=== PATIENT | female | born 1995 | race Two or more races ===

== ENCOUNTER 2023-02-06 19:27 | Outpatient (REF) | payer BC, SELFPAY ==
[2023-02-13 17:10] LABS: Age Gdln ACOG Testing Note (.); IGP, rfx Aptima HPV ASCU Note (.)
== END 2023-02-06 19:28 | disposition home or self-care (01) ==
LOC: LAB 19:27
PROVIDERS: Visit Provider Obstetrics & Gynecology
DX: Z01.419 Encounter for gynecological examination (general) (routine) without abnormal findings (principal)
CPT/HCPCS: G0145

== ENCOUNTER 2024-02-10 18:26 | Outpatient (REF) | payer OTHER, SELFPAY ==
--- OUTSIDE RECORDS SUMMARY | 2024-02-10 18:37 | XMS_ITS | CCD ---
Author Organization [facility] Care Team Providers Care Senior Ux Developer Name Role Phone PHANI ., DR CURRIE Attending Unavailable PHANI ., DR CURRIE Admitting Unavailable PHANI ., DR CURRIE Consulting Unavailable ZIEBER, DR KORIN Heath Consulting Unavailable FIONA ., AMANDA Attending Unavailable FIONA ., AMANDA Admitting Unavailable ZIEBER, DR KORIN Heath Consulting Unavailable PHANI ., DR CURRIE Primary Care Unavailable FIONA ., AMANDA Consulting Unavailable FARHAT WHITING Admitting Unavailable FARHAT WHITING Consulting Unavailable FARHAT WHITING Attending Unavailable PHANI ., DR CURRIE Primary Care Unavailable PHANI ., DR CURRIE Consulting Unavailable PHANI ., DR CURRIE Admitting Unavailable PHANI ., DR CURRIE Primary Care Unavailable PHANI ., DR CURRIE Attending Unavailable ZIEBER, DR KORIN Heath Consulting Unavailable PHANI ., DR CURRIE Consulting Unavailable PHANI ., DR CURRIE Admitting Unavailable PHANI ., DR CURRIE Primary Care Unavailable PHANI ., DR CURRIE Attending Unavailable ZIEBER, DR KORIN Heath Consulting Unavailable KARASIK ., DR NUNN Consulting Unavailabl e PHANI ., DR CURRIE Attending Unavailable PHANI ., DR CURRIE Admitting Unavailable PHANI ., DR CURRIE Primary Care Unavailable PHANI ., DR CURRIE Consulting Unavailable TAMARA, CHINEDU CMonserrat Consulting Unavailable PHANI ., DR CURRIE Procedure Practitioner Unavail able ARNULFO STALEY Consulting Unavailable PHANI ., DR CURRIE Attending Unavailable PHANI ., DR CURRIE Admitting Unavailable PHANI ., DR CURRIE Consulting Unavailable PHANI ., DR CURRIE Consulting Unavailable PHANI ., DR CURRIE Attending Unavailable PHANI ., DR CURRIE Admitting Unavailable PHANI ., DR CURRIE Primary Care Unavailable PHANI ., DR CURRIE Consulting Unavailable PHANI ., DR CURRIE Admitting Unavailable PHANI ., DR CURRIE Attending Unavailable PHANI ., DR CURRIE Attending Unavailable PHANI ., DR CURRIE Admitting Unavailable PHANI ., DR CURRIE Consulting Unavailable PHANI ., DR CURRIE Attending Unavailable PHANI ., DR CURRIE Admitting Unavailable PHANI ., DR CURRIE Consulting Unavailable PHANI ., DR CURRIE Admitting Unavailable PHANI ., DR CURRIE Attending Unavailable [place], DR AMANDA Jones Consulting Unavailable PHANI ., DR CURRIE Consulting Unavailable PHANI ., DR CURRIE Attending Unavailable PHANI ., DR CURRIE Admitting Unavailable PHANI ., DR CURRIE Consulting Unavailable PHANI ., DR CURRIE Primary Care Unavailable ZIEBER, DR KORIN Heath Consulting Unavailable PHANI ., DR CURRIE Consulting Unavailable PHANI ., DR CURRIE Attending Unavailable PHANI ., DR CURRIE Admitting Unavailable PHANI ., DR CURRIE Primary Care Unavailable ZIEBER, DR KORIN Heath Consulting Unavailable KARASIK ., DR NUNN Attending Unavailabl e KARASIK ., DR NUNN Admitting Unavailabl e KARASIK ., DR NUNN Consulting Unavailabl e PHANI ., DR CURRIE Primary Care Unavailable PHANI ., DR CURRIE Admitting Unavailable PHANI ., DR CURRIE Consulting Unavailable PHANI ., DR CURRIE Attending Unavailable PHANI ., DR CURRIE Primary Care Unavailable ZIEBER, DR KORIN Heath Consulting Unavailable PHANI ., DR CURRIE Consulting Unavailable PHANI ., DR CURRIE Admitting Unavailable PHANI ., DR CURRIE Attending Unavailable PHANI ., DR CURRIE Primary Care Unavailable PHANI ., DR CURRIE Consulting Unavailable PHANI ., DR CURRIE Admitting Unavailable PHANI ., DR CURRIE Attending Unavailable PHANI ., DR CURRIE Primary Care Unavailable NONE, XXXX Primary Care Physician Unavailab Emilee White Unavailable Unavailable DoDO Miroslava bardales Attending Unavailable DoDO Miroslava bardales Attending Unavailable Unavailable Primary Care Provider Unavailabl e PROVIDER, UNKNOWN Admitting Unavailable JAS GARCIAS Attending Unavailable JORGE BROWN Primary Care Physician CHADD SCHULTE Attending Unavailable BROWN, JORGE J Attending Unavailable JORGE BROWN Attending Unavailable JORGE BROWN Attending Unavailable Jimmy Morgan Attending Unavailable JORGE BROWN Referring Unavailable JORGE BROWN Attending Unavailable JORGE BROWN Admitting Unavailable Jimmy Morgan Referring Unavailable Jimmy Morgan Attending Unavailable Jimmy Morgan Admitting Unavailable Jorge Brown NP Unavailable Tawny Gu MD Primary Care Provider Medications Current Medications Medication Drug Class(es) Dates Sig (Normalized) Sig (Original) acetaminophen 500 mg oral tablet (3 sources) Start: 03-23-2023 take 2 tablets by mouth every six hours acetaminophen (TYLENOL) 500 MG tablet Take 2 Tablets by mouth every 6 (six) hours. 30 Tablet 03/23/2023 Active Start: 03-23-2023 take 1000 mg by mout h every six hours 1,000 mg, Oral, Every 6 hours, First dose on 03/23/23 at 1400, Until Discontinued, Post-op acetaminophen 325 mg / HYDROcodone bitartrate 5 mg oral tablet (4 sources) Opioid Agonist Start: 06-05-2017 take 1 tablet by mouth every four hours acetaminophen-hydrocodone 325 mg-5 mg oral tablet 1 tab(s), Oral, q4hr, 7 tab(s), Refill(s) 0, PRN moderate pain. May increase falls. Don't drink, drive, work on this med. Don't take with tylenol, benzos, muscle relaxants. ICD-10 R52 Start Date: 06/05/17 Status: Ordered 0.6 ml enoxaparin sodium 100 mg/ml prefilled syringe (2 sources) Low Molecular Weight Heparin Start: 03-21-2023 enoxaparin (LOVENOX) 60 MG/0.6ML injection 60 mg Start: 03-20-2023 End: 03-21-2023 enoxaparin (LOVENOX) 40 MG/0 .4ML injection 40 mg ibuprofen 600 mg oral tablet (3 sources) Nonsteroidal Anti-inflammatory Drug Start: 03-23-2023 take 1 tablet by mouth every six hours ibuprofen (MOTRIN) 600 MG tablet Take 1 Tablet by mouth every 6 (six) hours. 30 Tablet 3 03/23/2023 Active metFORMIN (4 sources) Biguanide Start: 06-05-2017 metformin Oral, Refills(s) 0 Start Date: 06/05/17 Status: Ordered 1 ml naloxone hydrochloride 0.4 mg/ml injection (1 source) Opioid Antagonist Start: 03-22-2023 naloxone (NARCAN) 0.4 MG/ML injection 2 ml ondansetron 2 mg/ml injection (2 sources) Serotonin-3 Receptor Antagonist Start: 03-21-2023 End: 03-22-2023 ondansetron (ZOFRAN) 4 MG/2ML injection oxyCODONE hydrochloride 5 mg oral tablet (2 sources) Opioid Agonist Start: 03-23-2023 End: 03-26-2023 take 1 tablet by mouth every four hours as needed oxyCODONE 5 MG immediate release tablet Indications: Acute post-operative pain Take 1 Tablet by mouth every 4 hours as needed for up to 3 days. 12 Tablet 0 03/23/2023 03/26/2023 Active Start: 03-22-2023 oxyCODONE imme diate release tablet polyethylene glycol 3350 32396 mg powder for oral solution (1 source) Osmotic Laxative Start: 03-22-2023 polyethylene glycol (MIRALAX) 17 g packet sennosides, fdc 8.6 mg oral tablet (4 sources) Start: 03-23-2023 End: 03-29-2023 take 1 tablet by mouth at bedtime senna (SENOKOT) 8.6 MG tablet Take 1 Tablet by mouth at bedtime for 5 days. 5 Tablet 03/23/2023 Active Start: 03-20-2023 End: 03-22-2023 senna (SENOKOT) tablet sertraline 25 mg oral tablet (7 sources) Serotonin Reuptake Inhibitor Start: 08-28-2023 End: 02-24-2024 take 1 tablet by mouth once daily sertraline (Zoloft) 25 MG tablet Indications: Anxiety , Panic attacks (CMS/HCC) , Major depressive disorder in partial remission, unspecified whether recurrent (HCC) (CMS/HCC) Take 1 tablet (25 mg) by mouth Daily 90 tablet 1 08/28/2023 02/24/2024 Active Start: 02-27-2023 End: 07-15-2024 take 1 tablet by mouth once daily sertraline (ZOLOFT) 25 MG tablet Take 25 mg by mouth daily. 02/27/2023 08/26/2023 Active Completed/Discontinued Medications Medication Drug Class(es) Dates Sig (Normalized) Sig (Original) calcium chloride 0.0014 meq/ml / potassium chloride 0.004 meq/ml / sodium chloride 0.103 meq/ml / sodium lactate 0.028 meq/ml injectable solution (2 sources) Start: 03-20-2023 End: 03-23-2023 lactated ringers iv infusion 1 ml HYDROmorphone hydrochloride 1 mg/ml cartridge (2 sources) Opioid Agonist Start: 03-22-2023 End: 03-23-2023 HYDROmorphone (DILAUDID) 1 mg/mL injection Start: 03-20-2023 End: 03-22-2023 HYDROmorphone (DILAUDID) 0.2 MG/ML injection 0.2 mg 1 ml morphine sulfate 4 mg/ml cartridge (1 source) Opioid Agonist Start: 03-20-2023 End: 03-20-2023 morphine sulfate 4 MG/ML injection prochlorperazine 5 mg/ml injectable solution (1 source) Phenothiazine Start: 03-20-2023 End: 03-20-2023 prochlorperazine (COMPAZINE) 10 MG/2ML injection Problems Active Problems Problem Classification Problem Date Documented Date Episodic/Chronic distress and abnormal forces of labor (1 source) Abnormality of forces of labor, unspecified; Translations: [ABNORMALITY FORCES LABOR UNS] Onset: 06-06-2022 Episodic Menstrual disorders (4 sources) Irregular menstruation, unspecified; Translations: [IRREGULAR MENSTRUATION UNSPECIFIED] Onset: 10-25-2021 Chronic Nonspecific chest pain (1 source) Chest pain; Translations: [Chest pain, unspecified] Onset: 09-21-2022 Episodic Other complications of ; puerperium affecting management of mother (1 source) Obesity complicating childbirth; Translations: [OBESITY COMPLICATING CHILDBIRTH] Onset: 06-06-2022 Chronic Other complications of (4 sources) Uterine size-date discrepancy, third trimester; Translations: [UTERINE SZ-DATE DISCREPANCY 3RD TRI] Onset: 04-21-2022 Episodic Other complications of (4 sources) Maternal care for excessive growth, third trimester, not applicable or unspecified; Translations: [MAT CARE EXCSS FTL GRTH 3RD TRI UNS] Onset: 05-11-2022 Episodic Other endocrine disorders (4 sources) Other hypoglycemia; Translations: [OTHER HYPOGLYCEMIA] Onset: 12-01-2021 Chronic Other endocrine disorders (3 sources) Hyperinsulinism; Translations: [Other hypoglycemia] Onset: 10-12-2022 10-12-2022 Chronic Other inflammatory condition of skin (9 sources) Psoriasis; Translations: [Psoriasis, unspecified] Onset: 11-12-2022 04-24-2013 Chronic Other lower respiratory disease (1 source) Dyspnea; Translations: [Shortness of breath] Onset: 09-21-2022 Episodic Other nervous system disorders (1 source) Acute postoperative pain; Translations: [Other acute postprocedural pain] 03-23-2023 Episodic Other and delivery including normal (10 sources) Single live ; Translations: [Encounter for supervision of normal first , first trimester] Onset: 10-11-2021 Episodic Other screening for suspected conditions (not mental disorders or infectious disease) (20 sources) Encounter for screening for Streptococcus B; Translations: [Encounter for other screening follow-up] Onset: 10-29-2021 Episodic Residual codes; unclassified (3 sources) Obstructive sleep apnea syndrome; Translations: [Obstructive sleep apnea (adult) (pediatric)] Onset: 09-30-2023 Chronic Residual codes; unclassified (1 source) 39 weeks gestation of ; Translations: [39 WEEKS GESTATION OF ] Onset: 06-06-2022 Episodic Residual codes; unclassified (1 source) 38 weeks gestation of ; Translations: [38 WEEKS GESTATION OF ] Onset: 05-11-2022 Episodic Residual codes; unclassified (1 source) 37 weeks gestation of ; Translations: [37 WEEKS GESTATION OF ] Onset: 05-05-2022 Episodic Residual codes; unclassified (1 source) 36 weeks gestation of ; Translations: [36 WEEKS GESTATION OF ] Onset: 04-21-2022 Episodic Unclassified (3 sources) Patient on antidepressant monitoring plan Onset: 08-28-2023 08-28-2023 Unclassified (3 sources) Baseline PHQ-9 Onset: 08-28-2023 08-28-2023 Past or Other Problems Problem Classification Problem Date Documented Date Episodic/Chronic Abdominal pain (3 sources) Acute abdominal pain; Translations: [Right upper quadrant pain] Onset: 03-21-2023 03-22-2023 Episodic Biliary tract disease (4 sources) Common bile duct calculus; Translations: [Calculus of bile duct without cholangitis or cholecystitis without obstruction] Onset: 03-21-2023 03-23-2023 Episodic Hemorrhage during ; abruptio placenta; placenta previa (4 sources) Low lying placenta NOS or without hemorrhage, second trimester; Translations: [LOW LYING PL NOS W/O HEMORR 2ND TRI] Onset: 01-24-2022 Episodic Immunizations and screening for infectious disease (2 sources) Encounter for screening for human papillomavirus (HPV); Translations: [Contact with and (suspected) exposure to infections with a predominantly sexual mode of transmission] Onset: 10-29-2021 Episodic Other complications of (3 sources) size does not accord with dates; Translations: [Uterine size-date discrepancy, third trimester] Onset: 10-12-2022 10-12-2022 Episodic Other female genital disorders (1 source) Other specified noninflammatory disorders of vagina; Translations: [OTH SPEC NONINFLAMMATORY D/O VAGINA] Onset: 02-07-2022 Episodic Other female genital disorders (3 sources) Vaginal discharge; Translations: [Other specified noninflammatory disorders of vagina] Onset: 10-12-2022 10-12-2022 Episodic Pancreatic disorders (not diabetes) (4 sources) Gallstone pancreatitis; Translations: [Biliary acute pancreatitis without necrosis or infection] Onset: 03-20-2023 03-23-2023 Episodic Residual codes; unclassified (1 source) 30 weeks gestation of ; Translations: [30 WEEKS GESTATION OF ] Onset: 03-12-2022 Episodic Residual codes; unclassified (1 source) 8 weeks gestation of ; Translations: [8 WEEKS GESTATION OF ] Onset: 10-11-2021 Episodic Results Test Name Value Interpretation Reference Range Facility Pulmonology Office/Clinic Angelika henry 09-30-2023 Pulmonology Office/Clinic Note Pulmonology Office/Clinic Note History of Present Illness Here to establish care for obstructive sleep apnea. The patient reports that she was told by her that she snores at night and occasionally stops breathing. She reports her sleep quality is quite poor as she tosses and turns frequently throughout the night and wakes up in the morning feeling that her sleep is not refreshing. She has significant fatigue throughout the day as well. Her weight has been stable. Review of Systems Constitutional: no fever, no chills, no sweats, no weakness Skin: no Jaundice, no rash, no lesions, no petechiae ENT: no ear pain, no sore throat, no congestion, no hoarseness Respiratory: Denies shortness of breath, cough or wheezing Cardiovascular: no chest pain, no palpitations, no edema Gastrointestinal: no nausea, no vomiting, no diarrhea, no GI bleeding Genitourinary: no dysuria, no hematuria, no discharge, no pain Musculoskeletal: no back pain, no trauma Neurologic: no headache, no dizziness, no numbness, no weakness Psychiatric: no irritability, no mood swings/depression. Heme/Lymph: no bleeding tendency, no bruising tendency, no petechiae, no swollen nodes Allergy/Immunologic: no seasonal allergies, no food allergies, no recurrent infections, no impaired immunity Additional ROS info: Except as noted in the above Review of Systems and in the History of Present Illness all other systems have been reviewed and are negative or noncontributory. Physical Exam General: Awake, alert, in no acute distress Skin: warm, dry Head: no trauma, normocephalic. Prolonged soft palate Neck: Trachea midline, no adenopathy, no tenderness Eye: normal conjunctiva, sclera clear ENMT: TM's clear, oral mucosa moist, no pharyngeal erythema or exudate Cardiovascular: regular rate and rhythm, normal peripheral perfusion Respiratory: Good breath sounds to both lung lenzt without wheezing or crackles. Gastrointestinal: soft, non distended, no tenderness, no guarding. Back: No tenderness, Normal ROM, Normal alignment. Extremities: no deformity, no trauma Neurological: oriented x 4, LOC appropriate for age, CN II-XII intact, motor strength equal & normal bilaterally, sensation equal & normal bilaterally, speech normal Psychiatric: cooperative, affect appropriate for age, normal judgement, normal psychiatric thoughts. Assessment/Plan 1. CHRIS (obstructive sleep apnea) (G47.33: Obstructive sleep apnea (adult) (pediatric)) Highly likely given the patient's symptoms, physical examination and risk factors. The etiology of obstructive sleep apnea and methods of diagnoses and treatment were discussed with the patient in details. The patient is agreeable to testing and treatment if clinically indicated. I will arrange for sleep study and see her back after her testing is completed. She will call me back in the meantime if any issues. Ordered: Sleep Study Baseline Follow-up With When Contact Information Cathy WOODARD, Jimmy Crocker, PUL, DEREJE [address] [facility] [place] [address]- Additional Instructions: after his testing is completed Problem List/Past Medical History Ongoing CHRIS (obstructive sleep apnea) Psoriasis Historical No qualifying data Medications acetaminophen-hydrocod one 325 mg-5 mg oral tablet, 1 tab(s), Oral, q4hr metformin, Oral Allergies No Known Allergies Social History Alcohol - Denies Alcohol Use, 04/11/2015 Substance Abuse - Denies Substance Abuse, 04/11/2015 Tobacco - Denies Tobacco Use, 08/03/2010 Normal [facility] CHEMISTRYOrdered By: SYSTEM SYSTEM on 08-21-2023 Albumin [Mass/Vol] 4.0 g/dL Normal 3.3 - 5.0 gm/dL Remisol Chem Albumin/Globulin [Mass ratio] 1.4 {ratio} Normal 1.1 - 2.2 Remisol Chem ALP [Catalytic activity/Vol] 70 [iU]/d Normal 21 - 98 Int._Unit/L Remisol Chem ALT No additional P-5'-P [Catalytic activity/Vol] 11 [iU]/d Normal 6 - 46 Int._Unit/L Remisol Chem Anion gap [Moles/Vol] 9 mmol/L Normal 6 - 16 mEq/L R emisol Chem AST [Catalytic activity/Vol] 12 [iU]/d Normal 5 - 43 Int._Unit/L Remisol Chem Bilirubin [Mass/Vol] 0.3 mg/dL Normal 0.0 - 1 .1 mg/dL Remisol Chem Calcium [Mass/Vol] 9.3 mg/dL Normal 8.9 - 11. 1 mg/dL Remisol Chem Chloride [Moles/Vol] 108 mmol/L Normal 101 - 1 11 mmol/L Remisol Chem CO2 [Moles/Vol] 26 mmol/L Normal 21 - 31 mmol/L Remisol Chem Creatinine [Mass/Vol] 0.7 mg/dL Normal 0.5 - 1.3 mg/dL Remisol Chem CRP [Mass/Vol] 0.8 mg/dL Normal <=1.9mg/dL Remisol Ch em eGFR 121 mL/min/1.73 m2 Normal >=59mL/mi n/1 .73 m2 Remisol Chem Globulin (S) [Mass/Vol] 2.8 g/dL Normal 1.4 - 4.0 gm/dL Remisol Chem Glucose [Mass/Vol] 82 mg/dL Normal 55 - 199 mg/dL Remisol Chem Potassium [Moles/Vol] 4.1 mmol/L Normal 3.5 - 5.3 mmol/L Remisol Chem Protein [Mass/Vol] 6.8 g/dL Normal 6.0 - 7.8 gm/dL Remisol Chem Sodium [Moles/Vol] 139 mmol/L Normal 135 - 145 mmol/L Remisol Chem Urea nitrogen [Mass/Vol] 8 mg/dL Normal 5 - 21 mg/dL Remisol Chem Urea nitrogen/Creatinine [Mass ratio] 11 mg/mg Normal 10 - 20 Remisol Chem CMPon 08-21-2023 Albumin [Mass/Vol] 4.0 g/dL Normal 3.3-5.0 [facility] Comment on above: Performed By: #### 2 [id number] #### [facility] [address] [place] [address] Albumin/Globulin (S) [Mass conc ratio] 1.4 Normal 1.1-2.2 [facility] Comment on above: Performed By: #### 2 [id number] #### [facility] [address] [place] [address] ALP [Catalytic activity/Vol] 70 Int._Unit/L Normal 21-98 [facility] Comment on above: Performed By: #### 2 [id number] #### [facility] [address] [place] [address] ALT No additional P-5'-P [Catalytic activity/Vol] 11 Int._Unit/L Normal 6-46 [facility] Comment on above: Performed By: #### 2 [id number] #### [facility] [address] [place] [address] Anion gap [Moles/Vol] 9 mmol/L Normal 6-16 [facility] Comment on above: Performed By: #### 2 [id number] #### [facility] [address] [place] [address] AST [Catalytic activity/Vol] 12 Int._Unit/L Normal 5-43 [facility] Comment on above: Performed By: #### 2 [id number] #### [facility] [address] [place] [address] Bilirubin [Mass/Vol] 0.3 mg/dL Normal 0.0-1.1 [facility] Comment on above: Performed By: #### 2 [id number] #### [facility] [address] [place] [address] Calcium [Mass/Vol] 9.3 mg/dL Normal 8.9-11.1 [facility] Comment on above: Performed By: #### 2 [id number] #### [facility] [address] [place] [address] Chloride [Moles/Vol] 108 mmol/L Normal 101-111 [facility] Comment on above: Performed By: #### 2 [id number] #### [facility] [address] [place] [address] CO2 [Moles/Vol] 26 mmol/L Normal 21-31 [facility] Comment on above: Performed By: #### 2 [id number] #### [facility] [address] [place] [address] Creatinine [Mass/Vol] 0.7 mg/dL Normal 0.5-1.3 [facility] Comment on above: Performed By: #### 2 [id number] #### [facility] [address] [place] [address] Globulin (S) [Mass/Vol] 2.8 g/dL Normal 1.4-4.0 [facility] Comment on above: Performed By: #### 2 [id number] #### [facility] [address] [place] [address] Glucose [Mass/Vol] 82 mg/dL Normal 55-199 [facility] Comment on above: Performed By: #### 2 [id number] #### [facility] [address] [place] [address] Potassium [Moles/Vol] 4.1 mmol/L Normal 3.5-5.3 [facility] Comment on above: Performed By: #### 2 [id number] #### [facility] [address] [place] [address] Protein [Mass/Vol] 6.8 g/dL Normal 6.0-7.8 [facility] Comment on above: Performed By: #### 2 [id number] #### [facility] [address] [place] [address] Sodium [Moles/Vol] 139 mmol/L Normal 135-145 [facility] Comment on above: Performed By: #### 2 [id number] #### [facility] [address] [place] [address] Urea nitrogen [Mass/Vol] 8 mg/dL Normal 5-21 [facility] Comment on above: Performed By: #### 2 [id number] #### [facility] [address] [place] [address] Urea nitrogen/Creatinine [Mass ratio] 11 No Units Normal 10-20 [facility] Comment on above: Performed By: #### 2 [id number] #### [facility] [address] [place] [address] CRPon 08-21-2023 CRP [Mass/Vol] 0.8 mg/dL Normal <=1.9 [facility] Comment on above: Performed By: #### 2 [id number] #### [facility] [address] [place] [address] eGFRon 08-21-2023 eGFR 121 mL/min/1.73 m2 Normal >=59 [facility] Comment on above: Order Comment: Order added by Discern Expert. Performed By: #### 1 [id number] #### [facility] [address] [place] [address] Telephone Encounteron 2023 Hydrostatic Tester Authentication Interface Message Text Situation: pt called in Background: pt called in requesting a return to work letter Assessment: Recommendation: please contact pt with any questions at Phone numbers Thank you Normal [facility] BASIC METABOLIC PANELon 03-14 Anion gap [Moles/Vol] 16 mmol/L Normal 10-20 [facility] Comment on above: Performed By: #### C BC #### [facility] [address] [place] [address], Calcium [Mass/Vol] 8.8 mg/dL Normal 8.6-10.3 [facility] Comment on above: Result Comment: Note updated reference ranges. Performed By: #### C BC #### [facility] [address] [place] [address], Chloride [Moles/Vol] 110 mmol/L High 98-107 [facility] Comment on above: Result Comment: Note updated reference ranges. Performed By: #### C BC #### [facility] [address] [place] [address], CO2 [Moles/Vol] 20 mmol/L Low 21-31 [facility] Comment on above: Result Comment: Note updated reference ranges. Performed By: #### C BC #### [facility] [address] [place] [address], Creatinine [Mass/Vol] 0.45 mg/dL Low 0.60-1.20 [facility] Comment on above: Result Comment: Note updated reference ranges. Performed By: #### C BC #### [facility] [address] [place] [address], ESTIMATED GFR (CKD-EPI) 136 mL/min/1.73sqm Normal >=60 [facility] Comment on above: Result Comment: 2020 CKD EPI Equation using Creatinine without Race Comment: Estimated glomerular filtration rate (eGFR) is calculated without a race coefficient. Values should be interpreted in the context of the patient's full clinical presentation. Reference: 1. Blas C, Guille M, Adelaide DC, et al.. A Unifying Approach for GFR Estimation: Recommendations of the NKF-ASN Task Force on Reassessing the Inclusion of Race in Diagnosing Kidney Disease. [place] Journal of Kidney Diseases 2021;79(2):268-88.e1. 2. N Engl J Med 1 Vol. 385 Issue 19 Pages 1523-1596 Performed By: #### C BC #### [facility] [address], [place], Glucose [Mass/Vol] 111 mg/dL High 74-109 [facility] Comment on above: Performed By: #### C BC #### [facility] [address], [place], Potassium [Moles/Vol] 4.2 mmol/L Normal 3.5-5.0 [facility] Comment on above: Result Comment: Note updated reference ranges. Note updated reference ranges. Performed By: #### C BC #### [facility] [address], [place], Sodium [Moles/Vol] 142 mmol/L Normal 136-145 [facility] Comment on above: Result Comment: Note updated reference ranges. Performed By: #### C BC #### [facility] [address], [place], Urea nitrogen [Mass/Vol] 8 mg/dL Normal 7-25 [facility] Comment on above: Result Comment: Note updated reference ranges. Performed By: #### C BC #### [facility] [address], [place], Basic metabolic 2000 panelon 03-24-2023 Anion gap [Moles/Vol] 16 mmol/L 10 - 20 [facility] Calcium [Mass/Vol] 8.8 mg/dL 8.6 - 10. 3 mg/dL [facility] Comment on above: Note updated referen ce ranges. Chloride [Moles/Vol] 110 mmol/L High 98 - 10 7 mmol/L [facility] Comment on above: Note updated referen ce ranges. CO2 [Moles/Vol] 20 mmol/L Low 21 - 31 mmol/L [facility] Comment on above: Note updated referen ce ranges. Creatinine [Mass/Vol] 0.45 mg/dL Low 0.60 - 1.20 mg/dL [facility] Comment on above: Note updated referen ce ranges. GFR/1.73 sq M.predicted CKD-EPI (S/P/Bld) [Vol rate/Area] 136 - PINF [facility] Comment on above: 2020 CKD EPI Equatio n using Creatinine without Race Comment: Estimated glomerular filtration rate (eGFR) is calculated without a race coefficient. Values should be interpreted in the context of the patient's full clinical presentation. Reference: 1. Blas C, Guille M, Adelaide GUZMÁN, et al.. A Unifying Approach for GFR Estimation: Recommendations of the NKF-ASN Task Force on Reassessing the Inclusion of Race in Diagnosing Kidney Disease. [place] Journal of Kidney Diseases 202;79(2):268-88.e1. 2. N Engl J Med 1 Vol. 385 Issue 19 Pages 4105-1169 Glucose [Mass/Vol] 111 mg/dL High 74 - 109 mg/dL [facility] Interpretation and review of laboratory results Abnormal [facility] Potassium [Moles/Vol] 4.2 mmol/L 3.5 - 5.0 mmol/L [facility] Comment on above: Note updated referen ce ranges. Note updated reference ranges. Sodium [Moles/Vol] 142 mmol/L 136 - 145 mmol/L [facility] Comment on above: Note updated referen ce ranges. Urea nitrogen [Mass/Vol] 8 mg/dL 7 - 25 mg/dL [facility] Comment on above: Note updated referen ce ranges. CBC panel Auto (Bld)on 03-24 Erythrocyte distribution width (RBC) [Ratio] 15.3 % High 11.5 - 14.5 % [facility] Hematocrit (Bld) [Volume fraction] 35.1 % Low 36.0 - 46.0 % [facility] Hemoglobin (Bld) [Mass/Vol] 11.3 g/dL Low 12.0 - 15.0 g/dL [facility] Interpretation and review of laboratory results Abnormal [facility] MCH (RBC) [Entitic mass] 27.1 pg 26.0 - 34.0 pg [facility] MCHC (RBC) [Mass/Vol] 32.2 g/dL 32.0 - 35.9 g/dL [facility] MCV (RBC) [Entitic vol] 84 fL 80 - 100 fL [facility] Platelet mean volume (Bld) [Entitic vol] 8.8 fL 7.5 - 11.2 fL [facility] Platelets (Bld) [#/Vol] 280 10*3/uL 150 - 400 K/uL [facility] RBC (Bld) [#/Vol] 4.17 10*6/uL [facility] WBC (Bld) [#/Vol] 13.2 10*3/uL High 4.5 - 11.5 K/uL [facility] COMPLETE BLOOD COUNTon 03-24 Erythrocyte distribution width (RBC) [Ratio] 15.3 % High 11.5-14.5 [facility] Comment on above: Performed By: #### C BC #### [facility] [address] [place] [address], Hematocrit (Bld) [Volume fraction] 35.1 % Low 36.0-46.0 [facility] Comment on above: Performed By: #### C BC #### [facility] [address] [place] [address], Hemoglobin (Bld) [Mass/Vol] 11.3 g/dL Low 12.0-15.0 [facility] Comment on above: Performed By: #### C BC #### [facility] [address] [place] [address], MCH (RBC) [Entitic mass] 27.1 pg Normal 26.0-34.0 [facility] Comment on above: Performed By: #### C BC #### [facility] [address] [place] [address], MCHC (RBC) [Mass/Vol] 32.2 g/dL Normal 32.0-35.9 [facility] Comment on above: Performed By: #### C BC #### [facility] [address] [place] [address], MCV (RBC) [Entitic vol] 84 fL Normal 80-100 [facility] Comment on above: Performed By: #### C BC #### [facility] [address] [place] [address], Platelet mean volume (Bld) [Entitic vol] 8.8 fL Normal 7.5-11.2 [facility] Comment on above: Performed By: #### C BC #### [facility] [address], [place], Platelets (Bld) [#/Vol] 280 10*3/uL Normal 150-400 [facility] Comment on above: Performed By: #### C BC #### [facility] [address], [place], RBC (Bld) [#/Vol] 4.17 10*6/uL Normal 4.00-5.20 [facility] Comment on above: Performed By: #### C BC #### [facility] [address], [place], WBC (Bld) [#/Vol] 13.2 10*3/uL High 4.5-11.5 [facility] Comment on above: Performed By: #### C BC #### [facility] [address], [place], Care Plan Noteon 03-24-2023 Hydrostatic Tester Authentication Interface Message Text Problem: Routine Care: Goal: Patient care will be managed and maintained throughout hospital stay per unit specific routine care procedure Outcome: Progressing Problem: Acute Pain: Goal: Ability to identify pain intensity on a pain scale and rate it consistently will be achieved and maintained Outcome: Progressing Goal: Understanding of proper administration and use of medicines will be achieved Outcome: Progressing Goal: Acceptable level of pain which allows the patient to achieve functional outcome goals Outcome: Progressing PRN pain medication to be administered as needed to maintain/control pain Problem: Altered Elimination: Goal: Establishment of normal urinary function will be acheived and maintained Outcome: Progressing Problem: Altered Nutrition: Goal: Achieve developmentally appropriate nutritional intake as clinically indicated Outcome: Progressing Problem: Risk for Infection: Goal: Risk for infection will be reduced Outcome: Progressing Problem: Impaired Skin Integrity: Goal: Acheive wound healing without signs and symptoms of infection Outcome: Progressing Problem: VTE Prophylaxis: Goal: Will be free of DVT Outcome: Progressing Problem: Safety: Goal: Patient will remain free of falls during hospital stay Outcome: Progressing Goal: Free from injury during hospitalization Outcome: Progressing Patient has call light within reach, educated on use of call light, and has side rails in place Normal [facility] MAGNESIUMon 03-24-2023 Magnesium [Mass/Vol] 2.1 mg/dL Normal 1.9-2.7 [facility] Comment on above: Result Comment: Note updated reference ranges. Performed By: #### C BC #### [facility] [address], [place], Interpretation and review of laboratory results Normal [facility] Magnesium [Mass/Vol] 2.1 mg/dL 1.9 - 2 .7 mg/dL [facility] Comment on above: Note updated referen ce ranges. No Panel Informationon 03-24 [facility] ANTI FXA-LMW HEPARINon 03-23 ANTI FXA-LMW HEPARIN ASSAY 0.37 IU/mL Normal [facility] Comment on above: Order Comment: The r ecommended therapeutic range for treatment of thrombosis with Low Molecular Weight Heparin is 0.5 - 1.0 IU/mLThe recommended range for VTE prophylaxis with Low Molecular Weight Heparin is 0.2 - 0.4 IU/mL. Performed By: #### A XL ####[facility] [id number] [place], [place], LMW Heparin Chromogenic method Qn (PPP) 0.37 IU/mL [facility] The recommended therapeutic range for treatment of thrombosis with Low Molecular Weight Heparin is 0.5 - 1.0 IU/mL The recommended range for VTE prophylaxis with Low Molecular Weight Heparin is 0.2 - 0.4 IU/mL. [facility] Anesthesia Postprocedure Barbra luationon 03-23-2023 Hydrostatic Tester Authentication Interface Message Text Anesthesia Postoperative Assessment: Vital Signs (most recent): BP 135/89 (BP Location: right arm) Pulse 108 Temp 36.8 ???C (98.2 ???F) (Oral) Resp 16 Ht 5' 7 (1.702 m) Wt 270 lb (122.5 kg) LMP 03/06/2023 SpO2 95% BMI 42.29 kg/m??? Anesthesia Post Evaluation Level of consciousness: awake Post-procedure exam normal. Body temperature, hydration status, PONV and pain evaluated and addressed. Pain management: adequate Hydration status: normal PONV:No nausea/vomiting reported Cardiopulmonary status stable Respiratory status: acceptable Cardiovascular status: acceptable ANESTHESIA NOTABLE EVENTS: No notable events documented. Normal [facility] Anesthesia Transfer Of [facility] n 03-23-2023 Hydrostatic Tester Authentication Interface Message Text Patient taken to PACU. Patient was drowsy, comfortable, and stable on arrival. Anesthesia Transfer of Care Note Past Medical History: No past medical history on file. Sleep Apnea/Positive STOP-BANG: No Problem List: Patient Active Problem List: Gallstone pancreatitis [K85.10] Psoriasis [L40.9] Choledocholithiasis [K80.50] Acute bilateral upper abdominal pain [R10.11, R10.12] Past Surgical History: There is no previous surgical history on file. Allergies: Patient has no known allergies. Basic Operating Room Facts: Surgeon(s): Sean Andrews MD Anesthesiologist: Michelle Loaiza MD HOME CARE PHYSICAL THERAPIST: Jennifer Gauthier APRN-KALANI Methodologist: Félix Sahu MD LAPAROSCOPIC CHOLECYSTECTOMY, bilateral TAP block (Abdomen) Intraoperative Events: Hypertension ASA: 3 EBL: 5 mL Urine Not documented Lactated Ringers and NaCl 0.9%: Fluid Totals (Filter: LR and NaCl 0.9% Medications Shown) Medication Calculated Total Lactated Ringers 1,200 mL / 2 bags Cell Saver: Not documented Blood Volume Values: Blood Products None MTP Blood: MTP PRBC: Not documented MTP FFP: Not documented MTP PLT: Not documented MTP Cryo: Not documented MTP Whole Blood: Not documented Current Vasoactive Medications: {Vasoactive Medications: None Lines, Drains, Airways Peripheral IV Access: 03/20/23 1317 20 gauge Left Antecubital (Active) Site Assessment WNL;Dressing intact 03/22/231929 Infusion Status Port #1 Capped;Patent 03/22/231929 Peripheral IV Access: 03/21/23 0700 22 gauge Anterior;Left Hand Present on Transfer to Unit / Floor (Active) Site Assessment WNL;Dressing intact 03/22/231929 Infusion Status Port #1 Infusing;Patent 03/22/231929 Airway Insertion Details [REMOVED] Advanced Airway: ETT, Oral;Cuffed #7 (Removed) 03/23/23 0803 Pre-Oxygenation/ Induction: Mask Rapid Sequence Induction?: Mask Ventilation: Easy Blade Type: Hyperangulated Blade Size: 3 Visualization: Grade 1 Airway Type: ETT, Oral;Cuffed Airway Size: #7 Post Insertion Assessment: Confirmation: Equal bilateral breath sounds, CO2 confirmed # Attempts >1: Special Equipment: Glidescope Present on Admission?: Previously Removed / Not Present: Removal Reason: Not Removed at Discharge: Removed 03/23/2357 Location (cm) 03/23/23802 Measured from: Lips 03/23/23802 Secured via: Taped 03/23/23802 Site Assessment WNL 03/23/23802 All non-working IVs have been removed: N/A Laboratory Data: CBC (last 3 years, up to 5 values) WBC RBC Hgb Hct MCV RDW Plt 03/23/23 0122 12.6 4.37 11.9 36.5 84 14.9 298 03/22/23 0252 12.4 4.30 11.8 36.0 84 15.0 288 03/21/23 0046 9.1 4.84 13.1 40.4 84 15.5 292 03/20/23 1207 8.3 4.78 12.6 40.1 84 15.1 322 Basic Metabolic Panel Na K Cl CO2 Gap Glu BUN Cr Ca 03/23/23 0122 139 Comment: Note updated reference ranges. 3.9 Comment: Note updated reference ranges. Note updated reference ranges. 108 Comment: Note updated reference ranges. 20 Comment: Note updated reference ranges. 15 75 7 Comment: Note updated reference ranges. 0.49 Comment: Note updated reference ranges. 8.5 Comment: Note updated reference ranges. 03/22/23 0252 139 Comment: Note updated reference ranges. 4.2 Comment: Note updated reference ranges. Note updated reference ranges. 109 Comment: Note updated reference ranges. 18 Comment: Note updated reference ranges. 16 105 7 Comment: Note updated reference ranges. 0.52 Comment: Note updated reference ranges. 8.6 Comment: Note updated reference ranges. 03/21/23 0046 139 Comment: Note updated reference ranges. 3.8 Comment: Note updated reference ranges. Note updated reference ranges. 106 Comment: Note updated reference ranges. 22 Comment: Note updated reference ranges. 15 105 7 Comment: Note updated reference ranges. 0.59 Comment: Note updated reference ranges. 8.9 Comment: Note updated reference ranges. 03/20/23 1207 141 Comment: Note updated reference ranges. 3.9 Comment: Note updated reference ranges. Note updated reference ranges. 109 Comment: Note updated reference ranges. 23 Comment: Note updated reference ranges. 13 84 7 Comment: Note updated reference ranges. 0.66 Comment: Note updated reference ranges. 8.7 Comment: Note updated reference ranges. Basic Metabolic Panel Na K Cl CO2 Gap Glu BUN Cr Ca Mg PO4 03/23/23121 139 Comment: Note updated reference ranges. 3.9 Comment: Note updated reference ranges. Note updated reference ranges. 108 Comment: Note updated reference ranges. 20 Comment: Note updated reference ranges. 15 75 7 Comment: Note updated reference ranges. 0.49 Comment: Note updated reference ranges. 8.5 Comment: Note updated reference ranges. 03/23/23 012 1.8 Comment: Note updated reference ranges. 03/22/23 0252 139 Comment: Note update (more content not included)... Normal [facility] BASIC METABOLIC PANELon 03-14 Anion gap [Moles/Vol] 15 mmol/L Normal 10-20 [facility] Comment on above: Performed By: #### H MG LUIGI, CH8 #### [facility] [address] [place] [address], Calcium [Mass/Vol] 8.5 mg/dL Low 8.6-10.3 [facility] Comment on above: Result Comment: Note updated reference ranges. Performed By: #### MG IRON, CH8 #### [facility] [address] [place] [address], Chloride [Moles/Vol] 108 mmol/L High 98-107 [facility] Comment on above: Result Comment: Note updated reference ranges. Performed By: #### Collin MEYERS MG, CH8 #### [facility] [address] [place] [address], CO2 [Moles/Vol] 20 mmol/L Low 21-31 [facility] Comment on above: Result Comment: Note updated reference ranges. Performed By: #### H LUIGI MG, CH8 #### [facility] [address] [place] [address], Creatinine [Mass/Vol] 0.49 mg/dL Low 0.60-1.20 [facility] Comment on above: Result Comment: Note updated reference ranges. Performed By: #### H LUIGI MG, CH8 #### [facility] [address] [place] [address], ESTIMATED GFR (CKD-EPI) 133 mL/min/1.73sqm Normal >=60 [facility] Comment on above: Result Comment: 2020 CKD EPI Equation using Creatinine without Race Comment: Estimated glomerular filtration rate (eGFR) is calculated without a race coefficient. Values should be interpreted in the context of the patient's full clinical presentation. Reference: 1. Blas C, Guille M, Adelaide GUZMÁN, et al.. A Unifying Approach for GFR Estimation: Recommendations of the NKF-ASN Task Force on Reassessing the Inclusion of Race in Diagnosing Kidney Disease. [place] Journal of Kidney Diseases 2021;79(2):268-88.e1. 2. N Engl J Med 2020 Vol. 385 Issue 19 Pages 6491-4548 Performed By: #### MG IRON, CH8 #### [facility] [address] [place] [address], Glucose [Mass/Vol] 75 mg/dL Normal 74-109 [facility] Comment on above: Performed By: #### Collin MEYERS MG, CH8 #### [facility] [address] [place] [address], Potassium [Moles/Vol] 3.9 mmol/L Normal 3.5-5.0 [facility] Comment on above: Result Comment: Note updated reference ranges. Note updated reference ranges. Performed By: #### MG IRON, CH8 #### [facility] [address] [place] [address], Sodium [Moles/Vol] 139 mmol/L Normal 136-145 [facility] Comment on above: Result Comment: Note updated reference ranges. Performed By: #### MG IRON, CH8 #### [facility] [address] [place] [address], Urea nitrogen [Mass/Vol] 7 mg/dL Normal 7-25 [facility] Comment on above: Result Comment: Note updated reference ranges. Performed By: #### Collin MEYERS MG, CH8 #### [facility] [address] [place] [address], [id number] Basic metabolic 2000 panelon 03-23-2023 Anion gap [Moles/Vol] 15 mmol/L 10 - 20 [facility] Calcium [Mass/Vol] 8.5 mg/dL Low 8.6 - 10. 3 mg/dL [facility] Comment on above: Note updated referen ce ranges. Chloride [Moles/Vol] 108 mmol/L High 98 - 10 7 mmol/L [facility] Comment on above: Note updated referen ce ranges. CO2 [Moles/Vol] 20 mmol/L Low 21 - 31 mmol/L [facility] Comment on above: Note updated referen ce ranges. Creatinine [Mass/Vol] 0.49 mg/dL Low 0.60 - 1.20 mg/dL [facility] Comment on above: Note updated referen ce ranges. GFR/1.73 sq M.predicted CKD-EPI (S/P/Bld) [Vol rate/Area] 133 - PINF [facility] Comment on above: 2020 CKD EPI Equatio n using Creatinine without Race Comment: Estimated glomerular filtration rate (eGFR) is calculated without a race coefficient. Values should be interpreted in the context of the patient's full clinical presentation. Reference: 1. Blas C, Basilverja M, Crehilda DC, et al.. A Unifying Approach for GFR Estimation: Recommendations of the NKF-ASN Task Force on Reassessing the Inclusion of Race in Diagnosing Kidney Disease. [place] Journal of Kidney Diseases 202;79(2):268-88.e1. 2. N Engl J Med 1 Vol. 385 Issue 19 Pages 6021-7920 Glucose [Mass/Vol] 75 mg/dL 74 - 109 mg/dL [facility] Potassium [Moles/Vol] 3.9 mmol/L 3.5 - 5.0 mmol/L [facility] Comment on above: Note updated referen ce ranges. Note updated reference ranges. Sodium [Moles/Vol] 139 mmol/L 136 - 145 mmol/L [facility] Comment on above: Note updated referen ce ranges. Urea nitrogen [Mass/Vol] 7 mg/dL 7 - 25 mg/dL [facility] Comment on above: Note updated referen ce ranges. Brief Operative Noteon 03-23 Hydrostatic Tester Authentication Interface Message Text Brief Operative Note MAIN OR [address] 27 year old female Surgical Contact Serial Number: [id number] Preoperative Diagnosis: Pre-op Diagnosis * Gallstone pancreatitis [K85.10] * Choledocholithiasis [K80.50] Postoperative Diagnosis: * Gallstone pancreatitis [K85.10] * Choledocholithiasis [K80.50] Procedures: Surgical CPTs Procedures ERCP REMOVAL OF STONE(S) [44660] SPHINCTEROTOMY [70935] No data filed Laparoscopic cholecystectomy Surgeon(s): Surgeon(s): Sean Andrews MD Staff: Scrub: Maria Victoria Wade Motor Assembler Nurse: Monica Pierre RN Technical Support 1 Software Engineer: Gerson Collazo MD; Kory Hernandez MD Anesthesia: General Anesthesiologist: Michelle Loaiza MD HOME CARE PHYSICAL THERAPIST: Jennifer Gauthier APRN-HOME CARE PHYSICAL THERAPIST Methodologist: Félix Sahu MD Specimen(s): ID Type Source Tests Collected by Time Destination 1 : Gallbladder Tissue Gallbladder SPECIMEN FOR SURGICAL PATH Sean Andrews MD 03/23/2023 0909 Estimated Blood Loss: 10cc Lines/Drains: Peripheral IV Access: 03/20/23 1317 20 gauge Left Antecubital (Active) Site Assessment WNL;Dressing intact 03/22/231929 Infusion Status Port #1 Capped;Patent 03/22/231929 Peripheral IV Access: 03/21/23 0700 22 gauge Anterior;Left Hand Present on Transfer to Unit / Floor (Active) Site Assessment WNL;Dressing intact 03/22/231929 Infusion Status Port #1 Infusing;Patent 03/22/231929 Findings: - intrahepatic gallbladder, numerous gallstones within the gallbladder Complications: None Status at end of surgery: Stable Activity: weight bearing as tolerated and progressive ambulation Surgical wound class: Yes, wound was contaminated. Patient Class: Inpatient. Dr. Andrews was present in the OR for the critical portion of the procedure and procedure sign-out. Signed by Gerson Collazo MD 03/23/2023 10:11 AM Normal [facility] CBC panel Auto (Bld)on 03-23 Erythrocyte distribution width (RBC) [Ratio] 14.9 % High 11.5 - 14.5 % [facility] Hematocrit (Bld) [Volume fraction] 36.5 % 36.0 - 46.0 % [facility] Hemoglobin (Bld) [Mass/Vol] 11.9 g/dL Low 12.0 - 15.0 g/[facility] Interpretation and review of laboratory results Abnormal [facility] MCH (RBC) [Entitic mass] 27.3 pg 26.0 - 34.0 pg [facility] MCHC (RBC) [Mass/Vol] 32.6 g/dL 32.0 - 35.9 g/dL [facility] MCV (RBC) [Entitic vol] 84 fL 80 - 100 fL [facility] Platelet mean volume (Bld) [Entitic vol] 8.6 fL 7.5 - 11.2 fL [facility] Platelets (Bld) [#/Vol] 298 10*3/uL 150 - 400 K/uL [facility] RBC (Bld) [#/Vol] 4.37 10*6/uL [facility] [#/Vol] 12.6 10*3/uL High 4.5 - 11.5 K/uL [facility] COMPLETE BLOOD COUNTon 03-23 Erythrocyte distribution width (RBC) [Ratio] 14.9 % High 11.5-14.5 [facility] Comment on above: Performed By: #### C BC #### [facility] [address] [place] [address], Hematocrit (Bld) [Volume fraction] 36.5 % Normal 36.0-46.0 [facility] Comment on above: Performed By: #### C BC #### [facility] [address] [place] [address], Hemoglobin (Bld) [Mass/Vol] 11.9 g/dL Low 12.0-15.0 [facility] Comment on above: Performed By: #### C BC #### [facility] [address] [place] [address], MCH (RBC) [Entitic mass] 27.3 pg Normal 26.0-34.0 [facility] Comment on above: Performed By: #### C BC #### [facility] [address] [place] [address], MCHC (RBC) [Mass/Vol] 32.6 g/dL Normal 32.0-35.9 [facility] Comment on above: Performed By: #### C BC #### S [facility] [address] [place] [address], MCV (RBC) [Entitic vol] 84 fL Normal 80-100 [facility] Comment on above: Performed By: #### C BC #### [facility] [address] [place] [address], Platelet mean volume (Bld) [Entitic vol] 8.6 fL Normal 7.5-11.2 [facility] Comment on above: Performed By: #### C BC #### [facility] [address] [place] [address], Platelets (Bld) [#/Vol] 298 10*3/uL Normal 150-400 [facility] Comment on above: Performed By: #### C BC #### [facility] [address] [place] [address], RBC (Bld) [#/Vol] 4.37 10*6/uL Normal 4.00-5.20 [facility] Comment on above: Performed By: #### C BC #### [facility] [address] [place] [address], WBC (Bld) [#/Vol] 12.6 10*3/uL High 4.5-11.5 [facility] Comment on above: Performed By: #### C BC #### [facility] [address] [place] [address], Care Plan Noteon 03-23-2023 Hydrostatic Tester Authentication Interface Message Text Problem: Routine Care: Goal: Patient care will be managed and maintained throughout hospital stay per unit specific routine care procedure Outcome: Progressing Note: Purposeful hourly rounding performed. Problem: Acute Pain: Goal: Ability to identify pain intensity on a pain scale and rate it consistently will be achieved and maintained Outcome: Progressing Note: Patient aware of PRN pain medications. Will continue to assess pain throughout shift and medicate as indicated. Goal: Understanding of proper administration and use of medicines will be achieved Outcome: Progressing Goal: Acceptable level of pain which allows the patient to achieve functional outcome goals Outcome: Progressing Problem: Altered Elimination: Goal: Establishment of normal urinary function will be acheived and maintained Outcome: Progressing Problem: Altered Nutrition: Goal: Achieve developmentally appropriate nutritional intake as clinically indicated Outcome: Progressing Note: Tolerating regular diet. No N/V reported. Problem: Risk for Infection: Goal: Risk for infection will be reduced Outcome: Progressing Problem: Impaired Skin Integrity: Goal: Acheive wound healing without signs and symptoms of infection Outcome: Progressing Note: Lap sites closed with topical skin adhesive. Problem: VTE Prophylaxis: Goal: Will be free of DVT Outcome: Progressing Problem: Safety: Goal: Patient will remain free of falls during hospital stay Outcome: Progressing Note: Call light within reach AND bed in low positionCall light within reach AND bed in low position Goal: Free from injury during hospitalization Outcome: Progressing Normal [facility] HEPATIC FUNCTION PANELon Albumin [Mass/Vol] 3.5 g/dL Normal 3.5-5.7 [facility] Comment on above: Order Comment: Note updated reference ranges. Performed By: #### H MG LUIGI CH8 #### [facility] [address] [place] [address], ALK 125 IU/L High 34-104 [facility] Comment on above: Order Comment: Note updated reference ranges. Performed By: #### H MG LUIGI, CH8 #### [facility] [address] [place] [address], ALT [Catalytic activity/Vol] 141 U/L High 7-52 [facility] Comment on above: Order Comment: Note updated reference ranges. Performed By: #### H MG LUIGI, CH8 #### [facility] [address], [place], AST [Catalytic activity/Vol] 17 U/L Normal 13-39 [facility] Comment on above: Order Comment: Note updated reference ranges. Performed By: #### H MG LUIGI, CH8 #### [facility] [address], [place], Bilirubin [Mass/Vol] 0.6 mg/dL Normal 0.3-1.0 [facility] Comment on above: Order Comment: Note updated reference ranges. Performed By: #### H MG LUIGI, CH8 #### [facility] [address], [place], Bilirubin.direct [Mass/Vol] 0.16 mg/dL Normal 0.03-0.18 [facility] Comment on above: Order Comment: Note updated reference ranges. Performed By: #### H MG LUIGI, CH8 #### [facility] [address], [place], Protein [Mass/Vol] 6.0 g/dL Normal 6.0-8.3 [facility] Comment on above: Order Comment: Note updated reference ranges. Performed By: #### H MG MEYERS CH8 #### [facility] [address], [place], Albumin [Mass/Vol] 3.5 g/dL 3.5 - 5.7 g/dL [facility] ALP [Catalytic activity/Vol] 125 U/L High [facility] ALT [Catalytic activity/Vol] 141 U/L High [facility] AST [Catalytic activity/Vol] 17 U/L [facility] Bilirubin [Mass/Vol] 0.6 mg/dL 0.3 - 1 .0 mg/dL [facility] Bilirubin.direct [Mass/Vol] 0.16 mg/dL 0.03 - 0.18 mg/dL [facility] Protein [Mass/Vol] 6.0 g/dL 6.0 - 8.3 g/dL [facility] Note updated referen ce ranges. [facility] MAGNES[facility]UM[facility] 03-23-2023 Magnesium [Mass/Vol] 1.8 mg/dL Low 1.9-2.7 [facility] Comment on above: Result Comment: Note updated reference ranges. Performed By: #### H MG LUIGI, BASSAM8 #### [facility] [address], [place], Magnesium [Mass/Vol] 1.8 mg/dL Low 1.9 - 2 .7 mg/dL [facility] Comment on above: Note updated referen ce ranges. No Panel Informationon 03-23 Interpretation and review of laboratory results [facility] 03-23-2023 Hydrostatic Tester Authentication Interface Message Text Name: Lala Hall MR#: [id number] [facility]#: [id number] Date of Procedure: 03/23/23 ATTENDING SURGEON: Sean Andrews MD FIRST SURGEON: Arturo Hernandez MD and Gerson Collazo MD SERVICE: Acute Care Surgery PREOPERATIVE DIAGNOSIS: gallstone pancreatitis POSTOPERATIVE DIAGNOSIS: gallstone pancreatitis PROCEDURE PERFORMED: 1. Laparoscopic cholecystectomy 2. Bilateral TAP block ANESTHESIA: General endotracheal. ESTIMATED BLOOD LOSS: 10 cc SPECIMENS: gallbladder COMPLICATIONS: None. INDICATIONS: 27F who presented with gallstone pancreatitis. Patient underwent ERCP, stone retrieval, and sphincterotomy. She goes to OR today for cholecystectomy to avoid future episodes. PROCEDURE IN DETAIL: The patient was taken to the operating room after informed consent was obtained. The patient was placed in the supine position, and general endotracheal anesthesia was induced. All necessary support lines were placed. SCDs were on and functional prior to induction. Ancef was given for perioperative antibiotic prophylaxis. A time out was performed verifying the correct patient, procedure, site, positioning, and special equipment needed prior to the beginning of the procedure. The abdomen was prepped and draped in the usual sterile fashion. An infraumbilical incision was made. The fascia was identified, elevated with a Jose Martin clamp and incised. Peritoneum was entered bluntly and confirmed with a finger sweep. A figure of eight 0 vicryl suture was placed in the fascia and used as an anchor stitch. The Bauman cannula inserted under direct vision. The abdomen was insufflated and patient tolerated it well. The abdomen was inspected and no injuries from initial trocar placement were noted. The patient was positioned in reverse Trendelenburg with right side up. Three 5mm ports were placed under direct visualization in the subxiphoid, and right upper quadrant. The gallbladder was retracted over the dome of the liver. The infundibulum was retracted towards the right lower quadrant exposing Calot's triangle. The peritoneum overlying the gallbladder infundibulum was then incised and the cystic duct and cystic artery were identified and circumferentially dissected. The posterior branch of the cystic artery was also identified and dissected. The critical view of safety was obtained. The cystic duct and cystic artery were then doubly clipped and divided close to the gallbladder. The posterior branch of the cystic artery was also clipped at this time and transected. The gallbladder was then dissected from its peritoneal attachments by electrocautery and was found to be intraperitoneal. The gallbladder was entered during this phase and we irrigated, suctioned, and retrieved multiple stones. Hemostasis was verified and the gallbladder was removed using an endoscopic retrieval bag. The gallbladder fossa was irrigated. There was no evidence of bleeding from the gallbladder fossa or cystic artery. Clips were securely in place across the cystic duct. A total of 100 cc of 1% lidocaine, 0.5% marcaine, and normal saline was placed under direct visualization as a bilateral transversus abdominus plane block. The trocars were removed under direct visualization and the umbilical trocar and gallbladder were removed. The abdomen was allowed to collapse. The figure 8 fascial suture was closed. The skin was closed with subcuticular 4-0 Monocryl and dermabond. Sponge, instrument and needle counts were correct at the end of the case. The patient tolerated the procedure well and was transported to the PACU in good condition. I was scrubbed for the critical portion of the procedure and immediately available for the non-critical portions. Sean Andrews MD Trauma/Burn Surgery Surgical Critical Care Pager: [phone] Normal [facility] Progress Noteson 03-23-2023 Hydrostatic Tester Authentication Interface Message Text Emergency General Surgery Post-Operative Check Lala Hall [id number] Procedure: 1. Laparoscopic cholecystectomy 2. Bilateral TAP block Findings: - intrahepatic gallbladder, numerous gallstones within the gallbladder Subjective: Patient endorses feeling well after surgery, denies any n/v, tolerating regular diet. Patient agreeable to staying overnight but would like early discharge tomorrow. Intake/Output Summary (Last 24 hours) at 03/23/2023 1451 Last data filed at 03/23/2023 0947 Gross per 24 hour Intake 2841.67 ml Output 5 ml Net 2836.67 ml PHYSICAL EXAMINATION BP 132/92 (BP Location: right arm) Pulse 115 Temp 98.2 ???F (36.8 ???C) (Oral) Resp 18 Ht 5' 7 (1.702 m) Wt 270 lb (122.5 kg) LMP 03/06/2023 SpO2 95% BMI 42.29 kg/m??? General appearance: healthy, no distress, obese Lungs: Non labored breathing on RA Heart: RRR Abdomen: soft, nontender, nondistended. Lap sites c/d/i with dermabond overlying, no surrounding erythema, no discharge from lap sites Extremities: Sensorimotor intact A/P: 27 yo female s/p laparoscopic cholecystectomy appropriately recovering from surgery. No concern for postoperative complications at this time. Pt to continue regular postoperative care. Plan for patient to stay overnight, tolerating diet. Plan for early dc tomorrow pending no change in clinical course. Ulises Plasencia PA-C Emergency General Surgery Please page: [facility] ED/Consult Pager [phone] for new patients EGS Floor pager [phone] for established patients Normal [facility] Hydrostatic Tester Authentication Interface Message Text Spoke to Dr Sahu for SO. Pt is clear to transfer back to floor. Denies nausea. Pain 04/20 Normal [facility] Anesthesia Postprocedure Barbra luationon 03-22-2023 Hydrostatic Tester Authentication Interface Message Text Anesthesia Postoperative Assessment: Vital Signs (most recent): BP 115/83 (BP Location: right arm) Pulse 88 Temp 36.6 ???C (97.8 ???F) (Oral) Resp 18 Ht 5' 7 (1.702 m) Wt 270 lb (122.5 kg) LMP 03/06/2023 SpO2 98% BMI 42.29 kg/m??? Anesthesia Post Evaluation Level of consciousness: awake Post-procedure exam normal. Body temperature, hydration status, PONV and pain evaluated and addressed. Pain management: adequate Hydration status: normal PONV:No nausea/vomiting reported Cardiopulmonary status stable Respiratory status: acceptable Cardiovascular status: acceptable ANESTHESIA NOTABLE EVENTS: No notable events documented. 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 Neuro/Psych (-) CVA, seizures Cardiovascular - negative ROS (+) Surgical risk: low; Cardiac condition: no apparent GI/Hepatic/Renal (+) liver disease, gallbladder problem Heme/Other (-) anticoagulation therapy Physical Exam Airway Mallampati: I TM distance: Adequate Micrognathia: Not present Jaw opening: Adequate Neck flexion: Adequate Dental PE (+) intact Pulmonary - pulmonary exam normal Comment: Chest clear to auscultation bilaterally Cardiovascular - cardiovascular exam normal Comment: RRR with S1S2; no murmurs, gallops, or rubs Neuro - neurological exam normal Comment: Awake, alert, oriented, No motor deficits and sensation grossly intact Plan Anesthesia plan: general; (ETT) Anesthesia risks / alternatives discussed pre-op Questions answered / anesthesia plan accepted Past medical history, surgical history, allergies, and medications reviewed. Pertinent laboratory tests, EKG, imaging, and consults reviewed and I have personally seen and evaluated the patient, repeating rivera portions of the history and physical examination. Attestation: Anesthesia options were discussed with the patient and/or legal customer solutions representative. The risks, benefits and alternatives were reviewed. Questions regarding anesthesia were answered. Patient and/or legal customer solutions representative knows such anesthetics and procedures may be performed by Resident physicians, Certified Anesthesiologist Assistants, or Certified Nurse Anesthetists under the supervision of a physician. The patient /or the patient's legal customer solutions representative agree with the plan for anesthesia. Normal [facility] BASIC METABOLIC PANELon 02-0 Anion gap [Moles/Vol] 16 mmol/L Normal 10-20 [facility] Comment on above: Performed By: #### M G, HEPATIC, CH8 ####S PATHOLOGY [id number] [place], [place], Calcium [Mass/Vol] 8.6 mg/dL Normal 8.6-10.3 [facility] Comment on above: Result Comment: Note updated reference ranges. Performed By: #### M G, HEPATIC, CH8 ####[facility] [id number] [place], [place], Chloride [Moles/Vol] 109 mmol/L High 98-107 [facility] Comment on above: Result Comment: Note updated reference ranges. Performed By: #### M G, HEPATIC, CH8 ####[facility] [id number] [place], [place], CO2 [Moles/Vol] 18 mmol/L Low 21-31 [facility] Comment on above: Result Comment: Note updated reference ranges. Performed By: #### M G, HEPATIC, CH8 ####S PATH[facility] [id number] [place], [place], Creatinine [Mass/Vol] 0.52 mg/dL Low 0.60-1.20 [facility] Comment on above: Result Comment: Note updated reference ranges. Performed By: #### David Pelaez HEPATIC, CH8 ####[facility] [id number] [place], [place], ESTIMATED GFR (CKD-EPI) 131 mL/min/1.73sqm Normal >=60 [facility] Comment on above: Result Comment: 2020 CKD EPI Equation using Creatinine without Race Comment: Estimated glomerular filtration rate (eGFR) is calculated without a race coefficient. Values should be interpreted in the context of the patient's full clinical presentation. Reference: 1. Blas C, Guille M, Adelaide GUZMÁN, et al.. A Unifying Approach for GFR Estimation: Recommendations of the NKF-ASN Task Force on Reassessing the Inclusion of Race in Diagnosing Kidney Disease. [place] Journal of Kidney Diseases 2021;79(2):268-88.e1. 2. N Engl J Med 1 Vol. 385 Issue 19 Pages 5853-7967 Performed By: #### David Pelaez HEPATIC, CH8 ####[facility] [id number] [place], [place], Glucose [Mass/Vol] 105 mg/dL Normal 74-109 [facility] Comment on above: Performed By: #### David Pelaez HEPATIC, CH8 ####[facility] [id number] [place], [place], Potassium [Moles/Vol] 4.2 mmol/L Normal 3.5-5.0 [facility] Comment on above: Result Comment: Note updated reference ranges. Note updated reference ranges. Performed By: #### M G, HEPATIC, CH8 ####[facility] [id number] [place], [place], Sodium [Moles/Vol] 139 mmol/L Normal 136-145 [facility] Comment on above: Result Comment: Note updated reference ranges. Performed By: #### David G HEPATIC, CH8 ####[facility] [id number] [place], [place], Urea nitrogen [Mass/Vol] 7 mg/dL Normal 7-25 [facility] Comment on above: Result Comment: Note updated reference ranges. Performed By: #### M G, HEPATIC, CH8 ####[facility] [id number] [place], [place], Basic metabolic 2000 panelon 03-22-2023 Anion gap [Moles/Vol] 16 mmol/L 10 - 20 [facility] Calcium [Mass/Vol] 8.6 mg/dL 8.6 - 10. 3 mg/dL [facility] Comment on above: Note updated referen ce ranges. Chloride [Moles/Vol] 109 mmol/L High 98 - 10 7 mmol/L [facility] Comment on above: Note updated referen ce ranges. CO2 [Moles/Vol] 18 mmol/L Low 21 - 31 mmol/L [facility] Comment on above: Note updated referen ce ranges. Creatinine [Mass/Vol] 0.52 mg/dL Low 0.60 - 1.20 mg/dL [facility] Comment on above: Note updated referen ce ranges. GFR/1.73 sq M.predicted CKD-EPI (S/P/Bld) [Vol rate/Area] 131 - PINF [facility] Comment on above: 2020 CKD EPI Equatio n using Creatinine without Race Comment: Estimated glomerular filtration rate (eGFR) is calculated without a race coefficient. Values should be interpreted in the context of the patient's full clinical presentation. Reference: 1. Blas C, Guille M, Adelaide DC, et al.. A Unifying Approach for GFR Estimation: Recommendations of the NKF-ASN Task Force on Reassessing the Inclusion of Race in Diagnosing Kidney Disease. [place] Journal of Kidney Diseases 202;79(2):268-88.e1. 2. N Engl J Med 1 Vol. 385 Issue 19 Pages 9186-8451 Glucose [Mass/Vol] 105 mg/dL 74 - 109 mg/dL [facility] Potassium [Moles/Vol] 4.2 mmol/L 3.5 - 5.0 mmol/L [facility] Comment on above: Note updated referen ce ranges. Note updated reference ranges. Sodium [Moles/Vol] 139 mmol/L 136 - 145 mmol/L [facility] Comment on above: Note updated referen ce ranges. Urea nitrogen [Mass/Vol] 7 mg/dL 7 - 25 mg/dL [facility] Comment on above: Note updated referen ce ranges. Blood Attestationon 03-22-19 Hydrostatic Tester Authentication Interface Message Text Blood Attestation: ATTESTATION OF INFORMED CONSENT FOR BLOOD: The transfusion of blood and/or blood components were discussed with the patient and/or legal customer solutions representative. The risks, benefits and alternatives were reviewed. Questions regarding blood transfusions were answered. The patient /or the patient's legal customer solutions representative agree with the plan for transfusion of blood and/or blood components. Normal [facility] CBC panel Auto (Bld)on 03-22 Erythrocyte distribution width (RBC) [Ratio] 15.0 % High 11.5 - 14.5 % [facility] Hematocrit (Bld) [Volume fraction] 36.0 % 36.0 - 46.0 % [facility] Hemoglobin (Bld) [Mass/Vol] 11.8 g/dL Low 12.0 - 15.0 g/dL [facility] Interpretation and review of laboratory results Abnormal [facility] MCH (RBC) [Entitic mass] 27.5 pg 26.0 - 34.0 pg [facility] MCHC (RBC) [Mass/Vol] 32.8 g/dL 32.0 - 35.9 g/dL [facility] MCV (RBC) [Entitic vol] 84 fL 80 - 100 fL [facility] Platelet mean volume (Bld) [Entitic vol] 8.6 fL 7.5 - 11.2 fL [facility] Platelets (Bld) [#/Vol] 288 10*3/uL 150 - 400 K/uL [facility] RBC (Bld) [#/Vol] 4.30 10*6/uL [facility] WBC (Bld) [#/Vol] 12.4 10*3/uL High 4.5 - 11.5 K/uL [facility] COMPLETE BLOOD COUNTon 03-22 Erythrocyte distribution width (RBC) [Ratio] 15.0 % High 11.5-14.5 [facility] Comment on above: Performed By: #### C BC #### [facility] [address] [place] [address], [id number] Hematocrit (Bld) [Volume fraction] 36.0 % Normal 36.0-46.0 [facility] Comment on above: Performed By: #### C BC #### [facility] [address], [place], Hemoglobin (Bld) [Mass/Vol] 11.8 g/dL Low 12.0-15.0 [facility] Comment on above: Performed By: #### C BC #### [facility] [address], [place], MCH (RBC) [Entitic mass] 27.5 pg Normal 26.0-34.0 [facility] Comment on above: Performed By: #### C BC #### [facility] [address], [place], MCHC (RBC) [Mass/Vol] 32.8 g/dL Normal 32.0-35.9 [facility] Comment on above: Performed By: #### C BC #### [facility] [address], [place], MCV (RBC) [Entitic vol] 84 fL Normal 80-100 [facility] Comment on above: Performed By: #### C BC #### [facility] [address], [place], Platelet mean volume (Bld) [Entitic vol] 8.6 fL Normal 7.5-11.2 [facility] Comment on above: Performed By: #### C BC #### [facility] [address], [place], Platelets (Bld) [#/Vol] 288 10*3/uL Normal 150-400 [facility] Comment on above: Performed By: #### C BC #### [facility] [address], [place], RBC (Bld) [#/Vol] 4.30 10*6/uL Normal 4.00-5.20 [facility] Comment on above: Performed By: #### C BC #### [facility] [address], [place], WBC (Bld) [#/Vol] 12.4 10*3/uL High 4.5-11.5 [facility] Comment on above: Performed By: #### C #### [facility] [address] [place], [id number] Care Plan Noteon 03-22-2023 Hydrostatic Tester Authentication Interface Message Text Problem: Routine Care: Goal: Patient care will be managed and maintained throughout hospital stay per unit specific routine care procedure Outcome: Progressing Note: Patient rounded on per hourly rounding unit protocol, call light within reach, siderails in place, encouraged to call for assistance as needed. Problem: Acute Pain: Goal: Ability to identify pain intensity on a pain scale and rate it consistently will be achieved and maintained Outcome: Progressing Note: Patient consistently rates pain using numeric pain scale. Pain managed at this time through PRN medications. Goal: Understanding of proper administration and use of medicines will be achieved Outcome: Progressing Goal: Acceptable level of pain which allows the patient to achieve functional outcome goals Outcome: Progressing Problem: Altered Elimination: Goal: Establishment of normal urinary function will be acheived and maintained Outcome: Progressing Problem: Altered Nutrition: Goal: Achieve developmentally appropriate nutritional intake as clinically indicated Outcome: Progressing Note: NPO for OR Problem: Risk for Infection: Goal: Risk for infection will be reduced Outcome: Progressing Problem: Impaired Skin Integrity: Goal: Acheive wound healing without signs and symptoms of infection Outcome: Progressing Problem: VTE Prophylaxis: Goal: Will be free of DVT Outcome: Progressing Problem: Safety: Goal: Patient will remain free of falls during hospital stay Outcome: Progressing Goal: Free from injury during hospitalization Outcome: Progressing Problem: Discharge Planning: Goal: Discharge needs of the adult patient will be met Outcome: Progressing Problem: Routine Care: Goal: Patient care will be managed and maintained throughout hospital stay per unit specific routine care procedure Outcome: Progressing Problem: Impaired Skin Integrity: Goal: Acheive wound healing without signs and symptoms of infection Outcome: Progressing Problem: Acute Pain: Goal: Ability to identify pain intensity on a pain scale and rate it consistently will be achieved and maintained Outcome: Progressing Problem: Safety: Goal: Patient will remain free of falls during hospital stay Outcome: Progressing Problem: Discharge Planning: Goal: Discharge needs of the adult patient will be met Outcome: Progressing Normal [facility] HEPATIC FUNCTION PANELon Albumin [Mass/Vol] 3.6 g/dL Normal 3.5-5.7 [facility] Comment on above: Order Comment: Note updated reference ranges. Performed By: #### M G, HEPATIC, CH8 ####S PATHOLOGY [id number] [place], [place], ALK 149 IU/L High 34-104 [facility] Comment on above: Order Comment: Note updated reference ranges. Performed By: #### M G, HEPATIC, CH8 ####S PATHOLOGY [id number] [place], [place], ALT [Catalytic activity/Vol] 221 U/L High 7-52 [facility] Comment on above: Order Comment: Note updated reference ranges. Performed By: #### M G, HEPATIC, CH8 ####S PATHOLOGY [id number] [place], AST [Catalytic activity/Vol] 38 U/L Normal 13-39 [facility] Comment on above: Order Comment: Note updated reference ranges. Performed By: #### M G, HEPATIC, CH8 ####S PATHOLOGY [id number] [place], Bilirubin [Mass/Vol] 0.5 mg/dL Normal 0.3-1.0 [facility] Comment on above: Order Comment: Note updated reference ranges. Performed By: #### M G, HEPATIC, CH8 ####S PATHOLOGY [id number] [place], [place], Bilirubin.direct [Mass/Vol] 0.15 mg/dL Normal 0.03-0.18 [facility] [facility] Comment on above: Order Comment: Note updated reference ranges. Performed By: #### M G, HEPATIC, CH8 ####S PATHOLOGY [id number] [place], [place], Protein [Mass/Vol] 6.0 g/dL Normal 6.0-8.3 [facility] Comment on above: Order Comment: Note updated reference ranges. Performed By: #### M G, HEPATIC, CH8 ####[facility] PATH[facility] [id number] [place], [place], Albumin [Mass/Vol] 3.6 g/dL 3.5 - 5.7 g/dL [facility] ALP [Catalytic activity/Vol] 149 U/L High [facility] ALT [Catalytic activity/Vol] 221 U/L High [facility] AST [Catalytic activity/Vol] 38 U/L [facility] Bilirubin [Mass/Vol] 0.5 mg/dL 0.3 - 1 .0 mg/dL [facility] Bilirubin.direct [Mass/Vol] 0.15 mg/dL 0.03 - 0.18 mg/dL [facility] Protein [Mass/Vol] 6.0 g/dL 6.0 - 8.3 g/dL [facility] Note updated referen ce ranges. [facility] MAGNESIUMon 03-22-2023 Magnesium [Mass/Vol] 2.0 mg/dL Normal 1.9-2.7 [facility] Comment on above: Result Comment: Note updated reference ranges. Performed By: #### M KENNEDY Pelaez CH8 ####[facility] PATHOLOGY [id number] [place] [address], [phone] Interpretation and review of laboratory results [facility] Magnesium [Mass/Vol] 2.0 mg/dL 1.9 - 2 .7 mg/dL [facility] Comment on above: Note updated referen ce ranges. No Panel Informationon 03-22 Interpretation and review of laboratory results Abnormal [facility] Progress Noteson 03-22-2023 Hydrostatic Tester Authentication Interface Message Text Attestation signed by Niall Aleman MD at 03/24/2023 9:04 PM Teaching Physician Note: I reviewed the resident's documentation and discussed the patient with the resident. I agree with the resident's medical decision making as documented in the resident's note Niall Aleman MD Division of Trauma, Critical Care, Lr, and Emergency General Surgery Department of Surgery [facility] DIVISION OF ACUTE CARE SURGERY -------- GENERAL INFORMATION ------- EMERGENCY GENERAL SURGERY NOTE Patient Name: Lala Hall Admission Date: 03/20/2023 Patient seen and examined on 03/22/2023 ------ INTERVAL HISTORY/EVENTS ---- Background Narrative: Lala Hall is a 27 year old female with a h/o depression and low transverse 10 months ago who was transferred from [facility] due to MRCP concerning for gallstone pancreatitis and choledocholithiasis. Transferred to [facility] for endoscopy and surgical evaluation. Hospital Course/Procedures: 03/20: Transferred to [facility] from , admitted to EGS for gallstone pancreatitis, choledocholithiasis, plan for cholecystectomy this admission 03/21: S/p ERCP with stone removal, no stent placement, erosive duodenitis at D2, biliary sphincterotomy Dr Dominique. Events in last 24 hours: No acute events overnight Abdominal pain improved, no longer has pain. No nausea or emesis. NPO this AM for surgery. PHYSICAL EXAM Vitals: Vital sign ranges over the past 24 hours (retrieved 03/22/2023 at 9:37 AM): Tmax (24 hours): 98.8 ???F (37.1 ???C) Pulse Av.7 Min: 88 Max: 124 Systolic (24hrs), Av , Min:115 , Max:137 Diastolic (24hrs), Av, Min:67, Max:94 MAP (mmHg) Av.5 mmHg Min: 85 mmHg Max: 101 mmHg Resp Av.2 Min: 13 Max: 18 SpO2 Av.7 % Min: 92 % Max: 99 % 24 Hour Input/Output In: 490 (4 mL/kg) [P.O.:50; I.V.:440 (0.1 mL/kg/hr)] Out: - (0 mL/kg) Net: 490 Weight: 122.5 kg Physical Exam: -General - Laying in bed, in NAD -Neurologic - A AND O x3, clear speech -Cardiovascular - normal rate, well perfused -Respiratory - Breathing comfortably on room air, symmetric chest rise -Abdomen - Soft, ND, non tender, no rebound or guarding -Skin -warm, dry -Psychiatric - normal affect -Extremities - CAM on command LABORATORY RESULTS (LAST 24 HOURS) CBC/PT/INR WBC RBC Hgb Hct MCV RDW Plt PT aPTT INR 03/22/23251 12.4 4.30 11.8 36.0 84 15.0 288 Basic Metabolic Panel Na K Cl CO2 Gap Glu BUN Cr Ca Mg PO4 03/22/23 025 139 Comment: Note updated reference ranges. 4.2 Comment: Note updated reference ranges. Note updated reference ranges. 109 Comment: Note updated reference ranges. 18 Comment: Note updated reference ranges. 16 105 7 Comment: Note updated reference ranges. 0.52 Comment: Note updated reference ranges. 8.6 Comment: Note updated reference ranges. 03/22/23 025 2.0 Comment: Note updated reference ranges. IMAGING RESULTS - Last 24 hours (PERSONALLY REVIEWED) No new imaging --------- DIAGNOSIS AND PLAN Diagnoses: Gallstone pancreatitis Choledocholithiasis Acute abdominal pain PMHx: 10 months post-, depression, psoriasis Assessment: 27 yo female with pmhx as above admitted to EGS following transfer from for gallstone pancreatitis. MRCP performed at OSH with choledocholithiasis. Worsening hyperbilirubinemia on AM labs s/p ERCP with stone removal and stent placement and duodenitis. Plan for OR 03/22 for lap diaz Plan 1. Neurologic - - Cont oxycodone 2.5 /5 mg q4 hours PRN for moderate/ severe pain - Cont dilaudid 0.2 mg q4 hours PRN for breakthrough pain - Cont home sertraline 2. Respiratory - - Maintain O2 saturation > 92% - Encourage IS while awake 3. Cardiovascular - - meds - no home meds - Monitor VS per floor protocol 4. GI - - diet - NPO, reg diet post op - Cont BR: miralax, senna - Cont Zofran PRN for nausea, emesis - Trend LFTs 5. / FEN - - Daily BMP, Mag, Phos - PRN electrolyte replacement - mIVF with LR at 100 cc/ hr 6. Endo - - No acute or chronic glycemic issues 7. Hematologic - - No indication for transfusion - Daily CBC 8. ID - - No indication for antibiotics, low concern for acute cholecystitis 9. MSK - - Progressive mobility protocol Prophylaxis: VTE - SCDs, hold DVT ppx for possible ERCP later 03/21 Stress ulcer - not indicated Dispo: RNF pending OR this admission, possible OR 03/22. Follow up: - EGS Dr Aleman - GI TBD Plan was dis (more content not included)... Normal [facility] ABO RH TYPEon 03-21-2023 ABO and Rh group Nom (Bld) Blood group AB Rh(D) positive Normal [facility] Comment on above: Performed By: #### A ALAN #### [facility] [address] [place] [address], [phone] [facility] Anesthesia Preprocedure Eval uationon 03-21-2023 Hydrostatic Tester Authentication Interface Message Text ASA: 2 No history of anesthetic complications NPO status: Greater than 8 hours Past Medical History and Review of Systems Pulmonary - negative ROS Dental - negative ROS Endo - negative ROS (+) obesity Neuro/Psych - negative ROS Cardiovascular - negative ROS (+) Surgical risk: intermediate; Cardiac condition: no apparent No previous ECG available GI/Hepatic/Renal - negative ROS Heme/Other - negative ROS Other ROS: Galstone pancreatitis Physical Exam Airway Mallampati: II TM distance: Adequate Micrognathia: Not present Jaw opening: Adequate Neck flexion: Adequate Dental PE (+) intact Pulmonary - pulmonary exam normal Cardiovascular - cardiovascular exam normal Neuro - neurological exam normal Plan Anesthesia plan: general; (ETT) Anesthesia risks / alternatives discussed pre-op Questions answered / anesthesia plan accepted Past medical history, surgical history, allergies, and medications reviewed. Pertinent laboratory tests, EKG, imaging, and consults reviewed and I have personally seen and evaluated the patient, repeating rivera portions of the history and physical examination. Attestation: Anesthesia options were discussed with the patient and/or legal customer solutions representative. The risks, benefits and alternatives were reviewed. Questions regarding anesthesia were answered. Patient and/or legal customer solutions representative knows such anesthetics and procedures may be performed by Resident physicians, Certified Anesthesiologist Assistants, or Certified Nurse Anesthetists under the supervision of a physician. The patient /or the patient's legal customer solutions representative agree with the plan for anesthesia. Normal [facility] Anesthesia Transfer Of Careo n 03-21-2023 Hydrostatic Tester Authentication Interface Message Text Patient taken to PACU. Patient was awake, comfortable, and stable on arrival. Anesthesia Transfer of Care Note Past Medical History: No past medical history on file. Sleep Apnea/Positive STOP-BANG: Yes Problem List: Patient Active Problem List: Gallstone pancreatitis [K85.10] Psoriasis [L40.9] Choledocholithiasis [K80.50] Acute bilateral upper abdominal pain [R10.11, R10.12] Past Surgical History: There is no previous surgical history on file. Allergies: Patient has no known allergies. Basic Operating Room Facts: Surgeon(s): Adolfo Dominique MD Anesthesiologist: Jaquelin Chen MD; Ulises Saha MD CAA: Romy Davalos CAA; Severo Ashton CAA Anesthesia Staff: Kori Jolley APRN-KALANI ERCP, WITH ANESTHESIA SERVICES Intraoperative Events: No acute event ASA: 2 EBL: Not documented Urine Not documented Lactated Ringers and NaCl 0.9%: Fluid Totals (Filter: LR and NaCl 0.9% Medications Shown) Medication Calculated Total NaCl 0.9% 200 mL / 1 bag Cell Saver: Not documented Blood Volume Values: Blood Products None MTP Blood: MTP PRBC: Not documented MTP FFP: Not documented MTP PLT: Not documented MTP Cryo: Not documented MTP Whole Blood: Not documented Current Vasoactive Medications: {Vasoactive Medications: None Lines, Drains, Airways Peripheral IV Access: 03/20/23 1317 20 gauge Left Antecubital (Active) Site Assessment Dressing intact 03/21/23 1453 Infusion Status Port #1 Patent 03/21/23 1453 Peripheral IV Access: 03/21/23 0700 22 gauge Anterior;Left Hand Present on Transfer to Unit / Floor (Active) Site Assessment WNL;Dressing intact 03/21/23 1556 Infusion Status Port #1 Infusing 03/21/23 1556 Airway Insertion Details [REMOVED] Advanced Airway: ETT, Oral #7 (Removed) 03/21/23 1601 Pre-Oxygenation/ Induction: Mask Rapid Sequence Induction?: Mask Ventilation: Easy Blade Type: Mac Blade Size: 3 Visualization: Grade 1 Airway Type: ETT, Oral Airway Size: #7 Post Insertion Assessment: Confirmation: Equal bilateral breath sounds, CO2 confirmed # Attempts >1: Special Equipment: Present on Admission?: Previously Removed / Not Present: Removal Reason: Not Removed at Discharge: Removed 03/21/23 1633 Location (cm) 22 03/21/23 1601 Measured from: Lips 03/21/23 1601 Secured via: Taped 03/21/23 1601 Site Assessment WNL 03/21/23 1601 All non-working IVs have been removed: N/A Laboratory Data: CBC (last 3 years, up to 5 values) WBC RBC Hgb Hct MCV RDW Plt 03/21/23 0046 9.1 4.84 13.1 40.4 84 15.5 292 03/20/23 1207 8.3 4.78 12.6 40.1 84 15.1 322 Basic Metabolic Panel Na K Cl CO2 Gap Glu BUN Cr Ca 03/21/23 0046 139 Comment: Note updated reference ranges. 3.8 Comment: Note updated reference ranges. Note updated reference ranges. 106 Comment: Note updated reference ranges. 22 Comment: Note updated reference ranges. 15 105 7 Comment: Note updated reference ranges. 0.59 Comment: Note updated reference ranges. 8.9 Comment: Note updated reference ranges. 03/20/23 1207 141 Comment: Note updated reference ranges. 3.9 Comment: Note updated reference ranges. Note updated reference ranges. 109 Comment: Note updated reference ranges. 23 Comment: Note updated reference ranges. 13 84 7 Comment: Note updated reference ranges. 0.66 Comment: Note updated reference ranges. 8.7 Comment: Note updated reference ranges. Basic Metabolic Panel Na K Cl CO2 Gap Glu BUN Cr Ca Mg PO4 03/21/23 004 3.0 Comment: Note updated reference ranges. 03/21/23 004 139 Comment: Note updated reference ranges. 3.8 Comment: Note updated reference ranges. Note updated reference ranges. 106 Comment: Note updated reference ranges. 22 Comment: Note updated reference ranges. 15 105 7 Comment: Note updated reference ranges. 0.59 Comment: Note updated reference ranges. 8.9 Comment: Note updated reference ranges. 03/21/2345 1.9 Comment: Note updated reference ranges. 03/20/23 1207 2.0 Comment: Note updated reference ranges. 03/20/23 1207 141 Comment: Note updated reference ranges. 3.9 Comment: Note updated reference ranges. Note updated reference ranges. 109 Comment: Note updated reference ranges. 23 Comment: Note updated reference ranges. 13 84 7 Comment: Note updated reference ranges. 0.66 Comment: Note updated reference ranges. 8.7 Comment: Note updated reference ranges. No results found for: INR No result for BNP LFT's (last 3 years, up to 5 values) T Prot Albumin D Bili T Bili Alk Phos ALT AST 03/21/2345 6.3 3.9 1.52 2.4 174 380 162 03/20/231206 6.1 3.7 0.19 0.7 143 434 214 Arterial Blood Gases None Hand off Completed: Yes 1. The patient was identified. 2. Pertinent medical history was relayed. 3. A brief discussion was had about any pertinent surgical/ procedural issues. 4. (more content not included)... Normal [facility] BASIC METABOLIC PANELon 02- Anion gap [Moles/Vol] 15 mmol/L Normal 10-20 [facility] Comment on above: Performed By: #### C BC #### S PATHOLOGY LABORATORY [address], [place], Calcium [Mass/Vol] 8.9 mg/dL Normal 8.6-10.3 [facility] Comment on above: Result Comment: Note updated reference ranges. Performed By: #### C BC #### [facility] [address], [place], Chloride [Moles/Vol] 106 mmol/L Normal 98-107 [facility] Comment on above: Result Comment: Note updated reference ranges. Performed By: #### C BC #### [facility] [address], [place], CO2 [Moles/Vol] 22 mmol/L Normal 21-31 [facility] Comment on above: Result Comment: Note updated reference ranges. Performed By: #### C BC #### [facility] [address], [place], Creatinine [Mass/Vol] 0.59 mg/dL Low 0.60-1.20 [facility] Comment on above: Result Comment: Note updated reference ranges. Performed By: #### C BC #### [facility] [address], [place], ESTIMATED GFR (CKD-EPI) 127 mL/min/1.73sqm Normal >=60 [facility] Comment on above: Result Comment: 2020 CKD EPI Equation using Creatinine without Race Comment: Estimated glomerular filtration rate (eGFR) is calculated without a race coefficient. Values should be interpreted in the context of the patient's full clinical presentation. Reference: 1. Blas C, Guille M, Adelaide GUZMÁN, et al.. A Unifying Approach for GFR Estimation: Recommendations of the NKF-ASN Task Force on Reassessing the Inclusion of Race in Diagnosing Kidney Disease. [place] Journal of Kidney Diseases 2021;79(2):268-88.e1. 2. N Engl J Med 1 Vol. 385 Issue 19 Pages 5335-5606 Performed By: #### C BC #### S PATHOLOGY LABORATORY [address], [place], Glucose [Mass/Vol] 105 mg/dL Normal 74-109 [facility] Comment on above: Performed By: #### C BC #### [facility] [address], [place], Potassium [Moles/Vol] 3.8 mmol/L Normal 3.5-5.0 [facility] Comment on above: Result Comment: Note updated reference ranges. Note updated reference ranges. Performed By: #### C BC #### [facility] [address], [place], Sodium [Moles/Vol] 139 mmol/L Normal 136-145 [facility] Comment on above: Result Comment: Note updated reference ranges. Performed By: #### C BC #### [facility] [address], [place], Urea nitrogen [Mass/Vol] 7 mg/dL Normal 7-25 [facility] Comment on above: Result Comment: Note updated reference ranges. Performed By: #### C BC #### [facility] [address], [place], Basic metabolic 2000 panelon 03-21-2023 Anion gap [Moles/Vol] 15 mmol/L 10 - 20 Met [facility] Calcium [Mass/Vol] 8.9 mg/dL 8.6 - 10. 3 mg/dL [facility] Comment on above: Note updated referen ce ranges. Chloride [Moles/Vol] 106 mmol/L 98 - 10 7 mmol/L [facility] Comment on above: Note updated referen ce ranges. CO2 [Moles/Vol] 22 mmol/L 21 - 31 mmol/L [facility] Comment on above: Note updated referen ce ranges. Creatinine [Mass/Vol] 0.59 mg/dL Low 0.60 - 1.20 mg/dL [facility] Comment on above: Note updated referen ce ranges. GFR/1.73 sq M.predicted CKD-EPI (S/P/Bld) [Vol rate/Area] 127 - PINF [facility] Comment on above: 2020 CKD EPI Equatio n using Creatinine without Race Comment: Estimated glomerular filtration rate (eGFR) is calculated without a race coefficient. Values should be interpreted in the context of the patient's full clinical presentation. Reference: 1. Blas Reid, Guille M, Adelaide GUZMÁN, et al.. A Unifying Approach for GFR Estimation: Recommendations of the NKF-ASN Task Force on Reassessing the Inclusion of Race in Diagnosing Kidney Disease. [place] Journal of Kidney Diseases 202;79(2):268-88.e1. 2. N Engl J Med 2020 Vol. 385 Issue 19 Pages 6026-4346 Glucose [Mass/Vol] 105 mg/dL 74 - 109 mg/dL [facility] Potassium [Moles/Vol] 3.8 mmol/L 3.5 - 5.0 mmol/L [facility] Comment on above: Note updated referen ce ranges. Note updated reference ranges. Sodium [Moles/Vol] 139 mmol/L 136 - 145 mmol/L [facility] Comment on above: Note updated referen ce ranges. Urea nitrogen [Mass/Vol] 7 mg/dL 7 - 25 mg/dL [facility] Comment on above: Note updated referen ce ranges. CBC panel Auto (Bld)on 03-21 Erythrocyte distribution width (RBC) [Ratio] 15.5 % High 11.5 - 14.5 % [facility] Hematocrit (Bld) [Volume fraction] 40.4 % 36.0 - 46.0 % [facility] Hemoglobin (Bld) [Mass/Vol] 13.1 g/dL 12.0 - 15.0 g/dL [facility] Interpretation and review of laboratory results Abnormal [facility] MCH (RBC) [Entitic mass] 27.1 pg 26.0 - 34.0 pg [facility] MCHC (RBC) [Mass/Vol] 32.5 g/dL 32.0 - 35.9 g/dL [facility] MCV (RBC) [Entitic vol] 84 fL 80 - 100 fL [facility] Platelet mean volume (Bld) [Entitic vol] 8.3 fL 7.5 - 11.2 fL [facility] Platelets (Bld) [#/Vol] 292 10*3/uL 150 - 400 K/uL [facility] RBC (Bld) [#/Vol] 4.84 10*6/uL [facility] WBC (Bld) [#/Vol] 9.1 10*3/uL 4.5 - 11.5 K/uL [facility] COMPLETE BLOOD COUNTon 03-21 Erythrocyte distribution width (RBC) [Ratio] 15.5 % High 11.5-14.5 [facility] Comment on above: Performed By: #### C BC #### [facility] [address] [place] [address], Hematocrit (Bld) [Volume fraction] 40.4 % Normal 36.0-46.0 [facility] Comment on above: Performed By: #### C BC #### [facility] [address] [place] [address], Hemoglobin (Bld) [Mass/Vol] 13.1 g/dL Normal 12.0-15.0 [facility] Comment on above: Performed By: #### C BC #### [facility] [address] [place] [address], MCH (RBC) [Entitic mass] 27.1 pg Normal 26.0-34.0 [facility] Comment on above: Performed By: #### C BC #### [facility] [address] [place] [address], MCHC (RBC) [Mass/Vol] 32.5 g/dL Normal 32.0-35.9 [facility] Comment on above: Performed By: #### C BC #### [facility] [address] [place] [address], MCV (RBC) [Entitic vol] 84 fL Normal 80-100 [facility] Comment on above: Performed By: #### C BC #### [facility] [address] [place] [address], Platelet mean volume (Bld) [Entitic vol] 8.3 fL Normal 7.5-11.2 [facility] Comment on above: Performed By: #### C BC #### [facility] [address] [place] [address], Platelets (Bld) [#/Vol] 292 10*3/uL Normal 150-400 [facility] Comment on above: Performed By: #### C BC #### [facility] [address] [place] [address], RBC (Bld) [#/Vol] 4.84 10*6/uL Normal 4.00-5.20 [facility] Comment on above: Performed By: #### C BC #### [facility] [address], [place], WBC (Bld) [#/Vol] 9.1 10*3/uL Normal 4.5-11.5 [facility] Comment on above: Performed By: #### C BC #### [facility] [address], [place], Care Plan Noteon 03-21-2023 Hydrostatic Tester Authentication Interface Message Text Problem: Routine Care: Goal: Patient care will be managed and maintained throughout hospital stay per unit specific routine care procedure Outcome: Progressing Patient resting in bed during rounding, call light within reach. Problem: Acute Pain: Goal: Ability to identify pain intensity on a pain scale and rate it consistently will be achieved and maintained Outcome: Progressing Goal: Understanding of proper administration and use of medicines will be achieved Outcome: Progressing Goal: Acceptable level of pain which allows the patient to achieve functional outcome goals Outcome: Progressing Continue monitoring pain and medicating as needed Problem: Altered Elimination: Goal: Establishment of normal urinary function will be acheived and maintained Outcome: Progressing Problem: Altered Nutrition: Goal: Achieve developmentally appropriate nutritional intake as clinically indicated Outcome: Progressing NPO Problem: Risk for Infection: Goal: Risk for infection will be reduced Outcome: Progressing Problem: Impaired Skin Integrity: Goal: Acheive wound healing without signs and symptoms of infection Outcome: Progressing Problem: VTE Prophylaxis: Goal: Will be free of DVT Outcome: Progressing Problem: Safety: Goal: Patient will remain free of falls during hospital stay Outcome: Progressing Goal: Free from injury during hospitalization Outcome: Progressing Problem: Discharge Planning: Goal: Discharge needs of the adult patient will be met Outcome: Progressing Normal [facility] Consultson 03-21-2023 Hydrostatic Tester Authentication Interface Message Text Attestation signed by Dayami Pérez MD at 03/21/2023 7:13 PM Attending addendum: I saw and evaluated the patient. I personally obtained the critical portions of the history and physical exam. The case was discussed in detail with the fellow; including, but not limited to the chief complaint, HPI, past history, physical findings, labs and radiological findings. I agree with the fellow's medical decision making as documented in the fellow's note. The patient was counseled on the possible differential diagnoses and testing needed to arrive at a diagnosis or a treatment plan. Dayami Pérez MD Division of Gastroenterology AND Hepatology [facility] Department of Gastroenterology and Hepatology Consult H AND P Note GI Attending Physician: Dr. Dayami Pérez MD Location: [place] [address] Attending/Referring Physician: Niall Aleman MD Reason for Consult and HPI Lala Hall is a 27 year old female with a past medical history significant for obesity, whom gastroenterology is consulted for gallstone pancreatitis and possible choledocholithiasis. Patient presented [facility] with RUQ pain and N/V for 3 days. Denied F/V, melena, BRBPR. MRCP showed pancreatitis and CBD 7mm with abrupt tapering of distal CBD. Labs showed lipase 2832, wbc nl. Tbili 0.7->2.4. ALT 380 AST 163. She was [facility] chole[facility] given gallstone pancreatitis. However given the worsened LFT GI was consulted for possible choledocholithiasis. Review Of Systems Positives as noted in HPI. All other systems were reviewed and negative. Past Medical, Surgical, Family and Social Histories No past medical history on file. No past surgical history on file. No family history on file. Social History Socioeconomic History Marital status: Social Determinants of Health Financial Resource Strain: Low Risk (10/12/2022) Received from [facility] Overall Financial Resource Strain (CARDIA) Difficulty of Paying Living Expenses: Not very hard Food Insecurity: No Food Insecurity (10/12/2022) Received from [facility] Hunger Vital Sign Worried About Running Out of Food in the Last Year: Never true Ran Out of Food in the Last Year: Never true Transportation Needs: No Transportation Needs (10/12/2022) Received from [facility] PRAPARE - Transportation Lack of Transportation (Medical): No Lack of Transportation (Non-Medical): No Physical Activity: Unknown (10/12/2022) Received from [facility] Exercise Vital Sign Days of Exercise per Week: Patient refused Minutes of Exercise per Session: Patient refused Stress: No Stress Concern Present (10/12/2022) Received from [facility] [place] [employer] - Occupational Stress Questionnaire Feeling of Stress : Only a little Social Connections: Moderately Isolated (10/12/2022) Received from [facility] Social Connection and Isolation Panel [NHANES] Frequency of Communication with Friends and Family: Twice a week Frequency of Social Gatherings with Friends and Family: Once a week Attends Scientologist Services: Never Active Member of Clubs or Organizations: No Attends Club or Organization Meetings: Never Marital Status: Intimate Partner Violence: Not At Risk (10/12/2022) Received from [facility] Humiliation, Afraid, Rape, and Kick questionnaire Fear of Current or Ex-Partner: No Emotionally Abused: No Physically Abused: No Sexually Abused: No Housing Stability: Unknown (10/12/2022) Received from [facility] Housing Stability Vital Sign Unable to Pay for Housing in the Last Year: No Unstable Housing in the Last Year: No Allergies AND Current Medications No Known Allergies: Current Facility-Administered Medications Medication Dose Route Frequency Last Rate Last Admin ondansetron (ZOFRAN) 4 MG/2ML injection 4 mg Intravenous Push Q4H PRN 4 mg at 03/21/23 0102 senna (SENOKOT) tablet 8.6 mg Oral At Bedtime polyethylene glycol (MIRALAX) 17 g packet 17 g Oral Daily oxyCODONE immediate release tablet 2.5 mg Oral Q4H PRN Or oxyCODONE immediate release tablet 5 mg Oral Q4H PRN 5 mg at 03/21/23 0914 HYDROmorphone (DILAUDID) 0.2 MG/ML injection 0.2 mg 0.2 mg Intravenous Push Q4H PRN 0.2 mg at 03/20/23 194 sertraline (ZOLOFT) tablet 25 mg Oral Daily 25 mg at 03/21/23 0914 lactated ringers iv infusion Intravenous Continuous 100 mL/hr at 03/21/23 09 Rate Verify at 03/21/23899 Physical Exam BP 124/81 (BP Location: right arm) Pulse 112 Temp 98.8 ???F (37.1 ???C) (Oral) Resp 18 Ht 5' 7 (1.702 m) Wt 270 lb (122.5 kg) SpO2 96% BMI 42.29 kg/m??? Gen: NAD, AOx3 HEENT: MMM Lungs: CTAB, no w/r/r CVS: RRR, no m/r/g Abd: Soft, RUQ tenderness. ND, nl BS Ext: No LE edema, full ROM Skin: Warm and dry Neur (more content not included)... Normal [facility] HEPATIC FUNCTION PANELon Albumin [Mass/Vol] 3.9 g/dL Normal 3.5-5.7 [facility] Comment on above: Order Comment: Note updated reference ranges. Performed By: #### C BC #### [facility] [address] [place] [address], ALK 174 IU/L High 34-104 [facility] Comment on above: Order Comment: Note updated reference ranges. Performed By: #### C BC #### [facility] [address] [place] [address], ALT [Catalytic activity/Vol] 380 U/L High 7-52 [facility] Comment on above: Order Comment: Note updated reference ranges. Performed By: #### C BC #### S [facility]AT[facility] [address] [place] [address], AST [Catalytic activity/Vol] 162 U/L High 13-39 [facility] Comment on above: Order Comment: Note updated reference ranges. Performed By: #### C BC #### S [facility]AT[facility] [address] [place] [address], Bilirubin [Mass/Vol] 2.4 mg/dL High 0.3-1.0 [facility] Comment on above: Order Comment: Note updated reference ranges. Performed By: #### C BC #### S [facility] [address], [place], Bilirubin.direct [Mass/Vol] 1.52 mg/dL High 0.03-0.18 [facility] Comment on above: Order Comment: Note updated reference ranges. Performed By: #### C BC #### [facility] [address], [place], Protein [Mass/Vol] 6.3 g/dL Normal 6.0-8.3 [facility] Comment on above: Order Comment: Note updated reference ranges. Performed By: #### C BC #### [facility] [address], [place], Albumin [Mass/Vol] 3.9 g/dL 3.5 - 5.7 g/dL [facility] ALP [Catalytic activity/Vol] 174 U/L High [facility] ALT [Catalytic activity/Vol] 380 U/L High [facility] AST [Catalytic activity/Vol] 162 U/L High [facility] Bilirubin [Mass/Vol] 2.4 mg/dL High 0.3 - 1 .0 mg/dL [facility] Bilirubin.direct [Mass/Vol] 1.52 mg/dL High 0.03 - 0.18 mg/dL [facility] Protein [Mass/Vol] 6.3 g/dL 6.0 - 8.3 g/dL [facility] Note updated referen ce ranges. [facility] - Blood bankon ABO and Rh group Nom (Bld) Blood group AB Rh(D) positive [facility] MAGNESIUMon 03-21-2023 Magnesium [Mass/Vol] 1.9 mg/dL Normal 1.9-2.7 [facility] Comment on above: Result Comment: Note updated reference ranges. Performed By: #### C BC #### [facility] [address], [place], Interpretation and review of laboratory results Normal [facility] Magnesium [Mass/Vol] 1.9 mg/dL 1.9 - 2 .7 mg/dL [facility] Comment on above: Note updated referen ce ranges. No Panel Informationon 03-21 Interpretation and review of laboratory results Abnormal [facility] OP Noteon 03-21-2023 Hydrostatic Tester Authentication Interface Message Text Patient's Name: Lala Hall Date: 03/21/23 Written informed consent obtained from patient. Endoscopic procedure risks (including but not limited to perforation, infection, bloating and bleeding) benefits and alternatives explained and questions answered. Patient verbalized understanding. Based on history and airway assessment patient is not an appropriate candidate for moderate sedation and will undergo sedation with the assistance of anesthesia physician/HOME CARE PHYSICAL THERAPIST team. Please see corresponding note for full details. Adolfo Dominique MD 03/21/23 3:39 PM Lala Hall 27 year old Surgical Contact Serial Number: [id number] Location: ENDO 05 Date: 03/21/2023 LIFE SKILLS TRAINER: Adolfo Dominique MD ATTENDING:Adolfo Dominique MD Procedure(s): ERCP, WITH ANESTHESIA SERVICES INSTRUMENT: Scope #[id number] SEDATION: Anesthesia Assisted Pre-Op Diagnosis Codes: * Gallstone pancreatitis [K85.10] INDICATIONS: This is a 27 year old female with acute gallstone pancreatitis, elevated LFT's, increasing bilirubin, and abnormal MRCP with possible bile duct stone in CBD. Patient verbalized understanding. While monitoring the patient with continuous use of P, BP, O2 and EKG, therapeutic duodenoscope passed to second portion of duodenum under direct visualization without difficulty. Erosive duodenitis was seen in D2. Ampulla placed en face and appeared mildly erythematous. CBD was selectively cannulated using wire guided technique and injection of dilute contrast revealed a normal caliber CBD with one distal filling defect compatible with a stone. CHD and intra-hepatic ducts were normal. Gallbladder partially filled via cystic duct. A biliary sphincterotomy was performed. The bile duct was swept several times with a 9-12 mm balloon, and a single 6 mm stone was removed from the bile duct. A stent was not placed. Gallstone pancreatitis (Primary Diagnosis) [504123] Choledocholithiasis [351019] [place] PATH SPECIMEN SENT: no SPECIMEN: None PHOTOGRAPH TAKEN:yes COMPLICATIONS DURING PROCEDURE: None EBL (estimated blood loss): minimal IMPRESSION: 1. Choledocholithiasis; s/p biliary sphincterotomy with extraction of a single 6 mm bile duct stone. No stent was placed. 2. Mildly erythematous major papilla. 3. Erosive duodenitis in D2. RECOMMENDATIONS: 1. Watch for signs of bleeding, perforation, cholangitis and pancreatitis. 2. Monitor LFT's. 3. Acid suppression to treat erosive duodenitis. 4. Early laparoscopic cholecystectomy this admission. 5. Follow-up with the inpatient GI Consult Service. 6. Follow-up with the inpatient Medicine team. 7. Follow-up with the inpatient Surgery team. 8. F/U with PCP. CC: Primary Care/Referring Physician(s): No primary care provider on file. PERSON COMPLETING NOTE: Adolfo Dominique MD. 03/21/2023 at 3:39 PM Patient meets criteria for discharge/transfer: Adolfo Dominique MD. Normal [facility] PHOSPHORUSon 03-21-2023 Phosphate [Mass/Vol] 3.0 mg/dL Normal 2.5-5.0 [facility] Comment on above: Result Comment: Note updated reference ranges. Performed By: #### C BC #### [facility] [address] [place] [address], [id number] Interpretation and review of laboratory results Normal [facility] Phosphate [Mass/Vol] 3.0 mg/dL 2.5 - 5 .0 mg/dL [facility] Comment on above: Note updated referen ce ranges. [facility] Noteson 03-21-2023 Hydrostatic Tester Authentication Interface Message Text Attestation signed by Niall Aleman MD at 03/21/2023 3:58 PM Split/Shared Documentation I approve the management plan for this patient and take responsibility for the plan as documented. Independent Interpretation of Tests Performed by Another Physician/VANCE: I personally performed, reviewed, and interpreted lab findings and imaging with findings of stable. Niall Aleman MD [facility] DIVISION OF ACUTE CARE SURGERY -------- GENERAL INFORMATION ------- EMERGENCY GENERAL SURGERY NOTE Patient Name: Lala Hall Admission Date: 03/20/2023 Patient seen and examined on 03/21/2023 ------ INTERVAL HISTORY/EVENTS ---- Background Narrative: Lala Hall is a 27 year old female with a h/o depression and low transverse 10 months ago who was transferred from [facility] due to MRCP concerning for gallstone pancreatitis and choledocholithiasis. Transferred to [facility] for endoscopy and surgical evaluation. Hospital Course/Procedures: 03/20: Transferred to [facility] from , admitted to [facility] for gallstone pancreatitis, choledocholithiasis, plan for cholecystectomy this admission Events in last 24 hours: No acute events overnight Ongoing abdominal pain, doesn't feel like oral oxycodone is sufficient Some intermittent nausea, no recent emesis Tbili to 2.4 (0.7) on morning labs Case discussed with GI fellow, possible ERCP later 03/21 Patient NPO PHYSICAL EXAM Vitals: Vital sign ranges over the past 24 hours (retrieved 03/21/2023 at 10:56 AM): Tmax (24 hours): 98.8 ???F (37.1 ???C) Pulse Av.7 Min: 80 Max: 114 Systolic (24hrs), Av , Min:109 , Max:136 Diastolic (24hrs), Av, Min:63, Max:81 MAP (mmHg) Av.5 mmHg Min: 76 mmHg Max: 95 mmHg Resp Av.7 Min: 16 Max: 18 SpO2 Av.3 % Min: 95 % Max: 97 % 24 Hour Input/Output In: 1260 (10.3 mL/kg) [P.O.:200; I.V.:1060 (0.4 mL/kg/hr)] Out: 700 (5.7 mL/kg) [Urine:700 (0.2 mL/kg/hr)] Net: 560 Weight: 122.5 kg Physical Exam: -General - Laying in bed, in NAD, visitor x2 at bedside -Neurologic - A AND O x3, clear speech -Cardiovascular - Not tachycardic per chart review, well perfused -Respiratory - Breathing comfortably on room air, symmetric chest rise -Abdomen - Soft, ND, RUQ and LUQ tenderness without rebound or guarding -Skin -warm, dry -Psychiatric - normal affect -Extremities - CAM on command LABORATORY RESULTS (LAST 24 HOURS) CBC/PT/INR WBC RBC Hgb Hct MCV RDW Plt PT aPTT INR 03/21/2345 9.1 4.84 13.1 40.4 84 15.5 292 03/20/231206 8.3 4.78 12.6 40.1 84 15.1 322 Basic Metabolic Panel Na K Cl CO2 Gap Glu BUN Cr Ca Mg PO4 03/21/23 004 3.0 Comment: Note updated reference ranges. 03/21/23 004 139 Comment: Note updated reference ranges. 3.8 Comment: Note updated reference ranges. Note updated reference ranges. 106 Comment: Note updated reference ranges. 22 Comment: Note updated reference ranges. 15 105 7 Comment: Note updated reference ranges. 0.59 Comment: Note updated reference ranges. 8.9 Comment: Note updated reference ranges. 03/21/2345 1.9 Comment: Note updated reference ranges. 03/20/231206 2.0 Comment: Note updated reference ranges. 03/20/231206 141 Comment: Note updated reference ranges. 3.9 Comment: Note updated reference ranges. Note updated reference ranges. 109 Comment: Note updated reference ranges. 23 Comment: Note updated reference ranges. 13 84 7 Comment: Note updated reference ranges. 0.66 Comment: Note updated reference ranges. 8.7 Comment: Note updated reference ranges. Arterial Blood Gases None IMAGING RESULTS - Last 24 hours (PERSONALLY REVIEWED) No new imaging --------- DIAGNOSIS AND PLAN Diagnoses: Gallstone pancreatitis Choledocholithiasis Acute abdominal pain PMHx: 10 months post-, depression, psoriasis Assessment: 27 yo female with pmhx as above admitted to [facility] following transfer from for gallstone pancreatitis. MRCP performed at OSH with choledocholithiasis. Worsening hyperbilirubinemia on AM labs. GI engaged. Plan for cholecystectomy this admission. Plan 1. Neurologic - - Cont oxycodone 2.5 /5 mg q4 hours PRN for moderate/ severe pain - Cont dilaudid 0.2 mg q4 hours PRN for breakthrough pain - Cont home sertraline 2. Respiratory - - Maintain O2 saturation > 92% - Encourage IS while awake 3. Cardiovascular - - meds - no home meds - Monitor VS per floor protocol 4. GI - - diet - NPO for possible ER (more content not included)... Normal [facility] TYPE AND SCREENon 03-21-2023 ABO and Rh group Nom (Bld) Blood group AB Rh(D) positive Normal [facility] Comment on above: Performed By: #### T S #### [facility] [address] [place] [address], ABO and Rh group Nom (Bld) No Previous Results Normal [facility] Comment on above: Performed By: #### T S #### [facility] [address], [place], ABSC INT Negative Normal [facility] Comment on above: Performed By: #### T S #### [facility] [address], [place], ABO and Rh group Nom (Bld) Blood group AB Rh(D) positive [facility] ABO and Rh group Nom (Bld) No Previous Results [facility] Blood group antibody screen Ql Negative [facility] URINE HCG-IN OFFICEOrdered B y: Jazz Garcia on 03-21-2023 HCG ( test) Ql (U) Negative Negative [facility] Interpretation and review of laboratory results Normal [facility] Negative Internal Control Negative Negative [facility] Positive Internal Control Positive Positive [facility] AdmissionCareon 03-20-2023 Hydrostatic Tester Authentication Interface Message Text AdmissionCare Guideline: Pancreatitis, with Common Duct Stone, Inpatient Based on the indications selected for the patient, the bed status of Inpatient was determined to be MET The following indications were selected as present at the time of evaluation of the patient: - Acute pancreatitis suspected to be secondary to biliary obstruction (eg, common duct stone, common bile duct dilation or obstruction) AdmissionCare documentation entered by: Mario Mayfield [facility] [employer], 27th edition, Copyright ??? 2022 [employer] [facility] All Rights Reserved. [id number]:02:57-05 :00 Normal [facility] BASIC METABOLIC PANELon Anion gap [Moles/Vol] 13 mmol/L Normal 10-20 [facility] Comment on above: Performed By: #### C BC #### [facility] [address], [place], Calcium [Mass/Vol] 8.7 mg/dL Normal 8.6-10.3 [facility] Comment on above: Result Comment: Note updated reference ranges. Performed By: #### C BC #### [facility] [address], [place], Chloride [Moles/Vol] 109 mmol/L High 98-107 [facility] Comment on above: Result Comment: Note updated reference ranges. Performed By: #### C BC #### [facility] [address], [place], CO2 [Moles/Vol] 23 mmol/L Normal 21-31 [facility] Comment on above: Result Comment: Note updated reference ranges. Performed By: #### C BC #### [facility] [address], [place], Creatinine [Mass/Vol] 0.66 mg/dL Normal 0.60-1.20 [facility] Comment on above: Result Comment: Note updated reference ranges. Performed By: #### C BC #### S [facility] [address], [place], ESTIMATED GFR (CKD-EPI) 124 mL/min/1.73sqm Normal >=60 [facility] Comment on above: Result Comment: 2020 CKD EPI Equation using Creatinine without Race Comment: Estimated glomerular filtration rate (eGFR) is calculated without a race coefficient. Values should be interpreted in the context of the patient's full clinical presentation. Reference: 1. Blas C, Guille M, Adelaide GUZMÁN, et al.. A Unifying Approach for GFR Estimation: Recommendations of the NKF-ASN Task Force on Reassessing the Inclusion of Race in Diagnosing Kidney Disease. [place] Journal of Kidney Diseases 202;79(2):268-88.e1. 2. N Engl J Med 1 Vol. 385 Issue 19 Pages 3868-0503 Performed By: #### C BC #### [facility] [address], [place], Glucose [Mass/Vol] 84 mg/dL Normal 74-109 [facility] Comment on above: Performed By: #### C BC #### S [facility] [address] [place] [address], Potassium [Moles/Vol] 3.9 mmol/L Normal 3.5-5.0 [facility] Comment on above: Result Comment: Note updated reference ranges. Note updated reference ranges. Performed By: #### C BC #### [facility] [address], [place], Sodium [Moles/Vol] 141 mmol/L Normal 136-145 [facility] Comment on above: Result Comment: Note updated reference ranges. Performed By: #### C BC #### [facility] [address], [place], Urea nitrogen [Mass/Vol] 7 mg/dL Normal 7-25 The [facility] Comment on above: Result Comment: Note updated reference ranges. Performed By: #### C #### S [facility] [address], [place], BMPon 03-20-2023 Anion gap [Moles/Vol] 12 mmol/L Normal 6-16 [facility] Comment on above: Performed By: #### 1 [id number], [id number], [id number], 4301106, [id number] ####[facility] [address] [place] [address] BUN/Creat Ratio 14 No Units Normal 10-20 [facility] Comment on above: Performed By: #### 1 [id number], [id number], [id number], 6681202, [id number] ####[facility] [address] [place] [address] Calcium [Mass/Vol] 9.0 mg/dL Normal 8.9-11.1 [facility] Comment on above: Performed By: #### 1 [id number], [id number], 0962930, 3618718, 4278828 ####[facility] [address] [place] [address] Chloride [Moles/Vol] 106 mmol/L Normal 101-111 [facility] Comment on above: Performed By: #### 1 [id number], 2198319, 8992987, 7097812, 4533419 ####[facility] [address] [place] [address] CO2 [Moles/Vol] 24 mmol/L Normal 21-31 [facility] Comment on above: Performed By: #### 1 [id number], 1722678, 9736367, 4477640, 2470588 ####[facility] [address] [place] [address] Creatinine [Mass/Vol] 0.7 mg/dL Normal 0.5-1.3 [facility] Comment on above: Performed By: #### 1 [id number], 2558580, 3710185, 8811261, 8736235 ####[facility] [address] [place] [address] Glucose [Mass/Vol] 111 mg/dL Normal 55-199 [facility] Comment on above: Performed By: #### 1 [id number], 4578342, 3228718, 9104307, 2429772 ####[facility] [address] [place] [address] Potassium [Moles/Vol] 3.8 mmol/L Normal 3.5-5.3 [facility] Comment on above: Performed By: #### 1 [id number], 2880969, 5683635, 4079279, 5586640 ####[facility] [address] [place] [address] Sodium [Moles/Vol] 138 mmol/L Normal 135-145 [facility] Comment on above: Performed By: #### 1 [id number], 4975930, 6602267, 0245831, 6193060 ####[facility] [address] [place] [address] Urea nitrogen [Mass/Vol] 10 mg/dL Normal 5-21 [facility] Comment on above: Performed By: #### 1 [id number], 0671647, 3563837, 1561170, 8913565 ####[facility] [address] [place] [address] Basic metabolic 2000 panelon 03-20-2023 Anion gap [Moles/Vol] 13 mmol/L 10 - 20 [facility] Calcium [Mass/Vol] 8.7 mg/dL 8.6 - 10. 3 mg/dL [facility] Comment on above: Note updated referen ce ranges. Chloride [Moles/Vol] 109 mmol/L High 98 - 10 7 mmol/L [facility] Comment on above: Note updated referen ce ranges. CO2 [Moles/Vol] 23 mmol/L 21 - 31 mmol/L [facility] Comment on above: Note updated referen ce ranges. Creatinine [Mass/Vol] 0.66 mg/dL 0.60 - 1.20 mg/dL [facility] Comment on above: Note updated referen ce ranges. GFR/1.73 sq M.predicted CKD-EPI (S/P/Bld) [Vol rate/Area] 124 - PINF [facility] Comment on above: 2020 CKD EPI Equatio n using Creatinine without Race Comment: Estimated glomerular filtration rate (eGFR) is calculated without a race coefficient. Values should be interpreted in the context of the patient's full clinical presentation. Reference: 1. Blas C, Guille M, Adelaide DC, et al.. A Unifying Approach for GFR Estimation: Recommendations of the NKF-ASN Task Force on Reassessing the Inclusion of Race in Diagnosing Kidney Disease. [place] Journal of Kidney Diseases 2021;79(2):268-88.e1. 2. N Engl J Med 2020 Vol. 385 Issue 19 Pages 4889-1336 Glucose [Mass/Vol] 84 mg/dL 74 - 109 [facility] Interpretation and review of laboratory results Abnormal [facility] Potassium [Moles/Vol] 3.9 mmol/L 3.5 - 5.0 mmol/L [facility] Comment on above: Note updated referen ce ranges. Note updated reference ranges. Sodium [Moles/Vol] 141 mmol/L 136 - 145 mmol/L [facility] Comment on above: Note updated referen ce ranges. Urea nitrogen [Mass/Vol] 7 mg/dL 7 - 25 mg/dL [facility] Comment on above: Note updated referen ce ranges. [facility] CBC WITH DIFFERENTIALon 02-0 Basophils (Bld) [#/Vol] 0.04 10*3/uL Normal 0.00-0.20 [facility] Comment on above: Performed By: #### C BCDSAT ####S PATHOLOGY [id number] [place], [place], Basophils/100 WBC (Bld) 0.5 % Normal <=1.9 [facility] Comment on above: Performed By: #### C BCDSAT ####[facility] [id number] [place], [place], Eosinophils (Bld) [#/Vol] 0.14 10*3/uL Normal 0.00-0.70 [facility] Comment on above: Performed By: #### C BCDSAT ####[facility] [id number] [place], [place], Eosinophils/100 WBC (Bld) 1.7 % Normal 0.1-4.0 [facility] Comment on above: Performed By: #### C BCDSAT ####[facility] [id number] [place], [place], Erythrocyte distribution width (RBC) [Ratio] 15.1 % High 11.5-14.5 [facility] Comment on above: Performed By: #### C BCDSAT ####[facility] [id number] [place], [place], Hematocrit (Bld) [Volume fraction] 40.1 % Normal 36.0-46.0 [facility] Comment on above: Performed By: #### C BCDSAT ####[facility] [id number] [place], [place], Hemoglobin (Bld) [Mass/Vol] 12.6 g/dL Normal 12.0-15.0 [facility] Comment on above: Performed By: #### C BCDSAT ####[facility] [id number] [place], [place], Lymphocytes (Bld) [#/Vol] 1.76 10*3/uL Normal 1.00-4.80 [facility] Comment on above: Performed By: #### C BCDSAT ####[facility] [id number] [place], [place], Lymphocytes/100 WBC (Bld) 21.2 % Low 24.0-44.0 [facility] Comment on above: Performed By: #### C BCDSAT ####[facility] [id number] [place], [place], MCH (RBC) [Entitic mass] 26.4 pg Normal 26.0-34.0 [facility] Comment on above: Performed By: #### C BCDSAT ####[facility] [id number] [place], [place], MCHC (RBC) [Mass/Vol] 31.5 g/dL Low 32.0-35.9 [facility] [facility] Comment on above: Performed By: #### C BCDSAT ####[facility] [id number] [place], [place], MCV (RBC) [Entitic vol] 84 fL Normal 80-100 [facility] Comment on above: Performed By: #### C BCDSAT ####[facility] [id number] [place], [place], MONOCYTE DISTRIBUTION WIDTH 18 Normal <=20 [facility] Comment on above: Performed By: #### C BCDSAT ####[facility] [id number] [place], [place], Monocytes (Bld) [#/Vol] 0.60 10*3/uL Normal 0.20-1.00 [facility] Comment on above: Performed By: #### C BCDSAT ####[facility] [id number] [place], Monocytes/100 WBC (Bld) 7.3 % Normal 2.0-11.0 [facility] Comment on above: Performed By: #### C BCDSAT ####[facility] [id number] [place], Neutrophils (Bld) [#/Vol] 5.74 10*3/uL Normal 1.50-8.00 [facility] Comment on above: Performed By: #### C BCDSAT ####[facility] [id number] [place], Neutrophils/100 WBC (Bld) 69.3 % Normal 31.0-76.0 [facility] Comment on above: Performed By: #### C BCDSAT ####[facility] [id number] [place], Platelet mean volume (Bld) [Entitic vol] 8.2 fL Normal 7.5-11.2 [facility] Comment on above: Performed By: #### C BCDSAT ####[facility] [id number] [place], Platelets (Bld) [#/Vol] 322 10*3/uL Normal 150-400 [facility] Comment on above: Performed By: #### C BCDSAT ####[facility] [id number] [place], RBC (Bld) [#/Vol] 4.78 10*6/uL Normal 4.00-5.20 [facility] Comment on above: Performed By: #### C BCDSAT ####[facility] [id number] [place], WBC (Bld) [#/Vol] 8.3 10*3/uL Normal 4.5-11.5 [facility] Comment on above: Performed By: #### C BCDSAT ####[facility] [id number] [place], Basophils (Bld) [#/Vol] 0.04 10*3/uL 0.00 - 0.20 K/uL [facility] Basophils/100 WBC (Bld) 0.5 % NINF - 1.9 % [facility] Eosinophils (Bld) [#/Vol] 0.14 10*3/uL 0.00 - 0.70 K/uL [facility] Eosinophils/100 WBC (Bld) 1.7 % 0.1 - 4.0 % [facility] Erythrocyte distribution width (RBC) [Ratio] 15.1 % High 11.5 - 14.5 % [facility] Hematocrit (Bld) [Volume fraction] 40.1 % 36.0 - 46.0 % [facility] Hemoglobin (Bld) [Mass/Vol] 12.6 g/dL 12.0 - 15.0 g/dL [facility] and review of laboratory results Abnormal [facility] Lymphocytes (Bld) [#/Vol] 1.76 10*3/uL 1.00 - 4.80 K/uL [facility] Lymphocytes/100 WBC (Bld) 21.2 % Low 24.0 - 44.0 % [facility] MCH (RBC) [Entitic mass] 26.4 pg 26.0 - 34.0 pg [facility] MCHC (RBC) [Mass/Vol] 31.5 g/dL Low 32.0 - 35.9 g/dL [facility] MCV (RBC) [Entitic vol] 84 fL 80 - 100 fL [facility] Monocyte distribution width Auto (Bld) [Entitic vol] 18 NINF - 20 [facility] Monocytes (Bld) [#/Vol] 0.60 10*3/uL 0.20 - 1.00 K/uL [facility] Monocytes/100 WBC (Bld) 7.3 % 2.0 - 11.0 % [facility] Neutrophils (Bld) [#/Vol] 5.74 10*3/uL 1.50 - 8.00 K/uL [facility] Neutrophils/100 WBC (Bld) 69.3 % 31.0 - 76.0 % [facility] Platelet mean volume (Bld) [Entitic vol] 8.2 fL 7.5 - 11.2 fL [facility] Platelets (Bld) [#/Vol] 322 10*3/uL 150 - 400 K/uL [facility] RBC (Bld) [#/Vol] 4.78 10*6/uL [facility] WBC (Bld) [#/Vol] 8.3 10*3/uL 4.5 - 11.5 K/uL [facility] CBC w/ Auto Diffon 4 Basophil Absolute 0.0 E9/L Normal 0.0-0.2 [facility] Comment on above: Performed By: #### 1 [id number], 0570787, 0825571, 9577457, 9665276 ####[facility] [address] [place] [address] Basophils/100 WBC (Bld) 0.3 % Normal 0.0-2.0 [facility] Comment on above: Performed By: #### 1 [id number], 3603268, 9326084, 8456863, 0167317 ####[facility] [address] [place] [address] Eos Absolute 0.1 E9/L Normal 0.0-0.5 [facility] Comment on above: Performed By: #### 1 [id number], 8431531, 7863591, 4522595, 4082443 ####[facility] [address] [place] [address] Eosinophils/100 WBC (Bld) 1.2 % Normal 0.0-8.0 [facility] Comment on above: Performed By: #### 1 [id number], 5396337, 9019732, 6864077, 3700506 ####[address] [place] [address] Erythrocyte distribution width (RBC) [Ratio] 15.1 % High 10.9-14.2 [facility] Comment on above: Performed By: #### 1 [id number], 8165674, 2157405, 8926680, 5551152 ####[address] [address] Hematocrit (Bld) [Volume fraction] 43.0 % Normal 34.0-46.0 [facility] Comment on above: Performed By: #### 1 [id number], 5952421, 3303509, 5960990, 4399468 ####[address] [address] Hemoglobin (Bld) [Mass/Vol] 14.4 g/dL Normal 12.0-16.0 [facility] Comment on above: Performed By: #### 1 3218582, 1187168, 8042925, 0969399, 0647742 ####[address] [address] Lymph Absolute 0.9 E9/L Low 1.0-4.0 [facility] Comment on above: Performed By: #### 1 1798752, 5484386, 6663409, 6963530, 3716795 ####[address] [address] Lymphocytes/100 WBC (Bld) 9.2 % Low 14.0-50.0 [facility] Comment on above: Performed By: #### 1 2557087, 7554407, 4742171, 7568467, 4196311 ####[address] [place] [address] MCH (RBC) [Entitic mass] 27.1 pg Normal 27.0-34.0 [facility] Comment on above: Performed By: #### 1 1581744, 5356312, 4759377, 1627373, 8831607 ####[address] [place] [address] MCHC (RBC) [Mass/Vol] 33.1 g/dL Normal 31.4-36.0 [facility] Comment on above: Performed By: #### 1 3471315, 3610685, 2146879, 4815739, 8459224 ####[address] [place] [address] MCV (RBC) [Entitic vol] 82.0 fL Normal 80.0-100.0 [facility] Comment on above: Performed By: #### 1 6237514, 9095376, 6317791, 5404676, 5648939 ####[address] [address] [place] Absolute 0.7 E9/L Normal 0.2-1.0 [facility] Comment on above: Performed By: #### 1 3708653, 4275438, 3308488, 7925960, 0948848 ####[address] [address] Monocytes/100 WBC (Bld) 6.8 % Normal 4.0-14.0 [facility] Comment on above: Performed By: #### 1 9712853, 8035089, 1475406, 6948563, 9017439 ####[address] [address] Neutro Absolute 8.5 E9/L High 2.0-7.5 [facility] Comment on above: Performed By: #### 1 6092948, 7147098, 3134126, 1101884, 9696137 ####[address] [address] Neutro Auto 82.5 % High 36.0-75.0 [facility] Comment on above: Performed By: #### 1 2461438, 7901093, 3784933, 5040060, 3371369 ####[address] [address] Platelet 373.0 E9/L Normal 150.0-500.0 [facility] Comment on above: Performed By: #### 1 6512122, 8146428, 2243750, 4447036, 7252729 ####[facility] [address] [place] [address] Platelet mean volume (Bld) [Entitic vol] 7.9 fL Normal 6.4-10.8 [facility] Comment on above: Performed By: #### 1 0722111, 6434344, 4164178, 3932937, 1037152 ####[facility] [address] [place] [address] RBC 5.3 E12/L Normal 4.3-5.9 [facility] Comment on above: Performed By: #### 1 4857286, 6364911, 6342698, 2976515, 2606168 ####[facility] [address] [place] [address] WBC 10.3 E9/L Normal 4.0-11.0 [facility] Comment on above: Performed By: #### 1 3847127, 2924131, 2256567, 2741130, 8093705 ####[facility] [address] [place] [address] CT Abdomen/Pelvis w/ Contras ton 03-20-2023 CT Abdomen/Pelvis w/ Contrast Exam Date/Time: 03/20/2023 03:55 EST Reason for Exam: Abdominal pain, acute, nonlocalized;Other (please specify) Report IMPRESSION: ACUTE PANCREATITIS. LEFT ADNEXAL CYST, MOST LIKELY OVARIAN IN ETIOLOGY. SMALL AMOUNT OF FREE FLUID WITHIN DEPENDENT PELVIS, MOST LIKELY PHYSIOLOGIC. CT OF THE ABDOMEN AND PELVIS WITH INTRAVENOUS CONTRAST MEDIUM. History: Abdominal pain, acute, nonlocalized. Sharp left upper quadrant and epigastric pain for last 3 days associated with nausea and vomiting. Technical Factors: CT imaging of the abdomen and pelvis were obtained and formatted as 5 mm contiguous axial images from the domes of the diaphragm to the symphysis pubis. Sagittal and coronal reconstructions were also obtained. Oral contrast medium: None. Intravenous contrast medium: Isovue-300, 100 mm. Comparison: None Findings: Lower chest: Cardiac size normal. No pericardial effusion. No coronary artery calcification. Mild dependent subsegmental atelectatic change. Liver: Normal in size, shape, and attenuation. Bile Ducts: Normal in caliber. Gallbladder: No stones or wall thickening. Pancreas: Normal without masses, cysts, ductal dilatation or calcification. Peripancreatic fat stranding identified along anterior surface of pancreatic head body and tail. Edematous change found just inferior to pancreatic tail. However, no discrete fluid collection is identified. Spleen: Normal in size without masses or calcifications. No splenules. Kidneys: Normal in size and enhancement. No hydronephrosis, masses, or stones. Adrenals: Normal. Stomach. Partially decompressed. Diffuse wall thickening of gastric body. Air and residue identified within dependent stomach. Report Small bowel: Normal in caliber. Appendix: Normal. Colon: Normal in caliber. Peritoneum: No free air, or loculated fluid collections. Small amount of free fluid in dependent pelvis. Vessels: Aorta normal in course and caliber. Portal vein, splenic vein, superior mesenteric vein are patent. Lymph nodes: Retroperitoneal: No enlarged retroperitoneal lymph nodes. Mesenteric: No enlarged mesenteric lymph nodes. Pelvic: No enlarged pelvic lymph nodes. Ureters: Normal in course and caliber. No calcifications. Bladder: Decompressed. Reproductive organs: 2.4 cm left adnexal cyst. Abdominal Wall: No hernia identified. No diastasis of rectus musculature. No edema or masses. Bones: No bone lesions. No degenerative changes. No post operative changes. All CT scans at this facility use dose modulation, iterative reconstruction, and/or weight based dosing when appropriate to reduce radiation dose to as low as reasonably achievable. Ordering Provider: Miroslava Correa FINAL REPORT Dictated: 03/20/2023 9:07 am Attila Boogie MD Signed (Electronic Signature): 03/20/2023 9:07 am Signed by: Attila Boogie MD Transcribed by: MANDIE Technologist: ERICKSON Technical Comments GFR (mL/min/1/73m2) n/a Contrast: Isovue 300 Contrast amount in ml's: 100 Normal [facility] Consent for Treatmenton Consent for Treatment [id number] 0TIFF Normal [facility] Consultson 03-20-2023 Hydrostatic Tester Authentication Interface Message Text Attestation signed by Niall Aleman MD at 03/20/2023 10:41 PM Teaching Physician Note: I saw and evaluated the patient. I personally obtained the rivera and critical portions of the history and physical exam. I reviewed the resident's documentation and discussed the patient with the resident. I agree with the resident's medical decision making as documented in the resident's note Niall Aleman MD Division of Trauma, Critical Care, Lr, and Emergency General Surgery Department of Surgery [facility] DEPARTMENT OF SURGERY CONSULT - ACUTE CARE SURGERY Lala Hall [id number] Chief Complaint/Reason for Consultation Gallstone pancreatitis History (HPI) Lala Hall is a 27 year old female with a h/o depression and low transverse 10 months ago who was transferred from [facility] due to MRCP concerning for gallstone pancreatitis and choledocholithiasis. General Surgery is consult regarding this complaint. Patient has been having sharp epigastric abdominal pain radiating to the back with vomiting 3 days ago. Finally came in to ED due to persistent emesis. Normal BM. No fever or chills. Last BM yesterday. ED workup includes lipase 2832, nl WBC 8.3, t bili 0.7 nl, alk phos 143, ALT 434. AST 214. At [facility], initial T bili of 2.0, CT with IV contrast initially was done with no stones and wall thickening and edematous pancreatic tail. MRCP showed multiple gallstones in dependent portion of gallbladder extending to gallbladder neck, no gall bladder wall thickening. CBD up to 6-7 mm in diameter. Abrupt tapering of distal most CBD at level of choledochal sphincter. Peripancreatic fluid compatible with acute pancreatitis. Medications: Zoloft Allergies: Patient has no known allergies. Family History: family history is not on file. Social History: Review of Systems: negative except per HPI PHYSICAL EXAMINATION BP 117/74 Pulse 80 Temp 97.6 ???F (36.4 ???C) (Oral) Resp 16 Wt 270 lb (122.5 kg) SpO2 97% There is no height or weight on file to calculate BMI. -General - not appearing in distress, laying comfortably in bed -Neurologic - No obvious focal deficit, symmetrical smile, normal speech -Cardiovascular - regular rate and rhythm -Respiratory - no respiratory distress, symmetrical chest expansion, on room air -Abdomen - soft, non distended, tender to palpation to RUQ and epigastric area, no masses, no hernia, no overlying skin changes, no peritoneal signs -Skin/Pressure ulcers - warm and dry -Psychiatric - normal affect -Extremities - moves all extremities, no pitting edema Laboratory Values and Test Results Results for orders placed or performed during the hospital encounter of 03/20/23 CBC WITH DIFFERENTIAL Result Value Ref Range WBC 8.3 4.5 - 11.5 K/uL RBC 4.78 4.00 - 5.20 M/uL Hemoglobin 12.6 12.0 - 15.0 g/dL Hematocrit 40.1 36.0 - 46.0 % MCV 84 80 - 100 fL MCH 26.4 26.0 - 34.0 pg MCHC 31.5 (L) 32.0 - 35.9 g/dL Platelet 322 150 - 400 K/uL RDW-CV 15.1 (H) 11.5 - 14.5 % MPV 8.2 7.5 - 11.2 fL Neutrophils 69.3 31.0 - 76.0 % Neutrophil # 5.74 1.50 - 8.00 K/uL Lymphocytes 21.2 (L) 24.0 - 44.0 % Lymphocytes # 1.76 1.00 - 4.80 K/uL Monocytes 7.3 2.0 - 11.0 % Monocyte # 0.60 0.20 - 1.00 K/uL Eosinophil 1.7 0.1 - 4.0 % Eosinophil # 0.14 0.00 - 0.70 K/uL Basophils 0.5 <=1.9 % Basophil # 0.04 0.00 - 0.20 K/uL MDW 18 <=20 Findings of tests personally reviewed From [facility]: MRCP: cholelithiasis with multiple Recommendations: Impression Lala Hall is a 27 year old female with a history as noted above who presents with gallstone pancreatitis. Admit to EGS. Gallstone has likely passed. Likely lap diaz this admission in the next few days. Monitor abdominal pain. Plan 1. Neurologic - -oxy 2.5/5, tylenol for pain control -continue home zoloft 2. Respiratory - -Supplemental oxygen PRN to maintain SpO2 above 90% 3. Cardiovascular - -no acute issues 4. GI - -diet - Clear Liquid -bowel regimen miralax and senna - Anticipate OR this admission -Daily LFT 5. / FEN - -No avina -PRN electrolyte replacement - Daily BMP, Mg, P 6. Endo - -No acute issues 7. Hematologic - - Daily CBC - Type and screen for OR 8. ID - -No antibiotics indicated 9. MSK - -Progressive mobility -PT/OT consulted Prophylaxis: VTE - SCDs and lovenox Stress ulcer - not indicated Dispo: RNF Follow up: TBD Plan was discussed with attending, Dr. Love Mayfield MD Emergency General Surgery Please page: EGS ED/Consult Pager [phone] for new patients EGS Floor pager [phone] for established patients Normal [facility] Clinical Summaryon 2023 ED Clinical Summary [id number] ED Clinical Summary Person Information Name: LALA HALL Yesi/[facility] Age: 27 Years : 1995 Sex: Female Language: Turkmen PCP: NONE, XXXX Marital Status: Phone: [phone] Visit Id: Visit Reason: Vomiting; Nausea; Abdominal pain; SEVERE ABDOMINAL PAIN - VOMITTING EVERY HR Speciality: Acuity: 3 Enc Type: Emergency Med Service: Emergency Arrival: 03/20/2023 02:48:34 Discharge: 03/20/2023 10:47:36 LOS: 000 07:59 Checkin: 03/20/2023 02:48:34 Checkout: 03/20/2023 10:47:36 Dispo Type: Short-Term Hosp as IP EVENTS: Event Name Event Status Request Date/Time Start Date/Time Complete Date/Time Arrive Complete 03/20/2023 02:48:34 03/20/2023 02:48:34 03/20/2023 02:48:34 Document Home Meds Request 03/20/2023 02:48:34 Triage Complete 03/20/2023 02:48:34 03/20/2023 02:56:05 03/20/2023 02:56:05 Dr Exam Complete 03/20/2023 02:51:33 03/20/2023 02:51:33 03/20/2023 02:51:33 Registration Complete 03/20/2023 02:51:33 03/20/2023 02:57:02 03/20/2023 03:06:38 Bed Assign Complete 03/20/2023 02:57:02 03/20/2023 02:57:02 03/20/2023 02:57:02 RN Exam Complete 03/20/2023 02:57:02 03/20/2023 03:29:32 03/20/2023 03:29:32 Meds Admin Complete 03/20/2023 03:06:06 03/20/2023 03:19:37 Pending Labs Complete 03/20/2023 03:06:06 03/20/2023 04:05:07 Lab Complete 03/20/2023 03:06:06 03/20/2023 04:05:07 Urine Collect Complete 03/20/2023 03:06:06 03/20/2023 03:38:22 CT Complete 03/20/2023 03:06:06 03/20/2023 03:32:09 03/20/2023 03:55:20 Reg Complete Request 03/20/2023 03:06:38 Reg Bed Request Complete 03/20/2023 03:06:38 03/20/2023 03:06:38 03/20/2023 03:06:38 Pending Labs Complete 03/20/2023 03:26:12 03/20/2023 03:26:12 03/20/2023 03:49:02 Lab Complete 03/20/2023 03:26:12 03/20/2023 03:26:12 03/20/2023 03:49:02 Pending Labs Complete 03/20/2023 03:27:25 03/20/2023 03:27:25 03/20/2023 03:27:25 Pending Labs Complete 03/20/2023 03:27:35 03/20/2023 03:27:35 03/20/2023 03:27:35 Meds Admin Request 03/20/2023 04:06:30 Meds Admin Complete 03/20/2023 05:03:55 03/20/2023 05:54:06 MRI Complete 03/20/2023 05:07:03 03/20/2023 06:31:36 03/20/2023 07:13:39 Meds Admin Request 03/20/2023 05:35:14 Dr Exam Complete 03/20/2023 07:07:31 03/20/2023 07:07:31 03/20/2023 07:07:31 Registration Request 03/20/2023 07:07:31 Meds Admin Complete 03/20/2023 10:09:50 03/20/2023 10:35:25 Patient Care Request 03/20/2023 10:23:40 Transfer Complete 03/20/2023 10:23:40 03/20/2023 11:00:06 03/20/2023 11:00:06 Discharge Complete 03/20/2023 11:00:06 03/20/2023 11:00:06 03/20/2023 11:00:06 ADDRESS: [address] [place] [address] [phone] [facility] DOC NOTES: Addendum by Lucho Guzman DO on March 20, 2023 10:19:42 EST MEDICAL INFORMATION: Prescriptions Given: Medications to Continue with No Changes Other Medications acetaminophen-hydrocod one (acetaminophen-hydroco done 325 mg-5 mg oral tablet) 1 Tablets By Mouth every 4 hours. PRN moderate pain. May increase falls. Don't drink, drive, work on this med. Don't take with tylenol, benzos, muscle relaxants. ICD-10 R52. Refills: 0. metformin By Mouth. PATIENT EDUCATION INFORMATION: Instructions: Follow up: DIAGNOSIS: Acute pancreatitis; Transaminitis Normal [facility] ED Note-Physicianon 03-20-19 ED Note-Physician Basic Information Time Seen: Miroslava Correa DO 03/20/2023 02:51 Chief Complaint complains of left upper abd pain for the last three days. nausea and vomtiing. denies diarrhea or fever. History of Present Illness Patient is a 27-year-old female with no past medical history presenting to the ED for evaluation of abdominal pain, nausea and vomiting. Patient states symptoms started 3 days ago progressively worsened, started vomiting every hour for the last 6 hours has been unable to keep anything down. Patient denies any fevers, chills, diarrhea, constipation. Denies any previous history of this, no other sick contacts. Patient describes the pain as sharp, in the epigastrium and left upper quadrant. Review of Systems A 10 point review of systems is negative except as noted above. Medical and Surgical History: Reviewed and noted Social history: Lives at home Tobacco: Denies Physical Exam Vitals & Measurements T: 36.5 ?C(Oral) HR: 98(Peripheral) RR: 16 BP: 140/88 SpO2: 95% HT: 171 cm WT: 121.9 kg BMI: 41.69 General: Well developed, non toxic appearing, no acute distress HEENT: Head atraumatic, Mucosa moist, hearing grossly normal Neck: No JVD, tracheal deviation Cardiac: Regular rate, rhythm, no murmurs, or gallops, 2+ radial pulses Respiratory: Lungs clear to auscultation B/L, normal respiratory effort Abdomen: Soft palpation of the epigastrium, left upper quadrant, no rebound or guarding, no peritoneal signs Extremities: No edema noted in the LE B/L, no tenderness to palpation Neurologic: Alert and oriented, speech clear Skin: No rashes or lesions Psych: Appropriate mood and behavior Medical Decision Making MEDICAL DECISION MAKING Number and Complexity of Problems Differential Diagnosis: [] [facility] Data External documents reviewed: [] My EKG interpretation: [] My CT interpretation: [] My X-ray interpretation: [] My Ultrasound interpretation: [] Decision rules/scores evaluated: [] Discussed with: [] Treatment and Disposition ED Course: Patient is a 27-year-old female presenting to the ED for evaluation of nausea, vomiting, abdominal pain. Patient is nontoxic. Arrival, no acute distress. Laboratory evaluation is obtained, CT ab pelvis is ordered. Patient is given morphine, Zofran, IV fluids in addition to famotidine. Patient's laboratory evaluation shows no leukocytosis however liver enzymes are elevated with an alk phos of 171, ALT 589, AST 415, bilirubin is elevated 2 and lipase is greater than 396. Urinalysis with bilirubin. CT ab pelvis shows findings consistent with acute pancreatitis however the common bile duct is mildly prominent no definitive gallstones noted. Patient's pain has improved after pain medications, IV fluids. I discussed the case with Dr. Najera of surgery who recommends MRCP in the morning for definitive diagnosis of possible gallstone pancreatitis. Patient is covered with a dose of Zosyn. Patient and are comfortable with this plan. Patient signed out to Dr. Guzman pending MRCP. Shared decision making: [] Code status: [] Assessment/Plan Acute pancreatitis (K85.90: Acute pancreatitis without necrosis or infection, unspecified) Transaminitis (R74.01: Elevation of levels of liver transaminase levels) Orders: famotidine, 20 mg = 2 mL, Soln-IV, IV Push, Once, Stop date 03/20/23 3:05:00 EST, STAT, Start date 03/20/23 3:05:00 EST, 03/20/23 3:05:00 EST Lactated Ringers Injection 1,000 mL, 1,000 mL, IV, 1,000 mL/hr, STAT, Start date 03/20/23 4:06:00 EST, 1 hour(s), Total volume (mL): 1,000, 121.9 kg, 2.41, m2 morphine, 4 mg = 1 mL, Injection, IV Push, Once, Stop date 03/20/23 3:05:00 EST, STAT, Start date 03/20/23 3:05:00 EST, 03/20/23 3:05:00 EST ondansetron, 4 mg = 2 mL, Injection, IV Push, Once, Stop date 03/20/23 3:05:00 EST, STAT, Start date 03/20/23 3:05:00 EST, 03/20/23 3:05:00 EST piperacillin-tazobacta m + Sodium Chloride 0.9% intravenous solution 50 mL, 3.375 gm = 1 EA, IV Piggyback, Once, Stop date 03/20/23 5:03:00 EST, STAT, Start date 03/20/23 5:03:00 EST, 100 mL/hr, Infuse over 30 minute(s), 03/20/23 5:03:00 EST Sodium Chloride 0.9% intravenous solution, 1,000 mL, Soln-IV, IV, Once, Stop date 03/20/23 3:05:00 EST, STAT, Start date 03/20/23 3:05:00 EST, Infuse over 61, minute(s) Basic Metabolic Panel CBC w/ Auto Diff CT Abdomen/Pelvis w/ Contrast eGFR Extra Blue Tube Extra SST Tube Hepatic Function Panel Lipase Level MRI Cholangiogram Pancreatography (mrcp) U Beta Hcg Qual UA With Cult Reflex Disposition Plan Discharge Prescription List Prescriptions No active prescription medications Follow-up No qualifying data available Problem List/Past Medical History Ongoing Psoriasis Historical No qualifying data Medications Inpatient famotidine 10 mg/mL IV Adela, 20 mg= 2 mL, IV Push, Once morphine 4 mg/mL Inj, 4 mg= 1 mL, IV Push, Once NS 1000 ml Bolus, 1000 mL, IV, Once ondansetron 4 mg/2 mL Inj, (more content not included)... Normal [facility] Comment on above: Result Comment: Elec tronically Signed By: Lucho Guzman DO\.br\Date and Time Signed: 03/20/23 10:21 EST ED Patient Education Noteon 03-20-2023 ED Patient Education Note Normal [facility] ED Patient Summaryon 024 ED Patient Summary [place] [id number] Patient Discharge Instructions Person Information Name: LALA HALL Age: 27 Years Arrival Date: 03/20/2023 02:48:34 Discharge Diagnosis: Acute pancreatitis; Transaminitis Primary Care Physician: NONE, XXXX Provider Information Primary Provider: Miroslava Correa DO Advanced Jet Operator:None The exam and treatment you received in the Emergency Department were for an urgent problem and are not intended as complete care. It is important that you follow up with a doctor, nurse practitioner, or physician?s mortgage loan assistant for ongoing care. If your symptoms become worse or you do not improve as expected and you are unable to reach your usual health care provider, you should return to the Emergency Department. We are available 24 hours a day. LALA HALL has been given the following list of patient education materials, prescriptions and follow-up instructions: Follow-up Instructions: In the event that this physician does not participate in your insurance network, please consult with your insurance company to find a nearby participating provider. Patient Education Materials: A MESSAGE TO ALL PATIENTS REGARDING OPIOIDS PRESCRIPTION OPIOIDS: WHAT YOU NEED TO KNOW Prescription opioids can be used to help relieve kbourlte-pb-lsevil pain and are often prescribed following a surgery or injury, or for certain health conditions. These medications can be an important part of the treatment but also come with serious risks. It is important to work with your healthcare provider to make sure you are getting the safest, most effective care. WHAT ARE THE RISKS AND SIDE EFFECTS OF OPIOID USE? Prescription opioids carry serious risks of addiction and overdose, especially with prolonged use. An opioid overdose, often marked by slowed breathing, can cause sudden . The use of prescription opioids can have a number of side effects as well, even when taken as directed: ? Tolerance?meaning you might need to take more of the medication for the same pain relief ? Physical dependence?meaning you have symptoms of withdrawal when a medication is stopped ? Increased sensitivity to pain ? Constipation ? Nausea, vomiting, and dry mouth ? Sleepiness and dizziness ? Confusion ? Depression ? Low levels of testosterone that can result in lower sex drive, energy, and strength ? Itching and sweating RISKS ARE GREATER WITH: ? History of drug misuse, substance use disorder, or overdose ? Mental health conditions (such as depression or anxiety) ? Sleep apnea ? Older age (65 years and older) ? Avoid alcohol while taking prescription opioids. Also, unless specifically advised by your health care provider, medications to avoid include: ? Benzodiazepines (such as Xanax or Valium) ? Muscle relaxants (such as Soma or Flexeril) ? Hypnotics (such as Ambien or Lunesta) ? Other prescription opioids KNOW YOUR OPTIONS Talk to your health care provider about ways to manage your pain that don?t involve prescription opioids. Some of these options may actually work better and have fewer risks and side effects. Options may include: ? Pain relievers such as acetaminophen, ibuprofen, and naproxen ? Some medication that are also used for depression or seizures ? Physical therapy and exercise ? Cognitive behavioral therapy, a psychological, goal-directed approach, in which patients learn how to modify physical, behavioral, and emotional triggers of pain and stress. IF YOU ARE PRESCRIBED OPIOIDS FOR PAIN: ? Never take opioids in greater amounts or more often than prescribed. ? Follow up with your primary health care provider. o Work together to create a plan on how to manage your pain. o Talk about ways to help manage your pain that don?t involve prescription opioids. o Talk about any and all concerns and side effects. ? Help prevent misuse and abuse o Never sell or share prescription opioids. o Never use another person?s prescription opioids. ? Store prescription opioids in a secure place and out of reach of others (this may include visitors, children, friends, and family). ? Safely dispose of unused prescription opioids: Find your community drug take-back program or your pharmacy mail-back program, or flush them down the toilet, following guidance from the Food and Drug Administration (www.fda.gov/Drugs/Res ourcesForYou). ? Visit www.cdc.gov/drugoverdo se to learn about the risks of opioids abuse and overdose. ? If you believe you may be struggling with addiction, tell your health laboratory animal care veterinarian and ask for guidance or call [facility] National Helpline at 4-890-627-HELP. v Source: US Department of Health and Human Services/Center for Disease Control & Prevention [facility] Medications Given: Medication Dose Route Sodi (more content not included)... Normal [facility] ED Provider Ruthie 03-20-19 Hydrostatic Tester Authentication Interface Message Text -------- HISTORY OF PRESENT ILLNESS ---- 03/20/2023, 12:01 PM. The history is provided by the Patient. Lala Hall is a 27 year old female presenting to the ED for surgical consult. Patient was transferred from [facility] after found to have gallstone pancreatitis. Patient is endorsing abdominal pain and nausea. Per chart review, patient transferred from [facility] as found to have gallstone pancreatitis. Imaging reviewed showing MRCP with stricture at the choledochal sphincter, was transferred due to facility not having ERCP capabilities. Patient noted to have 3 days of nausea, vomiting, and abdominal pain that has been worsening. Labs reviewed showing no WBC but with left shift, normal renal function, elevated LFTs, mildly elevated bilirubin, and markedly elevated lipase consistent with gallstone pancreatitis. REVIEW OF SYSTEMS Negative except noted in HPI. PAST HISTORY Past Medical History: No pertinent PMHx. Past Surgical History: No pertinent past surgical hx. Social History: Family History: No pertinent family hx. The patient's home medications have been reviewed. Allergies: NKDA PHYSICAL EXAM Vitals Recorded in This Encounter 03/20/2023 1209 BP: 117/74 Pulse: 80 Resp: 16 Temp: 97.6 ???F (36.4 ???C) Temp src: Oral SpO2: 97 % Weight: 270 lb (122.5 kg) Pain Score: 6 Constitutional: Well developed, well nourished. Awake AND alert. No acute distress. Head: Atraumatic. Eyes: Pupils are equal. No injected conjunctivae. No scleral icterus. ENT: Mucous membranes are moist. Neck: Normal movement. Supple. Cardiovascular: Regular rate. Regular rhythm. No murmurs, rubs, or gallops. Distal pulses are equal and 2+. Pulmonary/Chest: No evidence of respiratory distress. Clear to auscultation bilaterally. No wheezing, rales or rhonchi. Abdominal: Soft and non-distended. There is upper abdominal tenderness. No rebound, guarding, or rigidity. Musculoskeletal: Moves all four extremities. No deformities. Skin: Skin is warm and dry. No rashes on exposed skin. Neurological: Alert, awake, and appropriate. Normal speech. No acute focal neurological deficits are appreciated. Psychiatric: Good eye contact. Appropriate in content/context. Normal affect. LABORATORY RESULTS Results for orders placed or performed during the hospital encounter of 03/20/23 LIPASE Result Value Ref Range Lipase 2,832 (H) <128 IU/L MAGNESIUM Result Value Ref Range Magnesium 2.0 1.9 - 2.7 mg/dL HEPATIC FUNCTION PANEL Result Value Ref Range Albumin 3.7 3.5 - 5.7 g/dL Bilirubin, Direct 0.19 (H) 0.03 - 0.18 mg/dL Bilirubin, Total 0.7 0.3 - 1.0 mg/dL Alkaline Phosphatase 143 (H) 34 - 104 IU/L ALT (SGPT) 434 (H) 7 - 52 IU/L AST (SGOT) 214 (H) 13 - 39 IU/L Protein, Total 6.1 6.0 - 8.3 g/dL BASIC METABOLIC PANEL Result Value Ref Range Glucose 84 74 - 109 mg/dL Sodium 141 136 - 145 mmol/L Potassium 3.9 3.5 - 5.0 mmol/L Carbon Dioxide 23 21 - 31 mmol/L Chloride 109 (H) 98 - 107 mmol/L Blood Urea Nitrogen 7 7 - 25 mg/dL Creatinine 0.66 0.60 - 1.20 mg/dL Calcium 8.7 8.6 - 10.3 mg/dL Anion Gap 13 10 - 20 Estimated GFR (CKD-EPI) 124 >=60 mL/min/1.73sqm CBC WITH DIFFERENTIAL Result Value Ref Range WBC 8.3 4.5 - 11.5 K/uL RBC 4.78 4.00 - 5.20 M/uL Hemoglobin 12.6 12.0 - 15.0 g/dL Hematocrit 40.1 36.0 - 46.0 % MCV 84 80 - 100 fL MCH 26.4 26.0 - 34.0 pg MCHC 31.5 (L) 32.0 - 35.9 g/dL Platelet 322 150 - 400 K/uL RDW-CV 15.1 (H) 11.5 - 14.5 % MPV 8.2 7.5 - 11.2 fL Neutrophils 69.3 31.0 - 76.0 % Neutrophil # 5.74 1.50 - 8.00 K/uL Lymphocytes 21.2 (L) 24.0 - 44.0 % Lymphocytes # 1.76 1.00 - 4.80 K/uL Monocytes 7.3 2.0 - 11.0 % Monocyte # 0.60 0.20 - 1.00 K/uL Eosinophil 1.7 0.1 - 4.0 % Eosinophil # 0.14 0.00 - 0.70 K/uL Basophils 0.5 <=1.9 % Basophil # 0.04 0.00 - 0.20 K/uL MDW 18 <=20 URINALYSIS Result Value Ref Range Color Yellow Colorless Appearance Clear Clear pH 6.5 5.0 - 8.0 Spec [place] 1.022 <=1.030 Protein Negative Negative mg/dL Blood Negative Negative Bilirubin Negative Negative Urobilinogen Negative Negative mg/dL Ketones 10 (A) Negative mg/dL Leuk. Esterase Negative Negative Nitrite Negative Negative Glucose Negative Negative mg/dL ED COURSE - ED Medications: Medications morphine sulfate 4 MG/ML injection (4 mg Intravenous Push Given 03/20/23 132) prochlorperazine (COMPAZINE) 10 MG/2ML injection (10 mg Intravenous Push Given 03/20/231326) 12:54 PM: Spoke to [facility] who will come (more content not included)... Normal [facility] ED Triage Noteson 03-20-2023 Hydrostatic Tester Authentication Interface Message Text Pt ALVIN transferred another hospital in [place], [place] for ERCD. Per pt was seen in the other hospital for abdominal pain, N/V and was told she had a gallstone and inflammation but they were not able to see exactly and was instructed to come to this ED. Normal [facility] HCG URINEon 03-20-2023 Beta HCG ( test) Ql (U) Negative Normal Negative [facility] Comment on above: Performed By: #### C BC #### [facility] [address] [place] [address], HCG URINEOrdered By: Matthew Diaz on 03-20-2023 HCG ( test) Ql (U) Negative Negative [facility] Interpretation and review of laboratory results Normal [facility] HEPATIC FUNCTION PANELon Albumin [Mass/Vol] 3.7 g/dL Normal 3.5-5.7 [facility] Comment on above: Order Comment: Note updated reference ranges. Performed By: #### C BC #### [facility] [address] [place] [address], ALK 143 IU/L High 34-104 [facility] Comment on above: Order Comment: Note updated reference ranges. Performed By: #### C BC #### [facility] [address], [place], ALT [Catalytic activity/Vol] 434 U/L High 7-52 [facility] Comment on above: Order Comment: Note updated reference ranges. Performed By: #### C BC #### [facility] [address], [place], AST [Catalytic activity/Vol] 214 U/L High 13-39 [facility] Comment on above: Order Comment: Note updated reference ranges. Performed By: #### C BC #### [facility] [address], [place], Bilirubin [Mass/Vol] 0.7 mg/dL Normal 0.3-1.0 [facility] Comment on above: Order Comment: Note updated reference ranges. Performed By: #### C BC #### [facility] [address], [place], Bilirubin.direct [Mass/Vol] 0.19 mg/dL High 0.03-0.18 [facility] Comment on above: Order Comment: Note updated reference ranges. Performed By: #### C BC #### [facility] [address], [place], Protein [Mass/Vol] 6.1 g/dL Normal 6.0-8.3 [facility] Comment on above: Order Comment: Note updated reference ranges. Performed By: #### C BC #### [facility] [address], [place], Albumin [Mass/Vol] 3.7 g/dL 3.5 - 5.7 g/dL [facility] ALP [Catalytic activity/Vol] 143 U/L High [facility] ALT [Catalytic activity/Vol] 434 U/L High [facility] AST [Catalytic activity/Vol] 214 U/L High [facility] Bilirubin [Mass/Vol] 0.7 mg/dL 0.3 - 1 .0 mg/dL [facility] Bilirubin.direct [Mass/Vol] 0.19 mg/dL High 0.03 - 0.18 mg/dL [facility] Protein [Mass/Vol] 6.1 g/dL 6.0 - 8.3 g/dL [facility] Note updated referen ce ranges. [facility] Hep Func Panel[facility] 03-20-2023 Albumin [Mass/Vol] 4.3 g/dL Normal 3.3-5.0 [facility] Comment on above: Performed By: #### 1 [id number], 0842123, 4805970, 3656054, 8288374 ####[facility] [address] [place] [address] Albumin/Globulin [Mass ratio] 1.7 {ratio} Normal 1.1-2.2 [facility] Comment on above: Performed By: #### 1 7071293, 5677655, 2885447, 3327538, 1442100 ####[facility] [address] [place] [address] Alk Phos 171 Int._Unit/L High 21-98 [facility] Comment on above: Performed By: #### 1 [id number], 2857632, 3801263, 2487321, 6880289 ####[facility] [address] [place] [address] ALT 589 Int._Unit/L High 6-46 [facility] Comment on above: Result Comment: Crit ical Result Verified by Repeat Analysis Performed By: #### 1 [id number], 7280713, 8763701, 0348880, 9874794 ####[facility] [address] [place] [address] AST 415 Int._Unit/L High 5-43 [facility] Comment on above: Performed By: #### 1 9698825, 3138752, 0982956, 1979611, 8047663 ####[facility] [address] [place] [address] Bili Direct 1.2 mg/dL High 0.0-0.4 [facility] Comment on above: Performed By: #### 1 7170781, 9879198, 6861134, 9588174, 4591885 ####[facility] [address] [place] [address] Bili Indirect 0.8 mg/dL Normal 0.1-0.9 [facility] Comment on above: Performed By: #### 1 9237974, 7483627, 6253748, 0480570, 9924641 ####[facility] [address] [place] [address] Bili Total 2.0 mg/dL High 0.0-1.1 [facility] Comment on above: Performed By: #### 1 [id number], 6845787, 0994781, 9658116, 4042364 ####[facility] [address] [place] [address] Globulin (S) [Mass/Vol] 2.6 g/dL Normal 1.4-4.0 [facility] Comment on above: Performed By: #### 1 0312130, 8217310, 9530430, 9072054, 1448103 ####[facility] [address] [place] [address] Protein [Mass/Vol] 6.9 g/dL Normal 6.0-7.8 [facility] Comment on above: Performed By: #### 1 [id number], 5144622, 2440513, 6214199, 8894404 ####[facility] [address] [place] [address] LIPASEon 03-20-2023 LIP 2832 IU/L High <128 [facility] Comment on above: Performed By: #### C BC #### [facility] [address] [place] [address], Lipase [Catalytic activity/Vol] 2832 U/L High NINF [facility] Lipase Levelon 03-20-2023 Lipase Lvl >396 High 13-58 [facility] Comment on above: Result Comment: Crit ical Result Verified by Repeat Analysis Performed By: #### 1 [id number], 4840911, 9339031, 9255934, 4465550 ####[facility] [address] [place] [address] MAGNESIUMon 03-20-2023 Magnesium [Mass/Vol] 2.0 mg/dL Normal 1.9-2.7 [facility] Comment on above: Result Comment: Note updated reference ranges. Performed By: #### C BC #### [facility] [address] [place] [address], Interpretation and review of laboratory results Normal [facility] Magnesium [Mass/Vol] 2.0 mg/dL 1.9 - 2 .7 mg/dL [facility] Comment on above: Note updated referen ce ranges. MRI Cholangiogram Pancreatog sohan (mrcp)on 03-20-2023 MRI Cholangiogram Pancreatography (mrcp) Exam Date/Time: 03/20/2023 07:13 EST Reason for Exam: Pancreatitis, acute, severe Report IMPRESSION: CHOLELITHIASIS, WITH MULTIPLE GALLSTONES COLLECTING IN THE DEPENDENT PORTION OF THE GALLBLADDER. THE EXTRAHEPATIC BILE DUCTS ARE PROMINENT IN DIAMETER FOR THE AGE OF THE PATIENT. ABRUPT TAPERING OF THE DISTAL COMMON BILE DUCT AT THE LEVEL OF THE CHOLEDOCHAL SPHINCTER. A FOCAL CHOLEDOCHAL STONE IS NOT DELINEATED ON THIS STUDY, BUT PLEASE REFER TO THE COMMENT. FINDINGS COMPATIBLE WITH ACUTE PANCREATITIS. CLINICAL HISTORY: Pancreatitis, acute, severe. Abdominal pain with nausea and vomiting. COMPARISON: CT on 03/20/2023. COMMENT: An unenhanced MRCP study was obtained. The gallbladder is within upper limits of normal in size. There is partial folding at the gallbladder fundus. There are multiple small gallstones collecting in the dependent portion of the gallbladder, and extending to the gallbladder neck. Gallstones measure up to approximately 6 mm in diameter. No gallbladder wall thickening is evident. The intrahepatic bile ducts are unremarkable. Extrahepatic bile ducts (including the common bile duct within the pancreatic head) measure 6 to 7 mm in diameter, and are prominent for the age of the patient. There is abrupt tapering of the distal most common bile duct at the level of the choledochal stricture. No focal choledochal calculus is delineated on this study. This abrupt tapering could be due to contraction of the choledochal sphincter or could be due to focal spasm (such as related to recently passed choledochal calculus). Although no focal choledochal calculus is delineated, a small calculus at the level of the choledochal sphincter is not entirely excluded. The pancreatic duct is not dilated. The pancreas is mildly prominent in size and there is some indistinctness of the pancreatic margin. There is fluid in the anterior pararenal retroperitoneal space, surrounding the pancreas from head to tail, and this peripancreatic fluid signal intensity is compatible with acute pancreatitis. On the right, there is some free fluid extending to the michoacano hepatis on the right, and on the left, there is free fluid peripheral to the spleen and peripheral to greater and lesser curvatures of the stomach. The liver and spleen are within normal limits in size and attenuation. No focal liver lesion is noted. Report Ordering Provider: Miroslava Correa FINAL REPORT Dictated: 03/20/2023 9:33 am Leobardo Kaufman M.D. Signed (Electronic Signature): 03/20/2023 9:33 am Signed by: Leobardo Kaufman M.D. Transcribed by: MANDIE Technologist: GINNY Normal [facility] No Panel Informationon 03-20 Interpretation and review of laboratory results Abnormal [facility] Progress Note-Nurseon 2023 Progress Note-Nurse Pt reports pain increase to about an 8. dr guzman informed Normal [facility] Progress Note-Nurse Pt back from MRI Normal [facility] RAD - MRI Screening Formon 0 03-20-2023 RAD - MRI Screening Form [id number]. 00TIFF Normal [facility] RAD - Preliminary Cat Scan R eporton 03-20-2023 RAD - Preliminary Cat Scan Report [id number]#1.0 0TIFF Normal [facility] Transfer Documentson 024 Transfer Documents [id number]#[id number] TIFF Normal [facility] U BetaHcg Qualon 03-20-2023 HCG.beta subunit (U) [Moles/Vol] Negative Normal [facility] Comment on above: Performed By: #### 1 [id number], [id number] ####[facility] [address] [place] [address] UA With Cult Reflexon 2023 Bacteria LM Ql (Urine sed) 1+ /HPF Abnormal Trace [facility] Comment on above: Performed By: #### 1 [id number], [id number] ####[facility] [address] [place] [address] Bilirubin Ql (U) 2+ Abnormal Negative [facility] Comment on above: Performed By: #### 1 1435765, 60281352 ####[facility] [address] [place] [address] Clarity (U) CLEAR Normal Clear [facility] Comment on above: Performed By: #### 1 4567972, 52158133 ####[facility] [address] [place] [address] Color (U) YELLOW Normal Yellow [facility] Comment on above: Performed By: #### 1 4107427, 09545408 ####[facility] [address] [place] [address] Crystals LM Ql (Urine sed) Present Normal [facility] Comment on above: Performed By: #### 1 8725562, 63654168 ####[facility] [address] [place] [address] Epithelial cells.squamous LM.HPF (Urine sed) [#/Area] 5-8 Normal 0-2 [facility] Comment on above: Performed By: #### 1 3002312, 45070152 ####[facility] [address] [place] [address] Glucose Test strip (U) [Mass/Vol] Negative Normal Negative [facility] Comment on above: Performed By: #### 1 4451065, 11934049 ####[facility] [address] [place] [address] Hemoglobin Ql (U) Negative Normal Negative [facility] Comment on above: Performed By: #### 1 8137954, 88207008 ####[facility] [address] [place] [address] Ketones (U) [Mass/Vol] Negative Normal Negative [facility] Comment on above: Performed By: #### 1 2785279, 65908554 ####[facility] [address] [place] [address] [place].plasma/Lithiu m.RBC (Bld) [Mass ratio] 0-3 Normal 0-3 [facility] Comment on above: Performed By: #### 1 6809211, 06551547 ####[facility] [address] [place] [address] Mucus Ql (Urine sed) 1+ Normal [facility] Comment on above: Performed By: #### 1 1125316, 18338180 ####[facility] [address] [place] [address] Nitrite Ql (U) Negative Normal Negative [facility] Comment on above: Performed By: #### 1 2599886, 05764293 ####[address] [address] pH (U) 5.5 [pH] Invalid Interpretation Code 5.0-9.0 [facility] Comment on above: Performed By: #### 1 0287595, [id number] ####[address] [address] Protein (U) [Mass/Vol] 1+ Abnormal Negative [facility] Comment on above: Performed By: #### 1 6755826, [id number] ####[address] [address] Specific gravity (U) [Rel density] >=1.030 Invalid Interpretation Code 1.005-1.030 [facility] Comment on above: Performed By: #### 1 0716452, [id number] ####[address] [address] Type of Urine collection method Clean Catch Normal [facility] Comment on above: Performed By: #### 1 4388226, [id number] ####[address] [address] Urobilinogen Qn (U) 4.0 {Sapphire'U}/dL Abnormal 0.0-1.0 [facility] Comment on above: Performed By: #### 1 4708213, [id number] ####[address] [address] WBC Auto Ql (U) Negative Normal Negative [facility] Comment on above: Performed By: #### 1 2896188, 26468954 ####[address] [address] WBC LM.HPF (Urine sed) [#/Area] 0-5 Normal 0-5 [facility] Comment on above: Performed By: #### 1 8359547, 05215097 ####[facility] [address] [place] [address] URINALYSISon 03-20-2023 Glucose Ql (U) Negative Normal Negative [facility] Comment on above: Order Comment: A neg ative leukocyte esterase AND negative nitrite test or absence of pyuria (urine WBC count <= 5-10) make a UTI (urinary tract infection) very unlikely in a non-neutropenic adult (<=5% likelihood in many studies). A positive leukocyte esterase, nitrite and/or pyuria is a nonspecific result. This can be seen in conditions other than a UTI e.g. asymptomatic bacteriuria, gynecologic infections, sexually transmitted infections, and noninfectious conditions (positive predictive value for UTI around 50%) Performed By: #### C BC #### [facility] [address] [place], [place] [address], U APPEAR Clear Normal Clear [facility] Comment on above: Order Comment: A neg ative leukocyte esterase AND negative nitrite test or absence of pyuria (urine WBC count <= 5-10) make a UTI (urinary tract infection) very unlikely in a non-neutropenic adult (<=5% likelihood in many studies). A positive leukocyte esterase, nitrite and/or pyuria is a nonspecific result. This can be seen in conditions other than a UTI e.g. asymptomatic bacteriuria, gynecologic infections, sexually transmitted infections, and noninfectious conditions (positive predictive value for UTI around 50%) Performed By: #### C BC #### [facility] [address] [place] [address], U BILI Negative Normal Negative [facility] Comment on above: Order Comment: A neg ative leukocyte esterase AND negative nitrite test or absence of pyuria (urine WBC count <= 5-10) make a UTI (urinary tract infection) very unlikely in a non-neutropenic adult (<=5% likelihood in many studies). A positive leukocyte esterase, nitrite and/or pyuria is a nonspecific result. This can be seen in conditions other than a UTI e.g. asymptomatic bacteriuria, gynecologic infections, sexually transmitted infections, and noninfectious conditions (positive predictive value for UTI around 50%) Performed By: #### C BC #### [facility] [address] [place] [address], U BLOOD Negative Normal Negative [facility] Comment on above: Order Comment: A neg ative leukocyte esterase AND negative nitrite test or absence of pyuria (urine WBC count <= 5-10) make a UTI (urinary tract infection) very unlikely in a non-neutropenic adult (<=5% likelihood in many studies). A positive leukocyte esterase, nitrite and/or pyuria is a nonspecific result. This can be seen in conditions other than a UTI e.g. asymptomatic bacteriuria, gynecologic infections, sexually transmitted infections, and noninfectious conditions (positive predictive value for UTI around 50%) Performed By: #### C BC #### [facility] [address] [place] [address], U COLOR Yellow Normal Colorless [facility] Comment on above: Order Comment: A neg ative leukocyte esterase AND negative nitrite test or absence of pyuria (urine WBC count <= 5-10) make a UTI (urinary tract infection) very unlikely in a non-neutropenic adult (<=5% likelihood in many studies). A positive leukocyte esterase, nitrite and/or pyuria is a nonspecific result. This can be seen in conditions other than a UTI e.g. asymptomatic bacteriuria, gynecologic infections, sexually transmitted infections, and noninfectious conditions (positive predictive value for UTI around 50%) Performed By: #### C BC #### [facility] [address] [place] [address], U KETONE 10 mg/dL Abnormal Negative [facility] Comment on above: Order Comment: A neg ative leukocyte esterase AND negative nitrite test or absence of pyuria (urine WBC count <= 5-10) make a UTI (urinary tract infection) very unlikely in a non-neutropenic adult (<=5% likelihood in many studies). A positive leukocyte esterase, nitrite and/or pyuria is a nonspecific result. This can be seen in conditions other than a UTI e.g. asymptomatic bacteriuria, gynecologic infections, sexually transmitted infections, and noninfectious conditions (positive predictive value for UTI around 50%) Performed By: #### C BC #### [facility] [address] [place] [address], U LEUK Negative Normal Negative [facility] Comment on above: Order Comment: A neg ative leukocyte esterase AND negative nitrite test or absence of pyuria (urine WBC count <= 5-10) make a UTI (urinary tract infection) very unlikely in a non-neutropenic adult (<=5% likelihood in many studies). A positive leukocyte esterase, nitrite and/or pyuria is a nonspecific result. This can be seen in conditions other than a UTI e.g. asymptomatic bacteriuria, gynecologic infections, sexually transmitted infections, and noninfectious conditions (positive predictive value for UTI around 50%) Performed By: #### C BC #### [facility] [address], [place], U NITRITE Negative Normal Negative [facility] Comment on above: Order Comment: A neg ative leukocyte esterase AND negative nitrite test or absence of pyuria (urine WBC count <= 5-10) make a UTI (urinary tract infection) very unlikely in a non-neutropenic adult (<=5% likelihood in many studies). A positive leukocyte esterase, nitrite and/or pyuria is a nonspecific result. This can be seen in conditions other than a UTI e.g. asymptomatic bacteriuria, gynecologic infections, sexually transmitted infections, and noninfectious conditions (positive predictive value for UTI around 50%) Performed By: #### C BC #### [facility] [address] [place] [address], U PH 6.5 Normal 5.0-8.0 [facility] Comment on above: Order Comment: A neg ative leukocyte esterase AND negative nitrite test or absence of pyuria (urine WBC count <= 5-10) make a UTI (urinary tract infection) very unlikely in a non-neutropenic adult (<=5% likelihood in many studies). A positive leukocyte esterase, nitrite and/or pyuria is a nonspecific result. This can be seen in conditions other than a UTI e.g. asymptomatic bacteriuria, gynecologic infections, sexually transmitted infections, and noninfectious conditions (positive predictive value for UTI around 50%) Performed By: #### C BC #### [facility] [address], [place], U PROTEIN Negative Normal Negative [facility] Comment on above: Order Comment: A neg ative leukocyte esterase AND negative nitrite test or absence of pyuria (urine WBC count <= 5-10) make a UTI (urinary tract infection) very unlikely in a non-neutropenic adult (<=5% likelihood in many studies). A positive leukocyte esterase, nitrite and/or pyuria is a nonspecific result. This can be seen in conditions other than a UTI e.g. asymptomatic bacteriuria, gynecologic infections, sexually transmitted infections, and noninfectious conditions (positive predictive value for UTI around 50%) Performed By: #### C BC #### [facility] [address] [place] [address], U SG 1.022 Normal <=1.030 [facility] Comment on above: Order Comment: A neg ative leukocyte esterase AND negative nitrite test or absence of pyuria (urine WBC count <= 5-10) make a UTI (urinary tract infection) very unlikely in a non-neutropenic adult (<=5% likelihood in many studies). A positive leukocyte esterase, nitrite and/or pyuria is a nonspecific result. This can be seen in conditions other than a UTI e.g. asymptomatic bacteriuria, gynecologic infections, sexually transmitted infections, and noninfectious conditions (positive predictive value for UTI around 50%) Performed By: #### C BC #### [facility] [address] [place] [address], U UROBILI Negative Normal Negative [facility] Comment on above: Order Comment: A neg ative leukocyte esterase AND negative nitrite test or absence of pyuria (urine WBC count <= 5-10) make a UTI (urinary tract infection) very unlikely in a non-neutropenic adult (<=5% likelihood in many studies). A positive leukocyte esterase, nitrite and/or pyuria is a nonspecific result. This can be seen in conditions other than a UTI e.g. asymptomatic bacteriuria, gynecologic infections, sexually transmitted infections, and noninfectious conditions (positive predictive value for UTI around 50%) Performed By: #### C BC #### [facility] [address] [place] [address], Appearance (U) Clear Clear [facility] Bilirubin Ql (U) Negative Negative [facility] Color (U) Yellow Colorless [facility] Glucose Auto test strip (U) [Mass/Vol] Negative Negative mg/dL [facility] Hemoglobin Ql (U) Negative Negative [facility] Interpretation and review of laboratory results Abnormal [facility] Ketones Ql (U) 10 mg/dL Abnormal Negative [facility] Leukocyte esterase Test strip Ql (U) Negative Negative [facility] Nitrite Ql (U) Negative Negative [facility] pH (U) 6.5 [pH] 5.0 - 8.0 [facility] Protein (U) [Mass/Vol] Negative Negative mg/dL [facility] Specific gravity (U) [Rel density] 1.022 NINF - 1.030 [facility] Urobilinogen Qn (U) Negative Negative mg/dL [facility] A negative leukocyte esterase AND negative nitrite test or absence of pyuria (urine WBC count <= 5-10) make a UTI (urinary tract infection) very unlikely in a non-neutropenic adult (<=5% likelihood in many studies). A positive leukocyte esterase, nitrite and/or pyuria is a nonspecific result. This can be seen in conditions other than a UTI e.g. asymptomatic bacteriuria, gynecologic infections, sexually transmitted infections, and noninfectious conditions (positive predictive value for UTI around 50%) [facility] eGFRon 03-20-2023 eGFR 122 mL/min/1.73 m2 Normal >=59 [facility] Comment on above: Order Comment: Order added by Discern Expert. Performed By: #### 1 [id number] ####[facility] [address] [place] [address] Discharge Instructionson Discharge Instructions [id number] Normal [facility] ED Clinical Summaryon 2022 ED Clinical Summary [place] [id number] ED Clinical Summary Person Information Name: LALA HALL [place] Age: 27 Years : 1995 Sex: Female Language: Turkmen PCP: NONE, XXXX Marital Status: Phone: [phone] Visit Id: Visit Reason: Shortness of breath; Vomiting; Nausea; Chest pain; ABD PAIN, CHEST PAIN Speciality: Acuity: 3 Enc Type: Emergency Med Service: Emergency Arrival: 09/21/2022 21:06:00 Discharge: 09/22/2022 00:32:20 LOS: 000 03:26 Checkin: 09/21/2022 21:06:00 Checkout: 09/22/2022 00:32:20 Dispo Type: Home (Routine DC) EVENTS: Event Name Event Status Request Date/Time Start Date/Time Complete Date/Time Arrive Complete 09/21/2022 21:06:00 09/21/2022 21:06:00 09/21/2022 21:06:00 Document Home Meds Request 09/21/2022 21:06:00 Triage Complete 09/21/2022 21:06:00 09/21/2022 21:16:31 09/21/2022 21:16:31 EKG Complete 09/21/2022 21:09:53 09/21/2022 21:13:38 Dr Exam Complete 09/21/2022 21:11:11 09/21/2022 21:11:11 09/21/2022 21:11:11 Registration Complete 09/21/2022 21:11:11 09/21/2022 21:16:42 09/21/2022 21:21:43 Dr Exam Complete 09/21/2022 21:13:23 09/21/2022 21:13:23 09/21/2022 21:13:23 Bed Assign Complete 09/21/2022 21:16:42 09/21/2022 21:16:42 09/21/2022 21:16:42 RN Exam Complete 09/21/2022 21:16:42 09/21/2022 21:42:02 09/21/2022 21:42:02 Pending Labs Request 09/21/2022 21:20:24 Lab Complete 09/21/2022 21:20:24 09/21/2022 21:50:53 Meds Admin Complete 09/21/2022 21:20:24 09/21/2022 21:39:30 Patient Care Request 09/21/2022 21:20:24 RT Request 09/21/2022 21:20:24 X-Ray Complete 09/21/2022 21:20:24 09/21/2022 21:20:41 09/21/2022 21:29:35 Reg Complete Request 09/21/2022 21:21:43 Wet Read Request 09/21/2022 21:29:35 Pending Labs Complete 09/21/2022 21:35:26 09/21/2022 21:35:26 09/21/2022 21:50:54 Lab Complete 09/21/2022 21:35:26 09/21/2022 21:35:26 09/21/2022 21:50:54 Pending Labs Complete 09/21/2022 21:36:41 09/21/2022 21:36:41 09/21/2022 21:36:41 Pending Labs Complete 09/21/2022 21:38:17 09/21/2022 21:38:17 09/21/2022 21:38:24 Lab Complete 09/21/2022 21:38:17 09/21/2022 21:38:17 09/21/2022 21:38:24 Reg Bed Request Complete 09/21/2022 21:39:36 09/21/2022 21:39:36 09/21/2022 21:39:36 Discharge Complete 09/22/2022 00:16:57 09/22/2022 00:32:29 09/22/2022 00:32:29 Transfer Complete 09/22/2022 00:32:29 09/22/2022 00:32:29 09/22/2022 00:32:29 ADDRESS: [address] [place] [address] [phone] PHYS DOC NOTES: MEDICAL INFORMATION: Prescriptions Given: Medications to Continue with No Changes Other Medications acetaminophen-hydrocod one (acetaminophen-hydroco done 325 mg-5 mg oral tablet) 1 Tablets By Mouth every 4 hours. PRN moderate pain. May increase falls. Don't drink, drive, work on this med. Don't take with tylenol, benzos, muscle relaxants. ICD-10 R52. Refills: 0. metformin By Mouth. PATIENT EDUCATION INFORMATION: Instructions: Nonspecific Chest Pain, Adult Follow up: With: Address: When: XXXX NONE , [place] In 3 days DIAGNOSIS: Chest pain of unknown etiology; Shortness of breath Normal [facility] ED Note-Physicianon 09-23-19 ED Note-Physician Basic Information Time Seen: Ananth Gongora PA-C 09/21/2022 21:11 Chief Complaint Pt states chest pain that started tonight. States pain is in center of chest and is like her ribs are being crushed. Difficult to take a deep breath. Nausea and vomiting as well. 4 months post . History of Present Illness 27-year-old female presents ED with complaint of chest pain shortness of breath nausea vomiting. Patient reports a crushing substernal chest pain which feels like her sternum and back bone are being compressed together. Patient reports that this began about half hour before presentation to ED. Patient does report that she has had the symptoms for several weeks now on and off. Patient states the symptoms are not associated with activity. Patient reports that normally these episodes do not last for very long, this is the longest episode she had. Patient denies any history of high blood pressure or high cholesterol, is a non-smoker. Patient does endorse a family history of heart disease. Patient reports being generally otherwise healthy. Review of Systems Full 10 system ROS performed. Pt denies symptoms except as noted above in the HPI. Physical Exam Vitals & Measurements T: 36.5 ?C(Oral) HR: 99(Peripheral) RR: 16 BP: 137/83 SpO2: 96% HT: 170 cm WT: 123.9 kg BMI: 42.87 VITALS: I have reviewed the triage vital signs. GENERAL: Well developed, well appearing adult in no acute distress. NEURO: Alert and oriented. Moves all extremities. Face is symmetric and expressive. EYES: PERRL. No scleral icterus or conjunctival injection. No discharge. HENT: Normocephalic, atraumatic. Hearing is grossly intact. Nares grossly patent and without discharge. Mucous membranes moist. NECK: No JVD. Patient moves neck without restriction. CARDIO: Rhythm regular. Normal rate. No murmur, rub, or gallop. Pulses equal bilaterally in the upper and lower extremity. No lower extremity edema. PULM: Lungs clear to auscultation in all lentz. No wheezes, rales, or rhonchi. No conversational dyspnea. No splinting, stridor, or accessory muscle use. GI/: Abdomen is soft and non-tender. Normoactive bowel sounds. EXTREMITIES: Symmetric muscle bulk. No joint swelling. No clubbing, cyanosis, or deformity. SKIN: Warm and dry. Normal turgor. No rash or lesions appreciated. PSYCH: Mood, affect, and interaction is appropriate to the setting. Medical Decision Making MEDICAL DECISION MAKING Number and Complexity of Problems Differential Diagnosis: [] [facility] Data External documents reviewed: [] My EKG interpretation: [] My CT interpretation: [] My X-ray interpretation: [] My Ultrasound interpretation: [] Decision rules/scores evaluated: Patient with a heart score of 2 indicating low risk for major adverse cardiac event Heart Score for Major Cardiac Event History: Example factors for history - pattern of chest pain, onset, duration, relation with exercise, stress or cold, localization, concominant symptoms. reaction to sublingual nitrates, [] Highly suspicious +2 [x] Moderately suspicious +1 [] Slightly suspicious 0 EKG: [] Significant ST-Depression +2 [] Non specific repolarization disturbance +1 [x] Normal 0 Age: [] >= 65 +2 [] 45-65 + 1 [x] <45 0 Risk Factors: (HLD, HTN, DM, Cigarette Smoking, Pos Family Hx, Obesity) [] >3 risk factors or hx of atheroslerotic disease + 2 [x] 1-2 risk factors + 1 [] No risk factors known 0 Troponin: [] >= 3X normal + 2 [] 1-3X normal + 1 [x] <= Normal 0 Discussed with: [] Treatment and Disposition ED Course: 27-year-old female presents ED with complaint of chest pain shortness of breath nausea vomiting. Patient complains of many similar episodes over the last several weeks. Patient reports current episode is the one that is lasted the longest. Patient symptoms did resolve after about an hour in the ED. Work-up in ED reviewed and noted. Patient with no acute findings on chest x-ray, normal EKG, no significant findings on labs, negative initial troponin. Due to duration of symptoms, did order a second troponin for delta troponin at 2 hours. Minimal concern for PE given the presentation this case, patient pain is not pleuritic, patient is not tachycardic, patient is outside the window where I would be concerned that her status would be a significant factor. Patient repeat troponin was negative as well. Patient diagnosed with a chest pain of unknown etiology. As patient chest pain shortness of breath had resolved prior to leaving the ED, patient with negative work-up, patient well-appearing throughout stay in the ED, I think patient is appropriate for return home and follow-up with PCP. This was discussed with patient was agreeable. Return precautions were discussed extensively. Patient questions answered. Patient discharged home. Shared decision making: [] Code status: [] Assessment/Plan Chest pain of unknown etiology (R07.9: Chest pain, unspecifi (more content not included)... Normal [facility] Comment on above: Result Comment: Elec tronically Signed By: Ananth Gongora PA-C\.br\Date and Time Signed: 09/22/22 00:17 EDT\.br\Electronically Co-Signed By: Miroslava Correa DO\.br\Date and Time Co-Signed: 09/22/22 00:47 EDT ED Patient Education Noteon 09-22-2022 ED Patient Education Note Pulmonary Medicine Nonspecific Chest Pain, Adult Chest pain is an uncomfortable, tight, or painful feeling in the chest. The pain can feel like a crushing, aching, or squeezing pressure. A person can feel a burning or tingling sensation. Chest pain can also be felt in your back, neck, jaw, shoulder, or arm. This pain can be worse when you move, sneeze, or take a deep breath. Chest pain can be caused by a condition that is life-threatening. This must be treated right away. It can also be caused by something that is not life-threatening. If you have chest pain, it can be hard to know the difference, so it is important to get help right away to make sure that you do not have a serious condition. Some life-threatening causes of chest pain include: ? Heart attack. ? A tear in the body's main blood vessel (aortic dissection). ? Inflammation around your heart (pericarditis). ? A problem in the lungs, such as a blood clot (pulmonary embolism) or a collapsed lung (pneumothorax). Some non life-threatening causes of chest pain include: ? Heartburn. ? Anxiety or stress. ? Damage to the bones, muscles, and cartilage that make up your chest wall. ? Pneumonia or bronchitis. ? Shingles infection (varicella-zoster virus). Your chest pain may come and go. It may also be constant. Your health care provider will do tests and other studies to find the cause of your pain. Treatment will depend on the cause of your chest pain. Follow these instructions at home: Medicines ? Take adcn-yeu-msnzeas and prescription medicines only as told by your health care provider. ? If you were prescribed an antibiotic medicine, take it as told by your health care provider. Do not stop taking the antibiotic even if you start to feel better. Activity ? Avoid any activities that cause chest pain. ? Do not lift anything that is heavier than 10 lb (4.5 kg), or the limit that you are told, until your health care provider says that it is safe. ? Rest as directed by your health care provider. ? Return to your normal activities only as told by your health care provider. Ask your health care provider what activities are safe for you. Lifestyle ? Do not use any products that contain nicotine or tobacco, such as cigarettes, e-cigarettes, and chewing tobacco. If you need help quitting, ask your health care provider. ? Do not drink alcohol. ? Make healthy lifestyle changes as recommended. These may include: ? Getting regular exercise. Ask your health care provider to suggest some exercises that are safe for you. ? Eating a heart-healthy diet. This includes plenty of fresh fruits and vegetables, whole grains, low-fat (lean) protein, and low-fat dairy products. A dietitian can help you find healthy eating options. ? Maintaining a healthy weight. ? Managing any other health conditions you may have, such as high blood pressure (hypertension) or diabetes. ? Reducing stress, such as with yoga or relaxation techniques. General instructions ? Pay attention to any changes in your symptoms. ? It is up to you to get the results of any tests that were done. Ask your health care provider, or the department that is doing the tests, when your results will be ready. ? Keep all follow-up visits as told by your health care provider. This is important. ? You may be asked to go for further testing if your chest pain does not go away. Contact a health care provider if: ? Your chest pain does not go away. ? You feel depressed. ? You have a fever. ? You notice changes in your symptoms or develop new symptoms. Get help right away if: ? Your chest pain gets worse. ? You have a cough that gets worse, or you cough up blood. ? You have severe pain in your abdomen. ? You faint. ? You have sudden, unexplained chest discomfort. ? You have sudden, unexplained discomfort in your arms, back, neck, or jaw. ? You have shortness of breath at any time. ? You suddenly start to sweat, or your skin gets clammy. ? You feel nausea or you vomit. ? You suddenly feel lightheaded or dizzy. ? You have severe weakness, or unexplained weakness or fatigue. ? Your heart begins to beat quickly, or it feels like it is skipping beats. These symptoms may represent a serious problem that is an emergency. Do not wait to see if the symptoms will go away. Get medical help right away. Call your local emergency services (911 in the [place] Do not drive yourself to the hospital. Summary ? Chest pain can be caused by a condition that is serious and requires urgent treatment. It may also be caused by something that is not life-threatening. ? Your health care provider may do lab tests and other studies to find the cause of your pain. ? Follow your health care provider's instructions on taking medicines, making lifestyle changes, and getting emergency treatment if symptoms become worse. ? Keep all follow-up visits as told by your (more content not included)... Normal [facility] ED Patient Summaryon 023 ED Patient Summary [address] [address] Patient Discharge Instructions Person Information Name: LALA HALL Age: 27 Years Arrival Date: 09/21/2022 21:06:00 Discharge Diagnosis: Chest pain of unknown etiology; Shortness of breath Primary Care Physician: NONE, XXXX Provider Information Primary Provider: Miroslava Correa DO Advanced Jet Operator:Ananth Gongora PA-C The exam and treatment you received in the Emergency Department were for an urgent problem and are not intended as complete care. It is important that you follow up with a doctor, nurse practitioner, or physician?s mortgage loan assistant for ongoing care. If your symptoms become worse or you do not improve as expected and you are unable to reach your usual health care provider, you should return to the Emergency Department. We are available 24 hours a day. LALA HALL has been given the following list of patient education materials, prescriptions and follow-up instructions: Follow-up Instructions: With: Address: When: XXXX NONE , [place] In 3 days In the event that this physician does not participate in your insurance network, please consult with your insurance company to find a nearby participating provider. Patient Education Materials: Nonspecific Chest Pain, Adult A MESSAGE TO ALL PATIENTS REGARDING OPIOIDS PRESCRIPTION OPIOIDS: WHAT YOU NEED TO KNOW Prescription opioids can be used to help relieve xkzhetup-gj-ndybbc pain and are often prescribed following a surgery or injury, or for certain health conditions. These medications can be an important part of the treatment but also come with serious risks. It is important to work with your healthcare provider to make sure you are getting the safest, most effective care. WHAT ARE THE RISKS AND SIDE EFFECTS OF OPIOID USE? Prescription opioids carry serious risks of addiction and overdose, especially with prolonged use. An opioid overdose, often marked by slowed breathing, can cause sudden . The use of prescription opioids can have a number of side effects as well, even when taken as directed: ? Tolerance?meaning you might need to take more of the medication for the same pain relief ? Physical dependence?meaning you have symptoms of withdrawal when a medication is stopped ? Increased sensitivity to pain ? Constipation ? Nausea, vomiting, and dry mouth ? Sleepiness and dizziness ? Confusion ? Depression ? Low levels of testosterone that can result in lower sex drive, energy, and strength ? Itching and sweating RISKS ARE GREATER WITH: ? History of drug misuse, substance use disorder, or overdose ? Mental health conditions (such as depression or anxiety) ? Sleep apnea ? Older age (65 years and older) ? Avoid alcohol while taking prescription opioids. Also, unless specifically advised by your health care provider, medications to avoid include: ? Benzodiazepines (such as Xanax or Valium) ? Muscle relaxants (such as Soma or Flexeril) ? Hypnotics (such as Ambien or Lunesta) ? Other prescription opioids KNOW YOUR OPTIONS Talk to your health care provider about ways to manage your pain that don?t involve prescription opioids. Some of these options may actually work better and have fewer risks and side effects. Options may include: ? Pain relievers such as acetaminophen, ibuprofen, and naproxen ? Some medication that are also used for depression or seizures ? Physical therapy and exercise ? Cognitive behavioral therapy, a psychological, goal-directed approach, in which patients learn how to modify physical, behavioral, and emotional triggers of pain and stress. IF YOU ARE PRESCRIBED OPIOIDS FOR PAIN: ? Never take opioids in greater amounts or more often than prescribed. ? Follow up with your primary health care provider. o Work together to create a plan on how to manage your pain. o Talk about ways to help manage your pain that don?t involve prescription opioids. o Talk about any and all concerns and side effects. ? Help prevent misuse and abuse o Never sell or share prescription opioids. o Never use another person?s prescription opioids. ? Store prescription opioids in a secure place and out of reach of others (this may include visitors, children, friends, and family). ? Safely dispose of unused prescription opioids: Find your community drug take-back program or your pharmacy mail-back program, or flush them down the toilet, following guidance from the Food and Drug Administration (www.fda.gov/Drugs/Res ourcesForYou). ? Visit www.cdc.gov/drugoverdo se to learn about the risks of opioids abuse and overdose. ? If you believe you may be struggling with addiction, tell your health laboratory animal care veterinarian and ask for guidance or call [facility] National Helpline at 7-084-993-ULZW. v Source: [place] Department of Health and Human Services/Sarah (more content not included)... Normal [facility] Monitor Recordon 09-22-2022 Monitor Record [id number]:[id number] Normal [facility] Troponin 0 Hr.on 09-22-2022 Troponin I.cardiac [Mass/Vol] ng/mL Low 10.10-27.10 [facility] Comment on above: Result Comment: The 95% CI (Confidence Interval) PPV (Positive Predictive Value) for myocardial infarction in females is 38 pg/mL, in males 51 pg/mL. The results should be used in conjunction with clinical conditions of myocardial infarction. (Access High Sensitivity Troponin I Instructions For Use, [employer], September 2017) Performed By: #### 1 [id number], [id number], 5016580, 1833633, 69948493, 1852510 ####[facility] [address] [place] [address] Troponin 3 Hr.on 09-22-2022 Troponin I.cardiac [Mass/Vol] 2.90 pg/mL Low 10.10-27.10 [facility] Comment on above: Result Comment: The 95% CI (Confidence Interval) PPV (Positive Predictive Value) for myocardial infarction in females is 38 pg/mL, in males 51 pg/mL. The results should be used in conjunction with clinical conditions of myocardial infarction. (Access High Sensitivity Troponin I Instructions For Use, [employer], September 2017) Performed By: #### 1 [id number] ####[facility] [address] [place] [address] XR Chest Single Viewon 09-22 XR Chest Single View Exam Date/Time: 09/21/2022 21:29 EDT Reason for Exam: Chest pain Report IMPRESSION: NO RADIOGRAPHIC EVIDENCE OF ACUTE INTRATHORACIC PROCESS. EXAM: XR Chest Single View History: Chest pain Technique: Portable AP view of the chest. Comparison: None available Findings: The cardiomediastinal silhouette is within normal limits. No pneumothorax, pleural effusion, or consolidation. Bones of the thorax appear intact. Ordering Provider: Ananth Gongora FINAL REPORT Dictated: 09/22/2022 8:45 am Alex Akbar DO Signed (Electronic Signature): 09/22/2022 8:45 am Signed by: Alex Akbar DO Transcribed by: MANDIE Technologist: LARON Technical Comments Radiation Dose: Ka,r in mGy = na DAP = na Normal [facility] Auto Diffon 09-21-2022 Basophils/100 WBC (Bld) 0.7 % Normal 0.0-2.0 [facility] Comment on above: Order Comment: Order Added by Discern Expert. Performed By: #### 1 [id number], 50662144, 0937349, 4405452, 40434115, 5910390 ####[address] [place] [address] Basophils/Leukocytes Auto (Bld) [Pure # fraction] 0.1 E9/L Normal 0.0-0.2 [facility] Comment on above: Order Comment: Order Added by Discern Expert. Performed By: #### 1 [id number], 61881546, 0432265, 2211092, 00631398, 3288876 ####[address] [place] [address] Eosinophils/100 WBC (Bld) 3.2 % Normal 0.0-8.0 [facility] Comment on above: Order Comment: Order Added by Discern Expert. Performed By: #### 1 [id number], 19843085, 3174091, 0014959, 19149964, 7840018 ####[address] [address] Eosinophils/Leukocyte s Auto (Bld) [Pure # fraction] 0.3 E9/L Normal 0.0-0.5 [facility] Comment on above: Order Comment: Order Added by Discern Expert. Performed By: #### 1 3239256, 10725414, 3616855, 1499181, 91704288, 4717134 ####[address] [address] Lymphocytes/100 WBC (Bld) 28.8 % Normal 14.0-50.0 [facility] Comment on above: Order Comment: Order Added by Discern Expert. Performed By: #### 1 4756385, 08479996, 1374868, 4035602, 82362248, 0691704 ####[address] [place] [address] Lymphocytes/Leukocyte s Auto (Bld) [Pure # fraction] 2.9 E9/L Normal 1.0-4.0 [facility] Comment on above: Order Comment: Order Added by Discern Expert. Performed By: #### 1 3936703, 67702036, 9389979, 8204194, 41424402, 3907967 ####[facility] [address] [place] [address] Monocytes/100 WBC (Bld) 7.1 % Normal 4.0-14.0 [facility] Comment on above: Order Comment: Order Added by Discern Expert. Performed By: #### 1 3561742, 77277365, 7594840, 7123563, 45403811, 5999792 ####[address] [place] [address] Monocytes/Leukocytes Auto (Bld) [Pure # fraction] 0.7 E9/L Normal 0.2-1.0 [facility] Comment on above: Order Comment: Order Added by Discern Expert. Performed By: #### 1 9184430, 91872568, 9956102, 0804735, 84975953, 5388109 ####[address] [address] Neutrophils/100 WBC (Bld) 60.2 % Normal 36.0-75.0 [facility] Comment on above: Order Comment: Order Added by Wilmer Expert. Performed By: #### 1 1590666, 50723065, 8129458, 0210785, 37765189, 1118705 ####[address] [address] Neutrophils/Leukocyte s Auto (Bld) [Pure # fraction] 6.0 E9/L Normal 2.0-7.5 [facility] Comment on above: Order Comment: Order Added by Discern Expert. Performed By: #### 1 0402020, 81568651, 8319184, 9026039, 28904364, 8269485 ####[address] [place] [address] BMPon 09-21-2022 Creatinine [Mass/Vol] 0.8 mg/dL Normal 0.5-1.3 [facility] Comment on above: Performed By: #### 1 8364000, 11939682, 4197376, 1238609, 35844372, 6908685 ####[facility] [address] [place] [address] Urea nitrogen [Mass/Vol] 20 mg/dL Normal 5-21 [facility] Comment on above: Performed By: #### 1 1072186, 01560661, 9381455, 7476823, 53815403, 3232321 ####[facility] [address] [place] [address] Urea nitrogen/Creatinine [Mass ratio] 25 No Units High 10-20 [facility] Comment on above: Performed By: #### 1 1028188, 65744284, 3063283, 4729220, 71105689, 8840146 ####[facility] [address] [place] [address] Anion gap [Moles/Vol] 11 mmol/L Normal 6-16 [facility] Comment on above: Performed By: #### 1 8687178, 37373695, 0545226, 7243631, 06999563, 9060140 ####[facility] [address] [facility] [place] [address] Calcium [Mass/Vol] 9.4 mg/dL Normal 8.9-11.1 [facility] Comment on above: Performed By: #### 1 3730073, 39211343, 9936677, 4352927, 89398035, 3961994 ####[facility] [address] [place] [address] Chloride [Moles/Vol] 107 mmol/L Normal 101-111 [facility] Comment on above: Performed By: #### 1 1533460, 47549196, 8152554, 3850101, 29747254, 4684351 ####[facility] [address] [place] [address] CO2 [Moles/Vol] 24 mmol/L Normal 21-31 [facility] Comment on above: Performed By: #### 1 3476611, 83864072, 8932545, 4228671, 95326552, 1747276 ####[facility] [address] [place] [address] Glucose [Mass/Vol] 103 mg/dL Normal 55-199 [facility] Comment on above: Result Comment: If t his glucose result represents a fasting glucose, interpretation should refer to the following reference range: 55-99 mg/dL Performed By: #### 1 3831387, 07937900, 1188810, 5833796, 90677768, 1552010 ####[facility] [address] [place] [address] Potassium [Moles/Vol] 3.5 mmol/L Normal 3.5-5.3 [facility] Comment on above: Performed By: #### 1 1933603, 27910663, 7241999, 7887751, 96836714, 1097324 ####[facility] [address] [place] [address] Sodium [Moles/Vol] 138 mmol/L Normal 135-145 [facility] Comment on above: Performed By: #### 1 4619107, 29822604, 7352572, 8690587, 50739854, 4010211 ####[facility] [address] [place] [address] CBC w/ Auto Diffon 3 Erythrocyte distribution width (RBC) [Ratio] 15.1 % High 10.9-14.2 [facility] Comment on above: Performed By: #### 1 2123052, 59135878, 4595629, 8341302, 03635740, 2789730 ####[facility] [address] [place] [address] Hematocrit (Bld) [Volume fraction] 38.7 % Normal 34.0-46.0 [facility] Comment on above: Performed By: #### 1 1209613, 13447693, 1196058, 3549337, 69548583, 9129303 ####[facility] [address] [place] [address] Hemoglobin (Bld) [Mass/Vol] 12.9 g/dL Normal 12.0-16.0 [facility] Comment on above: Performed By: #### 1 3447553, 33976782, 2084386, 3475450, 94541981, 4326828 ####[address] [address] MCH (RBC) [Entitic mass] 27.1 pg Normal 27.0-34.0 [facility] Comment on above: Performed By: #### 1 6350801, 88107234, 2775717, 9394055, 75248711, 2235021 ####[address] [address] MCHC (RBC) [Mass/Vol] 33.4 g/dL Normal 31.4-36.0 [facility] Comment on above: Performed By: #### 1 3202419, 58389721, 0481936, 0255798, 97706046, 6967597 ####[address] [address] MCV (RBC) [Entitic vol] 81.3 fL Normal 80.0-100.0 [facility] Comment on above: Performed By: #### 1 6855853, 11798705, 7676469, 8533561, 39862128, 7579723 ####[address] [address] Platelet mean volume (Bld) [Entitic vol] 7.6 fL Normal 6.4-10.8 [facility] Comment on above: Performed By: #### 1 4520467, 42289292, 6602757, 5510136, 09658760, 6778506 ####[address] [place] [address] Platelets (Bld) [#/Vol] 325.0 E9/L Normal 150.0-500.0 [facility] Comment on above: Performed By: #### 1 1426427, 41749757, 8430158, 8654135, 27286584, 2688019 ####[address] RBC (Bld) [#/Vol] 4.8 E12/L Normal 4.3-5.9 [facility] Comment on above: Performed By: #### 1 3549765, 28094460, 4511611, 0057685, 62942898, 0222393 ####[facility] [address] [place] [address] WBC corrected for nucl RBC Auto (Bld) [#/Vol] 10.0 E9/L Normal 4.0-11.0 [facility] Comment on above: Performed By: #### 1 3372258, 45194136, 4875033, 9242232, 05803446, 3147101 ####[facility] [address] [place] [address] CHEMISTRYOrdered By: SYSTEM SYSTEM on 09-21-2022 Troponin I.cardiac [Mass/Vol] 2.90 pg/mL Low 10.10 - 27.10 pg/mL [facility] Anion gap [Moles/Vol] 11 mmol/L Normal 6 - 16 mEq/L [facility] Calcium [Mass/Vol] 9.4 mg/dL Normal 8.9 - 11. 1 mg/dL [facility] Chloride [Moles/Vol] 107 mmol/L Normal 101 - 1 11 mmol/L [facility] CO2 [Moles/Vol] 24 mmol/L Normal 21 - 31 mmol/L [facility] Creatinine [Mass/Vol] 0.8 mg/dL Normal 0.5 - 1.3 mg/dL [facility] GFR/1.73 sq M.predicted among non-blacks MDRD (S/P/Bld) [Vol rate/Area] 104 mL/min/1.73 m2 Normal >=59mL/min/1 .73 m2 [facility] [place] S Glucose [Mass/Vol] 103 mg/dL Normal 55 - 199 mg/dL [facility] Potassium [Moles/Vol] 3.5 mmol/L Normal 3.5 - 5.3 mmol/L [facility] Sodium [Moles/Vol] 138 mmol/L Normal 135 - 145 mmol/L [facility] Troponin I.cardiac [Mass/Vol] pg/mL Low 10.10 - 27.10 pg/mL [facility] Urea nitrogen [Mass/Vol] 20 mg/dL Normal 5 - 21 mg/dL [facility] Urea nitrogen/Creatinine [Mass ratio] 25 mg/mg High 10 - 20 [facility] COAGULATIONOrdered By: José Pantoja on 09-21-2022 aPTT Coag (PPP) [Time] 31.9 s Normal 25.1 - 36.5 second(s) [facility] Auto Coag INR Coag (PPP) [Relative time] 1.0 {INR} Invalid Interpretation Code [facility] Auto Coag PT Coag (PPP) [Time] 11.0 s Normal 9.4 - 1 2.5 second(s) [facility] Auto Coag Consent for Treatmenton 09-11 Consent for Treatment [id number] 0CD:127 Normal [facility] HEMATOLOGYOrdered By: SYSTEM SYSTEM on 09-21-2022 Basophils/100 WBC (Bld) 0.7 % Normal 0.0 - 2.0 % [facility] HemeAutoSS Basophils/Leukocytes Auto (Bld) [Pure # fraction] 0.1 E9/L Normal 0.0 - 0.2 E9/L [facility] HemeAutoSS Eosinophils/100 WBC (Bld) 3.2 % Normal 0.0 - 8.0 % [facility] HemeAutoSS Eosinophils/Leukocyte s Auto (Bld) [Pure # fraction] 0.3 E9/L Normal 0.0 - 0.5 E9/L [facility] HemeAutoSS Lymphocytes/100 WBC (Bld) 28.8 % Normal 14.0 - 50.0 % [facility] HemeAutoSS Lymphocytes/Leukocyte s Auto (Bld) [Pure # fraction] 2.9 E9/L Normal 1.0 - 4.0 E9/L [facility] HemeAutoSS Monocytes/100 WBC (Bld) 7.1 % Normal 4.0 - 14.0 % [facility] HemeAutoSS Monocytes/Leukocytes Auto (Bld) [Pure # fraction] 0.7 E9/L Normal 0.2 - 1.0 E9/L [facility] HemeAutoSS Neutrophils/100 WBC (Bld) 60.2 % Normal 36.0 - 75.0 % [facility] HemeAutoSS Neutrophils/Leukocyte s Auto (Bld) [Pure # fraction] 6.0 E9/L Normal 2.0 - 7.5 E9/L [facility] HemeAutoSS HEMATOLOGYOrdered By: Abdulakdir Morales on 09-21-2022 Erythrocyte distribution width (RBC) [Ratio] 15.1 % High 10.9 - 14.2 % [facility] HemeAutoSS Hematocrit (Bld) [Volume fraction] 38.7 % Normal 34.0 - 46.0 % [facility] HemeAutoSS Hemoglobin (Bld) [Mass/Vol] 12.9 g/dL Normal 12.0 - 16.0 gm/dL [facility] HemeAutoSS MCH (RBC) [Entitic mass] 27.1 pg Normal 27.0 - 34.0 pg [facility] HemeAutoSS MCHC (RBC) [Mass/Vol] 33.4 g/dL Normal 31.4 - 36.0 gm/dL [facility] HemeAutoSS MCV (RBC) [Entitic vol] 81.3 fL Normal 80.0 - 100.0 fL [facility] HemeAutoSS Platelet mean volume (Bld) [Entitic vol] 7.6 fL Normal 6.4 - 10.8 fL [facility] HemeAutoSS Platelets (Bld) [#/Vol] 325.0 E9/L Normal 150.0 - 500.0 E9/L [facility] HemeAutoSS RBC (Bld) [#/Vol] 4.8 E12/L Normal 4.3 - 5.9 E12/L [facility] HemeAutoSS WBC corrected for nucl RBC Auto (Bld) [#/Vol] 10.0 E9/L Normal 4.0 - 11.0 E9/L [facility] HemeAutoSS PT & PTTon 09-21-2022 aPTT Coag (PPP) [Time] 31.9 second(s) Normal 25.1-36.5 [facility] Comment on above: Result Comment: Para meter 15 days - 4 weeks 1 - 5 months 6 - 11 months 1 - 5 years 6 - 10 years 11 - 17 years PTT Mean: 35.4 (27.6-45.6) Mean: 33.5 (24.8-40.7) Mean: 32.4 (25.1-40.7) Mean: 31.6 (24.0-39.2) Mean: 31.6 (26.9-38.7) Mean: 31.0 (24.6-38.4) Pediatric Reference ranges were obtained from a study by ricco Shea al. prepared from 1437 samples obtained at 7 different centers using the same coagulation reagent and instrumentation [place] [facility] [place] Currently there are no coagulation studies available worldwide for children to 14 days, and no normal ranges. Heparin therapeutic range (represented by Anti-Factor Xa activity of 0.2 - 0.4 U/mL) corresponds to PTT of 56.6 - 109.0 sec. Performed By: #### 1 0538163, 50153109, 1616053, 2382113, 47311237, 4367375 ####[facility] [address] [place] [address] INR Coag (PPP) [Relative time] 1.0 {INR} Invalid Interpretation Code [facility] Comment on above: Result Comment: INR results are specifically intended to assess patients stabilized on long-term Anticoagulation therapy suggested INR?s ?Less Intensive Anticoagulation? 2.0 ? 3.0 Conventional Range 3.0 ? 4.5 Performed By: #### 1 1824202, 62923006, 2622891, 6373557, 90213185, 5452741 ####[facility] [address] [place] [address] PT Coag (PPP) [Time] 11.0 second(s) Normal 9.4-12.5 [facility] Comment on above: Result Comment: 15 d ays - 4 weeks 1 - 5 months 6 -11 months 1- 5 years 6-10 years 11 -17 years Mean: 11.2 (9.5-12.6) Mean: 11.0 (9.7-12.8) Mean: 11.0 (9.8-13.0) Mean: 11.3 (9.9-13.4) Mean: 11.7 (10.0-14.6) Mean: 11.8 (10.0 - 14.1) Pediatric Reference ranges were obtained from a study by ricco Shea al. prepared from 1437 samples obtained at 7 different centers using the same coagulation reagent and instrumentation as [facility] [place]. Currently there are no coagulation studies available worldwide for children to 14 days, and no normal ranges. Performed By: #### 1 0723493, 07023135, 1557748, 3607204, 29225975, 1654915 ####[facility] [address] [place] [address] eGFRon 09-21-2022 GFR/1.73 sq M.predicted among non-blacks MDRD (S/P/Bld) [Vol rate/Area] 104 mL/min/1.73 m2 Normal >=59 [facility] Comment on above: Order Comment: Order added by Discern Expert. Result Comment: Varnish Cooker dre kidney disease could be indicated at eGFR's of less than 60 mL/min/1.73m2. Kidney failure is indicated at less than 15 mL/min/1.73m2. Performed By: #### 1 4380686, 11678080, 3666878, 7802896, 34865999, 1410166 ####[facility] [address] [place] [address] CBC AUTO DIFFon 05-16-2022 BASO # 0.0 103/ul Normal 0.0-0.1 [facility] Comment on above: Performed By: #### H BSANS #### [facility] [address] [place] [address] Dr. Jose R Hester Basophils/100 WBC (Bld) 0.2 % Normal 0.2-2.0 [facility] Comment on above: Performed By: #### H BSANS #### [facility] [address] [place] [address] Dr. Jose R Hester EO # 0.2 103/ul Normal 0.0-0.7 [facility] Comment on above: Performed By: #### H BSANS #### [facility] [address] [address] [address] Jose R Hester Eosinophils/100 WBC (Bld) 0.9 % Normal 0.9-7.0 [facility] Comment on above: Performed By: #### H BSANS #### [facility] [address] [place] [address] Dr. Jose R Hester Erythrocyte distribution width (RBC) [Ratio] 14.2 % Normal 11.0-15.0 [facility] Comment on above: Performed By: #### H BSANS #### [facility] [address] [address] [address] Jose R Hester Hematocrit (Bld) [Volume fraction] 35.5 % Critically low 36.0-48.0 [facility] Comment on above: Performed By: #### H BSANS #### [facility] [address] [place] [address] Dr. Jose R Hester Hemoglobin (Bld) [Mass/Vol] 11.5 g/dL Critically low 12.0-16.0 [facility] Comment on above: Performed By: #### H BSANS #### [facility] [address] [address] [address] Jose R Hester IG # 0.09 10e3/ul Critically high 0.00-0.03 [facility] Comment on above: Performed By: #### H BSANS #### [facility] [address] [place] [address] Dr. Jose R Hester IG % 0.6 % Critically high 0.0-0.5 [facility] Comment on above: Performed By: #### H BSANS #### [facility] [address] [address] [address] Jose R Hester LYMPH # 1.5 103/ul Normal 1.2-3.8 [facility] Comment on above: Performed By: #### H BSANS #### [facility] [address] [place] [address] Dr. Jose R Hester Lymphocytes/100 WBC (Bld) 9.1 % Critically low 20.5-60.0 [facility] Comment on above: Performed By: #### H BSANS #### [facility] [address] [address] [address] Jose R Hester MANUAL DIFF REQ NO Normal [facility] Comment on above: Performed By: #### H BSANS #### [facility] [address] [place] [address] Dr. Jose R Hester MCH (RBC) [Entitic mass] 28.4 pg Normal 26.7-34.0 [facility] Comment on above: Performed By: #### H BSANS #### [facility] [address] [address] [address] Jose R Hester MCHC (RBC) [Mass/Vol] 32.4 g/dL Normal 29.9-35.2 [facility] Comment on above: Performed By: #### H BSANS #### [facility] [address] [address] [address] Jose R Hester MCV (RBC) [Entitic vol] 87.7 fL Normal 81.0-99.0 [facility] Comment on above: Performed By: #### H BSANS #### [facility] [address] [address] [address] Jose R Hester MONO # 1.1 103/ul Critically high 0.3-0.8 [facility] Comment on above: Performed By: #### H BSANS #### [facility] [address] [address] [address] Jose R Hester Monocytes/100 WBC (Bld) 6.8 % Normal 1.7-12.0 [facility] Comment on above: Performed By: #### H BSANS #### [facility] [address] [address] [address] Jose R Hester NEUT # 13.2 103/ul Critically high 1.4-6.5 [facility] Comment on above: Performed By: #### H BSANS #### [facility] [address] [address] [address] Jose R Hester Neutrophils/100 WBC (Bld) 82.4 % Critically high 43.0-75.0 [facility] Comment on above: Performed By: #### H BSANS #### [facility] [facility] [address] [address] [address] Jose R Hester Platelet mean volume (Bld) [Entitic vol] 9.9 fL Normal 9.5-13.5 [facility] Comment on above: Performed By: #### H BSANS #### [facility] [address] [address] [address] Jose R Hester PLT 285 103/ul Normal 150-450 [facility] Comment on above: Performed By: #### H BSANS #### [facility] [address] [address] [address] Jose R Hester RBC 4.05 106/ul Critically low 4.20-5.40 [facility] Comment on above: Performed By: #### H BSANS #### [facility] [address] [address] [address] Jose R Hester WBC 16.0 103/ul Critically high 4.0-11.0 [facility] Comment on above: Performed By: #### H BSANS #### [facility] [address] [address] [address] Jose R Hester CBC AUTO DIFFon 05-15-2022 BASO # 0.0 103/ul Normal 0.0-0.1 [facility] Comment on above: Performed By: #### C BC #### [facility] [address] [place] [address] Dr. Jose R Hester Basophils/100 WBC (Bld) 0.3 % Normal 0.2-2.0 [facility] Comment on above: Performed By: #### C BC #### [facility] [address] [place] [address] Dr. Jose R Hester EO # 0.3 103/ul Normal 0.0-0.7 [facility] Comment on above: Performed By: #### C BC #### [facility] [address] [place] [address] Dr. Jose R Hester Eosinophils/100 WBC (Bld) 2.7 % Normal 0.9-7.0 [facility] Comment on above: Performed By: #### C BC #### [facility] [address] [place] [address] Dr. Jose R Hester Erythrocyte distribution width (RBC) [Ratio] 14.2 % Normal 11.0-15.0 [facility] Comment on above: Performed By: #### C BC #### [facility] [address] [place] [address] Dr. Jose R Hester Hematocrit (Bld) [Volume fraction] 38.0 % Normal 36.0-48.0 [facility] Comment on above: Performed By: #### C BC #### [facility] [address] [address] [address] Jose R Hester Hemoglobin (Bld) [Mass/Vol] 12.8 g/dL Normal 12.0-16.0 [facility] Comment on above: Performed By: #### C BC #### [facility] [address] [address] [address] Jose R Hester IG # 0.06 10e3/ul Critically high 0.00-0.03 [facility] Comment on above: Performed By: #### C BC #### [facility] [address] [address] [address] Jose R Hester IG % 0.5 % Normal 0.0-0.5 [facility] Comment on above: Performed By: #### C BC #### [facility] [address] [address] [address] Joes R Hester LYMPH # 1.7 103/ul Normal 1.2-3.8 [facility] Comment on above: Performed By: #### C BC #### [facility] [address] [address] [address] Jose R Hester Lymphocytes/100 WBC (Bld) 13.5 % Critically low 20.5-60.0 [facility] Comment on above: Performed By: #### C BC #### [facility] [address] [address] [address] Jose R Hester MANUAL DIFF REQ NO Normal [facility] Comment on above: Performed By: #### C BC #### [facility] [address] [address] [address] Jose R Hester MCH (RBC) [Entitic mass] 28.9 pg Normal 26.7-34.0 [facility] Comment on above: Performed By: #### C BC #### [facility] [address] [address] [address] Jose R Hester MCHC (RBC) [Mass/Vol] 33.7 g/dL Normal 29.9-35.2 [facility] Comment on above: Performed By: #### C BC #### [facility] [address] [address] [address] Jose R Hester MCV (RBC) [Entitic vol] 85.8 fL Normal 81.0-99.0 [facility] Comment on above: Performed By: #### C BC #### [facility] [address] [address] [address] Jose R Hester MONO # 0.7 103/ul Normal 0.3-0.8 [facility] Comment on above: Performed By: #### C BC #### [facility] [address] [address] [address] Jose R Hester Monocytes/100 WBC (Bld) 5.7 % Normal 1.7-12.0 [facility] Comment on above: Performed By: #### C BC #### [facility] [address] [place] [address] Dr. Jose R Hester NEUT # 9.9 103/ul Critically high 1.4-6.5 [facility] Comment on above: Performed By: #### C BC #### [facility] [address] [place] [address] Dr. Jose R Hester Neutrophils/100 WBC (Bld) 77.3 % Critically high 43.0-75.0 [facility] Comment on above: Performed By: #### C BC #### [facility] [address] [place] [address] Dr. oJse R Hester Platelet mean volume (Bld) [Entitic vol] 10.2 fL Normal 9.5-13.5 [facility] Comment on above: Performed By: #### C BC #### [facility] [address] [place] [address] Dr. Jose R Hester PLT 335 103/ul Normal 150-450 [facility] Comment on above: Performed By: #### C BC #### [facility] [address] [address] [address] Jose R Hester RBC 4.43 106/ul Normal 4.20-5.40 [facility] Comment on above: Performed By: #### C BC #### [facility] [address] [address] [address] Jose R Hester WBC 12.8 103/ul Critically high 4.0-11.0 [facility] Comment on above: Performed By: #### C BC #### [facility] [address] [place] [address] Dr. Jose R Hester DRUG SCREEN RAPID (URINE)on 05-15-2022 AMP Negative Normal NEGATIVE [facility] Comment on above: Performed By: #### H BSANS #### [facility] [address] [place] [address] Dr. Jose R Hester BAR Negative Normal NEGATIVE [facility] Comment on above: Performed By: #### H BSANS #### [facility] [address] [place] [address] Dr. Jose R Hester BUP Negative Normal NEGATIVE [facility] Comment on above: Performed By: #### H BSANS #### [facility] [address] [place] [address] Dr. Jose R Hester BZO Negative Normal NEGATIVE [facility] Comment on above: Performed By: #### H BSANS #### [facility] [address] [place] [address] Dr. Jose R Hester ESA Negative Normal NEGATIVE [facility] Comment on above: Performed By: #### H BSANS #### [facility] [address] [place] [address] Dr. Jose R Hester CUT-OFFS SEE BELOW Normal [facility] Comment on above: Result Comment: AMP (Amphetamine): 500ng/mL, BAR (Barbituates): 200 ng/mL, BZO (Benzodiazepines): 150 ng/mL, BUP (Buprenorphine): 10 ng/mL, ESA (Cocaine): 150 ng/mL, mAMP (Methamphetamine): 500 ng/mL, MTD (Methadone): 200 ng/mL, OPI (Opiates): 100 ng/mL, OXY (Oxycodone): 100 ng/mL, PCP (Phencyclidine): 25 ng/mL, PPX (Propoxyphene): 300 ng/mL, THC (Cannabinoids): 50 ng/mL, TCA (Trycyclic Antidepressants): 300 ng/mL Performed By: #### H BSANS #### [facility] [address] [address] [address] Jose R Hester DRUG CUT HEADER DRUG CLASS TEST SYST EM CUT-OFF CONCENTRATIONS ARE FOLLOWS: Normal [facility] Comment on above: Performed By: #### H BSANS #### [facility] [address] [address] [address] Jose R Hester mAMP Negative Normal NEGATIVE [facility] Comment on above: Performed By: #### H BSANS #### [facility] [address] [address] [address] Jose R Hester MTD Negative Normal NEGATIVE [facility] Comment on above: Performed By: #### H BSANS #### [facility] [address] [address] [address] Jose R Hester OPI Negative Normal NEGATIVE [facility] Comment on above: Performed By: #### H BSANS #### [facility] [address] [address] [address] Jose R Hester OXY Negative Normal NEGATIVE [facility] Comment on above: Performed By: #### H BSANS #### [facility] [address] [address] [address] Jose R Hester PCP Negative Normal NEGATIVE [facility] Comment on above: Performed By: #### H BSANS #### [facility] [address] [place] [address] Dr. Jose R Hester PPX Negative Normal NEGATIVE [facility] Comment on above: Performed By: #### H BSANS #### [facility] [address] [place] [address] Dr. Jose R Hester TCA Negative Normal NEGATIVE [facility] Comment on above: Performed By: #### H BSANS #### [facility] [address] [address] [address] Jose R Hester THC Negative Normal NEGATIVE [facility] Comment on above: Performed By: #### H BSANS #### [facility] [address] [address] [address] Jose R Hester TYPE AND SCREENon 05-15-2022 TYPE AND SCREEN Negative Normal [facility] Comment on above: Performed By: #### C #### [facility] [address] [place] [address] Dr. Jose R Hester US PREG BIOPHY W NON STRESSo n 05-08-2022 US PREG BIOPHY W NON STRESS EXAMINATION: US PREG BIOPHY W NON STRESS HISTORY: Excessive growth affecting management of mother COMPARISON: Ultrasound biophysical 05/01/2022, ultrasound growth 05/08/2022 FINDINGS: BREATHING MOVEMENTS: 2 GROSS BODY MOVEMENTS: 2 TONE: 2 QUALITATIVE AMNIOTIC FLUID VOLUME: 2 PRESENTATION: Cephalic HEART RATE: 135 bpm. AMNIOTIC FLUID VOLUME: 12.4 cm (normal range) GESTATIONAL AGE: 38 weeks 6 days CONCLUSION: Total biophysical profile score 8. Electronically authenticated by: KORIN VIVAS Date: 2022-05-08 12:31 Normal [facility] US PREG GROWTHon 05-08-2022 US PREG GROWTH EXAMINATION: US PREG GROWTH HISTORY: Excessive growth affecting management of mother COMPARISON: Ultrasound growth 05/01/2022 FINDINGS: Heart Rate: 135.0 bpm Number: 1.0 Position: Cephalic Amniotic Fluid Volume: 12.4 cm Maximum Vertical Pocket: 6.2 cm BIOMETRY: BPD: 9.8 cm cm; 40 weeks 1 days; 96% HC: 34.0 cmcm; 39 weeks 1 days; 44% AC: 36.4 cm cm; 40 weeks 2 days; 95% FL: 7.3 cm cm; 37 weeks 4 days; 23% EFW: 3831.6 grams; 84% FL/AC: 20.2 FL/BPD: 74.7 HC/AC: 0.9 GESTATIONAL AGE: Age by EDC: 38 weeks 6 days ANA LAURA by EDC: 05/16/2022 Age by US: 39 weeks 2 days ANA LAURA by US: 05/13/2022 IMPRESSION: 1. Single live intrauterine with growth detailed above. 2. BPD and abdominal circumference are at 96 percentile and 95th percentile respectively. Electronically authenticated by: KORIN VIVAS Date: 2022-05-08 12:28 Normal [facility] US PREG BIOPHY W NON STRESSo n 05-01-2022 US PREG BIOPHY W NON STRESS EXAMINATION: US PREG BIOPHY W NON STRESS HISTORY: Excessive growth affecting management of mother COMPARISON: Ultrasound growth 04/18/2022 FINDINGS: BREATHING MOVEMENTS: 2.0 GROSS BODY MOVEMENTS: 2.0 TONE: 2.0 QUALITATIVE AMNIOTIC FLUID VOLUME: 2.0 PRESENTATION: Cephalic HEART RATE: 135.0 bpm bpm. AMNIOTIC FLUID VOLUME: 14.5 cm GESTATIONAL AGE: 37 weeks 6 days CONCLUSION: Total biophysical profile score 8.0. Electronically authenticated by: KORIN VIVAS Date: 2022-05-01 21:44 Normal [facility] US PREG GROWTHon 05-01-2022 US PREG GROWTH EXAMINATION: US PREG GROWTH HISTORY: Excessive growth affecting management of mother COMPARISON: Ultrasound growth 04/18/2022 FINDINGS: Heart Rate: 135.0 bpm Number: 1.0 Position: Cephalic Amniotic Fluid Volume: 14.5 cm Maximum Vertical Pocket: 5.7 cm BIOMETRY: BPD: 9.6 cm cm; 39 weeks 1 days; 93% HC: 34.5 cmcm; 39 weeks 6 days; 77% AC: 34.5 cm cm; 38 weeks 3 days; 80% FL: 6.9 cm cm; 35 weeks 4 days; 6% EFW: 3358.6 grams; 65% FL/AC: 20.1 FL/BPD: 72.2 HC/AC: 1.0 GESTATIONAL AGE: Age by EDC: 37 weeks 6 days ANA LAURA by EDC: 05/16/2022 Age by US: 38 weeks 2 days ANA LAURA by US: 05/13/2022 IMPRESSION: 1. Single live intrauterine with growth detailed above. 2. Femur length is at 6th percentile. Electronically authenticated by: KORIN VIVAS Date: 2022-05-01 21:46 Normal [facility] GROUP B STREP CULTUREon 04-11 S. agalactiae Ag Ql (Unsp spec) Culture Observations: NEGATIVE FOR GROUP B STREPTOCOCCUS. Normal [facility] Comment on above: Performed By: #### G BSCX #### [facility] [address] [place] [address] Dr. Jose R Hester US PREG GROWTHon 04-18-2022 US PREG GROWTH EXAMINATION: US PREG GROWTH HISTORY: Uterine size for dates discrepancy COMPARISON: No relevant comparison available. FINDINGS: Heart Rate: 172.0 bpm Number: 1.0 Position: CEPHALIC Amniotic Fluid Volume: 12.7 cm Maximum Vertical Pocket: 4.7 cm BIOMETRY: BPD: 9.4 cm cm; 38 weeks 3 days; >97% HC: 33.7 cmcm; 38 weeks 4 days; 81% AC: 35.6 cm cm; 39 weeks 4 days; >97% FL: 7.0 cm cm; 35 weeks 5 days; 39% EFW: 3507.5 grams; >97% FL/AC: 19.6 FL/BPD: 74.0 HC/AC: 0.9 GESTATIONAL AGE: Age by EDC: 36 weeks 0 days ANA LAURA by EDC: 05/16/2022 Age by US: 38 weeks 1 day ANA LAURA by US: 05/01/2022 IMPRESSION: 1. Single live intrauterine with growth detailed above. 2. Estimated weight is greater than 97th percentile. Electronically authenticated by: KORIN VIVAS Date: 2022-04-18 16:08 Normal [facility] US PREG GROWTHon 03-11-2022 US PREG GROWTH EXAMINATION: US PREG GROWTH HISTORY: Excessive growth affecting management of mother COMPARISON: Ultrasound anatomy 12/29/2021 FINDINGS: Heart Rate: 154.3 bpm Number: 1.0 Position: CEPHALIC Amniotic Fluid Volume: 13.8 cm Maximum Vertical Pocket: 6.1 cm BIOMETRY: BPD: 7.9 cm cm; 31 weeks 5 days; 81% HC: 28.9 cmcm; 31 weeks 6 days; 59% AC: 26.9 cm cm; 31 weeks 0 days; 60% FL: 5.7 cm cm; 30 weeks 0 days; 28% EFW: 1650.4 grams; 57% FL/AC: 21.3 FL/BPD: 72.5 HC/AC: 1.1 GESTATIONAL AGE: Age by EDC: 30 weeks 2 days ANA LAURA by EDC: 05/16/2022 Age by US: 31 weeks 1 day ANA LAURA by US: 05/10/2022 IMPRESSION: 1. Single live intrauterine with growth detailed above. Electronically authenticated by: KORIN VIVAS Date: 2022-03-11 20:22 Normal [facility] US PREG INCOMPLETE ANATOMYon 02-23-2022 US PREG INCOMPLETE ANATOMY EXAMINATION: US PREG INCOMPLETE ANATOMY HISTORY: screening COMPARISON: Ultrasound incomplete anatomy 01/24/2022, ultrasound anatomy 12/29/2021 FINDINGS: Presentation: Breech Amniotic fluid volume: Subjectively normal Heart rate: 145 bpm Anatomy: Four-chamber heart, cardiac outflow tracts, three-vessel cord GA: 28 weeks 2 days ANA LAURA: 05/16/2022 IMPRESSION: 1. Single live intrauterine . 2. Evaluation is limited by patient body habitus. 3. Four-chamber heart and three-vessel cord without appreciable abnormality. 4. Grossly unremarkable cardiac outflow tracts, but evaluation is limited due to patient body habitus. 5. Nuchal cord. Electronically authenticated by: KORIN VIVAS Date: 2022-02-23 16:09 Normal [facility] PAP ACOG PANEL 2: 30 to 65on 02-14-2022 . . Normal [facility] Comment on above: Result Comment: Perf ormed at: [facility] Performed By: #### G LU1HR #### [facility] [address] [place] [address] Dr. Jose R Hester Age Gdln ACOG Testing 22- [facility] Comment on above: Performed By: #### G LU1HR #### [facility] [address] [address] [address] Jose R Hester DIAGNOSIS: Comment [facility] Comment on above: Result Comment: NEGA TIVE FOR INTRAEPITHELIAL LESION OR MALIGNANCY. Performed at: [facility] Performed By: #### G LU1HR #### [facility] [address] [address] [address] Jose R Hester Methodology: Comment Normal [facility] Comment on above: Result Comment: This liquid based ThinPrep(R) pap test was screened with the use of an image guided system. Performed at: [facility] Performed By: #### G LU1HR #### [facility] [address] [address] [address] Jose R Hester Note: Comment Normal [facility] Comment on above: Result Comment: The Pap smear is a screening test designed to aid in the detection of premalignant and malignant conditions of the uterine cervix. It is not a diagnostic procedure and should not be used as the sole means of detecting cervical cancer. Both false-positive and false-negative reports do occur. . Performed at: [facility] Performed By: #### G LU1HR #### [facility] [address] [place] [address] Dr. Jose R Hester Performed by: Comment Normal [facility] Comment on above: Result Comment: Jerry Alvarado, Production Lapping Machine Operator (ASCP) Performed at: [facility] Performed By: #### G LU1HR #### [facility] [address] [place] [address] Dr. Jose R Hester Reflex Criteria: Comment Normal [facility] Comment on above: Result Comment: The HPV DNA reflex criteria were not met with this specimen result therefore, no HPV testing was performed. . Performed at: [facility] Performed By: #### G LU1HR #### [facility] [address] [place] [address] Dr. Jose R Hester Specimen adequacy: Comment Normal [facility] Comment on above: Result Comment: Sati sfactory for evaluation. No endocervical component is identified. Performed at: [facility] Performed By: #### G LU1HR #### [facility] [address] [place] [address] Dr. Jose R Hester CBC AUTO DIFFon 02-08-2022 BASO # 0.0 103/ul Normal 0.0-0.1 [facility] Comment on above: Performed By: #### G LU1HR #### [facility] [address] [place] [address] Dr. Jose R Hester Basophils/100 WBC (Bld) 0.2 % Normal 0.2-2.0 [facility] Comment on above: Performed By: #### G LU1HR #### [facility] [address] [place] [address] Dr. Jose R Hester EO # 0.3 103/ul Normal 0.0-0.7 [facility] Comment on above: Performed By: #### G LU1HR #### [facility] [address] [place] [address] Dr. Jose R Hester Eosinophils/100 WBC (Bld) 3.4 % Normal 0.9-7.0 [facility] Comment on above: Performed By: #### G LU1HR #### [facility] [address] [place] [address] Dr. Jose R Hester Erythrocyte distribution width (RBC) [Ratio] 14.1 % Normal 11.0-15.0 [facility] Comment on above: Performed By: #### G LU1HR #### [facility] [address] [place] [address] Dr. Jose R Hester Hematocrit (Bld) [Volume fraction] 38.8 % Normal 36.0-48.0 [facility] Comment on above: Performed By: #### G LU1HR #### [facility] [address] [place] [address] Dr. Jose R Hester Hemoglobin (Bld) [Mass/Vol] 12.8 g/dL Normal 12.0-16.0 [facility] Comment on above: Performed By: #### G LU1HR #### [facility] [address] [place] [address] Dr. Jose R Hester IG # 0.09 10e3/ul Critically high 0.00-0.03 [facility] Comment on above: Performed By: #### G LU1HR #### [facility] [address] [place] [address] Dr. Jose R Hester IG % 0.9 % Critically high 0.0-0.5 [facility] Comment on above: Performed By: #### G LU1HR #### [facility] [address] [place] [address] Dr. Jose R Hester LYMPH # 1.9 103/ul Normal 1.2-3.8 [facility] Comment on above: Performed By: #### G LU1HR #### [facility] [address] [place] [address] Dr. Jose R Hester Lymphocytes/100 WBC (Bld) 19.2 % Critically low 20.5-60.0 [facility] Comment on above: Performed By: #### G LU1HR #### [facility] [address] [place] [address] Dr. Jose R Hester MANUAL DIFF REQ NO Normal [facility] Comment on above: Performed By: #### G LU1HR #### [facility] [address] [address] [address] Jose R Hester MCH (RBC) [Entitic mass] 29.4 pg Normal 26.7-34.0 [facility] Comment on above: Performed By: #### G LU1HR #### [facility] [address] [place] [address] Dr. Jose R Hester MCHC (RBC) [Mass/Vol] 33.0 g/dL Normal 29.9-35.2 [facility] Comment on above: Performed By: #### G LU1HR #### [facility] [address] [place] [address] Dr. Jose R Hester MCV (RBC) [Entitic vol] 89.0 fL Normal 81.0-99.0 [facility] Comment on above: Performed By: #### G LU1HR #### [facility] [address] [place] [address] Dr. Jose R Hester MONO # 0.4 103/ul Normal 0.3-0.8 [facility] Comment on above: Performed By: #### G LU1HR #### [facility] [address] [place] [address] Dr. Jose R Hester Monocytes/100 WBC (Bld) 4.3 % Normal 1.7-12.0 [facility] Comment on above: Performed By: #### G LU1HR #### [facility] [address] [place] [address] Dr. Jose R Hester NEUT # 7.1 103/ul Critically high 1.4-6.5 [facility] Comment on above: Performed By: #### G LU1HR #### [facility] [address] [place] [address] Dr. Jose R Hester Neutrophils/100 WBC (Bld) 72.0 % Normal 43.0-75.0 [facility] Comment on above: Performed By: #### G LU1HR #### [facility] [address] [place] [address] Dr. Jose R Hester Platelet mean volume (Bld) [Entitic vol] 9.8 fL Normal 9.5-13.5 [facility] Comment on above: Performed By: #### G LU1HR #### [facility] [address] [place] [address] Dr. Jose R Hester PLT 377 103/ul Normal 150-450 [facility] Comment on above: Performed By: #### G LU1HR #### [facility] [address] [place] [address] Dr. Jose R Hester RBC 4.36 106/ul Normal 4.20-5.40 [facility] Comment on above: Performed By: #### G LU1HR #### [facility] [address] [place] [address] Dr. Jose R Hester WBC 9.8 103/ul Normal 4.0-11.0 [facility] Comment on above: Performed By: #### G LU1HR #### [facility] [address] [place] [address] Dr. Jose R Hester GLUCOSE - 1HRon 02-08-2022 Glucose [Mass/Vol] 131 mg/dL Critically high 74-106 [facility] Comment on above: Performed By: #### G LU1HR #### [facility] [address] [place] [address] Dr. Jose R Hester CHLAMYDIA/GONOCOCCUS AZAEL ( AB/URINE/PAPon 02-03-2022 Chlamydia trachomatis, AZAEL Negative Normal Negative [facility] Comment on above: Performed By: #### G LU1HR #### [facility] [address] [place] [address] Dr. Jose R Hester Neisseria gonorrhoeae, AZAEL Negative Normal Negative [facility] Comment on above: Performed By: #### G LU1HR #### [facility] [address] [place] [address] Dr. Jose R Hester VAGINITIS/VAGINOSIS DNA PROB Ashok 02-02-2022 Lucille species Negative Normal Negative [facility] Comment on above: Performed By: #### C BC #### [facility] [address] [place] [address] Dr. Jose R Hester Gardnerella vaginalis Negative Normal Negative [facility] Comment on above: Performed By: #### C #### [facility] [address] [place], [place] [address] Dr. Jose R Hester Trichomonas vaginalis Negative Normal Negative [facility] Comment on above: Performed By: #### C #### [facility] [address] [place], [place] [address] Dr. Jose R Hester US PREG CERVICAL LENGTHon US PREG CERVICAL LENGTH EXAMINATION: US PREG INCOMPLETE ANATOMY, US PREG CERVICAL LENGTH HISTORY: screening COMPARISON: No relevant comparison available. TECHNIQUE: Transabdominal and transvaginal sonographic examination for cervical length. FINDINGS: CERVIX LENGTH: 6.4 cm in length; closed. POSITION: Breech. HEART RATE: 151 bpm ANATOMY: Adequate visualization of four-chamber heart. Limited evaluation of cardiac outflow tracts and three-vessel cord. Age by EDC: 24 weeks 0 days ANA LAURA by EDC: 05/16/2022 IMPRESSION: 1. Single live intrauterine . 2. Posterior placenta is no longer low-lying. 3. Adequate visualization of four-chamber heart; no appreciable abnormality. 4. Suboptimal visualization of cardiac outflow tracts and three-vessel cord due to patient body habitus. Electronically authenticated by: KORIN VIVAS Date: 2022-01-24 21:35 Normal [facility] US PREG ANATOMY SINGLEon US PREG ANATOMY SINGLE EXAMINATION: US PREG ANATOMY SINGLE HISTORY: screening COMPARISON: No relevant comparison available. TECHNIQUE: Transabdominal sonographic examination was performed for obstetrical and evaluation. FINDINGS: Limited exam due to maternal body habitus Number: 1 Heart Rate: 147.5 bpm H.B. /min Amniotic Fluid Volume: Subjectively normal position: Cephalic presentation, longitudinal lie Placental Location: ANT/POST, placental edge 1.7 cm from the os, grade 0 Cervix Length: 4.7 cm, closed Normal structures: Cerebellum. Choroid plexus. Cisterna magna. Lateral cerebral ventricles. Orbits. Midline falx. Hard palate. Stomach. Kidneys. Bladder. Umbilical cord insertion into abdomen. Cervical spine. Thoracic spine. Lumbar spine. Sacral spine. Right upper extremity. Left upper extremity. Right lower extremity. Left lower extremity. Suboptimally seen: 4-chamber heart. RVOT. LVOT. 3 vessel cord. . Abnormalities/Other: None BIOMETRY: BPD: 4.7 cm 20 weeks 1 days , 47% HC: 17.9 cm 20 weeks 2 days, 43% AC: 15.9 cm 21 weeks 0 days, 67% FL: 3.3 cm 20 weeks 1 days, 38% EFW:362.9 grams; 13 ounces, 62% FL/AC: 20.6 FL/BPD: 69.4 HC/AC: 1.1 GESTATIONAL AGE: Age by EDC: 20 weeks 2 days ANA LAURA by EDC: 05/15/2022 Age by current US: 20 weeks 3 days ANA LAURA by current US: 05/16/2022 IMPRESSION: Suboptimal visualization of the heart, ventricular outflow tracts and three-vessel cord Low lying placenta, the placental edge is 1.7 cm from the internal cervical os *Reference: [employer] Practice Guideline for the performance of Obstetric Ultrasound Examinations, November 11, 2006. Electronically authenticated by: AMANDA ELIZABETH Date: 2021-12-29 15:30 Normal [facility] AFP MATERNAL FOR SPINA BIFID Aon 12-17-2021 AFP MoM 1.36 Normal [facility] Comment on above: Performed By: #### A FPMAT #### [facility] [address] [place] [address] [address] Jose R Hester AFP Value 45.3 ng/mL Normal [facility] Comment on above: Performed By: #### A FPMAT #### [facility] [address] [place] [address] [address] Jose R Hester AFP, Serum for Spina Bifida Report Normal [facility] Comment on above: Performed By: #### A FPMAT #### [facility] [address] [place] [address] [address] Jose R Hester Comment Comment Normal [facility] Comment on above: Result Comment: Temo Sanchez, Ph.D., [facility] Director . References: Available Upon Request. . Multiples Of Median Cutoffs For AFP Elevations Foote 2.5 Black 2.8 IDD 2.0 Twins 4.5 Abbreviation Definitions IDD - Insulin Dep Diabetes OSBR - Open Spina Bifida Risk . For further inquiries contact [employer] at [phone]. . This test was developed and its performance characteristics determined by [facility]. It has not been cleared or approved by the Food and Drug Administration. Performed By: #### A FPMAT #### [facility] [address] [place] [address] Dr. Jose R Pradhan Age Collection Date 18.3 weeks Normal [facility] Comment on above: Performed By: #### A FPMAT #### [facility] [address] [place] [address] [address] Jose R Hester Gestat, Age Based on LMP [facility] Comment on above: Result Comment: Reca lculations are not recommended when gestational dating by LMP and ultrasound are within 10 days. Performed By: #### A FPMAT #### [facility] [address] [place] [address] Dr. Jose R Hester Insulin Dep Diabetes No Normal [facility] Comment on above: Performed By: #### A FPMAT #### [facility] [address] [place] [address] Dr. Jose R Hester Interpretation Comment Normal [facility] Comment on above: Result Comment: Inte rpretation: Screen Negative . This result is screen negative for OSB. The AFP MoM calculated is based on the gestational age provided. MS-AFP can identify up to 80% of open neural tube defects. Closed neural tube defects and some open defects may not be detected by this test. This test does not screen for Down Syndrome or Trisomy 18. If screening for Down Syndrome or Trisomy 18 is desired, contact [employer] to discuss available options. The [employer] recommends amniocentesis be offered to women age 35 and older. Performed By: #### A FPMAT #### [facility] [address] [place] [address] Dr. Jose R Hester [age] Normal [facility] Comment on above: Performed By: #### A FPMAT #### [facility] [address] [place] [address] Dr. Jose R Hester Multiple Gestation No Normal [facility] Comment on above: Performed By: #### A FPMAT #### [facility] [address] [place] [address] Dr. Jose R Hester OSBR Risk 1 IN 4034 Normal [facility] Comment on above: Performed By: #### A FPMAT #### [facility] [address] [place] [address] Dr. Jose R Hester PDF . [facility] Comment on above: Performed By: #### A FPMAT #### [facility] [address] [place] [address] Dr. Jose R Hester Race Normal [facility] Comment on above: Performed By: #### A FPMAT #### [facility] [address] [place] [address] Dr. Jose R Hester Test Results: Negative Normal [facility] Comment on above: Performed By: #### A FPMAT #### [facility] [address] [place] [address] Dr. Jose R Hester GLUCOSE - 1HRon 12-01-2021 Glucose [Mass/Vol] 114 mg/dL Critically high 74-106 [facility] Comment on above: Performed By: #### G LU1HR #### [facility] [address] [place] [address] Dr. Jose R Hester HEPATITIS C VIRUS AB W/ REFL EX QUANTon 10-28-2021 HCV AB <0.1 Normal 0.0-0.9 [facility] Comment on above: Performed By: #### H CVPCRR #### [facility] [address] [place] [address] Dr. Jose R Hester Interpretation: Comment Normal [facility] Comment on above: Result Comment: Nega tive Not infected with HCV, unless recent infection is suspected or other evidence exists to indicate HCV infection. Performed By: #### H CVPCRR #### [facility] [address] [place] [address] Dr. Jose R Hester HEP B SURFACE ANTIGEN SCREEN on 10-27-2021 HBsAg Screen Negative Normal Negative [facility] Comment on above: Performed By: #### H BSANS #### [facility] [address] [place] [address] Dr. Jose R Hester HIV 1 AND 2 WITH REFLEXon HIV Screen 4th Generation wRfx Non-Reactive Normal Non Reactive [facility] Comment on above: Result Comment: HIV Negative HIV-1/HIV-2 antibodies and HIV-1 p24 antigen were NOT detected. There is no laboratory evidence of HIV infection. Performed By: #### G LU1HR #### [facility] [address] [place] [address] Dr. Jose R Hester RPR QUANTon 10-27-2021 Rapid Plasma Reagin, Quant Non-Reactive Normal NonRea<1:1 [facility] Comment on above: Result Comment: Plea se Note: This test does not meet current guidelines for screening and diagnosis of syphilis. This test is intended for following treatment response in patients being treated for syphilis infection. To screen for syphilis infection, a reflex cascade that includes both RPR and a treponema-specific assay should be utilized, such as Treponema pallidum (Syphilis) Screening Gustine (921035) or Rapid Plasma Reagin (RPR) Test With Reflex to Quantitative RPR and Confirmatory Treponema pallidum Antibodies (793624). Performed By: #### H BSANS #### [facility] [address] [place] [address] Dr. Jose R Hester RUBELLA AB IGGon 10-27-2021 Rubella Antibodies, IgG 5.25 index Normal Immune >0.99 [facility] Comment on above: Result Comment: Non- immune <0.90 Equivocal 0.90 - 0.99 Immune >0.99 Performed By: #### H BSANS #### [facility] [address] [place] [address] Dr. Jose R Hester CBC AUTO DIFFon 10-25-2021 BASO # 0.1 103/ul Normal 0.0-0.1 [facility] Comment on above: Performed By: #### C BC #### [facility] [address] [place] [address] Dr. Jose R Hester Basophils/100 WBC (Bld) 0.5 % Normal 0.2-2.0 [facility] Comment on above: Performed By: #### C BC #### [facility] [address] [place] [address] Dr. Jose R Hester EO # 0.4 103/ul Normal 0.0-0.7 [facility] Comment on above: Performed By: #### C BC #### [facility] [address] [place] [address] Dr. Jose R Hester Eosinophils/100 WBC (Bld) 3.6 % Normal 0.9-7.0 [facility] Comment on above: Performed By: #### C BC #### [facility] [address] [place] [address] Dr. Jose R Hester Erythrocyte distribution width (RBC) [Ratio] 13.1 % Normal 11.0-15.0 [facility] Comment on above: Performed By: #### C BC #### [facility] [address] [place] [address] Dr. Jose R Hester Hematocrit (Bld) [Volume fraction] 42.0 % Normal 36.0-48.0 [facility] Comment on above: Performed By: #### C BC #### [facility] [address] [place] [address] Dr. Jose R Hester Hemoglobin (Bld) [Mass/Vol] 14.1 g/dL Normal 12.0-16.0 [facility] Comment on above: Performed By: #### C BC #### [facility] [address] [place] [address] Dr. Jose R Hester IG # 0.02 10e3/ul Normal 0.00-0.03 [facility] Comment on above: Performed By: #### C BC #### [facility] [address] [place] [address] Dr. Jose R Hester IG % 0.2 % Normal 0.0-0.5 [facility] Comment on above: Performed By: #### C BC #### [facility] [address] [place] [address] Dr. Jose R Hester LYMPH # 2.3 103/ul Normal 1.2-3.8 [facility] Comment on above: Performed By: #### C BC #### [facility] [address] [place] [address] Dr. Jose R Hester Lymphocytes/100 WBC (Bld) 21.9 % Normal 20.5-60.0 [facility] Comment on above: Performed By: #### C BC #### [facility] [address] [place] [address] Dr. Jose R Hester MANUAL DIFF REQ NO Normal [facility] Comment on above: Performed By: #### C BC #### [facility] [address] [place] [address] Dr. Jose R Hester MCH (RBC) [Entitic mass] 29.2 pg Normal 26.7-34.0 [facility] Comment on above: Performed By: #### C BC #### [facility] [address] [place] [address] Dr. Jose R Hester MCHC (RBC) [Mass/Vol] 33.6 g/dL Normal 29.9-35.2 [facility] Comment on above: Performed By: #### C BC #### [facility] [address] [place] [address] Dr. Jose R Hester MCV (RBC) [Entitic vol] 87.0 fL Normal 81.0-99.0 [facility] Comment on above: Performed By: #### C BC #### [facility] [address] [place] [address] Dr. Jose R Hester MONO # 0.5 103/ul Normal 0.3-0.8 [facility] Comment on above: Performed By: #### C BC #### [facility] [address] [place] [address] Dr. Jose R Hester Monocytes/100 WBC (Bld) 5.0 % Normal 1.7-12.0 [facility] Comment on above: Performed By: #### C BC #### [facility] [address] [place] [address] Dr. Jose R Hester NEUT # 7.4 103/ul Critically high 1.4-6.5 [facility] Comment on above: Performed By: #### C BC #### [facility] [address] [place] [address] Dr. Jose R Hester Neutrophils/100 WBC (Bld) 68.8 % Normal 43.0-75.0 [facility] Comment on above: Performed By: #### C BC #### [facility] [address] [address] [address] Jose R Hester Platelet mean volume (Bld) [Entitic vol] 9.8 fL Normal 9.5-13.5 [facility] Comment on above: Performed By: #### C BC #### [facility] [address] [place] [address] Dr. Jose R Hester PLT 328 103/ul Normal 150-450 [facility] Comment on above: Performed By: #### C BC #### [facility] [address] [place] [address] Dr. Jose R Hester RBC 4.83 106/ul Normal 4.20-5.40 [facility] Comment on above: Performed By: #### C BC #### [facility] [address] [place] [address] Dr. Jose R Hester WBC 10.7 103/ul Normal 4.0-11.0 [facility] Comment on above: Performed By: #### C BC #### [facility] [address] [place] [address] Dr. Jose R Hester CULTURE URINEon 10-25-2021 CULTURE URINE Culture Observations : HEAVY GROWTH OF MIXED GENITAL SHONA. NO POTENTIAL PATHOGENS SEEN. Normal [facility] Comment on above: Performed By: #### C BC #### [facility] [address] [place] [address] Dr. Jose R Hester GLYCOHEMOGLOBIN A1Con 2021 ADA RECOMMENDATION SEE BELOW Normal [facility] Comment on above: Result Comment: ADA RECOMMENDED LIMIT 4.0 - 6.0 ADA THERAPEUTIC TARGET < 7.0 ACTION SUGGESTED > 7.0 Performed By: #### H BSANS #### [facility] [address] [place] [address] Dr. Jose R Hester Glucose [Mass/Vol] 100 mg/dL Normal [facility] Comment on above: Performed By: #### H BSANS #### [facility] [address] [place] [address] Dr. Jose R Hester HbA1c (Bld) [Mass fraction] 5.1 % Normal 4.5-6.2 [facility] Comment on above: Performed By: #### H BSANS #### [facility] [address] [place] [address] Dr. Jose R Hester ANAND BOX TEST PT SEND OUTo n 10-25-2021 SENT TO REF LAB 10/26/2021 Normal [facility] Comment on above: Performed By: #### H BSANS #### [facility] [address] [address] [address] Jose R Hester TYPE AND SCREENon 10-25-2021 TYPE AND SCREEN Negative Normal [facility] Comment on above: Performed By: #### T NS #### [facility] [address] [place] [address] Dr. Jose R Hester US PREG TVon 10-10-2021 US PREG TV EXAMINATION: US PREG TV HISTORY: Missed period COMPARISON: No relevant comparison available. FINDINGS: GESTATIONAL SAC: Present and normal appearing. POLE: Present and normal appearing. YOLK SAC: Present. CARDIAC: Present. UTERUS: Normal size and appearance. OVARIES: Right: Normal. Left: Normal. CERVIX: 4.5 cm in length and closed. CUL-DE-SAC: Normal. OTHER: None. AGE BY LMP: 8 weeks 6 days ANA LAURA BY LMP: 05/16/2022 AGE BY US CRL: 8 weeks 2 days ANA LAURA BY US CRL: 05/20/2022 IMPRESSION: 1. Single live intrauterine . Electronically authenticated by: KORIN VIVAS Date: 2021-10-10 16:36 Normal [facility] Vital Signs Date Time Vital Sign Value Performing Clinician Facility 02-10-2024 11:50-0500 Body mass index (BMI) [Ratio] 43.35 kg/m2 Amanda LEMON Work Phone: [facility] 02-10-2024 11:50-0500 Body weight 125.56 kg Amanda LEMON Work Phone: [facility] 02-10-2024 11:50-0500 Diastolic blood pressure 74 mm[Hg] Amanda LEMON Work Phone: [facility] 02-10-2024 11:50-0500 Systolic blood pressure 112 mm[Hg] Amanda LEMON Work Phone: [facility] 03-24-2023 06:10-0500 Body temperature 98.29 [degF] [facility] 03-24-2023 06:10-0500 Diastolic blood pressure 70 mm[Hg] [facility] 03-24-2023 06:10-0500 Heart rate 85 /min Jas Garcias MD Work Phone: [facility] 03-24-2023 06:10-0500 Respiratory rate 16 /min [facility] 03-24-2023 06:10-0500 SaO2% (BldA) [Mass fraction] 96 % [facility]as [facility]ias [facility] 03-24-2023 06:10-0500 Systolic blood pressure 107 mm[Hg] Jas Garcias MD Work Phone: [facility] 03-20-2023 23:00-0500 Body height 170.2 cm Jas Garcias MD Work Phone: [facility] 03-20-2023 23:00-0500 Body mass index (BMI) [Ratio] 42.29 kg/m2 Jas Garcias MD Work Phone: [facility] 03-20-2023 23:00-0500 Body weight 122.47 kg Jas Garcias MD Work Phone: [facility] 09-22-2022 00:28-0400 Diastolic blood pressure 70 mm[Hg] [facility] 09-22-2022 00:28-0400 Heart rate 86 /min [facility] 09-22-2022 00:28-0400 Mean blood pressure 88 mm[Hg] [facility]linn [facility] 09-22-2022 00:28-0400 Respiratory rate 18 /min [facility] 09-22-2022 00:28-0400 SaO2% (BldA) [Mass fraction] 93 % [facility] 09-22-2022 00:28-0400 Systolic blood pressure 125 mm[Hg] Kaylinn [facility] 09-21-2022 22:30-0400 Diastolic blood pressure 79 mm[Hg] [facility] 09-21-2022 22:30-0400 Heart rate 92 /min [facility] 09-21-2022 22:30-0400 Mean blood pressure 94 mm[Hg] [facility] 09-21-2022 22:30-0400 Respiratory rate 21 /min [facility] 09-21-2022 22:30-0400 SaO2% (BldA) [Mass fraction] 95 % [facility] 09-21-2022 22:30-0400 Systolic blood pressure 123 mm[Hg] [facility] 09-21-2022 22:00-0400 Diastolic blood pressure 94 mm[Hg] [facility] 09-21-2022 22:00-0400 Heart rate 105 /min [facility] 09-21-2022 22:00-0400 Mean blood pressure 109 mm[Hg] Doug[facility] 09-21-2022 22:00-0400 Respiratory rate 17 /min [facility] 09-21-2022 22:00-0400 SaO2% (BldA) [Mass fraction] 98 % [facility] 09-21-2022 22:00-0400 Systolic blood pressure 139 mm[Hg] [facility] 09-21-2022 21:55-0400 Hourly Rounding [facility] Comment on above: Result Comment: States pain and nausea a re almost gone. No other needs at this time. Call light in reach. Family at bedside. 09-21-2022 21:09-0400 Body temperature 97.7 [degF] Douginn [facility] 09-21-2022 21:09-0400 Heart rate 99 /min [facility] 09-21-2022 21:09-0400 Respiratory rate 16 /min [facility] 09-21-2022 21:00-0400 Hourly Rounding [facility] 12-17-2021 01:05-0500 Body weight 123.[address] CHADD SCHULTE . [facility] Comment on above: Performed By: #### AFPMAT #### [facility] [address] [place] [address] Dr. Jose R Hester Encounters Encounter Date Encounter Type Care Provider Facility Start: 02-10-2024 End: 02-10-2024 Bamboo flowsheet Amanda LEMON Work Phone: [facility] Start: 02-10-2024 End: 02-10-2024 Bamboo flowsheet Amanda Fiona LEMON Work Phone: [facility] Start: 02-10-2024 End: 02-10-2024 Patient encounter procedure Amanda LEMON Work Phone: [facility] Start: 02-10-2024 End: 02-10-2024 Periodic preventive med est patient 18-39 yrs Amanda LEMON Work Phone: [facility] Comment on above: Well woman exam with routine gynecological exam Start: 10-24-2023 End: 10-24-2023 ambulatory Jimmy Higuerad [place] [place]: 10-24-2023 End: 10-24-2023 Patient encounter procedure Jimmy Higuerad [facility] Start: 09-30-2023 End: 09-30-2023 ambulatory Jimmy Higuerad [place] [place]: 09-30-2023 End: 09-30-2023 Patient encounter procedure Jimmy Morgan [facility] Start: 08-28-2023 End: 08-28-2023 ambulatory JORGE BROWN Not Available Start: 08-21-2023 End: 08-21-2023 ambulatory JORGE BROWN [place] [place]: 08-21-2023 End: 08-21-2023 Patient encounter procedure JORGE BROWN [facility] Start: 08-11-2023 End: 08-11-2023 Letter encounter [facility] Start: 08-08-2023 End: 08-08-2023 ambulatory JORGE BROWN Not Available Start: 03-20-2023 Emergency department patient visit UNKNOWN PROVIDER Facility:[facility] Start: 03-20-2023 End: 03-24-2023 Evaluation and management of inpatient Jas Garcias MD Work Phone: [facility] Comment on above: Choledocholithiasis (Primary Dx); Gallstone pancreatitis; Elevated LFTs; Abnormal magnetic resonance cholangiopancreatography (MRCP); Acute post-operative pain Start: 03-20-2023 End: 03-20-2023 Emergency department patient visit DO Miroslava Correa [place] [place] Start: 02-27-2023 End: 02-27-2023 ambulatory JORGE Tequila BROWN Not Available Start: 02-06-2023 End: 02-06-2023 ambulatory CHADD SCHULTE Not Available Start: 09-21-2022 End: 09-22-2022 Emergency department patient visit DO Miroslava Correa [place] [place] Start: 09-21-2022 End: 09-22-2022 Emergency department patient visit Miroslava Correa [facility] Start: 05-15-2022 End: 05-17-2022 Evaluation and management of inpatient DR ARLINE PLEITEZ . Facility:[facility] Start: 05-11-2022 End: 05-11-[address] ARLINE PLEITEZ . Facility:[facility] Start: 05-08-2022 End: 05-08-[address] CHADD SCHULTE . Facility:[facility] Start: 05-04-2022 End: 05-04-2022 ambulatory FARHAT WHITING Facility:[facility] Start: 05-01-2022 End: 05-01-[address] CHADD SCHULTE . Facility:[facility] Start: 04-25-2022 End: 04-25-[address] CHADD SCHULTE . Facility:[facility] Start: 04-18-2022 End: 04-19-2022 ambulatory AMANDA JAIMES . Facility:[facility] Start: 03-09-2022 End: 03-10-[address] CHADD SCHULTE . Facility:[facility] Start: 02-23-2022 End: 02-24-[address] CHADD SCHULTE . Facility:[facility] Start: 02-08-2022 End: 02-09-[address] CHADD SCHULTE . Facility:[facility] Start: 01-31-2022 End: 02-01-[address] CHADD SCHULTE . Facility:[facility] Start: 01-24-2022 End: 01-25-[address] CHADD SCHULTE . Facility: Start: 12-29-2021 End: 12-30-[address] CHADD SCHULTE . Facility:[facility] Start: 12-15-2021 End: 12-16-[address] CHADD SCHULTE . Facility:[facility] Start: 12-01-2021 End: 12-02-[address] CHADD SCHULTE . Facility:[facility] Start: 10-25-2021 End: 10-26-[address] CHADD SCHULTE . Facility:[facility] Start: 10-10-2021 End: 10-11-[address] CHADD SCHULTE . Facility: Procedures Date Procedure Procedure Detail Performing Clinician Start: 03-24-2023 Assay of magnesium China Collazo MD Work Phone: Start: 03-23-2023 Assay of magnesium China Collazo MD Work Phone: Start: 03-23-2023 Hepatic function panel Mario Mayfield MD Work Phone: Start: 03-22-2023 Assay of magnesium China Collazo MD Work Phone: Start: 03-22-2023 Hepatic function panel Mario Mayfield MD Work Phone: Start: 03-21-2023 Ercp w/sphincterotomy/papilloto my Adolfo Dominique MD Work Phone: Start: 03-21-2023 Urine test visual color cmprsn meths Adolfo Dominique MD Work Phone: Start: 03-21-2023 Blood typing serologic abo Mario Mayfield MD Work Phone: Start: 03-21-2023 Assay of magnesium China Collazo MD Work Phone: Start: 03-21-2023 Blood typing, ABO, R ho(D) and RBC antibody screening Mario Mayfield MD Work Phone: Start: 03-21-2023 Hepatic function panel Mario Mayfield MD Work Phone: Start: 03-20-2023 Urine test visual color cmprsn meths Mario Mayfield MD Work Phone: Start: 03-20-2023 Assay of lipase Jas Garcias MD Work Phone: Start: 03-20-2023 Hepatic function panel Jas Garcias MD Work Phone: Start: 03-20-2023 Urnls dip stick/tabl et rgnt auto w/o microscopy Jas Garcias MD Work Phone: Start: 05-15-2022 Extraction of Produc ts of Conception, Low Cervical, Open Approach DR CHADD SCHULTE . Start: 05-15-2022 Drainage of Amniotic Fluid, Therapeutic from Products of Conception, Via Natural or Artificial Opening DR CHADD SCHULTE . Start: 05-15-2022 Introduction of Othe r Hormone into Peripheral Vein, Percutaneous Approach DR CHADD SCHULTE . Start: 01-31-2022 Microscopic observat ion [Identifier] in Cervix by Cyto stain Jas Garcias MD Work Phone: Plan of Treatment Date Care Activity Detail Author Start: 2046 Shingles (RZV) Vaccine (1 of 2) [facility]ing[facility] (RZV) [facility] Start: 02-15-2025 End: 02-15-2025 Patient encounter procedure 02/15/2025 10:00 AM EST Office Visit [facility] [address] [place] [id number] Amanda Jaimes PA [address] [place] [address] [facility] Start: 01-31-2025 Screening for malignant neoplasm of cervix Pap Smear [facility] Start: 02-10-2024 End: 02-10-2024 Patient encounter procedure 02/10/2024 11:00 AM EST Office Visit [facility] [address] [place] [id number] Amanda Jaimes PA [address] [place] [address] Arrived [facility] Comment on above: Arrived Start: 10-13-2023 Influenza vaccination Influenza Vaccine (#1) [facility] Start: 07-29-2023 HPV Vaccine (optional start 27-45 years) HPV Vaccine (optional start 27-45 years) [facility] Start: 10-12-2022 COVID-19 Vaccine ( season) COVID-19 Vaccine ( season) [facility] Start: 10-12-2022 Influenza vaccination Influenza Vaccine (#1) [facility] Start: 07-29-2015 Hepatitis A (HAV) Vaccine (optional start 19+ years) Hepatitis A (HAV) Vaccine (optional start 19+ years) [facility] Start: 07-29-2015 Hepatitis B vaccination Hepatitis B (HBV) Vaccine (1 of 3 - 19+ 3-dose series) [facility] Start: 2014 Hepatitis C screening Hepatitis C Antibody [facility] Start: 2014 Tetanus + diphtheria + acellular pertussis vaccine (product) Tdap Booster [facility] Start: 07-29-2011 HIV screening HIV Test [facility] Start: 07-29-2007 Vaccination for human papillomavirus HPV Vaccine (1 - 2-dose series) [facility] Start: 01-27-1997 COVID-19 Vaccine (#1) COVID-19 Vaccine (#1) [facility] Start: 1996 Hepatitis B vaccination Hepatitis B (HBV) Vaccine (1 of 3 - [facility]-dose series) [facility] of [facility] MAGNESIUM Lab STAT Daily until discontinued starting 03/21/2023, 4 completed [facility] Comment on above: Daily until discontinued starting 2023, 4 completed Basic metabolic 2000 panel - Serum or Plasma BASIC METABOLIC PANEL Lab STAT Daily until discontinued starting 03/21/2023, 4 completed [facility] Comment on above: Daily until discontinued starting 2023, 4 completed CBC panel - Blood by Automated count COMPLETE BLOOD COUNT Lab STAT Daily until discontinued starting 03/21/2023, 4 completed [facility] Comment on above: Daily until discontinued starting 2023, 4 completed Cytology Cervical or vaginal smear or scraping study Pap Smear Pathology and Cytology Routine Well woman exam with routine gynecological exam Ordered: 02/10/2024 [facility] Work Phone: Comment on above: Ordered: 02/10/2024 End: 03-20-2023 DOWNLOAD [employer] TO [employer] DOWNLOAD [employer] [facility] [facility] [employer] Imaging STAT Today for 1 Occurrences starting 03/20/2023 until 03/20/2023 [email or web address] Work Phone: Comment on above: Today for 1 Occurrences starting 024 until 03/20/2023 Heparin assay ANTI FXA-LMW HEP ADDISON Lab Routine When Specimen Available/Needed for 1 Occurrences starting 03/23/2023 [facility] Comment on above: When Specimen Available/Needed for 1 Occ urrences starting 03/23/2023 Surgical pathology procedure SPECIMEN FOR SURGICAL PATH Anatomic Pathology Routine Gallstone pancreatitis Choledocholithiasis Release Upon Ordering for 1 Occurrences starting 03/23/2023 [email or web address] Work Phone: Comment on above: Release Upon Ordering for 1 Occurrences starting 03/23/2023 Payers Date Payer Category Payer Private Health Insurance [employer] [id number] 2022 Unknown 1996 Unknown [id number] [id number] .2.593 1996 Unknown [id number] 2.16.840.1.156484.3.579 .2.593 1996 Unknown [id number] 2.16.840.1.013354.3.579 .2.59 1996 Unknown [id number] 2.16.840.1.943029.3.579 .2.593 1996 Unknown [id number] 2.16.840.1.576013.3.579 .2.59 1996 Unknown [id number] 2.16.840.1.956487.3.579 .2.59 1996 Unknown [id number] 2.16.840.1.592584.3.579 .2.59 1996 Unknown [id number] 2.16.840.1.720162.3.579 .2.59 1996 Unknown [id number] 2.16.840.1.970773.3.579 .2.59 1996 Unknown [id number] 2.16.840.1.351868.3.579 .2.59 1996 Unknown [id number] 2.16.840.1.920657.3.579 .2.59 1996 Unknown [id number] 2.16.840.1.440872.3.579 .2.593 1996 Unknown [id number] 2.16.840.1.212842.3.579 .2.59 1996 Unknown [id number] 2.16.840.1.055040.3.579 .2.593 1996 Unknown [id number] 2.16.840.1.927859.3.579 .2. 1996 Unknown [id number] 2.16.840.1.809026.3.579 .2.593 1996 Unknown [id number] 2.16.840.1.159260.3.579 .2.593 1996 Unknown [id number] 2.16.840.1.120587.3.579 .2.727 1996 Unknown [id number] 2.16.840.1.995927.3.579 .2.727 1996 Unknown [id number] 2.16.840.1.850576.3.579 .2.1259 1996 Unknown [id number] 2.16.840.1.115226.3.579 .2.9 1996 Unknown [id number] 2.16.840.1.647641.3.579 .2.1259 1996 Unknown [id number] 2.16.840.1.474598.3.579 .2.9 1996 Unknown [id number] 2.16.840.1.530229.3.579 .2.727 1996 Unknown [id number] 2.16.840.1.700172.3.579 .2.727 1959 Self-pay 1958 Unknown [id number] Unknown [id number] 2.16.840.1.399885.3.579 .2.593 Social History Date Type Detail Facility Tobacco smoking status [facility] Start: 10-12-2022 End: 02-27-2023 Sex Assigned At Female [facility] Tobacco smoking stat [facility] Tobacco smoking consumption unknown [facility] Start: 1995 Sex Assigned At [facility] Start: 10-12-2022 Tobacco smoking stat [facility] Never smoked tobacco [facility] Start: 10-12-2022 Tobacco use and exposure Smokeless tobacco non-user [facility] Start: 08-28-2023 Alcoholic beverage intake Ex-drinker (finding) [facility] Start: 10-12-2022 End: 02-27-2023 History of Social function [facility] Within the last year , have you been afraid of your partner or ex-partner? No [facility] Are you now , , , , never or living with a partner? [facility] How often to you hav e a drink containing alcohol? Never [facility] How many standard drinks containing alcohol do you have on a typical day? 1 or 2 [facility] How hard is it for y ou to pay for the very basics like food, housing, medical care, and heating Not very hard [facility] Do you feel stress - tense, restless, nervous, or anxious, or unable to sleep at night because your mind is troubled all the time - these days [OSQ] Only a little [facility] For an average week in the last 30 days, how many days per week did you engage in moderate to strenuous exercise (like walking fast, running, jogging, dancing, swimming, biking, or other activities that cause a light or heavy sweat)? Patient declined [facility] (I/We) worried wheth er (my/our) food would run out before (I/we) got money to buy more. Never true [facility] Start: 1995 Sex assigned at Female [facility] Start: 10-08-2022 Gender identity Identifies as female gender (finding) [facility] Goals Date Patient Goal Desired Activity /State Personal health goal Functional Status Date Assessment Result Facility 09-21-2022 Functional Status N/A [facility] Clinical Notes 05-15-2022 to 02-10-2024 ION Nash - 02/10/2024 11:00 AM ESTCare Plan Note - Euallia Brewster RN - 03/24/2023 7:19 AM ESTCare Plan Note - Eulalia Brewster RN - 03/24/2023 7:19 AM Mario Knight MD - 03/24/2023 5:36 AM EST Note Date & Type Note Facility 02-10-2024 History of Present illness Narrative Reason for Appointment: Patient ID: Lala Hall is a 28 y.o. female who presents for No chief complaint on file. Patient presents today for Annual Exam. MEDICATIONS Current Outpatient Medications Medication Instructions sertraline (ZOLOFT) 25 mg, Oral, Daily ALLERGIES No Known Allergies PROBLEMS Active Ambulatory Problems Diagnosis Date Noted Hyperinsulinemia 10/12/2022 Size of fetus inconsistent with dates in third trimester 10/12/2022 Vaginal discharge 10/12/2022 Psoriasis (CMS/HCC) 11/12/2022 Resolved Ambulatory Problems Diagnosis Date Noted No Resolved Ambulatory Problems Past Medical History: Diagnosis Date Anxiety Eczema Obesity HISTORY PAST MEDICAL HISTORY SOCIAL HISTORY Past Medical History: Diagnosis Date Anxiety Eczema Hyperinsulinemia Obesity Social History Tobacco Use Smoking status: Never Smokeless tobacco: Never Vaping Use Vaping status: Never Used Substance Use Topics Alcohol use: Not Currently Drug use: Never FAMILY HISTORY Family History Problem Relation Name Age of Onset Diabetes Father Maynor Heart disease Maternal Grandfather Alex Heart disease Paternal Grandmother Beatrice Diabetes Paternal Grandfather Aspen SURGICAL HISTORY Past Surgical History: Procedure Laterality Date SECTION, LOW TRANSVERSE 2022 CHOLECYSTECTOMY 03/23/2023 [facility] REVIEW OF SYSTEMS Review of Systems: Review of Systems Constitutional: Negative. HENT: Negative. Eyes: Negative. Respiratory: Negative. Cardiovascular: Negative. Gastrointestinal: Negative. Genitourinary: Negative. Musculoskeletal: Negative. Skin: Negative. Neurological: Negative. All other systems reviewed and are negative. Hematological: Negative. Endocrine: Negative. Allergic/Immunologic: Negative. OBJECTIVE Objective: Physical Exam Constitutional: Appearance: Normal appearance. She is well-developed. Genitourinary: Vulva normal. Right Adnexa: not tender and no mass present. Left Adnexa: not tender and no mass present. No cervical discharge. Breasts: Breasts are soft. Right: Normal. Left: Normal. HENT: Head: Normocephalic. Nose: Nose normal. Mouth/Throat: Mouth: Mucous membranes are moist. Cardiovascular: Rate and Rhythm: Normal rate and regular rhythm. Pulmonary: Effort: Pulmonary effort is normal. Breath sounds: Normal breath sounds. Abdominal: General: Bowel sounds are normal. There is no distension. Palpations: Abdomen is soft. Tenderness: There is no abdominal tenderness. There is no guarding or rebound. Musculoskeletal: General: No swelling. Normal range of motion. Cervical back: Normal range of motion. Right lower leg: No edema. Left lower leg: No edema. Neurological: General: No focal deficit present. Mental Status: She is alert and oriented to person, place, and time. Skin: General: Skin is warm and dry. Psychiatric: Mood and Affect: Mood normal. Behavior: Behavior normal. Vitals and nursing note reviewed. Exam conducted with a gum rolling machine tender present. Vitals: Estimated body mass index is 42.7 kg/m as calculated from the following: Height as of 08/28/23: 5' 7 . Weight as of 08/28/23: 272 lb 9.6 oz. BP: No LMP recorded. ASSESSMENT & PLAN Annual Exam: Patient presents today for an annual exam. Patient states she is doing well and has no complaints. Pap was obtained without difficulty. Follow Up: Patient is to return in one year for annual unless needed otherwise. Documented by Piedad Valdez LPN on behalf of: ION Nash documented in this encounter [facility] 09-03-2023 Hospital Discharge instructions Follow Up Care 09/03/2023 10:02:00 With:Cathy WOODARD, Jimmy Crocker, PUL, DEREJE Address: [address] [place] [address] [facility] (Heart [facility] Vascular) [place] [address]- When: Unknown Comments:after his testing is completed [facility] 03-24-2023 Note DISCHARGE SUMMARY [place] [id number] Lala Hall Date of : 1995 27 year oldfemale Attending Niall Aleman MD Date of Admission 03/20/2023 Date of Discharge 03/24/23 [facility] DIVISION OF ACUTE CARE SURGERY EMERGENCY GENERAL SURGERY FINAL DIAGNOSES: Hospital Problems as of 03/24/2023 * (Principal) Gallstone pancreatitis Choledocholithiasis Acute bilateral upper abdominal pain PROCEDURES: 03/23/23: Laparoscopic cholecystectomy and bilateral TAP block by Sean Andrews MD. DISCHARGE MEDICATIONS: Current Discharge Medication List START taking these medications Details acetaminophen (TYLENOL) 500 MG tablet Take 2 Tablets by mouth every 6 (six) hours. Qty: 30 Tablet, Refills: 0 ibuprofen (MOTRIN) 600 MG tablet Take 1 Tablet by mouth every 6 (six) hours. Qty: 30 Tablet, Refills: 3 oxyCODONE 5 MG immediate release tablet Take 1 Tablet by mouth every 4 hours as needed for up to 3 days. Qty: 12 Tablet, Refills: 0 Associated Diagnoses: Acute post-operative pain senna (SENOKOT) 8.6 MG tablet Take 1 Tablet by mouth at bedtime for 5 days. Qty: 5 Tablet, Refills: 0 CONTINUE these medications which have NOT CHANGED Details sertraline (ZOLOFT) 25 MG tablet Take 25 mg by mouth daily. REASON FOR HOSPITALIZATION: Lala Hall is a 27 year old female with a h/o depression and low transverse 10 months ago who was transferred from [facility] due to MRCP concerning for gallstone pancreatitis and choledocholithiasis. General Surgery is consult regarding this complaint. Patient has been having sharp epigastric abdominal pain radiating to the back with vomiting 3 days ago. Finally came in to ED due to persistent emesis. Normal BM. No fever or chills. Last BM yesterday. ED workup includes lipase 2832, nl WBC 8.3, t bili 0.7 nl, alk phos 143, ALT 434. AST 214. At [facility], initial T bili of 2.0, CT with IV contrast initially was done with no stones and wall thickening and edematous pancreatic tail. MRCP showed multiple gallstones in dependent portion of gallbladder extending to gallbladder neck, no gall bladder wall thickening. CBD up to 6-7 mm in diameter. Abrupt tapering of distal most CBD at level of choledochal sphincter. Peripancreatic fluid compatible with acute pancreatitis. SIGNIFICANT FINDINGS: -intrahepatic gallbladder, numerous gallstones within the gallbladder HOSPITAL COURSE: 03/20: Transferred to [facility] from , admitted to EGS for gallstone pancreatitis, choledocholithiasis, plan for cholecystectomy this admission 03/21: S/p ERCP with stone removal, no stent placement, erosive duodenitis at D2, biliary sphincterotomy Dr. Dominique. 03/22: Patient recovering well s/p ERCP, plan for lap diaz pending OR availability but delayed. 03/23: Lap diaz with Dr. Andrews. Recovering well post-operatively. The patient was seen and examined on the day of discharge with the following findings: -General - Laying in bed, in NAD -Neurologic - A AND O x3, clear speech -Cardiovascular - normal rate, well perfused -Respiratory - Breathing comfortably on room air, symmetric chest rise -Abdomen - Soft, ND, non tender, no rebound or guarding -Skin -warm, dry -Psychiatric - normal affect -Extremities - CAM on command Condition at discharge: improved Diet: No restrictions Restrictions: No lifting greater than 15 lbs Patient discharged to: Home ANTICIPATED FOLLOW UP: No future appointments. Other indicated follow up and instructions for scheduling: Yaniv Amaya provider in 2 weeks. PCP as needed. No discharge procedures on file. Mario Mayfield MD Explanation of the primary diagnosis, and secondary diagnoses where applicable, including test results, Review of incidental findings and appropriate recommendations for follow up, Discussion of any new medications and treatments, including expected benefits and potential major side effects, Explanation of previous treatments or medications that are discontinued, Discussion of post-hospital day-to-day care needs including therapy, wound care, etc., and Follow up plans and warning signs that should prompt more urgent follow up >30 minutes was spent on the discharge of this patient. [facility] 03-24-2023 Plan of care note Problem: Routine Care: Goal: Patient care will be managed and maintained throughout hospital stay per unit specific routine care procedure Outcome: Progressing Problem: Acute Pain: Goal: Ability to identify pain intensity on a pain scale and rate it consistently will be achieved and maintained Outcome: Progressing Goal: Understanding of proper administration and use of medicines will be achieved Outcome: Progressing Goal: Acceptable level of pain which allows the patient to achieve functional outcome goals Outcome: Progressing PRN pain medication to be administered as needed to maintain/control pain Problem: Altered Elimination: Goal: Establishment of normal urinary function will be acheived and maintained Outcome: Progressing Problem: Altered Nutrition: Goal: Achieve developmentally appropriate nutritional intake as clinically indicated Outcome: Progressing Problem: Risk for Infection: Goal: Risk for infection will be reduced Outcome: Progressing Problem: Impaired Skin Integrity: Goal: Acheive wound healing without signs and symptoms of infection Outcome: Progressing Problem: VTE Prophylaxis: Goal: Will be free of DVT Outcome: Progressing Problem: Safety: Goal: Patient will remain free of falls during hospital stay Outcome: Progressing Goal: Free from injury during hospitalization Outcome: Progressing Patient has call light within reach, educated on use of call light, and has side rails in place [facility] 03-24-2023 Miscellaneous Notes Problem: Routine Care: Goal: Patient care will be managed and maintained throughout hospital stay per unit specific routine care procedure Outcome: Progressing Problem: Acute Pain: Goal: Ability to identify pain intensity on a pain scale and rate it consistently will be achieved and maintained Outcome: Progressing Goal: Understanding of proper administration and use of medicines will be achieved Outcome: Progressing Goal: Acceptable level of pain which allows the patient to achieve functional outcome goals Outcome: Progressing PRN pain medication to be administered as needed to maintain/control pain Problem: Altered Elimination: Goal: Establishment of normal urinary function will be acheived and maintained Outcome: Progressing Problem: Altered Nutrition: Goal: Achieve developmentally appropriate nutritional intake as clinically indicated Outcome: Progressing Problem: Risk for Infection: Goal: Risk for infection will be reduced Outcome: Progressing Problem: Impaired Skin Integrity: Goal: Acheive wound healing without signs and symptoms of infection Outcome: Progressing Problem: VTE Prophylaxis: Goal: Will be free of DVT Outcome: Progressing Problem: Safety: Goal: Patient will remain free of falls during hospital stay Outcome: Progressing Goal: Free from injury during hospitalization Outcome: Progressing Patient has call light within reach, educated on use of call light, and has side rails in place Problem: Routine Care: Goal: Patient care will be managed and maintained throughout hospital stay per unit specific routine care procedure Outcome: Progressing Note: Purposeful hourly rounding performed. Problem: Acute Pain: Goal: Ability to identify pain intensity on a pain scale and rate it consistently will be achieved and maintained Outcome: Progressing Note: Patient aware of PRN pain medications. Will continue to assess pain throughout shift and medicate as indicated. Goal: Understanding of proper administration and use of medicines will be achieved Outcome: Progressing Goal: Acceptable level of pain which allows the patient to achieve functional outcome goals Outcome: Progressing Problem: Altered Elimination: Goal: Establishment of normal urinary function will be acheived and maintained Outcome: Progressing Problem: Altered Nutrition: Goal: Achieve developmentally appropriate nutritional intake as clinically indicated Outcome: Progressing Note: Tolerating regular diet. No N/V reported. Problem: Risk for Infection: Goal: Risk for infection will be reduced Outcome: Progressing Problem: Impaired Skin Integrity: Goal: Acheive wound healing without signs and symptoms of infection Outcome: Progressing Note: Lap sites closed with topical skin adhesive. Problem: VTE Prophylaxis: Goal: Will be free of DVT Outcome: Progressing Problem: Safety: Goal: Patient will remain free of falls during hospital stay Outcome: Progressing Note: Call light within reach & bed in low positionCall light within reach & bed in low position Goal: Free from injury during hospitalization Outcome: Progressing Brief Operative Note MAIN OR 14 Lala Hall 27 year old female Surgical Contact Serial Number: [id number] Preoperative Diagnosis: Pre-op Diagnosis * Gallstone pancreatitis [K85.10] * Choledocholithiasis [K80.50] Postoperative Diagnosis: * Gallstone pancreatitis [K85.10] * Choledocholithiasis [K80.50] Procedures: Surgical CPTs Procedures ERCP REMOVAL OF STONE(S) [08878] SPHINCTEROTOMY [81828] No data filed Laparoscopic cholecystectomy Surgeon(s): Surgeon(s): Sean Andrews MD Staff: Scrub: Maria Victoria [employer] Motor Assembler Nurse: Monica Pierre RN Technical Support 1 Software Engineer: Gerson Collazo MD; Kory Hernandez MD Anesthesia: General Anesthesiologist: Michelle Loaiza MD HOME CARE PHYSICAL THERAPIST: Jennifer Gauthier APRN-HOME CARE PHYSICAL THERAPIST Methodologist: Félix Sahu MD Specimen(s): ID Type Source Tests Collected by Time Destination 1 : Gallbladder Tissue Gallbladder SPECIMEN FOR SURGICAL PATH Sean Andrews MD 03/23/2023 0909 Estimated Blood Loss: 10cc Lines/Drains: Peripheral IV Access: 03/20/23 1317 20 gauge Left Antecubital (Active) Site Assessment WNL;Dressing intact 03/22/231929 Infusion Status Port #1 Capped;Patent 03/22/231929 Peripheral IV Access: 03/21/23 0700 22 gauge Anterior;Left Hand Present on Transfer to Unit / Floor (Active) Site Assessment WNL;Dressing intact 03/22/231929 Infusion Status Port #1 Infusing;Patent 03/22/231929 Findings: - intrahepatic gallbladder, numerous gallstones within the gallbladder Complications: None Status at end of surgery: Stable Activity: weight bearing as tolerated and progressive ambulation Surgical wound class: Yes, wound was contaminated. Patient Class: Inpatient. Dr. Andrews was present in the OR for the critical portion of the procedure and procedure sign-out. Signed by Gerson Collazo MD 03/23/2023 10:11 AM Images from the original note were not included. Name: Lala Hall MR#: [id number] [facility]#: [id number] Date of Procedure: 03/23/23 ATTENDING SURGEON: Sean Andrews MD FIRST SURGEON: Arturo Hernandez MD and Gerson Collazo MD SERVICE: Acute Care Surgery PREOPERATIVE DIAGNOSIS: gallstone pancreatitis POSTOPERATIVE DIAGNOSIS: gallstone pancreatitis PROCEDURE PERFORMED: 1. Laparoscopic cholecystectomy 2. Bilateral TAP block ANESTHESIA: General endotracheal. ESTIMATED BLOOD LOSS: 10 cc SPECIMENS: gallbladder COMPLICATIONS: None. INDICATIONS: 27F who presented with gallstone pancreatitis. Patient underwent ERCP, stone retrieval, and sphincterotomy. She goes to OR today for cholecystectomy to avoid future episodes. PROCEDURE IN DETAIL: The patient was taken to the operating room after informed consent was obtained. The patient was placed in the supine position, and general endotracheal anesthesia was induced. All necessary support lines were placed. SCDs were on and functional prior to induction. Ancef was given for perioperative antibiotic prophylaxis. A time out was performed verifying the correct patient, procedure, site, positioning, and special equipment needed prior to the beginning of the procedure. The abdomen was prepped and draped in the usual sterile fashion. An infraumbilical incision was made. The fascia was identified, elevated with a Jose Martin clamp and incised. Peritoneum was entered bluntly and confirmed with a finger sweep. A figure of eight 0 vicryl suture was placed in the fascia and used as an anchor stitch. The Bauman cannula inserted under direct vision. The abdomen was insufflated and patient tolerated it well. The abdomen was inspected and no injuries from initial trocar placement were noted. The patient was positioned in reverse Trendelenburg with right side up. Three 5mm ports were placed under direct visualization in the subxiphoid, and right upper quadrant. The gallbladder was retracted over the dome of the liver. The infundibulum was retracted towards the right lower quadrant exposing Calot's triangle. The peritoneum overlying the gallbladder infundibulum was then incised and the cystic duct and cystic artery were identified and circumferentially dissected. The posterior branch of the cystic artery was also identified and dissected. The critical view of safety was obtained. The cystic duct and cystic artery were then doubly clipped and divided close to the gallbladder. The posterior branch of the cystic artery was also clipped at this time and transected. The gallbladder was then dissected from its peritoneal attachments by electrocautery and was found to be intraperitoneal. The gallbladder was entered during this phase and we irrigated, suctioned, and retrieved multiple stones. Hemostasis was verified and the gallbladder was removed using an endoscopic retrieval bag. The gallbladder fossa was irrigated. There was no evidence of bleeding from the gallbladder fossa or cystic artery. Clips were securely in place across the cystic duct. A total of 100 cc of 1% lidocaine, 0.5% marcaine, and normal saline was placed under direct visualization as a bilateral transversus abdominus plane block. The trocars were removed under direct visualization and the umbilical trocar and gallbladder were removed. The abdomen was allowed to collapse. The figure 8 fascial suture was closed. The skin was closed with subcuticular 4-0 Monocryl and dermabond. Sponge, instrument and needle counts were correct at the end of the case. The patient tolerated the procedure well and was transported to the PACU in good condition. I was scrubbed for the critical portion of the procedure and immediately available for the non-critical portions. Sean Andrews MD Trauma/Burn Surgery Surgical Critical Care Pager: [phone] Blood Attestation: ATTESTATION OF INFORMED CONSENT FOR BLOOD: The transfusion of blood and/or blood components were discussed with the patient and/or legal customer solutions representative. The risks, benefits and alternatives were reviewed. Questions regarding blood transfusions were answered. The patient /or the patient s legal customer solutions representative agree with the plan for transfusion of blood and/or blood components. Problem: Routine Care: Goal: Patient care will be managed and maintained throughout hospital stay per unit specific routine care procedure Outcome: Progressing Note: Patient rounded on per hourly rounding unit protocol, call light within reach, siderails in place, encouraged to call for assistance as needed. Problem: Acute Pain: Goal: Ability to identify pain intensity on a pain scale and rate it consistently will be achieved and maintained Outcome: Progressing Note: Patient consistently rates pain using numeric pain scale. Pain managed at this time through PRN medications. Goal: Understanding of proper administration and use of medicines will be achieved Outcome: Progressing Goal: Acceptable level of pain which allows the patient to achieve functional outcome goals Outcome: Progressing Problem: Altered Elimination: Goal: Establishment of normal urinary function will be acheived and maintained Outcome: Progressing Problem: Altered Nutrition: Goal: Achieve developmentally appropriate nutritional intake as clinically indicated Outcome: Progressing Note: NPO for OR Problem: Risk for Infection: Goal: Risk for infection will be reduced Outcome: Progressing Problem: Impaired Skin Integrity: Goal: Acheive wound healing without signs and symptoms of infection Outcome: Progressing Problem: VTE Prophylaxis: Goal: Will be free of DVT Outcome: Progressing Problem: Safety: Goal: Patient will remain free of falls during hospital stay Outcome: Progressing Goal: Free from injury during hospitalization Outcome: Progressing Problem: Discharge Planning: Goal: Discharge needs of the adult patient will be met Outcome: Progressing Problem: Routine Care: Goal: Patient care will be managed and maintained throughout hospital stay per unit specific routine care procedure Outcome: Progressing Problem: Impaired Skin Integrity: Goal: Acheive wound healing without signs and symptoms of infection Outcome: Progressing Problem: Acute Pain: Goal: Ability to identify pain intensity on a pain scale and rate it consistently will be achieved and maintained Outcome: Progressing Problem: Safety: Goal: Patient will remain free of falls during hospital stay Outcome: Progressing Problem: Discharge Planning: Goal: Discharge needs of the adult patient will be met Outcome: Progressing Patient's Name: Lala Hall Date: 03/21/23 Written informed consent obtained from patient. Endoscopic procedure risks (including but not limited to perforation, infection, bloating and bleeding) benefits and alternatives explained and questions answered. Patient verbalized understanding. Based on history and airway assessment patient is not an appropriate candidate for moderate sedation and will undergo sedation with the assistance of anesthesia physician/HOME CARE PHYSICAL THERAPIST team. Please see corresponding note for full details. Adolfo Dominique MD 03/21/23 3:39 PM Lala Hall 27 year old Surgical Contact Serial Number: [id number] Location: ENDO 05 Date: 03/21/2023 LIFE SKILLS TRAINER: Adolfo Dominique MD ATTENDING:Adolfo Dominique MD Procedure(s): ERCP, WITH ANESTHESIA SERVICES INSTRUMENT: Scope #[id number] SEDATION: Anesthesia Assisted Pre-Op Diagnosis Codes: * Gallstone pancreatitis [K85.10] INDICATIONS: This is a 27 year old female with acute gallstone pancreatitis, elevated LFT's, increasing bilirubin, and abnormal MRCP with possible bile duct stone in CBD. Patient verbalized understanding. While monitoring the patient with continuous use of P, BP, O2 and EKG, therapeutic duodenoscope passed to second portion of duodenum under direct visualization without difficulty. Erosive duodenitis was seen in D2. Ampulla placed en face and appeared mildly erythematous. CBD was selectively cannulated using wire guided technique and injection of dilute contrast revealed a normal caliber CBD with one distal filling defect compatible with a stone. CHD and intra-hepatic ducts were normal. Gallbladder partially filled via cystic duct. A biliary sphincterotomy was performed. The bile duct was swept several times with a 9-12 mm balloon, and a single 6 mm stone was removed from the bile duct. A stent was not placed. Gallstone pancreatitis (Primary Diagnosis) [346469] Choledocholithiasis [920847] [place] PATH SPECIMEN SENT: no SPECIMEN: None PHOTOGRAPH TAKEN:yes COMPLICATIONS DURING PROCEDURE: None EBL (estimated blood loss): minimal IMPRESSION: 1. Choledocholithiasis; s/p biliary sphincterotomy with extraction of a single 6 mm bile duct stone. No stent was placed. 2. Mildly erythematous major papilla. 3. Erosive duodenitis in D2. RECOMMENDATIONS: 1. Watch for signs of bleeding, perforation, cholangitis and pancreatitis. 2. Monitor LFT's. 3. Acid suppression to treat erosive duodenitis. 4. Early laparoscopic cholecystectomy this admission. 5. Follow-up with the inpatient GI Consult Service. 6. Follow-up with the inpatient Medicine team. 7. Follow-up with the inpatient Surgery team. 8. F/U with PCP. CC: Primary Care/Referring Physician(s): No primary care provider on file. PERSON COMPLETING NOTE: Adolfo Dominique MD. 03/21/2023 at 3:39 PM Patient meets criteria for discharge/transfer: Adolfo Dominique MD. Problem: Routine Care: Goal: Patient care will be managed and maintained throughout hospital stay per unit specific routine care procedure Outcome: Progressing Patient resting in bed during rounding, call light within reach. Problem: Acute Pain: Goal: Ability to identify pain intensity on a pain scale and rate it consistently will be achieved and maintained Outcome: Progressing Goal: Understanding of proper administration and use of medicines will be achieved Outcome: Progressing Goal: Acceptable level of pain which allows the patient to achieve functional outcome goals Outcome: Progressing Continue monitoring pain and medicating as needed Problem: Altered Elimination: Goal: Establishment of normal urinary function will be acheived and maintained Outcome: Progressing Problem: Altered Nutrition: Goal: Achieve developmentally appropriate nutritional intake as clinically indicated Outcome: Progressing NPO Problem: Risk for Infection: Goal: Risk for infection will be reduced Outcome: Progressing Problem: Impaired Skin Integrity: Goal: Acheive wound healing without signs and symptoms of infection Outcome: Progressing Problem: VTE Prophylaxis: Goal: Will be free of DVT Outcome: Progressing Problem: Safety: Goal: Patient will remain free of falls during hospital stay Outcome: Progressing Goal: Free from injury during hospitalization Outcome: Progressing Problem: Discharge Planning: Goal: Discharge needs of the adult patient will be met Outcome: Progressing AdmissionCare Guideline: Pancreatitis, with Common Duct Stone, Inpatient Based on the indications selected for the patient, the bed status of Inpatient was determined to be MET The following indications were selected as present at the time of evaluation of the patient: - Acute pancreatitis suspected to be secondary to biliary obstruction (eg, common duct stone, common bile duct dilation or obstruction) AdmissionCare documentation entered by: Mario Mayfield [facility] [employer], 27th edition, Copyright 2022 [facility] [employer], [facility] All Rights Reserved. [id number] documented in this encounter [facility] 03-24-2023 Hospital course Narrative DISCHARGE SUMMARY [address] [id number] Lala Hall Date of : 1995 27 year oldfemale Attending Niall Aleman MD Date of Admission 03/20/2023 Date of Discharge 03/24/23 [facility] DIVISION OF ACUTE CARE SURGERY EMERGENCY GENERAL SURGERY FINAL DIAGNOSES: Hospital Problems as of 03/24/2023 * (Principal) Gallstone pancreatitis Choledocholithiasis Acute bilateral upper abdominal pain PROCEDURES: 03/23/23: Laparoscopic cholecystectomy and bilateral TAP block by Sean Andrews MD. DISCHARGE MEDICATIONS: Current Discharge Medication List START taking these medications Details acetaminophen (TYLENOL) 500 MG tablet Take 2 Tablets by mouth every 6 (six) hours. Qty: 30 Tablet, Refills: 0 ibuprofen (MOTRIN) 600 MG tablet Take 1 Tablet by mouth every 6 (six) hours. Qty: 30 Tablet, Refills: 3 oxyCODONE 5 MG immediate release tablet Take 1 Tablet by mouth every 4 hours as needed for up to 3 days. Qty: 12 Tablet, Refills: 0 Associated Diagnoses: Acute post-operative pain senna (SENOKOT) 8.6 MG tablet Take 1 Tablet by mouth at bedtime for 5 days. Qty: 5 Tablet, Refills: 0 CONTINUE these medications which have NOT CHANGED Details sertraline (ZOLOFT) 25 MG tablet Take 25 mg by mouth daily. REASON FOR HOSPITALIZATION: Lala Hall is a 27 year old female with a h/o depression and low transverse 10 months ago who was transferred from [facility] due to MRCP concerning for gallstone pancreatitis and choledocholithiasis. General Surgery is consult regarding this complaint. Patient has been having sharp epigastric abdominal pain radiating to the back with vomiting 3 days ago. Finally came in to ED due to persistent emesis. Normal BM. No fever or chills. Last BM yesterday. ED workup includes lipase 2832, nl WBC 8.3, t bili 0.7 nl, alk phos 143, ALT 434. AST 214. At [facility], initial T bili of 2.0, CT with IV contrast initially was done with no stones and wall thickening and edematous pancreatic tail. MRCP showed multiple gallstones in dependent portion of gallbladder extending to gallbladder neck, no gall bladder wall thickening. CBD up to 6-7 mm in diameter. Abrupt tapering of distal most CBD at level of choledochal sphincter. Peripancreatic fluid compatible with acute pancreatitis. SIGNIFICANT FINDINGS: -intrahepatic gallbladder, numerous gallstones within the gallbladder HOSPITAL COURSE: 03/20: Transferred to [facility] from , admitted to EGS for gallstone pancreatitis, choledocholithiasis, plan for cholecystectomy this admission 03/21: S/p ERCP with stone removal, no stent placement, erosive duodenitis at D2, biliary sphincterotomy Dr. Dominique. 03/22: Patient recovering well s/p ERCP, plan for lap diaz pending OR availability but delayed. 03/23: Lap diaz with Dr. Andrews. Recovering well post-operatively. The patient was seen and examined on the day of discharge with the following findings: -General - Laying in bed, in NAD -Neurologic - A&O x3, clear speech -Cardiovascular - normal rate, well perfused -Respiratory - Breathing comfortably on room air, symmetric chest rise -Abdomen - Soft, ND, non tender, no rebound or guarding -Skin -warm, dry -Psychiatric - normal affect -Extremities - CAM on command Condition at discharge: improved Diet: No restrictions Restrictions: No lifting greater than 15 lbs Patient discharged to: Home ANTICIPATED FOLLOW UP: No future appointments. Other indicated follow up and instructions for scheduling: Yaniv Amaya provider in 2 weeks. PCP as needed. No discharge procedures on file. Mario Mayfield MD Explanation of the primary diagnosis, and secondary diagnoses where applicable, including test results, Review of incidental findings and appropriate recommendations for follow up, Discussion of any new medications and treatments, including expected benefits and potential major side effects, Explanation of previous treatments or medications that are discontinued, Discussion of post-hospital day-to-day care needs including therapy, wound care, etc., and Follow up plans and warning signs that should prompt more urgent follow up >30 minutes was spent on the discharge of this patient. documented in this encounter [facility] 03-23-2023 Plan of care note Problem: Routine Care: Goal: Patient care will be managed and maintained throughout hospital stay per unit specific routine care procedure Outcome: Progressing Note: Purposeful hourly rounding performed. Problem: Acute Pain: Goal: Ability to identify pain intensity on a pain scale and rate it consistently will be achieved and maintained Outcome: Progressing Note: Patient aware of PRN pain medications. Will continue to assess pain throughout shift and medicate as indicated. Goal: Understanding of proper administration and use of medicines will be achieved Outcome: Progressing Goal: Acceptable level of pain which allows the patient to achieve functional outcome goals Outcome: Progressing Problem: Altered Elimination: Goal: Establishment of normal urinary function will be acheived and maintained Outcome: Progressing Problem: Altered Nutrition: Goal: Achieve developmentally appropriate nutritional intake as clinically indicated Outcome: Progressing Note: Tolerating regular diet. No N/V reported. Problem: Risk for Infection: Goal: Risk for infection will be reduced Outcome: Progressing Problem: Impaired Skin Integrity: Goal: Acheive wound healing without signs and symptoms of infection Outcome: Progressing Note: Lap sites closed with topical skin adhesive. Problem: VTE Prophylaxis: Goal: Will be free of DVT Outcome: Progressing Problem: Safety: Goal: Patient will remain free of falls during hospital stay Outcome: Progressing Note: Call light within reach & bed in low positionCall light within reach & bed in low position Goal: Free from injury during hospitalization Outcome: Progressing [facility] 03-23-2023 Hospital Discharge instructions Mario Mayfield MD - 03/23/2023 3:03 PM EST Discharge Instructions: Date of admission: 03/20/2023 Date of discharge: 03/24/23 You are being discharged to home. Follow up: - Please call to schedule your follow-up appointments - information provided separately. - You will need to follow up with: - Dr. Andrews in 2 weeks for post-operative follow-up. - Your family doctor regarding post-hospital care. - See below for information regarding contacting your primary care physician or establishing care at [facility] if you do not already have one. Activity and Weight Bearing: - You do not have any weight bearing limitations/restrictions. - Do not lift, push, pull, or drag anything heavier than 15 pounds for 4 weeks. - You may return to driving when your pain is controlled enough that you can turn at your waist from side to side. Do not drive if you have taken an opioid medication within the past 24 hours. Showering/Bathing: - Okay to shower daily -- allow soap and water to run down your incisions. Do not scrub the area. The surgical glue over the top of your incisions will start to flake, please allow this to flake off on its own over the next week. - If you cannot maintain your balance in the shower, then you should not shower. Sponge baths are the best way to maintain hygiene while you are healing. - To sponge bath, wet a washcloth with soapy water and gently wash body with the washcloth. Then use a dry washcloth to wipe off. - No submerging the wound in water (bathtubs) or pools until cleared by our office. Diet: - You do not have any dietary restrictions. However, following surgery, eating small, frequent meals of bland foods can be easier to tolerate. Pain control: - For MILD to MODERATE pain (pain 1-6 out of 10 on a pain scale) take: -- Tylenol 325 mg, 1-2 tablets every 6 hours as needed. - If you are still having pain 30 min after taking Tylenol, add: -- Motrin 400 mg, 1 tablet every 6 hours as needed. -Wait 30 minutes to 1 hour after taking Tylenol and Motrin, then reassess your pain. - If you are still having pain, and it is SEVERE pain (pain 7-10 out of 10 on pain scale) take: -- Take Oxycodone 5 mg, 1 tablet. You may take 1 tablet every 6 hours for as needed for severe pain. -- It is recommended that you only take Oxycodone if your pain is severe before bedtime and is interfering without ability to get good rest. -- Opioid medications can be constipating. If you become constipated while taking Oxycodone, please take an over the counter stool softener. - It is okay to take Tylenol, Motrin, and Oxycodone together if needed. - Please begin to wean off of your pain medications as soon as possible. -- To do this, start taking Oxycodone every 8 hours instead of every 6, then every 12 hours, then only once per day if needed. Then stop. You may use Motrin and Tylenol until your pain is diminished enough for you to tolerate your pain. - Please do not drive within 24 hours of taking Oxycodone or any opiate medication. - If you begin to experience progressive and rapidly increasing pain that seems out of proportion to what you normally have been experiencing from your baseline pain after surgery/injury - you NEED TO CALL US IMMEDIATELY. Alternatively, you may come into the [facility] Emergency Department IMMEDIATELY for an emergent evaluation. Update your primary care physician or establish care: Please see your primary care physician at the next available appointment for follow up. Please call either on the day of your discharge, or the day after, to make the appointment. If you are followed by a managed care company or if your insurance requires, call your physician for authorization to be seen in a specialty clinic. If you do not have a primary physician please call [phone] for guidance on finding a [facility] provider. If you have questions or concerns, if your condition worsens or you develop new symptoms please call the [employer] Line at [phone]. The following attachments cannot be sent through Care Everywhere.Gallstones (Turkmen)documented in this encounter [facility] 03-23-2023 History of Present illness Narrative Emergency General Surgery Post-Operative Check Lala Hall [id number] Procedure: 1. Laparoscopic cholecystectomy 2. Bilateral TAP block Findings: - intrahepatic gallbladder, numerous gallstones within the gallbladder Subjective: Patient endorses feeling well after surgery, denies any n/v, tolerating regular diet. Patient agreeable to staying overnight but would like early discharge tomorrow. Intake/Output Summary (Last 24 hours) at 03/23/2023 1451 Last data filed at 03/23/2023 0947 Gross per 24 hour Intake 2841.67 ml Output 5 ml Net 2836.67 ml PHYSICAL EXAMINATION BP 132/92 (BP Location: right arm) Pulse 115 Temp 98.2 F (36.8 C) (Oral) Resp 18 Ht 5' 7 (1.702 m) Wt 270 lb (122.5 kg) LMP 03/06/2023 SpO2 95% BMI 42.29 kg/m General appearance: healthy, no distress, obese Lungs: Non labored breathing on RA Heart: RRR Abdomen: soft, nontender, nondistended. Lap sites c/d/i with dermabond overlying, no surrounding erythema, no discharge from lap sites Extremities: Sensorimotor intact A/P: 27 yo female s/p laparoscopic cholecystectomy appropriately recovering from surgery. No concern for postoperative complications at this time. Pt to continue regular postoperative care. Plan for patient to stay overnight, tolerating diet. Plan for early dc tomorrow pending no change in clinical course. Ulises Plasencia PA-C Emergency General Surgery Please page: EGS ED/Consult Pager [phone] for new patients EGS Floor pager [phone] for established patients Spoke to Dr Sahu for SO. Pt is clear to transfer back to floor. Denies nausea. Pain 04/20 Images from the original note were not included. [facility] DIVISION OF ACUTE CARE SURGERY GENERAL INFORMATION EMERGENCY GENERAL SURGERY NOTE Patient Name: Lala Hall Admission Date: 03/20/2023 Patient seen and examined on 03/21/2023 INTERVAL HISTORY/EVENTS Background Narrative: Lala Hall is a 27 year old female with a h/o depression and low transverse 10 months ago who was transferred from [facility] due to MRCP concerning for gallstone pancreatitis and choledocholithiasis. Transferred to [facility] for endoscopy and surgical evaluation. Hospital Course/Procedures: 03/20: Transferred to [facility] from , admitted to EGS for gallstone pancreatitis, choledocholithiasis, plan for cholecystectomy this admission Events in last 24 hours: No acute events overnight Ongoing abdominal pain, doesn't feel like oral oxycodone is sufficient Some intermittent nausea, no recent emesis Tbili to 2.4 (0.7) on morning labs Case discussed with GI fellow, possible ERCP later 03/21 Patient NPO --- PHYSICAL EXAM --- Vitals: Vital sign ranges over the past 24 hours (retrieved 03/21/2023 at 10:56 AM): Tmax (24 hours): 98.8 F (37.1 C) Pulse Av.7 Min: 80 Max: 114 Systolic (24hrs), Av , Min:109 , Max:136 Diastolic (24hrs), Av, Min:63, Max:81 MAP (mmHg) Av.5 mmHg Min: 76 mmHg Max: 95 mmHg Resp Av.7 Min: 16 Max: 18 SpO2 Av.3 % Min: 95 % Max: 97 % 24 Hour Input/Output In: 1260 (10.3 mL/kg) [P.O.:200; I.V.:1060 (0.4 mL/kg/hr)] Out: 700 (5.7 mL/kg) [Urine:700 (0.2 mL/kg/hr)] Net: 560 Weight: 122.5 kg Physical Exam: -General - Laying in bed, in NAD, visitor x2 at bedside -Neurologic - A&O x3, clear speech -Cardiovascular - Not tachycardic per chart review, well perfused -Respiratory - Breathing comfortably on room air, symmetric chest rise -Abdomen - Soft, ND, RUQ and LUQ tenderness without rebound or guarding -Skin -warm, dry -Psychiatric - normal affect -Extremities - CAM on command LABORATORY RESULTS (LAST 24 HOURS) CBC/PT/INR WBC RBC Hgb Hct MCV RDW Plt PT aPTT INR 03/21/236 9.1 4.84 13.1 40.4 84 15.5 292 03/20/23 1207 8.3 4.78 12.6 40.1 84 15.1 322 Basic Metabolic Panel Na K Cl CO2 Gap Glu BUN Cr Ca Mg PO4 03/21/236 3.0 Comment: Note updated reference ranges. 03/21/2345 139 Comment: Note updated reference ranges. 3.8 Comment: Note updated reference ranges. Note updated reference ranges. 106 Comment: Note updated reference ranges. 22 Comment: Note updated reference ranges. 15 105 7 Comment: Note updated reference ranges. 0.59 Comment: Note updated reference ranges. 8.9 Comment: Note updated reference ranges. 03/21/2345 1.9 Comment: Note updated reference ranges. 03/20/23 1207 2.0 Comment: Note updated reference ranges. 03/20/23 1207 141 Comment: Note updated reference ranges. 3.9 Comment: Note updated reference ranges. Note updated reference ranges. 109 Comment: Note updated reference ranges. 23 Comment: Note updated reference ranges. 13 84 7 Comment: Note updated reference ranges. 0.66 Comment: Note updated reference ranges. 8.7 Comment: Note updated reference ranges. Arterial Blood Gases None IMAGING RESULTS - Last 24 hours (PERSONALLY REVIEWED) No new imaging DIAGNOSIS & PLAN - Diagnoses: Gallstone pancreatitis Choledocholithiasis Acute abdominal pain PMHx: 10 months post-, depression, psoriasis Assessment: 27 yo female with pmhx as above admitted to EGS following transfer from for gallstone pancreatitis. MRCP performed at OSH with choledocholithiasis. Worsening hyperbilirubinemia on AM labs. GI engaged. Plan for cholecystectomy this admission. Plan 1. Neurologic - - Cont oxycodone 2.5 /5 mg q4 hours PRN for moderate/ severe pain - Cont dilaudid 0.2 mg q4 hours PRN for breakthrough pain - Cont home sertraline 2. Respiratory - - Maintain O2 saturation > 92% - Encourage IS while awake 3. Cardiovascular - - meds - no home meds - Monitor VS per floor protocol 4. GI - - diet - NPO for possible ERCP later 03/21 - Cont BR: miralax, senna - Cont Zofran PRN for nausea, emesis - Trend LFTs 5. / FEN - - Daily BMP, Mag, Phos - PRN electrolyte replacement - mIVF with LR at 100 cc/ hr 6. Endo - - No acute or chronic glycemic issues 7. Hematologic - - No indication for transfusion - Daily CBC 8. ID - - No indication for antibiotics, low concern for acute cholecystitis 9. MSK - - Progressive mobility protocol Prophylaxis: VTE - SCDs, hold DVT ppx for possible ERCP later 03/21 Stress ulcer - not indicated Dispo: RNF pending OR this admission, possible OR 03/22. Follow up: - EGS TBD - GI TBD Plan was discussed with attending, Dr. Aleman. Amanda Bryant PA-C Emergency General Surgery Please page: EGS ED/Consult Pager [phone] for new patients EGS Floor pager [phone] for established patients Associated attestation - Niall Aleman MD - 03/21/2023 3:58 PM EST Split/Shared Documentation I approve the management plan for this patient and take responsibility for the plan as documented. Independent Interpretation of Tests Performed by Another Physician/VANCE: I personally performed, reviewed, and interpreted lab findings and imaging with findings of stable. Niall Aleman MD documented in this encounter [facility] 03-23-2023 Surgery Postoperative evaluation and management note Brief Operative Note MAIN OR 14 Lala Hall 27 year old female Surgical Contact Serial Number: [id number] Preoperative Diagnosis: Pre-op Diagnosis * Gallstone pancreatitis [K85.10] * Choledocholithiasis [K80.50] Postoperative Diagnosis: * Gallstone pancreatitis [K85.10] * Choledocholithiasis [K80.50] Procedures: Surgical CPTs Procedures ERCP REMOVAL OF STONE(S) [69453] SPHINCTEROTOMY [07511] No data filed Laparoscopic cholecystectomy Surgeon(s): Surgeon(s): Sean Andrews MD Staff: Scrub: Maria Victoria Wade Motor Assembler Nurse: Monica Pierre RN Technical Support 1 Software Engineer: Gerson Collazo MD; Kory Hernandez MD Anesthesia: General Anesthesiologist: Michelle Loaiza MD HOME CARE PHYSICAL THERAPIST: Jennifer Gauthier APRN-HOME CARE PHYSICAL THERAPIST Methodologist: Félix Sahu MD Specimen(s): ID Type Source Tests Collected by Time Destination 1 : Gallbladder Tissue Gallbladder SPECIMEN FOR SURGICAL PATH Sean Andrews MD 03/23/2023 0909 Estimated Blood Loss: 10cc Lines/Drains: Peripheral IV Access: 03/20/23 1317 20 gauge Left Antecubital (Active) Site Assessment WNL;Dressing intact 03/22/231929 Infusion Status Port #1 Capped;Patent 03/22/231929 Peripheral IV Access: 03/21/23 0700 22 gauge Anterior;Left Hand Present on Transfer to Unit / Floor (Active) Site Assessment WNL;Dressing intact 03/22/231929 Infusion Status Port #1 Infusing;Patent 03/22/231929 Findings: - intrahepatic gallbladder, numerous gallstones within the gallbladder Complications: None Status at end of surgery: Stable Activity: weight bearing as tolerated and progressive ambulation Surgical wound class: Yes, wound was contaminated. Patient Class: Inpatient. Dr. Andrews was present in the OR for the critical portion of the procedure and procedure sign-out. Signed by Gerson Collazo MD 03/23/2023 10:11 AM [facility] Work Phone: 03-23-2023 Surgery Surgical operation note Images from the original note were not included. Name: Lala Hall MR#: [id number] [facility]#: [id number] Date of Procedure: 03/23/23 ATTENDING SURGEON: Sean Andrews MD FIRST SURGEON: Arturo Hernandez MD and Gerson Collazo MD SERVICE: Acute Care Surgery PREOPERATIVE DIAGNOSIS: gallstone pancreatitis POSTOPERATIVE DIAGNOSIS: gallstone pancreatitis PROCEDURE PERFORMED: 1. Laparoscopic cholecystectomy 2. Bilateral TAP block ANESTHESIA: General endotracheal. ESTIMATED BLOOD LOSS: 10 cc SPECIMENS: gallbladder COMPLICATIONS: None. INDICATIONS: 27F who presented with gallstone pancreatitis. Patient underwent ERCP, stone retrieval, and sphincterotomy. She goes to OR today for cholecystectomy to avoid future episodes. PROCEDURE IN DETAIL: The patient was taken to the operating room after informed consent was obtained. The patient was placed in the supine position, and general endotracheal anesthesia was induced. All necessary support lines were placed. SCDs were on and functional prior to induction. Ancef was given for perioperative antibiotic prophylaxis. A time out was performed verifying the correct patient, procedure, site, positioning, and special equipment needed prior to the beginning of the procedure. The abdomen was prepped and draped in the usual sterile fashion. An infraumbilical incision was made. The fascia was identified, elevated with a Jose Martin clamp and incised. Peritoneum was entered bluntly and confirmed with a finger sweep. A figure of eight 0 vicryl suture was placed in the fascia and used as an anchor stitch. The Bauman cannula inserted under direct vision. The abdomen was insufflated and patient tolerated it well. The abdomen was inspected and no injuries from initial trocar placement were noted. The patient was positioned in reverse Trendelenburg with right side up. Three 5mm ports were placed under direct visualization in the subxiphoid, and right upper quadrant. The gallbladder was retracted over the dome of the liver. The infundibulum was retracted towards the right lower quadrant exposing Calot's triangle. The peritoneum overlying the gallbladder infundibulum was then incised and the cystic duct and cystic artery were identified and circumferentially dissected. The posterior branch of the cystic artery was also identified and dissected. The critical view of safety was obtained. The cystic duct and cystic artery were then doubly clipped and divided close to the gallbladder. The posterior branch of the cystic artery was also clipped at this time and transected. The gallbladder was then dissected from its peritoneal attachments by electrocautery and was found to be intraperitoneal. The gallbladder was entered during this phase and we irrigated, suctioned, and retrieved multiple stones. Hemostasis was verified and the gallbladder was removed using an endoscopic retrieval bag. The gallbladder fossa was irrigated. There was no evidence of bleeding from the gallbladder fossa or cystic artery. Clips were securely in place across the cystic duct. A total of 100 cc of 1% lidocaine, 0.5% marcaine, and normal saline was placed under direct visualization as a bilateral transversus abdominus plane block. The trocars were removed under direct visualization and the umbilical trocar and gallbladder were removed. The abdomen was allowed to collapse. The figure 8 fascial suture was closed. The skin was closed with subcuticular 4-0 Monocryl and dermabond. Sponge, instrument and needle counts were correct at the end of the case. The patient tolerated the procedure well and was transported to the PACU in good condition. I was scrubbed for the critical portion of the procedure and immediately available for the non-critical portions. Sean Andrews MD Trauma/Burn Surgery Surgical Critical Care Pager: [phone] [facility] Work Phone: 03-22-2023 Note Surgical Attestation Planned Procedure: lap diaz I have reviewed the patient's History and Physical Examination. I have personally seen and evaluated the patient, repeating rivera portions. There is no significant interval change. Surgery is still indicated. Yes Consent reviewed and signed by patient/family: Yes Operative site verified and marked: n/a OARRS was reviewed today: NO concerning data. Mario Mayfield MD [facility] 03-22-2023 History and physical note Surgical Attestation Planned Procedure: lap diaz I have reviewed the patient's History and Physical Examination. I have personally seen and evaluated the patient, repeating rivera portions. There is no significant interval change. Surgery is still indicated. Yes Consent reviewed and signed by patient/family: Yes Operative site verified and marked: n/a OARRS was reviewed today: NO concerning data. Mario Mayfield MD [facility] 03-22-2023 History and physical note Surgical Attestation Planned Procedure: lap diaz I have reviewed the patient's History and Physical Examination. I have personally seen and evaluated the patient, repeating rivera portions. There is no significant interval change. Surgery is still indicated. Yes Consent reviewed and signed by patient/family: Yes Operative site verified and marked: n/a OARRS was reviewed today: NO concerning data. Mario Mayfield MD documented in this encounter [facility] 03-22-2023 Progress note Formatting of t his note is different from the original. Blood Attestation: ATTESTATION OF INFORMED CONSENT FOR BLOOD: The transfusion of blood and/or blood components were discussed with the patient and/or legal customer solutions representative. The risks, benefits and alternatives were reviewed. Questions regarding blood transfusions were answered. The patient /or the patient s legal customer solutions representative agree with the plan for transfusion of blood and/or blood components. [facility] Work Phone: 03-22-2023 Plan of care note Problem: Routine Care: Goal: Patient care will be managed and maintained throughout hospital stay per unit specific routine care procedure Outcome: Progressing Note: Patient rounded on per hourly rounding unit protocol, call light within reach, siderails in place, encouraged to call for assistance as needed. Problem: Acute Pain: Goal: Ability to identify pain intensity on a pain scale and rate it consistently will be achieved and maintained Outcome: Progressing Note: Patient consistently rates pain using numeric pain scale. Pain managed at this time through PRN medications. Goal: Understanding of proper administration and use of medicines will be achieved Outcome: Progressing Goal: Acceptable level of pain which allows the patient to achieve functional outcome goals Outcome: Progressing Problem: Altered Elimination: Goal: Establishment of normal urinary function will be acheived and maintained Outcome: Progressing Problem: Altered Nutrition: Goal: Achieve developmentally appropriate nutritional intake as clinically indicated Outcome: Progressing Note: NPO for OR Problem: Risk for Infection: Goal: Risk for infection will be reduced Outcome: Progressing Problem: Impaired Skin Integrity: Goal: Acheive wound healing without signs and symptoms of infection Outcome: Progressing Problem: VTE Prophylaxis: Goal: Will be free of DVT Outcome: Progressing Problem: Safety: Goal: Patient will remain free of falls during hospital stay Outcome: Progressing Goal: Free from injury during hospitalization Outcome: Progressing Problem: Discharge Planning: Goal: Discharge needs of the adult patient will be met Outcome: Progressing Problem: Routine Care: Goal: Patient care will be managed and maintained throughout hospital stay per unit specific routine care procedure Outcome: Progressing Problem: Impaired Skin Integrity: Goal: Acheive wound healing without signs and symptoms of infection Outcome: Progressing Problem: Acute Pain: Goal: Ability to identify pain intensity on a pain scale and rate it consistently will be achieved and maintained Outcome: Progressing Problem: Safety: Goal: Patient will remain free of falls during hospital stay Outcome: Progressing Problem: Discharge Planning: Goal: Discharge needs of the adult patient will be met Outcome: Progressing [facility] 03-21-2023 Surgery Surgical operation note Patient's Name: Lala Hall Date: 03/21/23 Written informed consent obtained from patient. Endoscopic procedure risks (including but not limited to perforation, infection, bloating and bleeding) benefits and alternatives explained and questions answered. Patient verbalized understanding. Based on history and airway assessment patient is not an appropriate candidate for moderate sedation and will undergo sedation with the assistance of anesthesia physician/HOME CARE PHYSICAL THERAPIST team. Please see corresponding note for full details. Adolfo Dominique MD 03/21/23 3:39 PM Lala Hall 27 year old Surgical Contact Serial Number: [id number] Location: [place] [address] Date: 03/21/2023 LIFE SKILLS TRAINER: Adolfo Dominique MD ATTENDING:Adolfo Dominique MD Procedure(s): ERCP, WITH ANESTHESIA SERVICES INSTRUMENT: Scope #[id number] SEDATION: Anesthesia Assisted Pre-Op Diagnosis Codes: * Gallstone pancreatitis [K85.10] INDICATIONS: This is a 27 year old female with acute gallstone pancreatitis, elevated LFT's, increasing bilirubin, and abnormal MRCP with possible bile duct stone in CBD. Patient verbalized understanding. While monitoring the patient with continuous use of P, BP, O2 and EKG, therapeutic duodenoscope passed to second portion of duodenum under direct visualization without difficulty. Erosive duodenitis was seen in D2. Ampulla placed en face and appeared mildly erythematous. CBD was selectively cannulated using wire guided technique and injection of dilute contrast revealed a normal caliber CBD with one distal filling defect compatible with a stone. CHD and intra-hepatic ducts were normal. Gallbladder partially filled via cystic duct. A biliary sphincterotomy was performed. The bile duct was swept several times with a 9-12 mm balloon, and a single 6 mm stone was removed from the bile duct. A stent was not placed. Gallstone pancreatitis (Primary Diagnosis) [534264] Choledocholithiasis [129993] [place] PATH SPECIMEN SENT: no SPECIMEN: None PHOTOGRAPH TAKEN:yes COMPLICATIONS DURING PROCEDURE: None EBL (estimated blood loss): minimal IMPRESSION: 1. Choledocholithiasis; s/p biliary sphincterotomy with extraction of a single 6 mm bile duct stone. No stent was placed. 2. Mildly erythematous major papilla. 3. Erosive duodenitis in D2. RECOMMENDATIONS: 1. Watch for signs of bleeding, perforation, cholangitis and pancreatitis. 2. Monitor LFT's. 3. Acid suppression to treat erosive duodenitis. 4. Early laparoscopic cholecystectomy this admission. 5. Follow-up with the inpatient GI Consult Service. 6. Follow-up with the inpatient Medicine team. 7. Follow-up with the inpatient Surgery team. 8. F/U with PCP. CC: Primary Care/Referring Physician(s): No primary care provider on file. PERSON COMPLETING NOTE: Adolfo Dominique MD. 03/21/2023 at 3:39 PM Patient meets criteria for discharge/transfer: Adolfo Dominique MD. [facility] 03-21-2023 Consult note Associated Order (s): IP GASTROENTEROLOGY CONSULT Images from the original note were not included. Department of Gastroenterology and Hepatology Consult H&P Note GI Attending Physician: Dr. Dayami Pérez MD Location: [place] [address] Attending/Referring Physician: Niall Aleman MD Reason for Consult and HPI Lala Hall is a 27 year old female with a past medical history significant for obesity, whom gastroenterology is consulted for gallstone pancreatitis and possible choledocholithiasis. Patient presented [facility] with RUQ pain and N/V for 3 days. Denied F/V, melena, BRBPR. MRCP showed pancreatitis and CBD 7mm with abrupt tapering of distal CBD. Labs showed lipase 2832, wbc nl. Tbili 0.7->2.4. ALT 380 AST 163. She was initially transferred to [facility] for cholecystectomy given gallstone pancreatitis. However given the worsened LFT GI was consulted for possible choledocholithiasis. Review Of Systems Positives as noted in HPI. All other systems were reviewed and negative. Past Medical, Surgical, Family and Social Histories No past medical history on file. No past surgical history on file. No family history on file. Social History Socioeconomic History Marital status: Social Determinants of Health Financial Resource Strain: Low Risk (10/12/2022) Received from [facility] Overall Financial Resource Strain (CARDIA) Difficulty of Paying Living Expenses: Not very hard Food Insecurity: No Food Insecurity (10/12/2022) Received from [facility] Hunger Vital Sign Worried About Running Out of Food in the Last Year: Never true Ran Out of Food in the Last Year: Never true Transportation Needs: No Transportation Needs (10/12/2022) Received from [facility] PRAPARE - Transportation Lack of Transportation (Medical): No Lack of Transportation (Non-Medical): No Physical Activity: Unknown (10/12/2022) Received from [facility] Exercise Vital Sign Days of Exercise per Week: Patient refused Minutes of Exercise per Session: Patient refused Stress: No Stress Concern Present (10/12/2022) Received from [facility] [place] [employer] - Occupational Stress Questionnaire Feeling of Stress : Only a little Social Connections: Moderately Isolated (10/12/2022) Received from [facility] Social Connection and Isolation Panel [NHANES] Frequency of Communication with Friends and Family: Twice a week Frequency of Social Gatherings with Friends and Family: Once a week Attends Scientologist Services: Never Active Member of Clubs or Organizations: No Attends Club or Organization Meetings: Never Marital Status: Intimate Partner Violence: Not At Risk (10/12/2022) Received from [facility] Humiliation, Afraid, Rape, and Kick questionnaire Fear of Current or Ex-Partner: No Emotionally Abused: No Physically Abused: No Sexually Abused: No Housing Stability: Unknown (10/12/2022) Received from [facility] Housing Stability Vital Sign Unable to Pay for Housing in the Last Year: No Unstable Housing in the Last Year: No Allergies & Current Medications No Known Allergies: Current Facility-Administered Medications Medication Dose Route Frequency Last Rate Last Admin ondansetron (ZOFRAN) 4 MG/2ML injection 4 mg Intravenous Push Q4H PRN 4 mg at 03/21/23 0102 senna (SENOKOT) tablet 8.6 mg Oral At Bedtime polyethylene glycol (MIRALAX) 17 g packet 17 g Oral Daily oxyCODONE immediate release tablet 2.5 mg Oral Q4H PRN Or oxyCODONE immediate release tablet 5 mg Oral Q4H PRN 5 mg at 03/21/23 0914 HYDROmorphone (DILAUDID) 0.2 MG/ML injection 0.2 mg 0.2 mg Intravenous Push Q4H PRN 0.2 mg at 03/20/23 1941 sertraline (ZOLOFT) tablet 25 mg Oral Daily 25 mg at 03/21/23 0914 lactated ringers iv infusion Intravenous Continuous 100 mL/hr at 03/21/23 0900 Rate Verify at 03/21/23 0900 Physical Exam BP 124/81 (BP Location: right arm) Pulse 112 Temp 98.8 F (37.1 C) (Oral) Resp 18 Ht 5' 7 (1.702 m) Wt 270 lb (122.5 kg) SpO2 96% BMI 42.29 kg/m Gen: NAD, AOx3 HEENT: MMM Lungs: CTAB, no w/r/r CVS: RRR, no m/r/g Abd: Soft, RUQ tenderness. ND, nl BS Ext: No LE edema, full ROM Skin: Warm and dry Neuro: Moving all ext Labs and Imaging CBC (last 3 years, up to 5 values) WBC RBC Hgb Hct MCV RDW Plt 03/21/23 0046 9.1 4.84 13.1 40.4 84 15.5 292 03/20/23 1207 8.3 4.78 12.6 40.1 84 15.1 322 Basic Metabolic Panel Na K Cl CO2 Gap Glu BUN Cr Ca 03/21/23 0046 139 Comment: Note updated reference ranges. 3.8 Comment: Note updated reference ranges. Note updated reference ranges. 106 Comment: Note updated reference ranges. 22 Comment: Note updated reference ranges. 15 105 7 Comment: Note updated reference ranges. 0.59 Comment: Note updated reference ranges. 8.9 Comment: Note updated reference ranges. 03/20/23 1207 141 Comment: Note updated reference ranges. 3.9 Comment: Note updated reference ranges. Note updated reference ranges. 109 Comment: Note updated reference ranges. 23 Comment: Note updated reference ranges. 13 84 7 Comment: Note updated reference ranges. 0.66 Comment: Note updated reference ranges. 8.7 Comment: Note updated reference ranges. LFT's (last 3 years, up to 5 values) T Prot Albumin D Bili T Bili Alk Phos ALT AST 03/21/2345 6.3 3.9 1.52 2.4 174 380 162 03/20/23 120 6.1 3.7 0.19 0.7 143 434 214 No results found for: INR Imaging DOWNLOAD Chat [employer] IMAGES TO [employer] (Results Pending) GI procedures reviewed N/A Assessment and Recommendations Lala Hall is a 27 year old female with a past medical history significant for obesity, whom gastroenterology is consulted for gallstone pancreatitis and possible choledocholithiasis. Patient was presented with gallstone pancreatitis with indeterminate choledocholithiasis. We will plan for ERCP before cholecystectomy for diagnostic +/- therapeutic purpose. # Gallstone pancreatitis # Intermediate risk for choledocholithiasis - keep NPO - IVF - plan for ERCP today Discussed with Attending Dr. Dayami Pérez MD. Preliminary recommendations, patient to be discussed, seen and staffed with attending physician. Maxwell Becerra MD GI Consult Pager: [phone] Gastroenterology Fellow Division of Gastroenterology & Hepatology [facility] 03/21/23 Associated attestation - Dayami Pérez MD - 03/21/2023 7:13 PM EST Attending addendum: I saw and evaluated the patient. I personally obtained the critical portions of the history and physical exam. The case was discussed in detail with the fellow; including, but not limited to the chief complaint, HPI, past history, physical findings, labs and radiological findings. I agree with the fellow's medical decision making as documented in the fellow's note. The patient was counseled on the possible differential diagnoses and testing needed to arrive at a diagnosis or a treatment plan. Dayami Pérez MD Division of Gastroenterology & Hepatology [facility] Work Phone: 03-21-2023 Consult note Associated Order (s): IP GASTROENTEROLOGY CONSULT Images from the original note were not included. Department of Gastroenterology and Hepatology Consult H&P Note GI Attending Physician: Dr. Dayami Pérez MD Location: [place] [address] Attending/Referring Physician: Niall Aleman MD Reason for Consult and HPI Lala Hall is a 27 year old female with a past medical history significant for obesity, whom gastroenterology is consulted for gallstone pancreatitis and possible choledocholithiasis. Patient presented [facility] with RUQ pain and N/V for 3 days. Denied F/V, melena, BRBPR. MRCP showed pancreatitis and CBD 7mm with abrupt tapering of distal CBD. Labs showed lipase 2832, wbc nl. Tbili 0.7->2.4. ALT 380 AST 163. She was initially transferred to [facility] for cholecystectomy given gallstone pancreatitis. However given the worsened LFT GI was consulted for possible choledocholithiasis. Review Of Systems Positives as noted in HPI. All other systems were reviewed and negative. Past Medical, Surgical, Family and Social Histories No past medical history on file. No past surgical history on file. No family history on file. Social History Socioeconomic History Marital status: Social Determinants of Health Financial Resource Strain: Low Risk (10/12/2022) Received from [facility] Overall Financial Resource Strain (CARDIA) Difficulty of Paying Living Expenses: Not very hard Food Insecurity: No Food Insecurity (10/12/2022) Received from [facility] Hunger Vital Sign Worried About Running Out of Food in the Last Year: Never true Ran Out of Food in the Last Year: Never true Transportation Needs: No Transportation Needs (10/12/2022) Received from [facility] PRAPARE - Transportation Lack of Transportation (Medical): No Lack of Transportation (Non-Medical): No Physical Activity: Unknown (10/12/2022) Received from [facility] Exercise Vital Sign Days of Exercise per Week: Patient refused Minutes of Exercise per Session: Patient refused Stress: No Stress Concern Present (10/12/2022) Received from [facility] [employer] - Occupational Stress Questionnaire Feeling of Stress : Only a little Social Connections: Moderately Isolated (10/12/2022) Received from [facility] Social Connection and Isolation Panel [NHANES] Frequency of Communication with Friends and Family: Twice a week Frequency of Social Gatherings with Friends and Family: Once a week Attends Scientologist Services: Never Active Member of Clubs or Organizations: No Attends Club or Organization Meetings: Never Marital Status: Intimate Partner Violence: Not At Risk (10/12/2022) Received from [facility] Humiliation, Afraid, Rape, and Kick questionnaire Fear of Current or Ex-Partner: No Emotionally Abused: No Physically Abused: No Sexually Abused: No Housing Stability: Unknown (10/12/2022) Received from [facility] Housing Stability Vital Sign Unable to Pay for Housing in the Last Year: No Unstable Housing in the Last Year: No Allergies & Current Medications No Known Allergies: Current Facility-Administered Medications Medication Dose Route Frequency Last Rate Last Admin ondansetron (ZOFRAN) 4 MG/2ML injection 4 mg Intravenous Push Q4H PRN 4 mg at 03/21/23 0102 senna (SENOKOT) tablet 8.6 mg Oral At Bedtime polyethylene glycol (MIRALAX) 17 g packet 17 g Oral Daily oxyCODONE immediate release tablet 2.5 mg Oral Q4H PRN Or oxyCODONE immediate release tablet 5 mg Oral Q4H PRN 5 mg at 03/21/23 0914 HYDROmorphone (DILAUDID) 0.2 MG/ML injection 0.2 mg 0.2 mg Intravenous Push Q4H PRN 0.2 mg at 03/20/23 1941 sertraline (ZOLOFT) tablet 25 mg Oral Daily 25 mg at 03/21/23 0914 lactated ringers iv infusion Intravenous Continuous 100 mL/hr at 03/21/23 0900 Rate Verify at 03/21/23 0900 Physical Exam BP 124/81 (BP Location: right arm) Pulse 112 Temp 98.8 F (37.1 C) (Oral) Resp 18 Ht 5' 7 (1.702 m) Wt 270 lb (122.5 kg) SpO2 96% BMI 42.29 kg/m Gen: NAD, AOx3 HEENT: MMM Lungs: CTAB, no w/r/r CVS: RRR, no m/r/g Abd: Soft, RUQ tenderness. ND, nl BS Ext: No LE edema, full ROM Skin: Warm and dry Neuro: Moving all ext Labs and Imaging CBC (last 3 years, up to 5 values) WBC RBC Hgb Hct MCV RDW Plt 03/21/23 0046 9.1 4.84 13.1 40.4 84 15.5 292 03/20/23 1207 8.3 4.78 12.6 40.1 84 15.1 322 Basic Metabolic Panel Na K Cl CO2 Gap Glu BUN Cr Ca 03/21/23 0046 139 Comment: Note updated reference ranges. 3.8 Comment: Note updated reference ranges. Note updated reference ranges. 106 Comment: Note updated reference ranges. 22 Comment: Note updated reference ranges. 15 105 7 Comment: Note updated reference ranges. 0.59 Comment: Note updated reference ranges. 8.9 Comment: Note updated reference ranges. 03/20/23 1207 141 Comment: Note updated reference ranges. 3.9 Comment: Note updated reference ranges. Note updated reference ranges. 109 Comment: Note updated reference ranges. 23 Comment: Note updated reference ranges. 13 84 7 Comment: Note updated reference ranges. 0.66 Comment: Note updated reference ranges. 8.7 Comment: Note updated reference ranges. LFT's (last 3 years, up to 5 values) T Prot Albumin D Bili T Bili Alk Phos ALT AST 03/21/23 0046 6.3 3.9 1.52 2.4 174 380 162 03/20/23 120 6.1 3.7 0.19 0.7 143 434 214 No results found for: INR Imaging DOWNLOAD Chat [employer] IMAGES TO [employer] (Results Pending) GI procedures reviewed N/A Assessment and Recommendations Lala Hall is a 27 year old female with a past medical history significant for obesity, whom gastroenterology is consulted for gallstone pancreatitis and possible choledocholithiasis. Patient was presented with gallstone pancreatitis with indeterminate choledocholithiasis. We will plan for ERCP before cholecystectomy for diagnostic +/- therapeutic purpose. # Gallstone pancreatitis # Intermediate risk for choledocholithiasis - keep NPO - IVF - plan for ERCP today Discussed with Attending Dr. Dayami Pérez MD. Preliminary recommendations, patient to be discussed, seen and staffed with attending physician. Maxwell Becerra MD GI Consult Pager: [phone] Gastroenterology Fellow Division of Gastroenterology & Hepatology [facility] 03/21/23 Associated attestation - Dayami Pérez MD - 03/21/2023 7:13 PM EST Attending addendum: I saw and evaluated the patient. I personally obtained the critical portions of the history and physical exam. The case was discussed in detail with the fellow; including, but not limited to the chief complaint, HPI, past history, physical findings, labs and radiological findings. I agree with the fellow's medical decision making as documented in the fellow's note. The patient was counseled on the possible differential diagnoses and testing needed to arrive at a diagnosis or a treatment plan. Dayami Pérez MD Division of Gastroenterology & Hepatology [facility] Associated Order(s): IP EMERGENCY GENERAL SURGERY CONSULT DEPARTMENT OF SURGERY CONSULT - ACUTE CARE SURGERY Lala Hall [id number] Chief Complaint/Reason for Consultation Gallstone pancreatitis History (HPI) Lala Hall is a 27 year old female with a h/o depression and low transverse 10 months ago who was transferred from [facility] due to MRCP concerning for gallstone pancreatitis and choledocholithiasis. General Surgery is consult regarding this complaint. Patient has been having sharp epigastric abdominal pain radiating to the back with vomiting 3 days ago. Finally came in to ED due to persistent emesis. Normal BM. No fever or chills. Last BM yesterday. ED workup includes lipase 2832, nl WBC 8.3, t bili 0.7 nl, alk phos 143, ALT 434. AST 214. [facility], initial T bili of 2.0, CT with IV contrast initially was done with no stones and wall thickening and edematous pancreatic tail. MRCP showed multiple gallstones in dependent portion of gallbladder extending to gallbladder neck, no gall bladder wall thickening. CBD up to 6-7 mm in diameter. Abrupt tapering of distal most CBD at level of choledochal sphincter. Peripancreatic fluid compatible with acute pancreatitis. Medications: Zoloft Allergies: Patient has no known allergies. Family History: family history is not on file. Social History: Review of Systems: negative except per HPI PHYSICAL EXAMINATION BP 117/74 Pulse 80 Temp 97.6 F (36.4 C) (Oral) Resp 16 Wt 270 lb (122.5 kg) SpO2 97% There is no height or weight on file to calculate BMI. -General - not appearing in distress, laying comfortably in bed -Neurologic - No obvious focal deficit, symmetrical smile, normal speech -Cardiovascular - regular rate and rhythm -Respiratory - no respiratory distress, symmetrical chest expansion, on room air -Abdomen - soft, non distended, tender to palpation to RUQ and epigastric area, no masses, no hernia, no overlying skin changes, no peritoneal signs -Skin/Pressure ulcers - warm and dry -Psychiatric - normal affect -Extremities - moves all extremities, no pitting edema Laboratory Values and Test Results Results for orders placed or performed during the hospital encounter of 03/20/23 CBC WITH DIFFERENTIAL Result Value Ref Range WBC 8.3 4.5 - 11.5 K/uL RBC 4.78 4.00 - 5.20 M/uL Hemoglobin 12.6 12.0 - 15.0 g/dL Hematocrit 40.1 36.0 - 46.0 % MCV 84 80 - 100 fL MCH 26.4 26.0 - 34.0 pg MCHC 31.5 (L) 32.0 - 35.9 g/dL Platelet 322 150 - 400 K/uL RDW-CV 15.1 (H) 11.5 - 14.5 % MPV 8.2 7.5 - 11.2 fL Neutrophils 69.3 31.0 - 76.0 % Neutrophil # 5.74 1.50 - 8.00 K/uL Lymphocytes 21.2 (L) 24.0 - 44.0 % Lymphocytes # 1.76 1.00 - 4.80 K/uL Monocytes 7.3 2.0 - 11.0 % Monocyte # 0.60 0.20 - 1.00 K/uL Eosinophil 1.7 0.1 - 4.0 % Eosinophil # 0.14 0.00 - 0.70 K/uL Basophils 0.5 <=1.9 % Basophil # 0.04 0.00 - 0.20 K/uL MDW 18 <=20 Findings of tests personally reviewed From Yaniv Amaya: MRCP: cholelithiasis with multiple Recommendations: Impression Lala Hall is a 27 year old female with a history as noted above who presents with gallstone pancreatitis. Admit to EGS. Gallstone has likely passed. Likely lap diaz this admission in the next few days. Monitor abdominal pain. Plan 1. Neurologic - -oxy 2.5/5, tylenol for pain control -continue home zoloft 2. Respiratory - -Supplemental oxygen PRN to maintain SpO2 above 90% 3. Cardiovascular - -no acute issues 4. GI - -diet - Clear Liquid -bowel regimen miralax and senna - Anticipate OR this admission -Daily LFT 5. / FEN - -No avina -PRN electrolyte replacement - Daily BMP, Mg, P 6. Endo - -No acute issues 7. Hematologic - - Daily CBC - Type and screen for OR 8. ID - -No antibiotics indicated 9. MSK - -Progressive mobility -PT/OT consulted Prophylaxis: VTE - SCDs and lovenox Stress ulcer - not indicated Dispo: RNF Follow up: TBD Plan was discussed with attending, Dr. Love Mayfield MD Emergency General Surgery Please page: EGS ED/Consult Pager [phone] for new patients EGS Floor pager [phone] for established patients Associated attestation - Niall Aleman MD - 03/20/2023 10:41 PM EST Teaching Physician Note: I saw and evaluated the patient. I personally obtained the rivera and critical portions of the history and physical exam. I reviewed the resident's documentation and discussed the patient with the resident. I agree with the resident's medical decision making as documented in the resident's note Niall Aleman MD Division of Trauma, Critical Care, Lr, and Emergency General Surgery Department of Surgery [facility] documented in this encounter [facility] 03-21-2023 Plan of care note Problem: Routine Care: Goal: Patient care will be managed and maintained throughout hospital stay per unit specific routine care procedure Outcome: Progressing Patient resting in bed during rounding, call light within reach. Problem: Acute Pain: Goal: Ability to identify pain intensity on a pain scale and rate it consistently will be achieved and maintained Outcome: Progressing Goal: Understanding of proper administration and use of medicines will be achieved Outcome: Progressing Goal: Acceptable level of pain which allows the patient to achieve functional outcome goals Outcome: Progressing Continue monitoring pain and medicating as needed Problem: Altered Elimination: Goal: Establishment of normal urinary function will be acheived and maintained Outcome: Progressing Problem: Altered Nutrition: Goal: Achieve developmentally appropriate nutritional intake as clinically indicated Outcome: Progressing NPO Problem: Risk for Infection: Goal: Risk for infection will be reduced Outcome: Progressing Problem: Impaired Skin Integrity: Goal: Acheive wound healing without signs and symptoms of infection Outcome: Progressing Problem: VTE Prophylaxis: Goal: Will be free of DVT Outcome: Progressing Problem: Safety: Goal: Patient will remain free of falls during hospital stay Outcome: Progressing Goal: Free from injury during hospitalization Outcome: Progressing Problem: Discharge Planning: Goal: Discharge needs of the adult patient will be met Outcome: Progressing [facility] 03-20-2023 Note Formatting of this n ote might be different from the original. AdmissionCare Guideline: Pancreatitis, with Common Duct Stone, Inpatient Based on the indications selected for the patient, the bed status of Inpatient was determined to be MET The following indications were selected as present at the time of evaluation of the patient: - Acute pancreatitis suspected to be secondary to biliary obstruction (eg, common duct stone, common bile duct dilation or obstruction) AdmissionCare documentation entered by: Mario Mayfield [facility] [employer], 27th edition, Copyright 2022 [facility] [employer] [facility] All Rights Reserved. [id number] [facility] 03-20-2023 Consult note Associated Order (s): IP EMERGENCY GENERAL SURGERY CONSULT DEPARTMENT OF SURGERY CONSULT - ACUTE CARE SURGERY Lala Hall [id number] Chief Complaint/Reason for Consultation Gallstone pancreatitis History (HPI) Lala Hall is a 27 year old female with a h/o depression and low transverse 10 months ago who was transferred from [facility] due to MRCP concerning for gallstone pancreatitis and choledocholithiasis. General Surgery is consult regarding this complaint. Patient has been having sharp epigastric abdominal pain radiating to the back with vomiting 3 days ago. Finally came in to ED due to persistent emesis. Normal BM. No fever or chills. Last BM yesterday. ED workup includes lipase 2832, nl WBC 8.3, t bili 0.7 nl, alk phos 143, ALT 434. AST 214. At [facility], initial T bili of 2.0, CT with IV contrast initially was done with no stones and wall thickening and edematous pancreatic tail. MRCP showed multiple gallstones in dependent portion of gallbladder extending to gallbladder neck, no gall bladder wall thickening. CBD up to 6-7 mm in diameter. Abrupt tapering of distal most CBD at level of choledochal sphincter. Peripancreatic fluid compatible with acute pancreatitis. Medications: Zoloft Allergies: Patient has no known allergies. Family History: family history is not on file. Social History: Review of Systems: negative except per HPI PHYSICAL EXAMINATION BP 117/74 Pulse 80 Temp 97.6 F (36.4 C) (Oral) Resp 16 Wt 270 lb (122.5 kg) SpO2 97% There is no height or weight on file to calculate BMI. -General - not appearing in distress, laying comfortably in bed -Neurologic - No obvious focal deficit, symmetrical smile, normal speech -Cardiovascular - regular rate and rhythm -Respiratory - no respiratory distress, symmetrical chest expansion, on room air -Abdomen - soft, non distended, tender to palpation to RUQ and epigastric area, no masses, no hernia, no overlying skin changes, no peritoneal signs -Skin/Pressure ulcers - warm and dry -Psychiatric - normal affect -Extremities - moves all extremities, no pitting edema Laboratory Values and Test Results Results for orders placed or performed during the hospital encounter of 03/20/23 CBC WITH DIFFERENTIAL Result Value Ref Range WBC 8.3 4.5 - 11.5 K/uL RBC 4.78 4.00 - 5.20 M/uL Hemoglobin 12.6 12.0 - 15.0 g/dL Hematocrit 40.1 36.0 - 46.0 % MCV 84 80 - 100 fL MCH 26.4 26.0 - 34.0 pg MCHC 31.5 (L) 32.0 - 35.9 g/dL Platelet 322 150 - 400 K/uL RDW-CV 15.1 (H) 11.5 - 14.5 % MPV 8.2 7.5 - 11.2 fL Neutrophils 69.3 31.0 - 76.0 % Neutrophil # 5.74 1.50 - 8.00 K/uL Lymphocytes 21.2 (L) 24.0 - 44.0 % Lymphocytes # 1.76 1.00 - 4.80 K/uL Monocytes 7.3 2.0 - 11.0 % Monocyte # 0.60 0.20 - 1.00 K/uL Eosinophil 1.7 0.1 - 4.0 % Eosinophil # 0.14 0.00 - 0.70 K/uL Basophils 0.5 <=1.9 % Basophil # 0.04 0.00 - 0.20 K/uL MDW 18 <=20 Findings of tests personally reviewed From Yaniv Amaya: MRCP: cholelithiasis with multiple Recommendations: Kyle Hall is a 27 year old female with a history as noted above who presents with gallstone pancreatitis. Admit to EGS. Gallstone has likely passed. Likely lap diaz this admission in the next few days. Monitor abdominal pain. Plan 1. Neurologic - -oxy 2.5/5, tylenol for pain control -continue home zoloft 2. Respiratory - -Supplemental oxygen PRN to maintain SpO2 above 90% 3. Cardiovascular - -no acute issues 4. GI - -diet - Clear Liquid -bowel regimen miralax and senna - Anticipate OR this admission -Daily LFT 5. / FEN - -No avina -PRN electrolyte replacement - Daily BMP, Mg, P 6. Endo - -No acute issues 7. Hematologic - - Daily CBC - Type and screen for OR 8. ID - -No antibiotics indicated 9. MSK - -Progressive mobility -PT/OT consulted Prophylaxis: VTE - SCDs and lovenox Stress ulcer - not indicated Dispo: RNF Follow up: TBD Plan was discussed with attending, Dr. Love Mayfield MD Emergency General Surgery Please page: EGS ED/Consult Pager [phone] for new patients EGS Floor pager [phone] for established patients Associated attestation - Niall Aleman MD - 03/20/2023 10:41 PM EST Teaching Physician Note: I saw and evaluated the patient. I personally obtained the rivera and critical portions of the history and physical exam. I reviewed the resident's documentation and discussed the patient with the resident. I agree with the resident's medical decision making as documented in the resident's note Niall Aleman MD Division of Trauma, Critical Care, Lr, and Emergency General Surgery Department of Surgery [facility] 03-20-2023 Emergency department Triage note Pt ALVIN transferred another hospital in [place], [place] for ERCD. Per pt se was seen in the other hospital for abdominal pain, N/V and was told she had a gallstone and inflammation but they were not able to see exactly and was instructed to come to this ED. [facility] 03-20-2023 Emergency department Note Pt ALVIN transferred another hospital in [place], [place] for ERCD. Per pt se was seen in the other hospital for abdominal pain, N/V and was told she had a gallstone and inflammation but they were not able to see exactly and was instructed to come to this ED. documented in this encounter [facility] 09-22-2022 Hospital Discharge instructions Patient Education 09/22/2022 00:17:02 Nonspecific Chest Pain, Adult Nonspecific Chest Pain, Adult Chest pain is an uncomfortable, tight, or painful feeling in the chest. The pain can feel like a crushing, aching, or squeezing pressure. A person can feel a burning or tingling sensation. Chest pain can also be felt in your back, neck, jaw, shoulder, or arm. This pain can be worse when you move, sneeze, or take a deep breath. Chest pain can be caused by a condition that is life-threatening. This must be treated right away. It can also be caused by something that is not life-threatening. If you have chest pain, it can be hard to know the difference, so it is important to get help right away to make sure that you do not have a serious condition. Some life-threatening causes of chest pain include: Heart attack. A tear in the body's main blood vessel (aortic dissection). Inflammation around your heart (pericarditis). A problem in the lungs, such as a blood clot (pulmonary embolism) or a collapsed lung (pneumothorax). Some non life-threatening causes of chest pain include: Heartburn. Anxiety or stress. Damage to the bones, muscles, and cartilage that make up your chest wall. Pneumonia or bronchitis. Shingles infection (varicella-zoster virus). Your chest pain may come and go. It may also be constant. Your health care provider will do tests and other studies to find the cause of your pain. Treatment will depend on the cause of your chest pain. Follow these instructions at home: Medicines Take [id number] and prescription medicines only as told by your health care provider. If you were prescribed an antibiotic medicine, take it as told by your health care provider. Do not stop taking the antibiotic even if you start to feel better. Activity Avoid any activities that cause chest pain. Do not lift anything that is heavier than 10 lb (4.5 kg), or the limit that you are told, until your health care provider says that it is safe. Rest as directed by your health care provider. Return to your normal activities only as told by your health care provider. Ask your health care provider what activities are safe for you. Lifestyle Do not use any products that contain nicotine or tobacco, such as cigarettes, e-cigarettes, and chewing tobacco. If you need help quitting, ask your health care provider. Do not drink alcohol. Make healthy lifestyle changes as recommended. These may include: ?Getting regular exercise. Ask your health care provider to suggest some exercises that are safe for you. ?Eating a heart-healthy diet. This includes plenty of fresh fruits and vegetables, whole grains, low-fat (lean) protein, and low-fat dairy products. A dietitian can help you find healthy eating options. ?Maintaining a healthy weight. ?Managing any other health conditions you may have, such as high blood pressure (hypertension) or diabetes. ?Reducing stress, such as with yoga or relaxation techniques. General instructions Pay attention to any changes in your symptoms. It is up to you to get the results of any tests that were done. Ask your health care provider, or the department that is doing the tests, when your results will be ready. Keep all follow-up visits as told by your health care provider. This is important. You may be asked to go for further testing if your chest pain does not go away. Contact a health care provider if: Your chest pain does not go away. You feel depressed. You have a fever. You notice changes in your symptoms or develop new symptoms. Get help right away if: Your chest pain gets worse. You have a cough that gets worse, or you cough up blood. You have severe pain in your abdomen. You faint. You have sudden, unexplained chest discomfort. You have sudden, unexplained discomfort in your arms, back, neck, or jaw. You have shortness of breath at any time. You suddenly start to sweat, or your skin gets clammy. You feel nausea or you vomit. You suddenly feel lightheaded or dizzy. You have severe weakness, or unexplained weakness or fatigue. Your heart begins to beat quickly, or it feels like it is skipping beats. These symptoms may represent a serious problem that is an emergency. Do not wait to see if the symptoms will go away. Get medical help right away. Call your local emergency services (911 in the [place] Do not drive yourself to the hospital. Summary Chest pain can be caused by a condition that is serious and requires urgent treatment. It may also be caused by something that is not life-threatening. Your health care provider may do lab tests and other studies to find the cause of your pain. Follow your health care provider's instructions on taking medicines, making lifestyle changes, and getting emergency treatment if symptoms become worse. Keep all follow-up visits as told by your health care provider. This includes visits for any further testing if your chest pain does not go away. This information is not intended to replace advice given to you by your health care provider. Make sure you discuss any questions you have with your health care provider. Document Revised: 04/13/2021 Document Reviewed: 04/13/2021 [employer] Patient Education 2022 Retail Info Follow Up Care 09/21/2022 21:08:19 With:XXXX NONE Address: [place] When:Within 3 Day(s) [facility] 09-21-2022 Evaluation + Plan note Extrac nirav from: Title:ED Note Author:Ananth Gongora PA-C Alexx e:09/21/22 Chest pain of unknown etiolo gy (R07.9: Chest pain, unspecified) Shortness of breath (R06.02: Shortness of breath) Orders: aspirin, 162 mg = 2 tab(s), Tab-Chew, Oral, Once, Stop date 09/21/22 21:20:00 EDT, STAT, Start date 09/21/22 21:20:00 EDT, 09/21/22 21:20:00 EDT ondansetron, 4 mg = 1 tab(s), Tab-Dis, Oral, Once, Stop date 09/21/22 21:20:00 EDT, STAT, Start date 09/21/22 21:20:00 EDT, 09/21/22 21:20:00 EDT Automated Diff Basic Metabolic Panel CBC w/ Auto Diff ED Cardiac Monitoring eGFR Extra SST Tube Oxygen Saturation Oxygen Therapy PT & PTT Saline Lock Insert Troponin 0 Hr. Troponin 3 Hr. Troponin 6 Hr. Troponin 9 Hr. XR Chest Single [facility]04-04-2023 NoteDISCHARGE SUMMARY NOTE DATE: 05/31/2022 PRIMARY DIAGNOSES: 1. Intrauterine at 39 weeks. 2. Failure to progress. 3. Suspected CPD. 4. Obesity. PROCEDURE: Primary low transverse section. HOSPITAL COURSE: As expected. Please see chart for full details. LABORATORY DATA: Please see chart. COMPLICATIONS: None. DISCHARGE CONDITION: Stable. CONSULTATION: Anesthesia. DISCHARGE INSTRUCTIONS: 1.Diet: Regular. 2.Medications: a.Percocet 5/325 one to two p.o. every 4-6 hours p.r.n. pain. b.Motrin 800 one p.o. every 8 hours p.r.n. pain. 3.Followup in one week. Restrictions: Pelvic rest for 6 weeks. No heavy lifting. May drive when pain free and no longer on narcotics.[facility]04-04-2023 NoteOPERATIVE NOTE OPERATION DATE: 05/30/2022 PROCEDURE: Primary low transverse section. PREOPERATIVE DIAGNOSIS: 1. Intrauterine at 39 weeks 6 days. 2. Failure to progress. 3. Suspected cephalopelvic disproportion. POSTOPERATIVE DIAGNOSIS: 1. Intrauterine at 39 weeks 6 days. 2. Failure to progress. 3. Suspected cephalopelvic disproportion. ANESTHESIA: Spinal with Duramorph. SURGEON: Chadd Schulte D.O. FILTER BED PLACER: JUANCARLOS [facility] URINE OUTPUT: Yellow and clear. BLOOD LOSS: 575 mL. FINDINGS: Viable infant. Apgars and weight unknown at this time. SPECIMEN: Placenta. PROCEDURE: Patient was taken back to the Operating Room where she was given a spinal anesthesia with Duramorph without difficulty. She was prepped and draped in the normal sterile fashion. A Pfannenstiel skin incision was then made 2 cm above the symphysis pubis and carried down to underlying rectus fascia using a Bovie. The fascia was incised in the midline and extended laterally using Delgado scissors. Two Jose Martin clamps were placed on the superior aspect of the fascia and dissected off the underlying rectus muscles. The same was performed on the inferior aspect as well. The muscles were then in the midline. Peritoneum was identified and entered bluntly. The peritoneum was then extended superiorly and inferiorly with good visualization of the bladder. The bladder blade was inserted. A low transverse incision was made on the patient's uterus and extended laterally digitally. The infant was then delivered atraumatically after the bladder blade was removed in the cephalic position. The cord was clamped and cut. Cord blood was obtained. The was handed off to awaiting team. The patient's placenta was spontaneously delivered. The uterus was then exteriorized. The uterus was cleared of all clots and debris. The bladder blade was reinserted. The patient's uterine incision was closed using #0 Vicryl in a running lock fashion. Excellent hemostasis was assured. The uterus was then returned to the patient's abdomen. The patient's abdomen was copiously irrigated using warm saline. Peritoneal gutters were cleared of all clots and debris. Again excellent hemostasis was assured. The patient's peritoneum was closed using 3-0 Vicryl in a running fashion. The patient's fascia was closed using #0 Vicryl in a running fashion. The patient's skin was closed using 4-0 Vicryl subcuticularly. The patient tolerated the procedure well. Sponge, lap, and needle counts were correct x2. The patient was taken to the Recovery Room in stable condition.[id number] NoteOP Note OPERATION DATE: 05/15/2022 PROCEDURE: Primary low transverse section. PREOPERATIVE DIAGNOSIS: 1. Intrauterine at 39 weeks 6 days. 2. Failure to progress. 3. Suspected cephalopelvic disproportion. POSTOPERATIVE DIAGNOSIS: 1. Intrauterine at 39 weeks 6 days. 2. Failure to progress. 3. Suspected cephalopelvic disproportion. ANESTHESIA: Spinal with Duramorph. SURGEON: Chadd Schulte D.O. FILTER BED PLACER: JUANCARLOS Duke URINE OUTPUT: Yellow and clear. BLOOD LOSS: 575 mL. FINDINGS: Viable . Apgars and weight unknown at this time. SPECIMEN: Placenta. PROCEDURE: Patient was taken back to the Operating Room where she was given a spinal anesthesia with Duramorph without difficulty. She was prepped and draped in the normal sterile fashion. A Pfannenstiel skin incision was then made 2 cm above the symphysis pubis and carried down to underlying rectus fascia using a Bovie. The fascia was incised in the midline and extended laterally using Delgado scissors. Two Jose Martin clamps were placed on the superior aspect of the fascia and dissected off the underlying rectus muscles. The same was performed on the inferior aspect as well. The muscles were then in the midline. Peritoneum was identified and entered bluntly. The peritoneum was then extended superiorly and inferiorly with good visualization of the bladder. The bladder blade was inserted. A low transverse incision was made on the patient's uterus and extended laterally digitally. The was then delivered atraumatically after the bladder blade was removed in the cephalic position. The cord was clamped and cut. Cord blood was obtained. The infant was handed off to awaiting team. The patient's placenta was spontaneously delivered. The uterus was then exteriorized. The uterus was cleared of all clots and debris. The bladder blade was reinserted. The patient's uterine incision was closed using #0 Vicryl in a running lock fashion. Excellent hemostasis was assured. The uterus was then returned to the patient's abdomen. The patient's abdomen was copiously irrigated using warm saline. Peritoneal gutters were cleared of all clots and debris. Again excellent hemostasis was assured. The patient's peritoneum was closed using 3-0 Vicryl in a running fashion. The patient's fascia was closed using #0 Vicryl in a running fashion. The patient's skin was closed using 4-0 Vicryl subcuticularly. The patient tolerated the procedure well. Sponge, lap, and needle counts were correct x2. The patient was taken to the Recovery Room in stable condition.[facility] Diagnosis Gallstone pancreatitis- Primary Acute pancreatitis Gallstone pancreatitis Acute pancreatitis Choledocholithiasis Calculus of bile duct without mention of cholecystitis or obstruction Elevated LFTs Other abnormal blood chemistry Abnormal magnetic resonance cholangiopancreatography (MRCP) Acute post-operative pain Choledocholithiasis Calculus of bile duct without mention of cholecystitis or obstruction Acute bilateral upper abdominal pain [facility] Well woman exam with routine gynecological exam Routine gynecological examination documented in this encounter [facility] Narrative No data available for this section [facility] No data available for this section [facility] No data available for this section [facility] Summary Purpose Family History No Family History Records FoundNo Family History Records FoundNo Family History Records Found No data available for this section No Family History Records FoundNo Family History Records FoundNo Family History Records Found No data available for this section No Family History Records Found No data available for this section Advance Directives Latest Code Status on File Code Status Date Activated Date Inactivated Comments Full Code 03/20/2023 7:03 PM Question Answer Comments Documentation of decision process for this code status: Discussed with patient or surrogate. This is the code status chosen by the patient/surrogate. Date Activated Date Inactivated Comments 03/20/2023 7:03 PM 03/24/2023 1:10 PM Question Answer Comments Documentation of decision pr ocess for this code status: Discussed with patient or surrogate. This is the code status chosen by the patient/surrogate. Additional Source Comments INFORMATION SOURCE (unrecogn ized section and content) DATE CREATED AUTHOR 06/12/2022 [facility] DATE CREATED AUTHOR AUTHOR'S ORGANIZ ATION 03/21/2023 [facility] DATE CREATED AUTHOR AUTHOR'S ORGANIZ ATION 04/21/2023 [facility] DATE CREATED AUTHOR AUTHOR'S ORGANIZ ATION 08/27/2023 [facility] DATE CREATED AUTHOR AUTHOR'S ORGANIZ ATION 09/01/2023 [facility] EP[facility] DATE CREATED AUTHOR AUTHOR'S ORGANIZ ATION 11/15/2023 [facility] Reason for Visit (unrecogniz ed section and content) Reason Comments Abdominal pain Specialty Diagnoses / Procedures Referred By Tracee ospina Referred To Contact Emergency Medicine Diagnoses Biliary acute pancreatitis without necrosis or infection Procedures [email or web address] [address] Phone: [phone] [facility] [email or web address] [address] Phone: [phone] Referral ID Status Reason Start Date Expiration Date Visits Re quested Visits Authorized [id number] 3 Reason Comments Gynecologic Exam Scheduled Active and Recently Administ ered Medications (unrecognized section and content) Medication Order 03/22/2023 03/23/2023 03/24/2023 acetaminophen (TYLENOL) tablet 1,000 mg, Oral, Every 6 hours, First dose on 03/23/23 at 1400, Until Discontinued, Post-op 1341 (Given - Provider: Eulalia Brewster, LUDIVINA)2005 (Given - Provider: Alexia Foster RN) 0200 (Hold/Not Given - Provider: Alexia Foster RN - Reason: Patient sleeping)0828 (Given - Provider: Eulalia Brewster RN)1400 (Due)1999 (Due) enoxaparin (LOVENOX) 60 MG/0.6ML injection 60 mg 60 mg, Subcutaneous, 2 TIMES DAILY, First dose on Amy 03/21/23 at 2200, Until Discontinued 0900 (Hold/Not Given - Provider: Nazanin Sow RN - Reason: Off of unit (test/procedure/OR))2 156 (Given - Provider: Alexia Foster RN) 0900 (Due)2006 (Given - Provider: Alexia Foster RN) 0830 (Given - Provider: Eulalia Brewster, LUDIVINA)2100 (Due) ibuprofen (MOTRIN) tablet 600 mg, Oral, Every 6 hours, First dose on Sat03/23/23 at 1700, Until Discontinued, Post-op 1624 (Given - Provider: Vivienne Ng RN)2300 (Hold/Not Given - Provider: Alexia Foster RN - Reason: Patient refused) 0500 (Hold/Not Given - Provider: Alexia Foster RN - Reason: Patient refused)1100 (Due - Provider: Belen Guillen [facility])1700 (Due - Provider: Belen Guillen [facility])2300 (Due - Provider: Belen Guillen [facility]) polyethylene glycol (MIRALAX) 17 g packet 17 g, Oral, DAILY, First dose on Sat03/22/23 at 2000, Until Discontinued 1999 (Hold/Not Given - Provider: Alexia Foster RN - Reason: Patient refused) 0658 (MAR Hold - Provider: Interface, Adt)0900 (Automatically Held - Provider: Interface, Adt)1118 (MAR Unhold - Provider: Interface, Adt) 0828 (Given - Provider: Eulalia Brewster, LUDIVINA) senna (SENOKOT) tablet 8.6 mg, Oral, AT BEDTIME, First dose on Sat03/22/23 at 2200, Until Discontinued 220 (Hold/Not Given - Provider: Alexia Foster RN - Reason: Patient refused) 0658 (MAR Hold - Provider: Interface, Adt)1118 (MAR Unhold - Provider: Interface, Adt)1999 (Hold/Not Given - Provider: Alexia Foster RN - Reason: Patient refused) 2200 (Due) sertraline (ZOLOFT) tablet (CANCELED) 25 mg, Oral, DAILY, First dose on Sat03/20/23 at 1934, Until Discontinued 0900 (Given - Provider: Nazanin Sow RN)1000 (APR Hold - Provider: Interface, Adt)1910 (MAR Unhold - Provider: Rosio Jean MD) sertraline (ZOLOFT) tablet 25 mg, Oral, DAILY, First dose on Sat03/22/23 at 2000, Until Discontinued 2155 (Given - Provider: Alexia Foster RN) 0658 (BANNER Hold - Provider: Interface, Adt)0900 (Automatically Held - Provider: Interface, Adt)1118 (BANNER Unhold - Provider: Interface, Adt) 0828 (Given - Provider: Eulalia Brewster RN) Continuous Medication Order 03/22/2023 03/23/2023 03/24/2023 lactated ringers iv infusion (CANCELED) Intravenous, at 100 mL/hr, CONTINUOUS, Starting on Sat03/20/23 at 1934, Until Sat03/22/23 at 1910 0544 (IV New Bag - Provider: Anders Nguyen RN)1000 (BANNER Hold - Provider: Interface, Adt)1910 (BANNER Unhold - Provider: Rosio Jean MD) lactated ringers iv infusion (CANCELED) Intravenous, at 100 mL/hr, CONTINUOUS, Starting on 03/23/23 at 0000, Until 03/23/23 at 1316 0000 (IV New Bag - Provider: Alexia Foster RN)0658 (BANNER Hold - Provider: Interface, Adt)1118 (BANNER Unhold - Provider: Interface, Adt) PRN Medication Order 03/22/2023 03/23/2023 03/24/2023 bupivacaine (MARCAINE) 30 mL, Lidocaine methylparaben free (XYLOCAINE) 20 mL, dose administered = 100 mL given in sodium chloride 0.9 % 100 mL sc injection (CANCELED) PRN, Starting on 03/23/23 at 0932, Until 03/23/23 at 0959 0932 (Given - Provider: Sean Andrews MD) HYDROmorphone (DILAUDID) 1 mg/mL injection (CANCELED) 0.5 mg, Intravenous Push, PACU EVERY 15 MIN PRN X 4 DOSES, 4 doses, Starting on 03/22/23 at 1026, Until 03/23/23 at 1118, Severe Pain (pain score 7,8,9,10), PACU Now 0658 (BANNER Hold - Provider: Interface, Adt)1005 (BANNER Unhold - Provider: Sandra Orozco, LUDIVINA)1028 (Given - Provider: Sandra Orozco, LUDIVINA) naloxone (NARCAN) 0.4 MG/ML injection 0.4 mg, Intravenous Push, PRN, Starting on Sat03/22/23 at 1026, Until Discontinued, Respiratory Rate Less Than 8 for adults and less than 12 for Peds or for suspected overdose 0658 (BANNER Hold - Provider: Interface, Adt)1005 (BANNER Unhold - Provider: Sandra Orozco, RN) ondansetron (ZOFRAN) 4 MG/2ML injection 4 mg, Intravenous Push, EVERY 4 HOURS PRN, Starting on Sat03/22/23 at 1909, Until Discontinued, Nausea, Vomiting 0658 (BANNER Hold - Provider: Interface, Adt)1005 (BANNER Unhold - Provider: Sandra Orozco, RN) oxyCODONE immediate release tablet(Linked Group 1) 2.5 mg, Oral, EVERY 4 HOURS PRN, Starting on Sat03/22/23 at 1909, Until Discontinued, Moderate Pain (pain score 4,5,6) 193 (See Alternative - Provider: Nazanin Sow RN) 0122 (See Alternative - Provider: Alexia Foster RN)0658 (BANNER Hold - Provider: Interface, Adt)1118 (BANNER Unhold - Provider: Interface, Adt)1341 (See Alternative - Provider: Eulalia Brewster, LUDIVINA)2005 (See Alternative - Provider: Alexia Foster RN) 0431 (See Alternative - Provider: Bruce Thakkar, RN)0914 (See Alternative - Provider: Eulalia Brewster, RN) oxyCODONE immediate release tablet(Linked Group 1) 5 mg, Oral, EVERY 4 HOURS PRN, Starting on Sat03/22/23 at 1909, Until Discontinued, Severe Pain (pain score 7,8,9,10) 193 (Given - Provider: Nazanin Sow RN) 0122 (Given - Provider: Alexia Foster RN)0658 (BANNER Hold - Provider: Interface, Adt)1118 (BANNER Unhold - Provider: Interface, Adt)1341 (Given - Provider: Eulalia Brewster, RN)2005 (Given - Provider: Alexia Foster RN) 0431 (Given - Provider: Bruce Thakkar, RN)0914 (Given - Provider: Eulalia Brewster, LUDIVINA - Comment: barcode unreadable due to ripping when remove from stack) Linked Groups Order Group 1: oxyCODONE immediate release tabletJump to med 2.5 mg, Oral, EVERY 4 HOURS PRN, Starting on Sat03/22/23 at 1909, Until Discontinued, Moderate Pain (pain score 4,5,6) Or oxyCODONE immediate release tabletJump to med 5 mg, Oral, EVERY 4 HOURS PRN, Starting on Sat03/22/23 at 1909, Until Discontinued, Severe Pain (pain score 7,8,9,10) Patient Care team informatio n (unrecognized section and content) Senior Ux Developer Relationship Specialty Start Date End Date Jorge Brown, DEEPALI [address] [place] [id number] PCP - [facility] 12/12/[address] [place] [id number] PCP - General Family Medicine 08/08/23 Personnel Name: JORGE BROWN CNP Address: Address: [address] [place] [address] [place] [id number] Name: Emilee Shaffer FOR RECORDS PERTAINING TO PATIENTS WHO ARE OR HAVE BEEN ENROLLED IN A CHEMICAL DEPENDENCY/SUBSTANCEABUSE PROGRAM, SOME INFORMATION MAY BE OMITTED. This clinical summary was aggregated from multiple sources. Caution should be exercised in using it in the provision of clinical care. This summary normalizes information from multiple sources, and as a consequence, information in this document may materially change the coding, format and clinical context of patient data. In addition, data may be omitted in some cases. CLINICAL DECISIONS SHOULD BE BASED ON THE PRIMARY CLINICAL RECORDS. [employer] provides no warranty or guarantee of the accuracy or completeness of information in this document.
[2024-02-14 11:07] LABS: Age Gdln ACOG Testing Note (.); IGP, rfx Aptima HPV ASCU Note (.)
== END 2024-02-10 18:27 | disposition home or self-care (01) ==
LOC: LAB 18:26
PROVIDERS: Visit Provider Physician Assistant
DX: Z01.419 Encounter for gynecological examination (general) (routine) without abnormal findings (principal)
CPT/HCPCS: 88175

== ENCOUNTER 2024-06-24 15:00 | Outpatient (OUT) | payer OTHER, SELFPAY ==
[2024-06-24 15:50] LABS: BOX Test Reference Lab UNITY; BOX Test Sent Out UNITY
[2024-06-24 15:53] LABS: Estimated Average Glucose 114 mg/dL; Glycohemoglobin A1C 5.6 % (4.5-6.2)
[2024-06-24 16:09] LABS: Basophils Percent Auto 0.5 % (0.2-2.0); Eosinophils Absolute Auto 0.3 10^3/uL (0.0-0.7); Eosinophils Percent Auto 3.2 % (0.9-7.0); Hematocrit 42.5 % (36.0-48.0); Hemoglobin 13.8 g/dL (12.0-16.0); Immature Granulocytes Abs Auto 0.02 10^3/uL (0.00-0.03); Immature Granulocytes Pct Auto 0.2 % (0.0-0.5); Lymphocytes Absolute Auto 1.9 10^3/uL (1.2-3.8); Lymphocytes Percent Auto 22.9 % (20.5-60.0); Mean Corpuscular HGB Conc 32.5 g/dL (29.9-35.2); Mean Corpuscular Hemoglobin 27.6 pg (26.7-34.0); Monocytes Absolute Auto 0.6 10^3/uL (0.3-0.8); Monocytes Percent Auto 6.7 % (1.7-12.0); Neutrophils Absolute Auto 5.6 10^3/uL (1.4-6.5); Neutrophils Percent Auto 66.5 % (43.0-75.0); Platelet Count 313 10^3/uL (150-450); Red Cell Distribution Width 14.2 % (11.0-15.0); White Blood Count 8.5 10^3/uL (4.0-11.0)
[2024-06-24 16:33] LABS: Amphetamine Screen Urine NEGATIVE (NEGATIVE); Barbiturates Screen Urine NEGATIVE (NEGATIVE); Benzodiazepines Screen Urine NEGATIVE (NEGATIVE); Buprenorphine Screen Urine NEGATIVE (NEGATIVE); Cannabinoid Screen Urine NEGATIVE (NEGATIVE); Cocaine Screen Urine NEGATIVE (NEGATIVE); Methadone Screen Urine NEGATIVE (NEGATIVE); Methamphetamines Screen Urine NEGATIVE (NEGATIVE); Opiate Screen Urine NEGATIVE (NEGATIVE); Oxycodone Screen Urine NEGATIVE (NEGATIVE); Phencyclidine Screen Urine NEGATIVE (NEGATIVE); Tricyclic Antidepressant Urine NEGATIVE (NEGATIVE)
[2024-06-26 05:07] LABS: HIV Ab/p24 Ag Screen Non Reactive (Non Reactive)
[2024-06-26 06:07] LABS: HBsAg Screen Negative (Negative); HCV Ab Non Reactive (Non Reactive); Rubella Antibodies, IgG 4.39 index (Immune >0.99)
[2024-06-26 13:09] LABS: Rapid Plasma Reagin, Quant Non Reactive titer (NonRea<1:1)
== END 2024-06-24 15:01 | disposition home or self-care (01) ==
LOC: LAB 15:03
PROVIDERS: PCP Nurse Practitioner Family; Visit Provider Obstetrics & Gynecology
DX: Z34.01 Encounter for supervision of normal first pregnancy, first trimester (principal); Z36.0 Encounter for antenatal screening for chromosomal anomalies; N92.6 Irregular menstruation, unspecified
CPT/HCPCS: 36415; 80307; 83036; 85025; 86592; 86762; 86803; 86850; 86900; 86901; 87086; 87340; 87389

== ENCOUNTER 2024-08-11 15:30 | Outpatient (OUT) | payer OTHER, SELFPAY ==
[2024-08-11 16:41] LABS: Hematocrit 40.9 % (36.0-48.0); Hemoglobin 13.7 g/dL (12.0-16.0); Immature Granulocytes Abs Auto 0.02 10^3/uL (0.00-0.03); Immature Granulocytes Pct Auto 0.2 % (0.0-0.5); Lymphocytes Absolute Auto 2.0 10^3/uL (1.2-3.8); Mean Corpuscular HGB Conc 33.5 g/dL (29.9-35.2); Mean Corpuscular Hemoglobin 28.8 pg (26.7-34.0); Mean Corpuscular Volume 86.1 fL (81.0-99.0); Platelet Count 327 10^3/uL (150-450); Red Blood Count 4.75 10^6/uL (4.20-5.40); White Blood Count 8.8 10^3/uL (4.0-11.0)
[2024-08-11 16:49] LABS: Glucose 1 Hour 120 mg/dL (<130)
== END 2024-08-11 15:31 | disposition home or self-care (01) ==
LOC: LAB 15:31
PROVIDERS: PCP Nurse Practitioner Family; Visit Provider Nurse Practitioner Family
DX: Z13.1 Encounter for screening for diabetes mellitus (principal)
CPT/HCPCS: 36415; 82950; 85025

== ENCOUNTER 2024-08-20 08:19 | Inpatient (IN) | payer OTHER, SELFPAY ==
--- OUTSIDE RECORDS SUMMARY | 2024-08-18 14:30 | XMS_ITS | Encounter Summary ---
Author Organization [facility] Address [address] [place] [address] Care Team Providers Care Problem Manager Name Role Phone Tawny Gu MD Primary Care Provider [phone] Amanda Jaimes Unavailable Reason for Visit * Reason Comments Routine Visit Encounter Details Date Type Department Care Team (Late st Contact Info) Description 08/18/2024 2:30 PM EDT Routine [facility] [address] [facility] [place] [address] Amanda Jaimes PA [address] [facility] [place] [address] Second trimester ([facility]); 17 weeks gestation of ([facility]); Hyperinsulinemia; Screening examination for STI; Need for maternal serum alpha-protein (MSAFP) screening ([facility]); Screening, , for anatomic survey ([facility]); Encounter to determine viability of , single or unspecified fetus ([facility]) Social History Tobacco Use Types Packs/Day Years Used Date Smoking Tobacco: Never Smokeless Tobacco: Never Alcohol Use Standard Drinks/Week Comments Not Currently 0 (1 standard drink = 0.6 oz pur e alcohol) Humiliation, Afraid, Rape, and Kick questionnair e Answer Date Recorded Within the last year, have y ou been afraid of your partner or ex-partner? No 10/12/2022 Within the last year, have y ou been humiliated or emotionally abused in other ways by your partner or ex-partner? No Within the last year, have y ou been kicked, hit, slapped, or otherwise physically hurt by your partner or ex-partner? No 10/12/2022 Within the last year, have y ou been raped or forced to have any kind of sexual activity by your partner or ex-partner? No 10/12/2022 Social Connection and Isolation Panel [NHANES] A nswer Date Recorded In a typical week, how many times do you talk on the phone with family, friends, or neighbors? Twice a week 10/12/2022 How often do you get together with friends or re latives? Once a week 10/12/2022 How often do you attend congregational or yazidi serv ices? Never 10/12/2022 Do you belong to any clubs o r organizations such as congregational groups, unions, fraternal or athletic groups, or school groups? No 10/12/2022 How often do you attend meet ings of the clubs or organizations you belong to? Never 10/12/2022 Are you , , di vorced, , never , or living with a partner? 10/12/2022 AUDIT-C Answer Date Recorded Q1: How often do you have a drink containing alc ohol? Never 10/12/2022 Q2: How many drinks containi ng alcohol do you have on a typical day when you are drinking? 1 or 2 10/12/2022 Q3: How often do you have six or more drinks on one occasion? Never 10/12/2022 Overall Financial Resource Strain (CARDIA) Answe r Date Recorded How hard is it for you to pa y for the very basics like food, housing, medical care, and heating? Not very hard 10/12/2022 PHQ-2 Answer Date Recorded Patient Health Questionnaire-2 Score 2 02/27/2023 [facility] [place] of Occupat ional Health - Occupational Stress Questionnaire Answer Date Recorded Do you feel stress - tense, restless, nervous, or anxious, or unable to sleep at night because your mind is troubled all the time - these days? Only a little 10/12/2022 Exercise Vital Sign Answer Date Recorde d On average, how many days pe r week do you engage in moderate to strenuous exercise (like a brisk walk)? Patient declined On average, how many minutes do you engage in exercise at this level? Patient declined 10/12/2022 Hunger Vital Sign Answer Date Recorded Within the past 12 months, y ou worried that your food would run out before you got the money to buy more. Never true 10/13/19 23 Within the past 12 months, t he food you bought just didn't last and you didn't have money to get more. Never true 10/12/2022 PRAPARE - Transportation Answer Date Re corded In the past 12 months, has l ack of transportation kept you from medical appointments or from getting medications? No 02/2022 In the past 12 months, has l ack of transportation kept you from meetings, work, or from getting things needed for daily living? No 10/12/2022 Housing Stability Vital Sign Answer Alexx e Recorded In the last 12 months, was t here a time when you were not able to pay the mortgage or rent on time? No 10/12/2022 Number of Places Lived in the Last Year Not on f ile 10/12/2022 In the last 12 months, was t here a time when you did not have a steady place to sleep or slept in a detention (including now)? No 10/12/2022 Estimated Date of Delivery Comme nts Yes 01/24/2025 Based on last me nstrual period of 04/19/2024 Sex and Gender Information Value Date Recorded Sex Assigned at Female 10/08/2022 9:01 PM EDT Legal Sex Female 7:11 PM EDT Gender Identity Female 10/08/2022 9:01 PM EDT Sexual Orientation Not on file documented as of this encounter Last Filed Vital Signs Vital Sign Reading Time Taken Comments Blood Pressure 120/78 08/18/2024 2:56 PM EDT Pulse - - Temperature - - Respiratory Rate - - Oxygen Saturation - - Inhaled Oxygen Concentration - - Weight 126 kg (277 lb) 08/18/2024 2:56 PM EDT Height - - Body Mass Index 43.38 08/28/2023 3:53 PM EDT documented in this encounter Progress Notes * ION Nash - 08/18/2024 2:30 PM EDT Reason for Appointment: Patient ID: Jeni Celestin is a 29 y.o. female who presents for Routine Visit Patient presents today for Return OB appointment. MEDICATIONS Current Outpatient Medications Medication Instructions metoclopramide (REGLAN) 10 mg, Oral, 3 times daily before meals, Take 1 tablet by mouth 30 minutes prior to meals 3 times daily as needed for nausea. ondansetron (ZOFRAN) 4 mg, Oral, Every 6 hours PRN, Take 1 tablet by mouth every 6 hours as needed for nausea. MV-Min-Fe Fum-FA-DHA ( 1 PO) Take by mouth ALLERGIES No Known Allergies PROBLEMS Active Ambulatory Problems Diagnosis Date Noted Hyperinsulinemia 10/12/2022 Size of fetus inconsistent with dates in third trimester ([facility]) 10/12/2022 Vaginal discharge 10/12/2022 Psoriasis 11/12/2022 Well woman exam with routine gynecological exam 02/10/2024 Resolved Ambulatory Problems Diagnosis Date Noted No [...] SYSTEMS Review of Systems: Review of Systems All other systems reviewed and are negative. OBJECTIVE Objective: Physical Exam Constitutional: Appearance: Normal appearance. Genitourinary: Right Adnexa: not tender and no mass present. Left Adnexa: not tender and no mass present. No cervical discharge. Breasts: Breasts are soft. Right: Normal. Left: Normal. HENT: Head: Normocephalic. Nose: Nose normal. Mouth/Throat: Mouth: Mucous membranes are moist. Cardiovascular: Rate and Rhythm: Normal rate. Pulmonary: Effort: Pulmonary effort is normal. Abdominal: General: Bowel sounds are normal. Palpations: Abdomen is soft. Musculoskeletal: General: Normal range of motion. Cervical back: Normal range of motion. Neurological: General: No focal deficit present. Mental Status: She is alert. Skin: General: Skin is warm and dry. Psychiatric: Mood and Affect: Mood normal. Vitals and nursing note reviewed. Exam conducted with a sports statistician present. Vitals: Estimated body mass index is 43.54 kg/m?? as calculated from the following: Height as of 08/28/23: 5' 7 . Weight as of 07/20/24: 278 lb. BP: Patient's last menstrual period was 04/19/2024. ASSESSMENT & PLAN ICD-10-CM 1. Second trimester ([facility]) Z34.92 POCT urinalysis dipstick manually resulted 2. 17 weeks gestation of ([facility]) Z3A.17 3. 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 Screening examination for STI Z11.3 SURESWAB(R) ADVANCED VAGINITIS PLUS, TMA CHLAMYDIA TRACHOMATIS (GENITO/STI) Neisseria gonorrhea DNA probe, direct 5. Need for maternal serum alpha-protein (MSAFP) screening ([facility]) Z36.1 Alpha fetoprotein, maternal Alpha fetoprotein, maternal 6. Screening, , for anatomic survey ([facility]) Z36.89 US OB 14+ weeks anatomy scan No heart rate seen or heard at visit. US for viability performed and no cardiac activity noted today. Parents made aware. Patient will be contacted tomorrow in regards to treatment and labs moving forward. Documented by Gabby Stanton MA on behalf of: ION Nash documented in this encounter Plan of Treatment Upcoming Encounters Date Type Department Care Team (Late st Contact Info) Description 02/15/2025 10:00 AM EST Office Visit [facility] OB [address] [place] [phone] Amanda Jaimes PA [address] [place] [address] Scheduled Orders Name Type Priority Associated Diagnoses Orde r Schedule SURESWAB(R) ADVANCED VAGINITIS PLUS, TMA Pathology and Cytology Routine Screening examination for STI Ordered: 08/18/2024 CHLAMYDIA TRACHOMATIS (GENITO/STI) Lab Routine Screening examination for STI Ordered: 08/18/2024 Neisseria gonorrhea DNA probe, direct Lab Routine Screening examination for STI Ordered: 08/18/2024 US OB 14+ weeks anatomy scan Imaging Routine Screening, , for anatomic survey ([facility]) Expected: 08/18/2024, Expires: 11/18/2024 Alpha fetoprotein, maternal Lab Routine Need for maternal serum alpha-protein (MSAFP) screening ([facility]) Expected: 08/18/2024 (Approximate), Expires: 09/18/2024 documented as of this encounter Procedures Procedure Name Priority Date/Time Associated Diagnosis Comments POCT URINALYSIS DIPSTICK Routine 08/18/2024 2:56 PM EDT Second trimester ([facility]) documented in this encounter Results * POCT urinalysis dipstick manually resulted (08/18/2024 2:56 PM EDT) Color, UA Yellow Clarity, UA Clear Glucose, UA Negative Negative - 2000(110) ++++ mg/dL Bilirubin, UA Negative Negative - 4(70) +++ mg/dL Ketones, UA Negative Negative - 160(16) ++++ mg/dL Spec Grav, UA 1.020 1 - 1.03 Blood, UA Negative Negative - 50 Guido/mcL pH, UA 6.0 5 - 9 Protein, UA Negative Negative - 2000(20) ++++ mg/dL Urobilinogen, UA 1.0 0.2 - 12 mg/dL Leukocytes, UA Moderate Negative - 500+++ Svetlana/mcL Nitrite, UA Negative Negative - Positive Urine 08/18/2024 2:56 PM EDT Amanda LEMON POINT OF CARE TEST ENTER/EDIT OR DERABLES Final Result documented in this encounter Visit Diagnoses Diagnosis Second trimester ([facility]) state, incidental 17 weeks gestation of ([facility]) Hyperinsulinemia Encounter to determine viability of , single or unspecified fetus ([facility]) Need for maternal serum alpha-protein (MSAFP) screening ([facility]) Screening, , for anatomic survey ([facility]) Encounter for anatomic survey documented in this encounter Care Teams Problem Manager Relationship Specialty Start Date End Date Tawny Gu MD [address] [place] [address] PCP - General Family Medicine 08/08/23 Amanda Jaimes PA [address] [facility] [place] [address] PCP - Medical [place] [employer] 01/12/24 02/10/99 documented as of this encounter
--- OUTSIDE RECORDS SUMMARY | 2024-08-18 15:00 | XMS_ITS | Encounter Summary ---
Author Organization [facility] Address [address] [place] [address] Care Team Providers Care Adjunct Spanish Instructor Name Role Phone Tawny Gu MD Primary Care Provider [phone] Amanda Jaimes Unavailable Encounter Details Date Type Department Care Team (Latest Contact Info) Description 08/18/2024 3:00 PM EDT Ancillary Procedure [facility] OB [address] [place] [address] Encounter to determine viability of , single or unspecified fetus ([facility]) Social History Tobacco Use Types Packs/Day Years [...] week 10/12/2022 How often do you attend adventist or evangelical serv ices? Never 10/12/2022 Do you belong to any clubs o r organizations such as adventist groups, unions, fraternal or athletic groups, or [...] Recorded Patient Health Questionnaire-2 Score 2 02/27/2023 [facility] - Occupational Stress Questionnaire Answer Date Recorded [...] on file documented as of this encounter Plan of Treatment Upcoming Encounters Date Type Department Care Team (Late st Contact Info) Description 02/15/2025 10:00 AM EST Office Visit [facility] OB [address] [place] [address] Amanda Jaimes PA [address] [facility] [address] [place], [place] [id number] Pending Results Name Type Priority Associated Diagnoses Date /Time US OB limited 1+ fetuses Imaging Routine Encounter to determine viability of , single or unspecified fetus ([facility]) 08/18/2024 4:00 PM EDT documented as of this encounter Visit Diagnoses Diagnosis Encounter to determine viability of , single or unspecified fetus ([facility]) documented in this encounter Care Teams Adjunct Spanish Instructor Relationship Specialty Start Date End Date Tawny Gu MD [address] [place] [address] PCP - General Family Medicine 08/08/23 Amanda Jaimes PA [address] [place] [address] [place] [address] PCP - Medical [place] [employer] 01/12/24 02/10/99 documented as of this encounter
[2024-08-20] VITALS (40 sets, daily range): BP systolic 87–133; BP diastolic 52–100; PULSE 77–142; TEMP 35.9–37.1; O2SAT 95–100
--- OUTSIDE RECORDS SUMMARY | 2024-08-20 08:22 | XMS_ITS | Encounter Summary ---
Author Organization [facility] Address [address] [place] [address] Care Team Providers Care Coal Grader Name Role Phone Tawny Gu MD Primary Care Provider [phone] Amanda Jaimes Unavailable Encounter Details Date Type Department Care Team (Late st Contact Info) Description 08/19/2024 Telephone [facility] OB [address] [place] [address] [place] [address] Lena Cruz MA Social History Tobacco Use Types Packs/Day Years [...] week 10/12/2022 How often do you attend latter-day or yazdanism serv ices? Never 10/12/2022 Do you belong to any clubs o r organizations such as latter-day groups, unions, fraternal or athletic groups, or [...] Recorded Patient Health Questionnaire-2 Score 2 02/27/2023 [facility] of Occupat ional Health - Occupational Stress [...] place to sleep or slept in a snf (including now)? No 10/12/2022 Estimated Date of Delivery Comme nts Yes 01/24/2025 Based on last me nstrual period of 04/19/2024 Sex and Gender Information Value Date Recorded Sex Assigned at Female 10/08/2022 9:01 PM EDT Legal Sex Female 7:11 PM EDT Gender Identity Female 10/08/2022 9:01 PM EDT Sexual Orientation Not on file documented as of this encounter Miscellaneous Notes * Telephone Encounter - Lena Cruz MA - 08/19/2024 1:59 PM EDT Pt informed of results and med sent documented in this encounter Plan of Treatment Upcoming Encounters Date Type Department Care Team (Late st Contact Info) Description 02/15/2025 10:00 AM EST Office Visit [facility] OB [address] [facility] [place] [address] Amanda Jaimes PA [address] [facility] [address] [place], [place] [phone] documented as of this encounter Visit Diagnoses Diagnosis BV (bacterial vaginosis) Unspecified vaginitis and vulvovaginitis documented in this encounter Care Teams Coal Grader Relationship Specialty Start Date End Date Tawny Gu MD [address] [place] [address] PCP - General Family Medicine 08/08/23 Amanda Jaimes PA [address] [place] [address] [place] [address] PCP - Medical [place] [employer] 01/12/24 02/10/99 documented as of this encounter
--- OUTSIDE RECORDS SUMMARY | 2024-08-20 08:23 | XMS_ITS | Encounter Summary ---
Author Organization [facility] Address [address] [place] [address] Care Team Providers Care Molasses And Caramel Operator Name Role Phone Tawny Gu MD Primary Care Provider [phone] Amanda Jaimes Unavailable Encounter Details Date Type Department Care Team (Late st Contact Info) Description 08/19/2024 Abstract [facility] [address] [place] [address] [place] [address] Lena Cruz MA Social History Tobacco [...] week 10/12/2022 How often do you attend druze or christian serv ices? Never 10/12/2022 Do you belong to any clubs o r organizations such as druze groups, unions, fraternal or athletic groups, or [...] Recorded Patient Health Questionnaire-2 Score 2 02/27/2023 [facility] - Occupational Stress [...] place to sleep or slept in a skilled nursing (including now)? No 10/12/2022 Estimated Date of [...] EST Office Visit [facility] [address] [place] [address] Amanda Jaimes PA [address] [place] [address] documented as of this encounter Visit Diagnoses Not on filedocumented in this encounter Care Teams Molasses And Caramel Operator Relationship Specialty Start Date End Date Tawny Gu MD [address] [place] [address] PCP - General Family Medicine 08/08/23 Amanda Jaimes PA [address] [place] [address] PCP - Medical [place] [employer] 01/12/24 02/10/99 documented as of this encounter
--- OUTSIDE RECORDS SUMMARY | 2024-08-20 08:23 | XMS_ITS | Encounter Summary ---
Author Organization [facility] Address [address] [place] [address] Care Team Providers Care Psychiatric Therapist Name Role Phone Tawny Gu MD Primary Care Provider [phone] Amanda Jaimes Unavailable Encounter Details Date Type Department Care Team (Late st Contact Info) Description 08/18/2024 External Result Encounter [facility] External Department Unsolicited Amanda Jaimes PA [address] [place] [address] [place] [address] Social History Tobacco Use Types Packs/Day Years [...] week 10/12/2022 How often do you attend buddhism or oriental orthodox serv ices? Never 10/12/2022 Do you belong to any clubs o r organizations such as buddhism groups, unions, fraternal or athletic groups, or [...] Recorded Patient Health Questionnaire-2 Score 2 02/27/2023 [facility] Questionnaire Answer [...] to sleep or slept in a senior care (including now)? No 10/12/2022 Estimated Date of [...] EST Office Visit [facility] [address] [place] [address] Amanda Jaimes PA [address] [facility] [place] [address] documented as of this encounter Procedures Procedure Name Priority Date/Time Associated Diagnosis Comments RECURRENT VAGINITIS (HTRX) Routine 08/18/2024 3:28 PM EDT documented in this encounter Results * (ABNORMAL) RECURRENT VAGINITIS (HTRX) (08/18/2024 3:28 PM EDT) Pathologist [facility] ATOPOBIUM VAGINAE 0 19.961 - 24.689 ppm 08/19/2024 8:01 AM EDT [facility] ATOPOBIUM VAGINAE Not Detected 19.961 - 24.689 ppm 08/19/2024 8:01 AM EDT [facility] BVAB 2,3 (BACTERIAL VAGINOSIS ASSOCIATED BACTERIA 2, 3); MOBILUNCUS SPP 24.805(A) 19.961 - 24.689 ppm 08/19/2024 8:01 AM EDT [facility] BVAB 2,3 (BACTERIAL VAGINOSIS ASSOCIATED BACTERIA 2, 3); MOBILUNCUS SPP Detected(A) 19.961 - 24.689 ppm 08/19/2024 8:01 AM EDT [facility] KIERSTEN ALBICANS, PARAPSILOSIS, TROPICALIS 0 19.961 - 30.770 ppm 08/19/2024 8:01 AM EDT [facility] KIERSTEN ALBICANS, PARAPSILOSIS, TROPICALIS Not Detected 19.961 - 30.770 ppm 08/19/2024 8:01 AM EDT [facility] KIERSTEN GLABRATA 0 23.000 - 32.138 ppm 08/19/2024 8:01 AM EDT [facility] KIERSTEN GLABRATA Not Detected 23.000 - 32.138 ppm 08/19/2024 8:01 AM EDT [facility] KIERSTEN KRUSEI 0 23.000 - 32.271 ppm 08/19/2024 8:01 AM EDT [facility] KIERSTEN KRUSEI Not Detected 23.000 - 32.271 ppm 08/19/2024 8:01 AM EDT [facility] CHLAMYDIA TRACHOMATIS 0 23.000 - 31.467 ppm 08/19/2024 8:01 AM EDT [facility] CHLAMYDIA TRACHOMATIS Not Detected 23.000 - 31.467 ppm 08/19/2024 8:01 AM EDT [facility] GARDNERELLA VAGINALIS 24.549(A) 19.961 - 24.689 ppm 08/19/2024 8:01 AM EDT [facility] GARDNERELLA VAGINALIS Detected(A) 19.961 - 24.689 ppm 08/19/2024 8:01 AM EDT [facility] MEGASPHAERA (TYPES 1, 2) 0 19.961 - 24.689 ppm 08/19/2024 8:01 AM EDT [facility] MEGASPHAERA (TYPES 1, 2) Not Detected 19.961 - 24.689 ppm 08/19/2024 8:01 AM EDT [facility] NEISSERIA GONORRHOEAE 0 23.000 - 32.117 ppm 08/19/2024 8:01 AM EDT [facility] NEISSERIA GONORRHOEAE Not Detected 23.000 - 32.117 ppm 08/19/2024 8:01 AM EDT [facility] TRICHOMONAS VAGINALIS 0 23.000 - 32.119 ppm 08/19/2024 8:01 AM EDT [facility] TRICHOMONAS VAGINALIS Not Detected 23.000 - 32.119 ppm 08/19/2024 8:01 AM EDT [facility] MYCOPLASMA GENITALIUM 0 19.961 - 24.689 ppm 08/19/2024 8:01 AM EDT [facility] MYCOPLASMA GENITALIUM Not Detected 19.961 - 24.689 ppm 08/19/2024 8:01 AM EDT [facility] ERMB, C; MEFA 24.064(A) 23.000 - 27.611 ppm 08/19/2024 8:01 AM EDT [facility] ERMB, C; MEFA Detected(A) 23.000 - 27.611 ppm 08/19/2024 8:01 AM EDT [facility] TET B, TET M 25.246(A) 23.000 - 27.778 ppm 08/19/2024 8:01 AM EDT [facility] TET B, TET M Detected(A) 23.000 - 27.778 ppm 08/19/2024 8:01 AM EDT [facility] Tissue 08/18/2024 3:28 PM EDT 08/19/2024 2:58 AM EDT Amanda LEMON LAB BLOOD ORDERABLES Final Resul t [facility] [address] [facility] [place] [address] documented in this encounter Visit Diagnoses Not on filedocumented in this encounter Care Teams Psychiatric Therapist Relationship Specialty Start Date End Date Tawny Gu MD [address] [place] [address] PCP - General Family Medicine 08/08/23 Amanda Jaimes PA [address] [place] [address] [place] [address] PCP - Medical [place] [employer] 01/12/24 02/10/99 documented as of this encounter
--- OUTSIDE RECORDS SUMMARY | 2024-08-20 08:23 | XMS_ITS | Encounter Summary ---
Author Organization [facility] Address [address] [place] [address] Care Team Providers Care Loom Checker Name Role Phone Tawny Gu MD Primary Care Provider [phone] Amanda Jaimes Unavailable Encounter Details Date Type Department Care Team (Late st Contact Info) Description 07/01/2024 Abstract [facility] [address] [place] [address] Chadd Schulte, DO [address] [facility] [address] [place], [place] [id number] Social History Tobacco Use Types Packs/Day Years [...] week 10/12/2022 How often do you attend latter day or yazidi serv ices? Never 10/12/2022 Do you belong to any clubs o r organizations such as latter day groups, unions, fraternal or athletic groups, or [...] Recorded Patient Health Questionnaire-2 Score 2 02/27/2023 [facility] Questionnaire Answer Date [...] in a half-way (including now)? No 10/12/2022 Estimated Date of [...] EST Office Visit [facility] [address] [facility] [place] [id number] Amanda Jaimes PA [address] [facility] [place] [address] documented as of this encounter Visit Diagnoses Not on filedocumented in this encounter Care Teams Loom Checker Relationship Specialty Start Date End Date Tawny Gu MD [address] [place] [address] PCP - General Family Medicine 08/08/23 Amanda Jaimes PA [address] [facility] [place] [address] PCP - Medical [place] [employer] 01/12/24 02/10/99 documented as of this encounter
--- OUTSIDE RECORDS SUMMARY | 2024-08-20 08:23 | XMS_ITS | Clinical Summary ---
Author Organization [facility] Healthcare Address [address] [place] [address] Care Team Providers Care Ssn/Ssbn Assistant Navigator Name Role Phone Tawny Gu MD Primary Care Provider [phone] Amanda Jaimes Unavailable Allergies No known active allergies Medications MV-Min-Fe Fum-FA-DHA ( 1 PO) Take by mouth Active metoclopramide (Reglan) 10 MG tabletIndicatio ns:Nausea and vomiting in ([facility]) Take 1 tablet (10 mg) by mouth in the morning and 1 tablet (10 mg) at noon and 1 tablet (10 mg) in the evening. Take before meals. Take 1 tablet by mouth 30 minutes prior to meals 3 times daily as needed for nausea. 90 tablet 07/20/2024 Active ondansetron (Zofran) 4 MG tabletIndicatio ns:Nausea and vomiting in ([facility]) Take 1 tablet (4 mg) by mouth every 6 (six) hours if needed for nausea or vomiting for up to 30 doses Take 1 tablet by mouth every 6 hours as needed for nausea. 30 tablet 3 07/20/2024 Active metroNIDAZOLE (Flagyl) 500 MG tabletIndicatio ns:BV (bacterial vaginosis) Take 1 tablet (500 mg) by mouth in the morning and 1 tablet (500 mg) before bedtime. Do all this for 7 days. Do not drink alcohol while taking this medication. 14 tablet 08/19/2024 08/27/19 25 Active Active Problems Problem Noted Date Diagnosed Date Well woman exam with routine gynecological exam 02/10/2024 Psoriasis 11/12/2022 Hyperinsulinemia 10/12/2022 Size of fetus inconsistent w ith dates in third trimester ([facility]) 10/12/2022 Vaginal discharge 10/12/2022 Estimated Date of Delivery Comme nts Yes 01/24/2025 Based on last me nstrual period of 04/19/2024 Encounters Date Type Department Care Team Description 08/19/2024 Abstract [facility] [address] [place] [address] Lena Cruz [place] 08/19/2024 Telephone [facility] [address] [place] [address] Lena Cruz [place] 08/18/2024 3:00 PM EDT Ancillary Procedure [facility] [address] [place] [address] Encounter to determine viability of , single or unspecified fetus ([facility]) 08/18/2024 2:30 PM EDT Routine [facility] [address] [place] [address] Amanda Jaimes PA Second trimester ([facility]); 17 weeks gestation of ([facility]); Hyperinsulinemia; Screening examination for STI; Need for maternal serum alpha-protein (MSAFP) screening ([facility]); Screening, , for anatomic survey ([facility]); Encounter to determine viability of , single or unspecified fetus ([facility]) 08/18/2024 External Result Encounter [facility] External Department Unsolicited Amanda Jaimes PA 08/18/2024 Bamboo flowsheet [facility] [address] [place] [address] Amanda Jaimes PA 08/11/2024 Clinisync Result Encounter [facility] External Department Unsolicited Viktoria Qureshi NP 07/20/2024 3:10 PM EDT Routine [facility] [address] [place] [address] Chadd Schulte, DO Nausea and vomiting in ([facility]) (Primary Dx); Second trimester ([facility]); 13 weeks gestation of ([facility]); Diabetes mellitus screening 07/20/2024 Bamboo flowsheet [facility] [address] [place] [address] Chadd Schulte, DO 07/01/2024 Abstract [facility] [address] [place] [address] Chadd Schulte, DO 06/24/2024 Clinisync Result Encounter [facility] External Department Unsolicited Chadd Schulte, DO 06/19/2024 9:30 AM EDT Initial [facility] [address] [place] [address] [place]: [id number] 06/19/2024 9:00 AM EDT Ancillary Procedure [facility] [address] [place] [address] Missed menses from Last 3 Months Family History Medical History Relation Name Comments Diabetes Father Maynor Heart disease Maternal Grandfather Alex Diabetes Paternal Grandfather Aspen Heart disease Paternal Grandmother Beatrice Relation Name Status Comments Father Maynor Maternal Grandfather Alex Paternal Grandfather Orbie Paternal Grandmother Beatrice Social History Tobacco Use Types Packs/Day Years Used Date Smoking Tobacco: Never Smokeless Tobacco: Never Tobacco Cessation:Counseling Given: Not Answered Alcohol Use Standard Drinks/Week Comments Not Currently [...] How often do you attend judaism or temple serv ices? Never 10/12/2022 Do you belong [...] Recorded Patient Health Questionnaire-2 Score 2 02/27/2023 [facility] - Occupational [...] place to sleep or slept in a fci (including now)? No 10/12/2022 Estimated Date of Delivery Comme nts Yes 01/24/2025 Based on last me nstrual period of 04/19/2024 Sex and Gender Information Value Date Recorded Sex Assigned at Female 10/08/2022 9:01 PM EDT Legal Sex Female 7:11 PM EDT Gender Identity Female 10/08/2022 9:01 PM EDT Sexual Orientation Not on file Last Filed Vital Signs Vital Sign Reading Time Taken Comments Blood Pressure 120/78 08/18/2024 2:56 PM EDT Pulse 78 08/28/2023 3:53 PM EDT Temperature 36.8 C (98.3 F) 08/28/2023 3:53 PM EDT Respiratory Rate - - Oxygen Saturation 98% 08/28/2023 3:53 PM EDT Inhaled Oxygen Concentration - - Weight 126 kg (277 lb) 08/18/2024 2:56 PM EDT Height 170.2 cm (5' 7 ) 08/28/2023 3:53 PM EDT Body Mass Index 43.38 08/28/2023 3:53 PM EDT Plan of Treatment Upcoming Encounters Date Type Department Care Team (Late st Contact Info) Description 02/15/2025 10:00 AM EST Office Visit [facility] [address] [place] [address] [place] [address] Amanda Jaimes PA [address] [place] [address] [place] [address] Health Maintenance Due Date Last Done Comments Influenza Vaccine (#1) 2024 Procedures Procedure Name Priority Date/Time Associated Diagnosis Comments RECURRENT VAGINITIS (HTRX) Routine 08/18/2024 3:28 PM EDT POCT URINALYSIS DIPSTICK Routine 08/18/2024 2:56 PM EDT Second trimester ([facility]) GLUCOSE 1 HOUR Routine 08/11/2024 4:33 PM EDT ALL CBC WITH AUTO DIFF Routine 08/11/2024 4:33 PM EDT HBSAG SCREEN Routine 06/24/2024 3:33 PM EDT RAPID PLASMA REAGIN, QUANT Routine 06/24/2024 3:33 PM EDT HCV ANTIBODY RFX TO QUANT PCR Routine 06/24/2024 3:33 PM EDT ALL RUBELLA IGG AB Routine 06/24/2024 3: 33 PM EDT HIV AB/P24 AG WITH REFLEX Routine 06/24/2024 3:33 PM EDT ALL TYPE AND SCREEN Routine 06/24/2024 3 :33 PM EDT ALL CBC WITH AUTO DIFF Routine 06/24/2024 3:33 PM EDT MLR HEMOGLOBIN A1C Routine 06/24/2024 3: 33 PM EDT BOX TEST Routine 06/24/2024 3:33 PM EDT [facility] DRUG SCREEN RAPID (URINE) Routine 06/24/2024 3:11 PM EDT POCT , URINE Routine 06/19/2024 9:47 AM EDT Missed menses POCT URINALYSIS DIPSTICK Routine 06/19/2024 9:46 AM EDT Missed menses US OB TRANSVAGINAL Routine 06/19/2024 9: 06 AM EDT Missed menses from Last 3 Months Results * (ABNORMAL) RECURRENT VAGINITIS (HTRX) (08/18/2024 3:28 PM EDT) [facility] ATOPOBIUM VAGINAE 0 19.961 - 24.689 ppm 08/19/2024 8:01 AM EDT [facility] ATOPOBIUM VAGINAE Not Detected 19.961 - 24.689 ppm 08/19/2024 8:01 AM EDT [facility] BVAB 2,3 (BACTERIAL VAGINOSIS ASSOCIATED BACTERIA 2, 3); MOBILUNCUS SPP 24.805(A) 19.961 - 24.689 ppm 08/19/2024 8:01 AM EDT [facility] BVAB 2,3 (BACTERIAL VAGINOSIS ASSOCIATED BACTERIA 2, 3); MOBILUNCUS SPP Detected(A) 19.961 - 24.689 ppm 08/19/2024 8:01 AM EDT [facility] KIERSTEN ALBICANS, PARAPSILOSIS, TROPICALIS 0 19.961 - 30.770 ppm 08/19/2024 8:01 AM EDT [facility] KIERSTEN ALBICANS, PARAPSILOSIS, TROPICALIS Not Detected 19.961 - 30.770 ppm 08/19/2024 8:01 AM EDT [facility] KIERSTEN GLABRATA 0 23.000 - 32.138 ppm 08/19/2024 8:01 AM EDT [facility] KIERSTEN GLABRATA Not Detected 23.000 - 32.138 ppm 08/19/2024 8:01 AM EDT [facility] KIERSTEN KRUSEI 0 23.000 - 32.271 ppm 08/19/2024 8:01 AM EDT [facility] KIERSTEN KRUSEI Not Detected 23.000 - 32.271 ppm 08/19/2024 8:01 AM EDT [facility] CHLAMYDIA TRACHOMATIS 0 23.000 - 31.467 ppm 08/19/2024 8:01 AM EDT [facility] CHLAMYDIA TRACHOMATIS Not Detected 23.000 - 31.467 ppm 08/19/2024 8:01 AM EDT [facility] GARDNERELLA VAGINALIS 24.549(A) 19.961 - 24.689 ppm 08/19/2024 8:01 AM EDT [facility] GARDNERELLA VAGINALIS Detected(A) 19.961 - 24.689 ppm 08/19/2024 8:01 AM EDT [facility] MEGASPHAERA (TYPES 1, 2) 0 19.961 - 24.689 ppm 08/19/2024 8:01 AM EDT [facility] MEGASPHAERA (TYPES 1, 2) Not Detected 19.961 - 24.689 ppm 08/19/2024 8:01 AM EDT [facility] NEISSERIA GONORRHOEAE 0 23.000 - 32.117 ppm 08/19/2024 8:01 AM EDT [facility] NEISSERIA GONORRHOEAE Not Detected 23.000 - 32.117 ppm 08/19/2024 8:01 AM EDT [facility] TRICHOMONAS VAGINALIS 0 23.000 - 32.119 ppm 08/19/2024 8:01 AM EDT [facility] TRICHOMONAS VAGINALIS Not Detected 23.000 - 32.119 ppm 08/19/2024 8:01 AM EDT [facility] MYCOPLASMA GENITALIUM 0 19.961 - 24.689 ppm 08/19/2024 8:01 AM EDT [facility] MYCOPLASMA GENITALIUM Not Detected 19.961 - 24.689 ppm 08/19/2024 8:01 AM EDT [facility] ERMB, C; MEFA 24.064(A) 23.000 - 27.611 ppm 08/19/2024 8:01 AM EDT [facility] ERMB, C; MEFA Detected(A) 23.000 - 27.611 ppm 08/19/2024 8:01 AM EDT [facility] TET B, TET M 25.246(A) 23.000 - 27.778 ppm 08/19/2024 8:01 AM EDT [facility] TET B, TET M Detected(A) 23.000 - 27.778 ppm 08/19/2024 8:01 AM EDT [facility] Tissue 08/18/2024 3:28 PM EDT 08/19/2024 2:58 AM EDT Amanda LEMON LAB BLOOD ORDERABLES Final Resul t [facility] [address] [place] [address] * POCT urinalysis dipstick manually resulted (08/18/2024 2:56 PM EDT) Only the most recent of2 resultswithin the time period is included. Color, UA Yellow Clarity, UA Clear Glucose, UA Negative Negative - 2000(110) ++++ mg/dL Bilirubin, UA Negative Negative - 4(70) +++ mg/dL Ketones, UA Negative Negative - 160(16) ++++ mg/dL Spec Grav, UA 1.020 1 - 1.03 Blood, UA Negative Negative - 50 Guido/mcL pH, UA 6.0 5 - 9 Protein, UA Negative Negative - 1999(20) ++++ mg/dL Urobilinogen, UA 1.0 0.2 - 12 mg/dL Leukocytes, UA Moderate Negative - 500+++ Svetlana/mcL Nitrite, UA Negative Negative - Positive Urine 08/18/2024 2:56 PM EDT us Amanda LEMON POINT OF CARE TEST ENTER/EDIT OR DERABLES Final Result * GLUCOSE 1 HOUR (08/11/2024 4:33 PM EDT) GLUCOSE 1 HOUR 120 <130 mg/dL [facility] 08/11/2024 4:33 PM EDT 08/11/2024 4:35 PM EDT Narrative CLINISYNC - 08/11/2024 5:00 PM EDT Viktoria Qureshi [employer] LAB BLOOD ORDERABLES Final Re sult [facility] * ALL CBC WITH AUTO DIFF (08/11/2024 4:33 PM EDT) Only the most recent of2 resultswithin the time period is included. Pathologist [facility] TB WBC 8.8 4.0 - 11.0 10 3/uL TBH TBH RBC 4.75 4.20 - 5.40 10 6/uL [facility] TBH HGB 13.7 12.0 - 16.0 g/dL TB TB HCT 40.9 36.0 - 48.0 % [facility]H TBH MCV 86.1 81.0 - 99.0 fL TBH TBH MCH 28.8 26.7 - 34.0 pg TBH TBH MCHC 33.5 29.9 - 35.2 g/dL TB TB RDW 14.3 11.0 - 15.0 % TBH TBH PLT 327 150 - 450 10 3/uL TBH TBH MPV 10.0 9.5 - 13.5 fL [facility]H NEUTROPHILS PERCENT AUTO 68.4 43.0 - 75.0 % TBH LYMPHOCYTES PERCENT AUTO 22.2 20.5 - 60.0 % TBH MONOCYTES PERCENT AUTO 4.8 1.7 - 12.0 % TBH TBH EO % 4.1 0.9 - 7.0 % TBH BASOPHILS PERCENT AUTO 0.3 0.2 - 2.0 % [facility] IMMATURE GRANULOCYTES PCT AUTO 0.2 0.0 - 0.5 % TBH NEUTROPHILS ABSOLUTE AUTO 6.1 1.4 - 6.5 10 3/uL TBH LYMPHOCYTES ABSOLUTE AUTO 2.0 1.2 - 3.8 10 3/uL TBH MONOCYTES ABSOLUTE AUTO 0.4 0.3 - 0.8 10 3/uL TBH TBH EO # 0.4 0.0 - 0.7 10 3/uL TBH BASOPHILS ABSOLUTE AUTO 0.0 0.0 - 0.1 10 3/uL [facility] IMMATURE GRANULOCYTES ABS AUTO 0.02 0.00 - 0.03 10 3/uL [facility] 08/11/2024 4:33 PM EDT 08/11/2024 4:35 PM EDT Narrative CLINISYNC - 08/11/2024 4:43 PM EDT Viktoria Qureshi [employer] CLINISYNC Final Result Performing Organization Address City/[facility]/ZIP Co de Phone Number [facility] * BOX TEST (06/24/2024 3:33 PM EDT) BOX TEST SENT OUT [facility] BOX1 [facility] BOX2 06/24/2024 TB 06/24/2024 3:33 PM EDT 06/24/2024 3:38 PM EDT Narrative CLINISYNC - 06/24/2024 3:50 PM EDT UNITY BOX Chadd Eris DO LAB BLOOD ORDERABLES Final Resul t Performing Organization Address [facility] Co de Phone Number [facility] * HBSAG SCREEN (06/24/2024 3:33 PM EDT) HBSAG SCREEN Negative Negative [facility] Comment: Performed at: [address] [id number] Parts Identifier: Mohan Nagy PhD, Phone: [phone] 06/24/2024 3:33 PM EDT 06/24/2024 3:38 PM EDT Narrative CLINISYNC - 06/26/2024 1:09 PM EDT Chadd Eris DO LAB BLOOD ORDERABLES Final Resul t Performing Organization Address City/[facility]/ZIP Co de Phone Number [facility] * RAPID PLASMA REAGIN, QUANT (06/24/2024 3:33 PM EDT) RAPID PLASMA REAGIN, QUANT Non Reactive NonRea<1: 1 titer [facility] Comment: Please Note: This test does not meet current guidelines for screening and diagnosis of syphilis. This test is intended for following treatment response in patients being treated for syphilis infection. To screen for syphilis infection, a reflex cascade that includes both RPR and a treponema-specific assay should be utilized, such as Treponema pallidum (Syphilis) Screening [place] (689345) or Rapid Plasma Reagin (RPR) Test With Reflex to Quantitative RPR and Confirmatory Treponema pallidum Antibodies (619117). Performed at: [address] [id number] Parts Identifier: Mohan Nagy PhD, Phone: [phone] 06/24/2024 3:33 PM EDT 06/24/2024 3:38 PM EDT Narrative CLINISYID - 06/26/2024 1:09 PM EDT us Chadd Eris DO LAB BLOOD ORDERABLES Final Resul t Performing Organization Address [facility] Co de Phone Number [facility] * HIV AB/P24 AG WITH REFLEX (06/24/2024 3:33 PM EDT) Pathologist [facility] HIV AB/P24 AG SCREEN Non Reactive Non Reactive [facility] Comment: HIV-1/HIV-2 antibodies and HIV-1 p24 antigen were NOT detected. There is no laboratory evidence of HIV infection. HIV Negative Performed at: [address] [id number] Parts Identifier: Mohan Nagy PhD, Phone: [phone] 06/24/2024 3:33 PM EDT 06/24/2024 3:38 PM EDT Narrative CLINISYNC - 06/26/2024 5:07 AM EDT Chadd Eris DO LAB BLOOD ORDERABLES Final Resul t Performing Organization Address [facility]/ZIP Co de Phone Number [facility] * HCV ANTIBODY RFX TO QUANT PCR (06/24/2024 3:33 PM EDT) Pathologist [facility] HCV AB Non Reactive Non Reactive [facility] INTERPRETATION: Comment . TB Comment: Not infected with HCV unless early or acute infection is suspected (which may be delayed in an immunocompromised individual), or other evidence exists to indicate HCV infection. 06/24/2024 3:33 PM EDT 06/24/2024 3:38 PM EDT Narrative CLINISYNC - 06/26/2024 6:07 AM EDT us Chadd Eris DO LAB BLOOD ORDERABLES Final Resul t [facility] * MLR HEMOGLOBIN A1C (06/24/2024 3:33 PM EDT) [facility] GLYCOHEMOGLOBIN A1C 5.6 4.5 - 6.2 % [facility] Comment: ADA RECOMMENDED LIMIT 4.0 - 6.0 ADA THERAPEUTIC TARGET < 7.0 ACTION SUGGESTED > 7.0 ESTIMATED AVERAGE GLUCOSE 114 mg/dL [facility] 06/24/2024 3:33 PM EDT 06/24/2024 3:38 PM EDT Narrative CLINISYNC - 06/24/2024 4:02 PM EDT us Chadd Eris DO CLINISYNC Final Result Performing Organization Address City/[facility]/ZIP Co de Phone Number [facility] * ALL TYPE AND SCREEN (06/24/2024 3:33 PM EDT) Pathologist [facility] BLOOD TYPE AB Positive TB ANTIBODY SCREEN NEGATIVE TB 06/24/2024 3:33 PM EDT 06/24/2024 3:38 PM EDT Narrative CLINISYNC - 06/24/2024 6:12 PM EDT [facility] , us Chadd Eris DO CLINISYNC Final Result Performing Organization Address City/[facility]/ZIP Co de Phone Number [facility] * ALL RUBELLA IGG AB (06/24/2024 3:33 PM EDT) RUBELLA ANTIBODIES, IGG 4.39 Immune >0.99 index [facility] Comment: Non-immune <0.90 Equivocal 0.90 - 0.99 Immune >0.99 Performed at: - [address] [id number] Parts Identifier: Mohan Nagy PhD, Phone: [phone] 06/24/2024 3:33 PM EDT 06/24/2024 3:38 PM EDT Narrative CLINISYNC - 06/26/2024 6:07 AM EDT Chadd Dupreeo DO CLINISYNC Final Result [facility] * TB DRUG SCREEN RAPID (URINE) (06/24/2024 3:11 PM EDT) CANNABINOID SCREEN URINE NEGATIVE NEGATIVE TBH PHENCYCLIDINE SCREEN URINE NEGATIVE NEGATIVE TBH COCAINE SCREEN URINE NEGATIVE NEGATIVE TB[facility] METHAMPHETAMINES SCREEN URINE NEGATIVE NEGATIVE TBH OPIATE SCREEN URINE NEGATIVE NEGATIVE TBH AMPHETAMINE SCREEN URINE NEGATIVE NEGATIVE TBH BENZODIAZEPINES SCREEN URINE NEGATIVE NEGATIVE TBH TRICYCLIC ANTIDEPRESSANT URINE NEGATIVE NEGATIVE TBH METHADONE SCREEN URINE NEGATIVE NEGATIVE TBH BARBITURATES SCREEN URINE NEGATIVE NEGATIVE TBH OXYCODONE SCREEN URINE NEGATIVE NEGATIVE TBH BUPRENORPHINE SCREEN URINE NEGATIVE NEGATIVE [facility] Comment: DRUG CLASS TEST SYSTEM CUT-OFF CONCENTRATIONS ARE FOLLOWS: AMP (Amphetamine): 500 ng/mL BAR (Barbiturates): 200 ng/mL BZO (Benzodiazepines): 150 ng/mL BUP (Buprenorphine): 10 ng/mL ESA (Cocaine): 150 ng/mL mAMP (Methamphetamine): 500 ng/mL MTD (Methadone): 200 ng/mL OPI (Opiates): 100 ng/mL OXY (Oxycodone): 100 ng/mL PCP (Phencyclidine): 25 ng/mL THC (Cannabinoids): 50 ng/mL TCA (Trycyclic Antidepressants): 300 ng/mL 06/24/2024 3:11 PM EDT 06/24/2024 3:38 PM EDT Narrative CLINISYNC - 06/24/2024 4:33 PM EDT us Chadd Eris DO CLINISYNC Final Result [facility] * (ABNORMAL) POCT , urine manually resulted (06/19/2024 9:47 AM EDT) Preg Test, Ur Positive Negative Urine 06/19/2024 9:47 AM EDT us Chadd Eris DO POINT OF CARE TEST ENTER/EDIT OR DERABLES Final Result * US OB transvaginal (06/19/2024 9:06 AM EDT) Anatomical Region Laterality Modality Body Ultrasound 06/21/2024 8:23 PM EDT Narrative 06/21/2024 8:23 PM EDT EXAM: US OB TRANSVAGINAL HISTORY: Dating. . LMP 04/19/2024. COMPARISON: None. TECHNIQUE: Two-dimensional transvaginal grayscale and color Doppler ultrasound imaging of the pelvis was performed. FINDINGS: The uterus demonstrates a normal homogeneous echotexture. The cervical os is closed. The right ovary is not identified. The left ovary measures 3.3 x 1.9 x 2.6 cm and demonstrates a normal echotexture. There is normal color Doppler flow. No fluid is present within the cul-de-sac. There is a single, live intrauterine gestation identified with a heart rate of 173 beats per minute and a crown-rump length measurement of 1.9 cm, correlating to a gestational age of 8 weeks 3 days (+/- 5 days). There is no subchorionic hemorrhage visualized. A yolk sac is visualized. IMPRESSION: 1. Single, live intrauterine gestation 8 weeks, 5 days by LMP. Today's ultrasound measurements correlate with a gestational age of 8 weeks 3 days (+/- 5 days). ANA LAURA by today's ultrasound is 01/26/2025. 2. Nonvisualization of the right ovary. Interpreted by: Electronically signed by RAJNI HOLLIS II, MD, PHD at 21-Jun-2024 08:21:55 PM [facility] [place] Procedure Note Rajni Hollis MD - 06/21/2024 EXAM: US OB TRANSVAGINAL HISTORY: Dating. . LMP 04/19/2024. COMPARISON: None. TECHNIQUE: Two-dimensional transvaginal grayscale and color Dopplerultrasound imaging of the pelvis was performed. FINDINGS: The uterus demonstrates a normal homogeneous echotexture. The cervical osis closed. The right ovary is not identified. The left ovary measures 3.3 x 1.9 x 2.6 cm and demonstrates a normalechotexture. There is normal color Doppler flow. No fluid is present within the cul-de-sac. There is a single, live intrauterine gestation identified with a fetalheart rate of 173 beats per minute and a crown-rump length measurement of1.9 cm, correlating to a gestational age of 8 weeks 3 days (+/- 5 days).There is no subchorionic hemorrhage visualized. A yolk sac isvisualized. IMPRESSION: 1. Single, live intrauterine gestation 8 weeks, 5 days by LMP. Today'sultrasound measurements correlate with a gestational age of 8 weeks 3days (+/- 5 days). ANA LAURA by today's ultrasound is 01/26/2025. 2. Nonvisualization of the right ovary. Interpreted by: Electronically signed by RAJNI HOLLIS II, MD, PHD [id number] 08:21:55 PM [facility] [place] us Chadd Eris DO IMG OB US PROCEDURES Final Resul t from Last 3 Months Insurance [address] [place] [address] [employer] Care Teams Ssn/Ssbn Assistant Navigator Relationship Specialty Start Date End Date Tawny Gu MD [address] [place] [address] PCP - General Family Medicine 08/08/23 Amanda Jaimes PA [address] [place] [address] [place] [address] PCP - Medical [place] [employer] 01/12/24 02/10/99
--- OUTSIDE RECORDS SUMMARY | 2024-08-20 08:23 | XMS_ITS | Encounter Summary ---
Author Organization [facility] Address [address] [place] [address] Care Team Providers Care Molder Foam Rubber Name Role Phone Chiara Herring SEWING MACHINE REPAIRER HELPER Unavailable [phone] Tawny Gu MD Primary Care Provider [phone] Amanda Jaimes Unavailable Encounter Details Date Type Department Care Team (Late st Contact Info) Description 07/19/2022 Abstract [facility] OB [address] [place] [address] Chadd Schulte DO [address] [place] [address] Social History Tobacco Use Types Packs/Day Years Used Date Smoking Tobacco: Never Assessed Comments Unknown Sex and Gender Information Value Date Recorded [...] Visit [facility] OB [address] [place] [address] Amanda Jaimes PA [address] [place], [place] [id number] documented as of this encounter Visit Diagnoses Not on filedocumented in this encounter Care Teams Molder [employer]am [employer] Relationship Specialty Start Date End Date Chiara Herring SEWING MACHINE REPAIRER HELPER [address] [place] [address] PCP - [place] [employer] 12/12/2201/10 Tawny Gu MD [address] [place] [address] PCP - General Family Medicine 08/08/23 Amanda Jaimes PA [address] [place] [address] [place] [address] PCP - Medical [place] [employer] 01/12/24 02/10/99 documented as of this encounter
--- OUTSIDE RECORDS SUMMARY | 2024-08-20 08:23 | XMS_ITS | Encounter Summary ---
Author Organization [facility] Address [address] [place] [address] Care Team Providers Care Fraternity House Cook Name Role Phone Tawny Gu MD Primary Care Provider [phone] Amanda Jaimes Unavailable Encounter Details Date Type Department Care Team (Late st Contact Info) Description 08/18/2024 Bamboo flowsheet [facility] [address] [facility] [place] [address] Amanda Jaimes PA [address] [facility] [address] [place], [facility] Social History Tobacco Use Types Packs/Day Years [...] week 10/12/2022 How often do you attend taoist or scientology serv ices? Never 10/12/2022 Do you belong to any clubs o r organizations such as taoist groups, unions, fraternal or athletic groups, or [...] Recorded Patient Health Questionnaire-2 Score 2 02/27/2023 [facility] - Occupational Stress Questionnaire Answer Date Recorded [...] Visit [facility] OB [address] [facility] [place] [id number] Amanda Jaimes PA [address] [facility] [place] [address] documented as of this encounter Visit Diagnoses Not on filedocumented in this encounter Care Teams Fraternity House Cook Relationship Specialty Start Date End Date Tawny Gu MD [address] [place] [address] PCP - General Family Medicine 08/08/23 Amanda Jaimes PA [address] [facility] [place] [address] PCP - Medical [place] [employer] 01/12/24 02/10/99 documented as of this encounter
--- OUTSIDE RECORDS SUMMARY | 2024-08-20 08:23 | XMS_ITS | Encounter Summary ---
Author Organization [facility] Address [address] [place] [address] Care Team Providers Care Design Technology Professor Name Role Phone Tawny Gu MD Primary Care Provider [phone] Amanda Jaimes Unavailable Encounter Details Date Type Department Care Team (Late st Contact Info) Description 08/11/2024 Clinisync Result Encounter [facility] External Department Unsolicited Viktoria Qureshi, DEEPALI [address] [facility] [place] [address] Social History Tobacco Use Types Packs/Day Years [...] week 10/12/2022 How often do you attend mandaeism or roman catholic serv ices? Never 10/12/2022 Do you belong to any clubs o r organizations such as mandaeism groups, unions, fraternal or athletic groups, or [...] Recorded Patient Health Questionnaire-2 Score 2 02/27/2023 [facility] Occupat ional Health - Occupational [...] place to sleep or slept in a alf (including now)? No 10/12/2022 Estimated Date of [...] Office Visit [facility] BCP OB [address] [facility] [address] Amanda Jaimes PA [address] [facility] [place] [address] documented as of this encounter Procedures Procedure Name Priority Date/Time Associated Diagnosis Comments GLUCOSE 1 HOUR Routine 08/11/2024 4:33 PM EDT ALL CBC WITH AUTO DIFF Routine 08/11/2024 4:33 PM EDT documented in this encounter Results * GLUCOSE 1 HOUR (08/11/2024 4:33 PM EDT) GLUCOSE 1 HOUR 120 <130 mg/dL [facility] 08/11/2024 4:33 PM EDT 08/11/2024 4:35 PM EDT Narrative MICHAEL - 08/11/2024 5:00 PM EDT Viktoria Qureshi SPECIAL EDUCATOR LAB BLOOD ORDERABLES Final Re sult [facility] * ALL CBC WITH AUTO DIFF (08/11/2024 4:33 PM EDT) Pathologist [facility] WBC 8.8 4.0 - 11.0 10 3/uL [facility] RBC 4.75 4.20 - 5.40 10 6/uL [facility] HGB 13.7 12.0 - 16.0 g/dL [facility] HCT 40.9 36.0 - 48.0 % [facility] MCV 86.1 81.0 - 99.0 fL [facility] MCH 28.8 26.7 - 34.0 pg TBH [facility] MCHC 33.5 29.9 - 35.2 g/dL [facility] RDW 14.3 11.0 - 15.0 % [facility] [...] Narrative [facility] - 08/11/2024 4:43 PM EDT us Viktoria Qureshi SPECIAL EDUCATOR [facility] Final [facility] documented in this encounter Visit Diagnoses Not on filedocumented in this encounter Care Teams Design Technology Professor Relationship Specialty Start Date End Date Tawny Gu MD [address] [place] [address] PCP - General Family Medicine 08/08/23 Amanda Jaimes PA [address] [place] [address] [place] [address] PCP - Medical [place] [employer] 01/12/24 02/10/99 documented as of this encounter
--- OUTSIDE RECORDS SUMMARY | 2024-08-20 08:23 | XMS_ITS | Encounter Summary ---
Author Organization [facility] Address [address] [place] [address] Care Team Providers Care Provider Relations Advocate Name Role Phone Tawny Gu MD Primary Care Provider [phone] Amanda Jaimes Unavailable Encounter Details Date Type Department Care Team (Late st Contact Info) Description 02/27/2024 Orders Only [facility] OB [address] [facility] [place] [address] Gabby Stanton [place] [address] [facility] [place] [address] Social History Tobacco Use Types Packs/Day Years [...] week 10/12/2022 How often do you attend christianity or congregation serv ices? Never 10/12/2022 Do you belong to any clubs o r organizations such as christianity groups, unions, fraternal or athletic groups, or [...] Recorded Patient Health Questionnaire-2 Score 2 02/27/2023 [facility] - Occupational Stress Questionnaire Answer Date Recorded [...] place to sleep or slept in a nursing home (including now)? No 10/12/2022 Comments Unknown Sex and Gender Information Value [...] [address] [facility] [place] [address] Amanda Jaimes PA [address] [facility] [address] [place], [place] [id number] documented as of this encounter Procedures Procedure Name Priority Date/Time Associated Diagnosis Comments PAP SMEAR Routine 02/10/2024 12:00 AM EST documented in this encounter Results * Pap Smear (02/10/2024 12:00 AM EST) Swab Cervical swab / Unknown us Amanda [facility] CYTOLOGY ORDERABLES Final Re sult [facility] documented in this encounter Visit Diagnoses Not on filedocumented in this encounter Care Teams Provider Relations Advocate Relationship Specialty Start Date End Date Tawny Gu MD [address] [place] [address] PCP - General Family Medicine 08/08/23 Amanda Jaimes PA [address] [place] [address] [place] [address] PCP - Medical [place] [employer] 01/12/24 02/10/99 documented as of this encounter
--- NOTE | 2024-08-20 08:46 | US_ITS ---
[address] [address] Patient Name: LALA HALL MRN: [id number] date: 1995 Sex: F Assigned Patient Location: [facility] Current Patient Location: [facility] Accession/Order Number: [id number] Exam Date: 08/20/2024 09:46 Report Date: 08/20/2024 09:50 At the request of: ROSEY JERONIMO DO Procedure: US OB limited ULTRASOUND OB LIMITED COMPARISON: None CLINICAL DATA: Study to confirm demise There is a gestational sac within the uterus. A fetus is present in breech presentation. No cardiac activity was documented. Measurements were obtained and are as follows: Biparietal diameter 1.6 cm 12 weeks 3 days less than 3% Head circumference 6.7 cm 12 weeks 5 days less than 3% Abdominal circumference 5.9 cm 12 weeks 5 days less than 3% Femur length 1.2 cm 13 weeks 4 days less than 3% The composite ultrasound age based on these measurements is 12 weeks 6 days +/- 6 days. US/US OB limited IMPRESSION: NONVIABLE 12 WEEK 6 DAY INTRAUTERINE GESTATION. Impression dictated by: Moira Bower M.D. 08/20/2024 9:50 AM Dictation Location: [place] [address] Electronically authenticated by: [id number] Y Date: 08/20/2024 09:50
[2024-08-20 09:20] LABS: Hematocrit 43.8 % (36.0-48.0); Hemoglobin 14.6 g/dL (12.0-16.0); Immature Granulocytes Abs Auto 0.02 10^3/uL (0.00-0.03); Immature Granulocytes Pct Auto 0.3 % (0.0-0.5); Lymphocytes Absolute Auto 1.6 10^3/uL (1.2-3.8); Mean Corpuscular HGB Conc 33.3 g/dL (29.9-35.2); Mean Corpuscular Hemoglobin 28.5 pg (26.7-34.0); Mean Corpuscular Volume 85.5 fL (81.0-99.0); Platelet Count 289 10^3/uL (150-450); Red Blood Count 5.12 10^6/uL (4.20-5.40); White Blood Count 7.4 10^3/uL (4.0-11.0)
[2024-08-20] MEDS: MISOPROSTOL 100 MCG TABLET 400 MCG VAGINAL ×2 (10:04→13:33)
[2024-08-20 10:35] LABS: INR 0.97; Partial Thromboplastin Time 33.3 sec (22.3-36.2); Prothrombin Time 10.3 sec (9.0-11.6)
[2024-08-20 10:39] LABS: Fibrinogen 415 mg/dL (200-400)
[2024-08-20] MEDS: MEPERIDINE HCL/PF 25 MG/ML VIAL IM (15:30)
--- NOTE | 2024-08-20 17:25 | US_ITS ---
The [address] [address] Patient Name: LALA HALL MRN: [id number] date: 1995 Sex: F Assigned Patient Location: [facility] Current Patient Location: [facility] Accession/Order Number: [id number] Exam Date: 08/20/2024 18:28 Report Date: 08/20/2024 18:30 At the request of: ROSEY JERONIMO DO Procedure: US pelvis PELVIS, TRANSABDOMINAL INDICATION: demise, evaluate for retained products of conception. COMPARISON: 08/17/2024 FINDINGS: Uterus 14.7 x 6.1 x 6.5 cm in size. Echogenic intrauterine soft tissue with increased vascularity centrally 4 x 1 x 4.9 x 3.8 cm in size. At level of cervix, there is identified echogenic focus measuring 5.8 x 5.1 x 6.9 cm in size. Ovaries are not visualized. US/US pelvis IMPRESSION: Echogenic material within the uterus and the level cervix with the material within the uterus demonstrate increased vascularity worrisome for retained products. Impression dictated by: Triston Rodriguez M.D. 08/20/2024 6:30 PM Dictation Location: [place] [address] Electronically authenticated by: [id number] Y Date: 08/20/2024 18:30
[2024-08-20] MEDS: KETOROLAC TROMETHAMINE 30 MG/ML VIAL IVP (17:55)
[2024-08-20] MEDS: 0.9 % SODIUM CHLORIDE 1,000 ML 125 ML IV ×2 (20:04→23:38)
[2024-08-20 20:43] LABS: Hematocrit 37.3 % (36.0-48.0); Hemoglobin 12.6 g/dL (12.0-16.0); Immature Granulocytes Abs Auto 0.04 10^3/uL (0.00-0.03); Immature Granulocytes Pct Auto 0.4 % (0.0-0.5); Lymphocytes Absolute Auto 1.3 10^3/uL (1.2-3.8); Mean Corpuscular HGB Conc 33.8 g/dL (29.9-35.2); Mean Corpuscular Hemoglobin 28.6 pg (26.7-34.0); Mean Corpuscular Volume 84.8 fL (81.0-99.0); Platelet Count 253 10^3/uL (150-450); Red Blood Count 4.40 10^6/uL (4.20-5.40); White Blood Count 11.4 10^3/uL (4.0-11.0)
--- NOTE | 2024-08-20 21:06 | US_ITS ---
[address] [address] Patient Name: LALA HALL MRN: [id number] date: 1995 Sex: F Assigned Patient Location: [facility] Current Patient Location: [facility] Accession/Order Number: [id number] Exam Date: 08/20/2024 23:19 Report Date: 08/20/2024 23:22 At the request of: ROSEY JERONIMO DO Procedure: US pelvis Transabdominal pelvic ultrasound COMPARISON: Pelvic ultrasound 08/20/2024: Check postop retained products FINDINGS: Single grayscale image of the uterus demonstrates no definite echogenic soft tissue within the uterus. No color flow images were sent US/US pelvis IMPRESSION: No definite abnormal echogenicity within the endometrium to suggest retained products. Impression dictated by: Triston Rodriguez M.D. 08/20/2024 11:22 PM Dictation Location: [place] [address] Electronically authenticated by: [id number] Y Date: 08/20/2024 23:22
--- NOTE | 2024-08-20 21:10 | PM.ONB ---
Brief Operative Note Date of procedure: 08/20/24 Pre-op diagnosis general: retained products of conception Post-op diagnosis: same as pre-op Procedure: NAME OF PROCEDURE: [D&C suction ] PROCEDURE: The patient was taken back to the OR where she was given general anesthesia without difficulty. She was then placed in dorsal lithotomy position, prepped and draped in the normal sterile fashion. A weighted speculum was placed in the patient's vagina and the anterior lip of the cervix was identified and grasped with a single-tooth tenaculum. The patient was then gently dilated using Hegar dilators after we had sounded roughly to 12 cm. The suction curette was then tested. The suction curette was then placed in the patient's uterus and products of conception were removed using an 10-Bermudian suction curette. ?Excellent hemostasis was noted. The patient tolerated the procedure well. Sponge, lap, and needle counts were correct x 2. All instruments were then removed from the patient's vagina. The patient was taken to the Recovery Room in stable condition. ?? Anesthesia: JULIO CESARA Surgeon: Chadd Schulte Estimated blood loss (mL): 20 Pathology: other (poc) Condition: stable Disposition: PACU Urinary Catheter Management Urinary Catheter Management Straight: Cath placed during this visit: no
--- NOTE | 2024-08-20 22:00 | PC.NURSE ---
at 20:20 1st unit of blood started reason vaginal bleeding and low blood pressure 87/52
--- NOTE | 2024-08-20 22:06 | PC.NURSE ---
IV SITE RIGHT WRIST PATENT WITHOUT REDNESS OR EDEMA
--- NOTE | 2024-08-20 22:09 | PC.NURSE ---
Diaper pad noted to have small amount bleeding; no active bleeding noted
--- NOTE | 2024-08-20 22:12 | PC.NURSE ---
2nd IV site right wrist patent; no active vaginal bleeding noted
--- NOTE | 2024-08-20 22:15 | PC.NURSE ---
IV site right wrist patent; no active vaginal drainage
--- NOTE | 2024-08-20 22:16 | SUR.HOLD ---
Patient hemorrhaging post delivery of demise. Unit [facility] #[id number] Verified by David Venegas RN and David Pena RN and initiated at 2019 on 08/20/2024. Unit # [id number] infused and stopped at 2034. Patient taken to OR. Second Unit # [id number] started at [address] Al Keller . Unit W [id number] stopped at 2112 Per Lili Appiah CRNA in OR.
--- NOTE | 2024-08-20 22:18 | PC.NURSE ---
IV site right wrist patent; no active vaginal drainage noted
--- NOTE | 2024-08-20 22:20 | PC.NURSE ---
No active vaginal drainage noted; pericare given and clean diaper applied. IVsite right wrist patent and intact
--- NOTE | 2024-08-20 22:23 | PC.NURSE ---
Diaper in place and dry. IV site in right wrist without redness or edema
--- NOTE | 2024-08-20 22:57 | PC.NURSE ---
Patient hemorrhaging post delivery of demise. Unit PRBC #[id number] Verified by David Venegas RN and David Pena RN and initiated at 2019 on 08/20/2024. Unit # [id number] infused and stopped at 2034. Patient taken to OR. Second Unit # [id number] started at [address] Al Keller . Unit W [id number] stopped at 2112 Per Lili Appiah CRNA in OR.
[2024-08-20 23:33] LABS: Hemoglobin 12.7 g/dL (12.0-16.0)
[2024-08-21] VITALS (16 sets, daily range): BP systolic 80–123; BP diastolic 50–75; PULSE 73–118; TEMP 36.5; O2SAT 95
--- NOTE | 2024-08-21 03:07 | PC.NURSE ---
1929: Care and report relinquished from LUDIVINA ACEVEDO. 1944: Patient sitting up in bed vomiting. RN at bedside with patient. BP 93/60. Pulse 142bpm. Patient diaphoretic and pale. Patient states that she is a little lightheaded/dizzy . RN gets patient cool wet rags and offers Phenergan. 1949: Patient states that she is feeling better, just hot and tired . Patient declines Phenergan at this time. Inge Odonnell RN gets patient box fan and ice water. 1954: RN assess patient fundus. RN has patient do a small push. Two moderate sized clots come out with push, followed by a moderate stream of blood. Uterus U/1 and firm. 1958: RN notifies Dr. Schulte of bleeding and patient's current status. Dr. Schulte orders to call surgical team and get patient prepped to go to the OR for a D&C. 1999: Inge Odonnell RN goes into patient room to update on plan of care. Patient pallor, diaphoretic and not responding. Patient eyes rolling to back of head. RN lays patient flat, does sternal rub. Patient not responding. Inge Odonnell RN yells out for help from other nurses. 2000: LUDIVINA ACEVEDO calling OR team to take patient back for D&C, per Dr. Schulte orders. 2002: Lara Alvarado and Sofia Segal RN arrive into patient room. Lara Alvarado RN assists Inge Odonnell RN to get patient into Trendelenburg position. Sofia Segal RN collects IV equipment to begin a second line. 2003: LUDIVINA ACEVEDO calls Dr. Schulte to confirm that he is on his way to the hospital. 2004: Lara Alvarado RN starts a pressured bag of gravity flow Normal Saline. Inge Odonnell RN attempts 2 IV locations which were unsuccessful. 2005: LUDIVINA ACEVEDO goes to ER and obtains the blood rapid infuser and 2 units of blood from lab. Another IV site attempted by Lara Alvarado RN which was unsuccessful. 2006: Dr. Schulte, LUDIVINA ACEVEDO, Lab, Hospital supervisor pig machine and ER staff arrives to patient's room. Dr. Schulte manually expels clots. Patient remains diaphoretic, pale, and lethargic. BP 87/52. Pulse 91bpm. KRISTINA RN attempts two more IV sites which were unsuccessful. 2009: Patient more alert & color slowly returning to lips/face. Dr. Schulte goes over plan of care and has patient sign surgical consent. 2019: 1 unit of blood started by Win Cedillo RN. 2021: Inge Odonnell RN remains at bedside with patient. Patient alert, oriented, and cheeks/lips are pink. Updated on plan of care. Patient agrees. 2028: Lab drawing blood for CBC per Dr. Schulte orders. 2029: Win Cedillo RN successfully places 20G IV in right wrist. 2031: Davide Keller, Anesthesiologist, arrives to patient's room to educate patient and go over plan of care. Patient blood products transferred to pressure bag and gravity flow for transport to OR. 2034: Surgical team arrives to patient room. Patient wheeled back to OR by surgical team.
[2024-08-21 04:07] LABS: Immunoglobulin G, Qn 791 mg/dL (586-1602); Immunoglobulin M, Q 183 mg/dL (26-217)
[2024-08-21 07:07] LABS: Hematocrit 34.0 % (36.0-48.0); Hemoglobin 11.6 g/dL (12.0-16.0); Immature Granulocytes Abs Auto 0.06 10^3/uL (0.00-0.03); Immature Granulocytes Pct Auto 0.6 % (0.0-0.5); Lymphocytes Absolute Auto 0.9 10^3/uL (1.2-3.8); Mean Corpuscular HGB Conc 34.1 g/dL (29.9-35.2); Mean Corpuscular Hemoglobin 28.9 pg (26.7-34.0); Mean Corpuscular Volume 84.8 fL (81.0-99.0); Platelet Count 266 10^3/uL (150-450); Red Blood Count 4.01 10^6/uL (4.20-5.40); White Blood Count 9.7 10^3/uL (4.0-11.0)
[2024-08-21] MEDS: 0.9 % SODIUM CHLORIDE 1,000 ML 125 ML IV (08:46)
--- NOTE | 2024-08-21 09:39 | PM.OBPN ---
OB - PN: Subj Subjective Patient comments: no complaints, pain well controlled and tolerating diet Exam Constitutional Vital Signs, click to edit/add: Last Vital Signs Temp 97.7 F 08/21/24 04:18 Pulse 100 H 08/21/24 08:43 Resp 16 08/20/24 23:03 BP 123/75 08/21/24 08:43 Pulse Ox 95 08/21/24 04:18 O2 Del Method Room Air 08/20/24 22:00 Documenting provider has reviewed patient's vital signs: yes Common normals: no apparent distress Respiratory Common normals: normal respiratory effort and clear to auscultation bilaterally Cardio Common normals: regular rate and regular rhythm GI Common normals: Normal to inspection, nondistended, normoactive bowel sounds present Extremity Common normals: no clubbing, cyanosis or edema and no calf tenderness Results Labs Labs: Short CBC 08/20/24 08/20/24 08/21/24 Range/Units 20:29 23:26 06:28 WBC 11.4 H 9.7 (4.0-11.0) 10^3/uL Hgb 12.6 12.7 11.6 L (12.0-16.0) g/dL Hct 37.3 34.0 L (36.0-48.0) % Plt Count 253 266 (150-450) 10^3/uL Urinary Catheter Management Urinary Catheter Management Straight: Cath placed during this visit: no OB - PN: A/P Assessment and Plan (1) Retained products of conception: (2) Acute blood loss anemia: Plan dc home, precuations given, labs reviewed, Time Spent with Patient Time: Total time spent is greater than 50% in coordination of care (as documented) at patient's floor/unit and/or counseling patient: Total time spent with greater than 50% in coordination of care (as documented) at patient's floor/unit and/or counseling patient: less than 15 minutes
== END 2024-08-21 14:00 | disposition home or self-care (01) | DRG 770 ==
PROVIDERS: Admitting Provider Obstetrics & Gynecology; PCP Nurse Practitioner Family; Visit Provider Obstetrics & Gynecology
PROC: 10D17ZZ Extraction of Products of Conception, Retained, Via Natural or Artificial Opening (ICD-10-PCS; principal; 2024-08-20 20:30)
DX: O02.1 Missed abortion (principal); D62 Acute posthemorrhagic anemia; O99.211 Obesity complicating pregnancy, first trimester; E66.01 Morbid (severe) obesity due to excess calories; Z3A.13 13 weeks gestation of pregnancy
CPT/HCPCS: 36415; 36430; 76815; 76856; 81241; 81291; 82784; 83090; 85018; 85025; 85300; 85384; 85610; 85730; 86850; 86900; 86901; 88305; J0330; J1100; J1885; J2175; J2250; J2371; J2405; J2590; J2704; J3010; P9016

== ENCOUNTER 2024-08-27 10:55 | Outpatient (OUT) | payer OTHER, SELFPAY ==
--- OUTSIDE RECORDS SUMMARY | 2024-08-18 14:30 | XMS_ITS | Encounter Summary ---
Author Organization [facility] Address [address] [place] [address] Care Team Providers Care Polishing Machine Operator Helper Name Role Phone Tawny Gu MD Primary Care Provider [phone] Amanda Jaimes Unavailable Reason for Visit * Reason Comments Routine Visit Encounter Details Date Type Department Care Team (Late st Contact Info) Description 08/18/2024 2:30 PM EDT Routine [facility] OB [address] [facility] [address] Amanda Jaimes PA [address] [facility] [place] [address] Second trimester ([facility]); 17 weeks gestation of ([facility]); Hyperinsulinemia; Screening examination for STI; Need for maternal serum alpha-protein (MSAFP) screening ([facility]); Screening, , for anatomic survey ([facility]); Encounter to determine viability of , single or unspecified fetus ([facility]) Social History Tobacco Use Types Packs/Day Years [...] week 10/12/2022 How often do you attend judaism or taoist serv ices? Never 10/12/2022 Do you belong to any clubs o r organizations such as judaism groups, unions, fraternal or athletic groups, or [...] Recorded Patient Health Questionnaire-2 Score 2 02/27/2023 [facility] [place] of Occupat ional Health - Occupational Stress [...] place to sleep or slept in a half-way (including now)? No 10/12/2022 Comments Yes Sex and Gender Information Value Date Recorded [...] fetus inconsistent with dates in third trimester ([facility]) 10/12/2022 Vaginal discharge 10/12/2022 Psoriasis 11/12/2022 Well [...] nursing note reviewed. Exam conducted with a support representative present. Vitals: Estimated body mass index is 43.54 kg/m² as calculated from the following: Height as of 08/28/23: 5' 7 . Weight as of 07/20/24: 278 lb. BP: Patient's last menstrual period was 04/19/2024. ASSESSMENT & PLAN ICD-10-CM 1. Second trimester ([facility]) Z34.92 POCT urinalysis dipstick manually resulted 2. 17 weeks gestation of ([facility]) Z3A.17 3. 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 Screening examination for STI Z11.3 SURESWAB(R) ADVANCED VAGINITIS PLUS, TMA CHLAMYDIA TRACHOMATIS (GENITO/STI) Neisseria gonorrhea DNA probe, direct 5. Need for maternal serum alpha-protein (MSAFP) screening ([facility]) Z36.1 Alpha fetoprotein, maternal Alpha fetoprotein, maternal 6. Screening, , for anatomic survey ([facility]) Z36.89 US OB 14+ weeks anatomy scan [...] 02/15/2025 10:00 AM EST Office Visit [facility] OB [address] [address] Amanda Jaimes PA [address] [facility] [place] [address] Scheduled Orders Name Type Priority Associated Diagnoses Orde r Schedule SURESWAB(R) ADVANCED VAGINITIS PLUS, TMA Pathology and Cytology Routine Screening examination for STI Ordered: 08/18/2024 CHLAMYDIA TRACHOMATIS (GENITO/STI) Lab Routine Screening examination for STI Ordered: 08/18/2024 Neisseria gonorrhea DNA probe, direct Lab Routine Screening examination for STI Ordered: 08/18/2024 US OB 14+ weeks anatomy scan Imaging Routine Screening, , for anatomic survey ([facility]) Expected: 08/18/2024, Expires: 11/18/2024 Alpha fetoprotein, maternal Lab Routine Need for maternal serum alpha-protein (MSAFP) screening ([facility]) Expected: 08/18/2024 (Approximate), Expires: 09/18/2024 documented as of this encounter Procedures Procedure Name Priority Date/Time Associated Diagnosis Comments POCT URINALYSIS DIPSTICK Routine 08/18/2024 2:56 PM EDT Second trimester ([facility]) documented in this encounter Results * POCT [...] this encounter Visit Diagnoses Diagnosis Second trimester ([facility]) state, incidental 17 weeks gestation of ([facility]) Hyperinsulinemia Encounter to determine viability of , single or unspecified fetus ([facility]) Need for maternal serum alpha-protein (MSAFP) screening ([facility]) Screening, , for anatomic survey ([facility]) Encounter for anatomic survey documented in this encounter Care Teams Polishing Machine Operator Helper Relationship Specialty Start Date End Date Tawny Gu MD [address] [place] [address] PCP - General Family Medicine 08/08/23 Amanda Jaimes PA [address] [place] [address] [place] [address] PCP - Medical [place] [employer] 01/12/24 02/10/99 documented as of this encounter
--- OUTSIDE RECORDS SUMMARY | 2024-08-18 15:00 | XMS_ITS | Encounter Summary ---
Author Organization [facility] Address [address] [place] [address] Care Team Providers Care [employer] Glazer Name Role Phone Tawny Gu MD Primary Care Provider [phone] Amanda Jaimes Unavailable Encounter Details Date Type Department Care Team (Latest Contact Info) Description 08/18/2024 3:00 PM EDT Ancillary Procedure [facility] OB [address] [facility] [place] [address] Encounter to determine viability of , single or unspecified fetus ([facility]) Social History Tobacco Use Types [...] week 10/12/2022 How often do you attend faith or restorationism serv ices? Never 10/12/2022 Do you belong to any clubs o r organizations such as faith groups, unions, fraternal or athletic groups, or [...] Recorded Patient Health Questionnaire-2 Score 2 02/27/2023 [facility] - Occupational Stress Questionnaire Answer Date Recorded [...] place to sleep or slept in a senior living (including now)? No 10/12/2022 Comments Yes Sex [...] 02/15/2025 10:00 AM EST Office Visit [facility] OB [address] [facility] [address] Amanda Jaimes PA [address] [facility] [place] [address] documented as of this encounter Procedures Procedure Name Priority Date/Time Associated Diagnosis Comments US OB LIMITED 1+ FETUSES Routine 08/18/2024 4:00 PM EDT Encounter to determine viability of , single or unspecified fetus ([facility]) documented in this encounter Results * US OB limited 1+ fetuses (08/18/2024 4:00 PM EDT) Anatomical Region Laterality Modality Body Ultrasound 08/20/2024 12:5 6 PM EDT Impressions 08/20/2024 1:16 PM EDT Absence of cardiac cavity consistent with intrauterine demise, crown-rump length measuring 13 weeks and 3 days. TRANSCRIBED BY: ELECTRONICALLY SIGNED BY: Riley Rivero MD Narrative 08/20/2024 1:16 PM EDT FINDINGS: Single gestational sac within the uterus with a single pole measuring 7.2 cm consistent with a 13 week and 3 day gestational age; however, there is no cardiac activity and there is reduced amniotic fluid volume. Cervix not imaged. Procedure Note Riley Rivero MD - 08/20/2024 FINDINGS: Single gestational sac within the uterus with a single polemeasuring 7.2 cm consistent with a 13 week and 3 day gestational age;however, there is no cardiac activity and there is reduced amniotic fluidvolume. Cervix not imaged. IMPRESSION: Absence of cardiac cavity consistent with intrauterine demise,crown-rump length measuring 13 weeks and 3 days. TRANSCRIBED BY: ELECTRONICALLY SIGNED BY: Riley Rivero MD us Amanda LEMON IMG OB US PROCEDURES Final Resul t documented in this encounter Visit Diagnoses Diagnosis Encounter to determine viability of , single or unspecified fetus ([facility]) documented in this encounter Care Teams [employer] Glazer Relationship Specialty Start Date End Date Tawny Gu MD [address] [place] [address] PCP - General Family Medicine 08/08/23 Amnada Jaimes PA [address] [place] [address] [place] [address] PCP - Medical [address] [employer] 01/12/24 02/10/99 documented as of this encounter
--- OUTSIDE RECORDS SUMMARY | 2024-08-27 10:00 | XMS_ITS | Encounter Summary ---
Author Organization [facility] Address [address] [place] [address] Care Team Providers Care Service Attendant Name Role Phone Tawny Gu MD Primary Care Provider [phone] Amanda Jaimes Unavailable Reason for Visit * Reason Comments Post-op Visit Encounter Details Date Type Department Care Team (Late st Contact Info) Description 08/27/2024 10:00 AM EDT Office Visit [facility] BCP OB [address] [facility] [place] [address] Chadd Schulte, DO [address] [facility] [address] [place], [place] [id number] Postoperative examination; Bleeding disorder; History of loss Social History Tobacco Use Types Packs/Day Years [...] week 10/12/2022 How often do you attend restorationism or restorationism serv ices? Never 10/12/2022 Do you belong to any clubs o r organizations such as restorationism groups, unions, fraternal or athletic groups, or [...] Patient Health Questionnaire-2 Score 2 02/27/2023 [facility] of Occupat ional Health - Occupational [...] place to sleep or slept in a prison (including now)? No 10/12/2022 Comments No Sex and Gender Information Value Date Recorded Sex Assigned at Female 10/08/2022 9:01 PM EDT Legal Sex Female 7:11 PM EDT Gender Identity Female 10/08/2022 9:01 PM EDT Sexual Orientation Not on file documented as of this encounter Last Filed Vital Signs Vital Sign Reading Time Taken Comments Blood Pressure 118/74 08/27/2024 10:13 AM EDT Pulse - - Temperature - - Respiratory Rate - - Oxygen Saturation - - Inhaled Oxygen Concentration - - Weight 124 kg (273 lb 12.8 oz) 08/27/2024 10:13 AM EDT Height - - Body Mass Index 42.88 08/28/2023 3:53 PM EDT documented in this encounter Plan of Treatment Upcoming Encounters Date Type Department Care Team (Late st Contact Info) Description 02/15/2025 10:00 AM EST Office Visit [facility] BCP OB [address] [facility] [place] [phone] Amanda Jaimes PA [address] [facility] [address] [place], [place] [id number] Scheduled Orders Name Type Priority Associated Diagnoses Orde r Schedule DRVVT Lab Routine History of loss Expected: 08/27/2024 (Approximate), Expires: 08/27/2025 Beta-2 glycoprotein antibodies Lab Routine History of loss Expected: 08/27/2024 (Approximate), Expires: 08/27/2025 Cardiolipin antibody, IgG Lab Routine History of loss Expected: 08/27/2024 (Approximate), Expires: 08/27/2025 Cardiolipin antibody, IgM Lab Routine History of loss Expected: 08/27/2024 (Approximate), Expires: 08/27/2025 Lupus anticoagulant Lab Routine History of loss Ordered: 08/27/2024 documented as of this encounter Visit Diagnoses Diagnosis Postoperative examination Follow-up examination, following unspecified surgery Bleeding disorder Unspecified hemorrhagic conditions History of loss documented in this encounter Care Teams Service Attendant Relationship Specialty Start Date End Date Tawny Gu MD [address] [place] [address] PCP - General Family Medicine 08/08/23 Amanda Jaimes PA [address] [facility] [place] [address] PCP - Medical [place] [employer] 01/12/24 02/10/99 documented as of this encounter
--- OUTSIDE RECORDS SUMMARY | 2024-08-27 10:58 | XMS_ITS | Encounter Summary ---
Author Organization [facility] Address [address] [place] [address] Care Team Providers Care Android Programmer Name Role Phone Tawny Gu MD Primary Care Provider [phone] Amanda Jaimes Unavailable Encounter Details Date Type Department Care Team (Late st Contact Info) Description 08/18/2024 Bamboo flowsheet [facility] BCP OB [address] [facility] [place] [address] Amanda Jaimes PA [address] [facility] [address] [place], [facility] Social History Tobacco Use Types Packs/Day Years [...] How often do you attend latter-day or oriental orthodox serv ices? Never 10/12/2022 [...] Recorded Patient Health Questionnaire-2 Score 2 02/27/2023 [facility] - Occupational Stress Questionnaire Answer Date [...] place to sleep or slept in a retirement (including now)? No 10/12/2022 Comments Yes Sex [...] EST Office Visit [facility] BCP OB [address] [facility] [place] [phone] Amanda Jaimes PA [address] [facility] [place] [address] documented as of this encounter Visit Diagnoses Not on filedocumented in this encounter Care Teams Android Programmer Relationship Specialty Start Date End Date Tawny Gu MD [address] [place] [address] PCP - General Family Medicine 08/08/23 Amanda Jaimes PA [address] [facility] [place] [address] PCP - Medical [place] [employer] 01/12/24 02/10/99 documented as of this encounter
--- OUTSIDE RECORDS SUMMARY | 2024-08-27 10:58 | XMS_ITS | Encounter Summary ---
Author Organization [facility] Address [address] [place] [address] Care Team Providers Care Rn New Graduate Name Role Phone Tawny Gu MD Primary Care Provider [phone] Amanda Jaimes Unavailable Encounter Details Date Type Department Care Team (Late st Contact Info) Description 08/19/2024 Telephone [facility] OB [address] [place] [address] [place] [address] Lena Cruz MA Social History Tobacco [...] How often do you attend congregational or orthodoxy serv ices? Never 10/12/2022 Do you belong [...] Recorded Patient Health Questionnaire-2 Score 2 02/27/2023 [facility]at ional Health - Occupational Stress [...] a prison (including now)? No 10/12/2022 Comments Yes Sex [...] Visit [facility] BCP OB [address] [facility] [place] [address] Amanda Jaimes PA [address] [facility] [place] [address] documented as of this encounter Visit Diagnoses Diagnosis BV (bacterial vaginosis) Unspecified vaginitis and vulvovaginitis documented in this encounter Care Teams Rn New Graduate Relationship Specialty Start Date End Date Tawny Gu MD [address] [place] [address] PCP - General Family Medicine 08/08/23 Amanda Jaimes PA [address] [facility] [place] [address] PCP - Medical [place] [employer] 01/12/24 02/10/99 documented as of this encounter
--- OUTSIDE RECORDS SUMMARY | 2024-08-27 10:58 | XMS_ITS | Encounter Summary ---
Author Organization [facility] Address [address] [place] [address] Care Team Providers Care Psychiatry Physician Name Role Phone Tawny Gu MD Primary Care Provider Amanda Jaimes Unavailable Encounter Details Date Type Department Care Team (Late st Contact Info) Description 08/20/2024 Abstract [facility] [address] [place] [address] Chadd Schulte, DO [address] [place], [place] [id number] Social History Tobacco Use Types Packs/Day Years [...] week 10/12/2022 How often do you attend taoism or congregational serv ices? Never 10/12/2022 Do you belong to any clubs o r organizations such as taoism groups, unions, fraternal or athletic groups, or [...] Recorded Patient Health Questionnaire-2 Score 2 [facility] Questionnaire Answer [...] place to sleep or slept in a [place] [facility] [place] facility (including now)? No 10/12/2022 Comments Yes Sex [...] EST Office Visit [facility] [address] [place] [phone] Amanda Jaimes PA [address] [place], [place] [id number] documented as of this encounter Visit Diagnoses Not on filedocumented in this encounter Care Teams Psychiatry Physician Relationship Specialty Start Date End Date Tawny Gu MD [address] [place] [address] PCP - General Family Medicine 08/08/23 Amanda Jaimes PA [address] [place] [address] PCP - Medical [place] [employer] 01/12/24 02/10/99 documented as of this encounter
--- OUTSIDE RECORDS SUMMARY | 2024-08-27 10:58 | XMS_ITS | Clinical Summary ---
Author Organization [facility] Healthcare Address [address] [place] [address] Care Team Providers Care Nurse Receptionist Name Role Phone Tawny Gu MD Primary Care Provider Amanda Jaimes Unavailable Allergies No known active allergies Medications metroNIDAZOLE (Flagyl) 500 MG tabletIndicati ons:BV (bacterial vaginosis) Take 1 tablet (500 mg) by mouth in the morning and 1 tablet (500 mg) before bedtime. Do all this for 7 days. Do not drink alcohol while taking this medication. 14 tablet 5 025 Active MV-Min-Fe Fum-FA-DHA ( 1 PO) Take by mouth 025 Discontinued metoclopramide (Reglan) 10 MG tabletIndicati ons:Nausea and vomiting in ([facility]) Take 1 tablet (10 mg) by mouth in the morning and 1 tablet (10 mg) at noon and 1 tablet (10 mg) in the evening. Take before meals. Take 1 tablet by mouth 30 minutes prior to meals 3 times daily as needed for nausea. 90 tablet 5 025 Discontinued ondansetron (Zofran) 4 MG tabletIndicati ons:Nausea and vomiting in ([facility]) Take 1 tablet (4 mg) by mouth every 6 (six) hours if needed for nausea or vomiting for up to 30 doses Take 1 tablet by mouth every 6 hours as needed for nausea. 30 tablet 3 5 025 Discontinued Active Problems Problem Noted Date Diagnosed Date Well woman exam with routine gynecological exam 02/10/2024 Psoriasis 11/12/2022 Hyperinsulinemia 10/12/2022 Size of fetus inconsistent w ith dates in third trimester ([facility]) 10/12/2022 Vaginal discharge 10/12/2022 Encounters Date Type Department Care Team Description 08/27/2024 10:00 AM EDT Office Visit [facility] [address] [place] [address] Rosey Schulte, DO Postoperative examination; Bleeding disorder; History of loss 08/27/2024 Bamboo flowsheet [facility] [address] [place] [address] Rosey Schulte, DO 08/24/2024 Patient Outreach [facility] [employer] [address] [place] [address] Amanda Cody LPN 08/21/2024 Orders Only [facility] [address] [place] [id number] Rosey Schulte, DO 08/21/2024 Clinisync Result Encounter [facility] External Department Unsolicited Rosey Schulte, DO 08/20/2024 Abstract [facility] [address] [place] [address] Rosey Schulte, DO 08/20/2024 Clinisync Result Encounter [facility] External Department Unsolicited Rosey Schulte, DO 08/20/2024 Clinisync Result Encounter [facility] External Department Unsolicited Rosey Schulte, DO 08/20/2024 Clinisync Result Encounter [facility] External Department Unsolicited Rosey Schulte, DO 08/20/2024 Clinisync Result Encounter [facility] External Department Unsolicited Rosey Schulte, DO 08/19/2024 Abstract [facility] [address] [place] [address] Lena Cruz MA 08/19/2024 [address]phone [facility] [address] [place] [address] Lena Cruz MA 08/18/2024 3:00 PM EDT Ancillary Procedure [facility] [address] [place] [address] Encounter to determine viability of , single or unspecified fetus ([facility]) 08/18/2024 2:30 PM EDT Routine [facility] [address] [place] [address] Amanda Jaimes PA Second trimester ([facility]); 17 weeks gestation of ([facility]); Hyperinsulinemia; Screening examination for STI; Need for maternal serum alpha-protein (MSAFP) screening ([facility]); Screening, , for anatomic survey ([facility]); Encounter to determine viability of , single or unspecified fetus ([facility]) 08/18/2024 External Result Encounter [facility] External Department Unsolicited Amanda Jaimes PA 08/18/2024 Bamboo flowsheet [facility] [address] [place] [address] Amanda Jaimes PA 08/11/2024 Clinisync Result Encounter [facility] External Department Unsolicited Viktoria Qureshi NP 07/20/2024 3:10 PM EDT Routine [facility] [address] [place] [address] Rosey Schulte DO Nausea and vomiting in ([facility]) (Primary Dx); Second trimester ([facility]); 13 weeks gestation of ([facility]); Diabetes mellitus screening 07/20/2024 Bamboo flowsheet [facility] [address] [place] [address] Rosey Schulte DO 07/01/2024 Abstract [facility] [address] [place] [address] Rosey Schulte, 06/24/2024 Clinisync Result Encounter [facility] External Department Unsolicited Rosey Schulte 06/19/2024 9:30 AM EDT Initial [facility] [address] [place] [address] GA: 8w5d 06/19/2024 9:00 AM EDT Ancillary Procedure [facility] [address] [place] [phone] Missed menses from Last 3 Months Family History Medical History Relation Name Comments Diabetes Father Maynor Heart disease Maternal Grandfather Alex Diabetes Paternal Grandfather Orbjyothi Heart disease Paternal Grandmother Beatrice Relation Name [...] week 10/12/2022 How often do you attend muslim or anabaptism serv ices? Never 10/12/2022 Do you belong to any clubs o r organizations such as muslim groups, unions, fraternal or athletic groups, or [...] Recorded Patient Health Questionnaire-2 Score 2 02/27/2023 [facility] - Occupational [...] care facility (including now)? No 10/12/2022 Comments No Sex and Gender Information Value Date Recorded Sex Assigned at Female 10/08/2022 9:01 PM EDT Legal Sex Female 7:11 PM EDT Gender Identity Female 10/08/2022 9:01 PM EDT Sexual Orientation Not on file Last Filed Vital Signs Vital Sign Reading Time Taken Comments Blood Pressure 118/74 08/27/2024 10:13 AM EDT Pulse 78 08/28/2023 3:53 PM EDT Temperature 36.8 C (98.3 F) 08/28/2023 3:53 PM EDT Respiratory Rate - - Oxygen Saturation 98% 08/28/2023 3:53 PM EDT Inhaled Oxygen Concentration - - Weight 124 kg (273 lb 12.8 oz) 08/27/2024 10:13 AM EDT Height 170.2 cm (5' 7 ) 08/28/2023 3:53 PM EDT Body Mass Index 42.88 08/28/2023 3:53 PM EDT Plan of Treatment Upcoming Encounters Date Type Department Care Team (Late st Contact Info) Description 02/15/2025 10:00 AM EST Office Visit [facility] [address] [place] [address] Amanda Jaimes PA [address] [place] [address] Health Maintenance Due Date Last Done Comments Influenza Vaccine (#1) 2024 Procedures Procedure Name Priority Date/Time Associated Diagnosis Comments ALL CBC WITH AUTO DIFF Routine 5 6:28 AM EDT ALL HEMOGLOBIN Routine 08/20/2024 11:26 PM EDT US PELVIS 08/20/2024 11:22 PM EDT ALL CBC WITH AUTO DIFF Routine 5 8:29 PM EDT US PELVIS 08/20/2024 6:30 PM EDT US PELVIS Routine 08/20/2024 10:01 AM EDT US OB LIMITED 1+ FETUSES 08/20/2024 9:50 AM EDT FACTOR V LEIDEN MUTATION Routine 08/20/2024 9:09 AM EDT [facility] MTHFR GENE ANALYSIS Routine 08/20/2024 9:09 AM EDT ALL IMMUNOGLOBULIN G Routine 08/20/2024 9:09 AM EDT TBH ANTITHROMBIN ACTIVITY Routine 08/20/2024 9:09 AM EDT ALL IMMUNOGLOBULIN M Routine 08/20/2024 9:09 AM EDT [facility] HOMOCYSTEINE Routine 08/20/2024 9: 09 AM EDT MHPT FIBRINOGEN Routine 08/20/2024 9:09 AM EDT [facility] APTT Routine 08/20/2024 9:09 AM EDT SRMCOH PROTHROMBIN TIME INR W/O COUM Routine 08/20/2024 9:09 AM EDT ALL CBC WITH AUTO DIFF Routine 9:09 AM EDT US OB LIMITED 1+ FETUSES Routine 08/18/2024 4:00 PM EDT Encounter to determine viability of , single or unspecified fetus ([facility]) RECURRENT VAGINITIS (HTRX) Routine 08/18/2024 3:28 PM EDT POCT URINALYSIS DIPSTICK Routine 08/18/2024 2:56 PM EDT Second trimester ([facility]) GLUCOSE 1 HOUR Routine 08/11/2024 4:33 PM EDT ALL CBC WITH AUTO DIFF Routine 4:33 PM EDT HBSAG SCREEN Routine 06/24/2024 [...] EDT ALL CBC WITH AUTO DIFF Routine 3:33 PM EDT MLR HEMOGLOBIN A1C Routine [...] from Last 3 Months Results * (ABNORMAL) ALL CBC WITH AUTO DIFF (08/21/2024 6:28 AM EDT) Only the most recent of5 resultswithin the time period is included. TBH WBC 9.7 4.0 - 11.0 10 3/uL TBH TBH RBC 4.01(L) 4.20 - 5.40 10 6/uL TBH TBH HGB 11.6(L) 12.0 - 16.0 g/dL TBH TBH HCT 34.0(L) 36.0 - 48.0 % TBH TBH MCV 84.8 81.0 - 99.0 fL TBH TBH MCH 28.9 26.7 - 34.0 pg TBH TBH MCHC 34.1 29.9 - 35.2 g/dL TBH TBH RDW 13.9 11.0 - 15.0 % TBH TBH PLT 266 150 - 450 10 3/uL TBH TBH MPV 10.4 9.5 - 13.5 fL TBH NEUTROPHILS PERCENT AUTO 86.8(H) 43.0 - 75.0 % TBH LYMPHOCYTES PERCENT AUTO 9.7(L) 20.5 - 60.0 % TBH MONOCYTES PERCENT AUTO 2.7 1.7 - 12.0 % TBH TBH EO % 0.0(L) 0.9 - 7.0 % TBH BASOPHILS PERCENT AUTO 0.2 0.2 - 2.0 % TBH IMMATURE GRANULOCYTES PCT AUTO 0.6(H) 0.0 - 0.5 % TBH NEUTROPHILS ABSOLUTE AUTO 8.4(H) 1.4 - 6.5 10 3/uL TBH LYMPHOCYTES ABSOLUTE AUTO 0.9(L) 1.2 - 3.8 10 3/uL TBH MONOCYTES ABSOLUTE AUTO 0.3 0.3 - 0.8 10 3/uL TBH TBH EO # 0.0 0.0 - 0.7 10 3/uL TBH BASOPHILS ABSOLUTE AUTO 0.0 0.0 - 0.1 10 3/uL TBH IMMATURE GRANULOCYTES ABS AUTO 0.06(H) 0.00 - 0.03 10 3/uL TBH 08/21/2024 6:28 AM EDT 08/21/2024 7:03 AM EDT Narrative CLINISYNC - 08/21/2024 7:13 AM EDT us Rosey Eris DO CLINISYNC Final Result CLINISYNC [facility] * ALL HEMOGLOBIN (08/20/2024 11:26 PM EDT) Pathologist [facility] HGB 12.7 12.0 - 16.0 g/dL TBH 08/20/2024 11:2 6 PM EDT 08/20/2024 11:31 PM EDT Narrative CLINISYNC - 08/20/2024 11:33 PM EDT us Rosey Eris DO CLINISYNC Final Result [facility]INISYNC [facility] * US PELVIS (08/20/2024 11:22 PM EDT) Only the most recent of2 resultswithin the time period is included. Anatomical Region Laterality Modality Other 08/20/2024 11:2 2 PM EDT Narrative 08/20/2024 11:25 [place] [address] Ultrasound Report Signed Patient: LALA HALL MR#: [id number] : 1995 Acct:[id number] Age/Sex: 29 / F ADM Date: Loc: [facility] 258-[address]: Rosey Schulte D.O. Ordering Physician: Rosey Schulte D.O. Date of Service: 08/20/24 Procedure(s): US pelvis Accession Number(s): [id number] cc: Rosey Schulte D.O.; Chiara Herring [employer] [address] [address] Patient Name: LALA HALL MRN: [id number] date: 1995 Sex: F Assigned Patient Location: [facility] Current Patient Location: [facility] Accession/Order Number: [id number] Exam Date: 08/20/2024 23:19 Report Date: 08/20/2024 23:22 At the request of: ROSEY SCHULTE DO Procedure: US pelvis Transabdominal pelvic ultrasound COMPARISON: Pelvic ultrasound 08/20/2024: Check postop retained products FINDINGS: Single grayscale image of the uterus demonstrates no definite echogenic soft tissue within the uterus. No color flow images were sent US/US pelvis IMPRESSION: No definite abnormal echogenicity within the endometrium to suggest retained products. Impression dictated by: Triston Rodriguez M.D. 08/20/2024 11:22 PM Dictation Location: [place] [address] Electronically authenticated by: [id number] Y Date: 08/20/2024 23:22 Dictated By: Triston Rodriguez M.D. Signed By: 08/20/242324 DD/ 21 TD/TT: [employer] Consultant: Procedure Note Radiology, Radiologist, MD - 08/20/2024 [place] [address] Ultrasound Report Signed Patient: LALA HALL TMR#: [id number] : 1995Acct:[id number] Age/Sex: Date: Loc: [facility] 258-[address]: Rosey Schulte D.O. Ordering Physician: Rosey Schulte D.O. Date of Service: 08/20/24 Procedure(s): US pelvis Accession Number(s): [id number] cc: Rosey Schulte D.O.; Chiara Herring NP The [place] [address] Patient Name: LALA HALL MRN: [id number] date: 1995 Sex: F Assigned Patient Location: [facility] Current Patient Location: [facility] Accession/Order Number: [id number] Exam Date: 08/20/2024 23:19 Report Date: 08/20/2024 23:22 At the request of: ROSEY SCHULTE DO Procedure: US pelvis Transabdominal pelvic ultrasound COMPARISON: Pelvic ultrasound 08/20/2024: Check postop retained products FINDINGS: Single grayscale image of the uterus demonstrates no definite echogenic soft tissue within the uterus. No color flow images were sent US/US pelvis IMPRESSION: No definite abnormal echogenicity within the endometrium to suggest retained products. Impression dictated by: Triston Rodriguez M.D. 08/20/2024 11:22 PM Dictation Location: [place] [address] Electronically authenticated by: [id number] Y Date: 3:22 Dictated By: Triston Rodriguez M.D. Signed By:08/20/242324 DD/ 21 TD/TT: [employer] Consultant: us Rosey Eris DO CLINISYNC IMAGING Final Result * US pelvis (08/20/2024 10:01 AM EDT) Anatomical Region Laterality Modality Pelvis Ultrasound us Rosey Eris DO IMG US PROCEDURES Final Result * US OB limited 1+ fetuses (08/20/2024 9:50 AM EDT) Only the most recent of2 resultswithin the time period is included. Anatomical Region Laterality Modality Body Ultrasound 08/20/2024 9:50 AM EDT Narrative 08/20/2024 9:53 [place] [address] Ultrasound Report Signed Patient: LALA HALL MR#: [id number] : 1995 Acct:[id number] Age/Sex: 29 / F ADM Date: Loc: [facility] 258- Attending Dr: Rosey Schulte D.O. Ordering Physician: Rosey Schulte D.O. Date of Service: 08/20/24 Procedure(s): US OB limited Accession Number(s): [id number] cc: Rosey Schulte D.O.; Chiara Herring [address] [address] Patient Name: LALA HALL MRN: [id number] date: 1995 Sex: F Assigned Patient Location: [facility] Current Patient Location: [facility] Accession/Order Number: [id number] Exam Date: 08/20/2024 09:46 Report Date: 08/20/2024 09:50 At the request of: ROSEY SCHULTE DO Procedure: US OB limited ULTRASOUND OB LIMITED COMPARISON: None CLINICAL DATA: Study to confirm demise There is a gestational sac within the uterus. A fetus is present in breech presentation. No cardiac activity was documented. Measurements were obtained and are as follows: Biparietal diameter 1.6 cm 12 weeks 3 days less than 3% Head circumference 6.7 cm 12 weeks 5 days less than 3% Abdominal circumference 5.9 cm 12 weeks 5 days less than 3% Femur length 1.2 cm 13 weeks 4 days less than 3% The composite ultrasound age based on these measurements is 12 weeks 6 days +/- 6 days. US/US OB limited IMPRESSION: NONVIABLE 12 WEEK 6 DAY INTRAUTERINE GESTATION. Impression dictated by: Moira Bower M.D. 08/20/2024 9:50 AM Dictation Location: [place] [address] Electronically authenticated by: [id number] Y Date: 08/20/2024 09:50 Dictated By: Moira Bower M.D. Signed By: 08/20/2453 DD/ TD/TT: [employer] Consultant: Procedure Note Radiology, Radiologist, - 08/20/2024 [place] [address] Ultrasound Report Signed Patient: LALA HALL TMR#: [id number] : 1995Acct:[id number] Age/Sex: 29 / FADM Date: Loc: [facility] 258-[address]: Rosey Schulte D.O. Ordering Physician: Rosey Schulte D.O. Date of Service: 08/20/24 Procedure(s): US OB limited Accession Number(s): [id number] cc: Rosey Schulte D.O.; Chiara Herring [employer] The [place] [id number] Patient Name: LALA HALL MRN: [facility]:[id number] date: 1995 Sex: F Assigned Patient Location: [facility] Current Patient Location: [facility] Accession/Order Number: [id number] Exam Date: 08/20/2024 09:46 Report Date: 08/20/2024 09:50 At the request of: ROSEY SCHULTE DO Procedure: US OB limited ULTRASOUND OB LIMITED COMPARISON: None CLINICAL DATA: Study to confirm demise There is a gestational sac within the uterus. A fetus is present inbreech presentation. No cardiac activity was documented. Measurementswere obtained and are as follows: Biparietal diameter 1.6 cm 12 weeks 3 days less than3% Head circumference 6.7 cm 12 weeks 5 days less than 3% Abdominal circumference 5.9 cm 12 weeks 5 days less than 3% Femur length 1.2 cm 13 weeks 4 days less than 3% The composite ultrasound age based on these measurements is 12 weeks 6days +/- 6 days. US/US OB limited IMPRESSION: NONVIABLE 12 WEEK 6 DAY INTRAUTERINE GESTATION. Impression dictated by: Moira Bower M.D. 08/20/2024 9:50 AM Dictation Location: [place] [address] Electronically authenticated by: [id number] Y Date: 9:50 Dictated By: Moira Bower M.D. Signed By:08/20/2453 DD/ TD/TT: [employer] Consultant: us Rosey Schulte DO IMG OB US PROCEDURES Final Resul t * FACTOR V LEIDEN MUTATION (08/20/2024 9:09 AM EDT) Pathologist [facility] FACTOR V LEIDEN MUTATION Comment . [facility] Comment: Result: c.1601G>A (p.[id number]) - Not Detected This result is not associated with an increased risk for venous thromboembolism. See Additional Clinical Information and Comments. Additional Clinical Information: Venous thromboembolism is a multifactorial disease influenced by genetic, environmental, and circumstantial risk factors. The c.1601G>A (p. [id number]) variant in the F5 gene, commonly referred to as Factor V Leiden, is a genetic risk factor for venous thromboembolism. Heterozygous carriers of this variant have a 6- to 8-fold increased risk for venous thromboembolism. Individuals homozygous for this variant (ie, with a copy of the variant on each chromosome) have an approximately 80-fold increased risk for venous thromboembolism. Individuals who carry both a c.*97G>A variant in the F2 gene and Factor V Leiden have an approximately 20-fold increased risk for venous thromboembolism. Risks are likely to be even higher in more complex genotype combinations involving the F2 c.*97G>A variant and Factor V Leiden (PMID: 71405171). Additional risk factors include but are not limited to: deficiency of protein C, protein S, or antithrombin III, age, male sex, personal or family history of deep vein thromboembolism, smoking, surgery, prolonged immobilization, malignant neoplasm, tamoxifen treatment, raloxifene treatment, oral contraceptive use, hormone replacement therapy, and . Management of thrombotic risk and thrombotic events should follow established guidelines and fit the clinical circumstance. This result cannot predict the occurrence or recurrence of a thrombotic event. Comment: Genetic counseling is recommended to discuss the potential clinical implications of positive results, as well as recommendations for testing family members. Genetic Coordinators are available for health care providers to discuss results at [phone] ([phone]). Test Details: Variant Analyzed: c.1601G>A (p. [id number]), referred to as Factor V Leiden Methods/Limitations: DNA analysis of the F5 gene (NM_000130.5) was performed by PCR amplification followed by electrophoresis. The diagnostic sensitivity is >99%. Results must be combined with clinical information for the most accurate interpretation. Molecular-based testing is highly accurate, but as in any laboratory test, diagnostic errors may occur. False positive or false negative results may occur for reasons that include genetic variants, blood transfusions, bone marrow transplantation, somatic or tissue-specific mosaicism, mislabeled samples, or erroneous representation of family relationships. This test was developed and its performance characteristics determined by [facility]. It has not been cleared or approved by the Food and Drug Administration. References: Huber S, Helen AK, Jonathan R, Jose WW, Rick JH; ACMG Professional Practice and Guidelines Committee. Addendum: [employer] consensus statement on factor V Leiden mutation testing. [employer]. 2020Apr 15. doi: 10.1038/b17372-280-47971-e. PMID: 95371703. Devyn MESSER. Factor V Leiden Thrombophilia. 1998June 24 (Updated 2017Feb 14). In: Ziyad MP, Bailey HH, Moi RA, et al., editors. [facility] LaboratoryKumarYouDo ([employer]). [place]): [facility]; 0502-1958. Available from: https://www.ncbi.nlm.nih.gov/books/GAX8433/ Juan S, Helen AK, Ricky X, Flip B, Kelley EB, Sharon P, Dana CS; [employer] Laboratory Political Research Scientist Committee. Venous thromboembolism laboratory testing (factor V Leiden and factor II c. *97G>A), 2018 update: a technical standard of the [employer] and Genomics (ACMG). [employer]. 2017;20(12): 6828-9940. doi: 10.1038/h32185-040-6801-h. Epub 2017Nov 15. PMID: 81149042. [facility] REVIEWED BY Comment . [facility] Comment: Technical Component performed at [facility] RT Professional Component performed by: Remington Walls, PhD, [facility] TPTGD5, [facility], [address] [facility] [address] Performed at: [facility] RTP [address] [facility], [place] [id number] Chief Supply Chain Officer: Erika Encarnacion [facility]ly [facility], Phone: [phone] 08/20/2024 9:09 AM EDT 08/20/2024 9:15 AM EDT Narrative CLINISYNC - 08/26/2024 8:08 AM EDT us Rosey Schulte DO LAB BLOOD ORDERABLES Final Resul t [facility] * [facility] ANTITHROMBIN ACTIVITY (08/20/2024 9:09 AM EDT) [facility] ANTITHROMBIN ACTIVITY 122 75 - 135 % [facility] Comment: Direct Xa inhibitor anticoagulants such as rivaroxaban, apixaban and edoxaban will lead to spuriously elevated antithrombin activity levels possibly masking a deficiency. Performed at: [address] [id number] Chief Supply Chain Officer: Kg Doss MD, Phone: [phone] 08/20/2024 9:09 AM EDT 08/20/2024 9:15 AM EDT Narrative CLINISYNC - 08/22/2024 12:09 AM EDT Rosey Eris DO CLINISYNC Final Result [facility] * SRMCO PROTHROMBIN TIME INR W/O COUM (08/20/2024 9:09 AM EDT) PROTHROMBIN TIME 10.3 9.0 - 11.6 sec TB TB INR 0.97 TBH Comment: DESIRED INR: 2.0-3.0 CONDITIONS NOT LISTED BELOW 2.5-3.5 FOR PROSTHETIC HEART VALVE REPLACEMENT 2.5-3.5 RECURRENT THROMBOSIS 08/20/2024 9:09 AM EDT 08/20/2024 9:15 AM EDT Narrative CLINISYNC - 08/20/2024 10:39 AM EDT Rosey Eris DO CLINISYNC Final Result Performing Organization Address City/[facility]/ZIP Co de Phone Number [facility] * (ABNORMAL) MHPT FIBRINOGEN (08/20/2024 9:09 AM EDT) FIBRINOGEN 415(H) 200 - 400 mg/dL TB 08/20/2024 9:09 AM EDT 08/20/2024 9:15 AM EDT Narrative CLINISYNC - 08/20/2024 10:39 AM EDT Rosey Eris DO CLINISYNC Final Result [facility] * [facility] MTHFR GENE ANALYSIS (08/20/2024 9:09 AM EDT) [facility] MTHFR, DNA ANALYSIS Comment . [facility] Comment: Result: c.665C>T (p. [id number]), legacy name: [id number] - Not Detected c.1286A>C (p. Pes490Rtm), legacy name: [id number] - Detected, heterozygous Interpretation: This result is not associated with an increased risk for hyperhomocysteinemia. See Additional Clinical Information and Comments. Additional Clinical Information: Hyperhomocysteinemia is multifactorial involving genetic, clinical, and environmental risk factors. Reduced enzyme activity of methylenetetrahydrofolate reductase (MTHFR) is a genetic risk factor for hyperhomocysteinemia, particularly when serum folate levels are low. There are two common variants in the MTHFR gene that can decrease enzyme activity; c.665C>T (p. [id number]), legacy name [id number], and c.1286A>C (p. [id number]), legacy name [id number]. These variants do not independently increase risk of conditions related to hyperhomocysteinemia in the absence of elevated homocysteine levels. Measurement of total plasma homocysteine is recommended. Patients should share their MTHFR genotype with physicians who are making decisions regarding chemotherapy treatments that depend on folate, such as methotrexate. Guidelines do not recommend genotyping of these two MTHFR variants in the evaluation of venous thrombosis or obstetric risk due to limited evidence of clinical utility (PMID: 57452229). Comments: Genetic Coordinators are available for health care providers to discuss results at [phone] ([phone]). Test Details: Variants Analyzed: c.665C>T (p. [id number]), legacy name: [id number] and c.1286A>C (p. [id number]), legacy name: [id number] Methods/Limitations: DNA analysis of the MTHFR gene was performed by PCR amplification followed by restriction enzyme analysis. The diagnostic sensitivity is >99%. Results must be combined with clinical information for the most accurate interpretation. Molecular-based testing is highly accurate, but as in any laboratory test, diagnostic errors may occur. False positive or false negative results may occur for reasons that include genetic variants, blood transfusions, bone marrow transplantation, somatic or tissue-specific mosaicism, mislabeled samples, or erroneous representation of family relationships. This test was developed and its performance characteristics determined by [employer]. It has not been cleared or approved by the Food and Drug Administration. References: Estebankey SE, Mejia CJ, Maude HV. ACMG Practice Guideline: lack of evidence for MTHFR polymorphism testing. Bhavani Med. 2013 Mar;15(2):153-6. doi: 10.1038/gim.2012.165. Epub 2012Feb 13. PMID: 28524605. [place] [employer]nec[employer]' Committee on Practice Bulletins-Obstetrics. ACOG Practice Bulletin No. 197: Inherited Thrombophilias in . Obstet Gynecol. 2018 Aug;132(1):e18-e34. doi: 10.1097/AOG.0593983852163497. Erratum in: Obstet Gynecol. 2018 Nov;132(4):1069. PMID: 23064735. REVIEWED BY: Shannan . [facility] Comment: Technical Component performed at [facility] [place] Professional Component performed by: Riley James, PhD, [facility] [id number], [facility], [address] [place] [address] Performed at: [facility] [place] [address] [place], [place] [id number] Chief Supply Chain Officer: Erika Encarnacion Formerly [facility], Phone: [phone] 08/20/2024 9:09 AM EDT 08/20/2024 9:15 AM EDT Narrative CLINIS[facility]NC - 08/25/2024 2:10 PM EDT Rosey Schulte DO CLINISYNC Final Result [facility] * METRO HOMOCYSTEINE (08/20/2024 9:09 AM EDT) HOMOCYST(E)INE 5.4 0.0 - 14.5 umol/L TB Comment: Performed at: [address] [id number] Chief Supply Chain Officer: Mohan Nagy PhD, Phone: [phone] 08/20/2024 9:09 AM EDT 08/20/2024 9:15 AM EDT Narrative CLINISYNC - 08/21/2024 4:07 AM EDT Rosey Eris DO CLINISYNC Final Result Performing Organization Address [facility]/ZIP Co de Phone Number [facility] * CCF APTT (08/20/2024 9:09 AM EDT) [facility] PARTIAL THROMBOPLASTIN TIME 33.3 22.3 - 36.2 sec [facility] 08/20/2024 9:09 AM EDT 08/20/2024 9:15 AM EDT Narrative CLINISYNC - 08/20/2024 10:39 AM EDT Rosey Eris DO CLINISYNC Final Result Performing Organization Address [facility] Co de Phone Number [facility] * ALL IMMUNOGLOBULIN M (08/20/2024 9:09 AM EDT) [facility] IMMUNOGLOBULIN M, Q 183 26 - 217 mg/dL TB Comment: Performed at: [address] [id number] Chief Supply Chain Officer: Mohan Nagy PhD, Phone: [phone] 08/20/2024 9:09 AM EDT 08/20/2024 9:15 AM EDT Narrative CLINISYNC - 08/21/2024 4:07 AM EDT [facility] [place]ris DO CLINISYNC Final Result Performing Organization Address [facility] Co de Phone Number [facility] * ALL IMMUNOGLOBULIN G (08/20/2024 9:09 AM EDT) [facility] IMMUNOGLOBULIN G, QN 791 586 - 1602 mg/dL TB Comment: Performed at: [address] [id number] Chief Supply Chain Officer: Mohan Nagy PhD, Phone: [phone] 08/20/2024 9:09 AM EDT 08/20/2024 9:15 AM EDT Narrative CLINISYNC - 08/25/2024 2:10 PM EDT Rosey Schulte DO CLINISYNC Final Result [facility] * (ABNORMAL) RECURRENT VAGINITIS (HTRX) (08/18/2024 3:28 PM EDT) [facility] ATOPOBIUM VAGINAE 0 19.961 - 24.689 ppm 08/19/2024 8:01 AM EDT [facility] ATOPOBIUM VAGINAE Not Detected 19.961 - 24.689 ppm 08/19/2024 8:01 AM EDT [facility] BVAB 2,3 (BACTERIAL VAGINOSIS ASSOCIATED BACTERIA 2, 3); MOBILUNCUS SPP 24.805(A) 19.961 - 24.689 ppm 08/19/2024 8:01 AM EDT [facility] BVAB 2,3 (BACTERIAL VAGINOSIS ASSOCIATED BACTERIA 2, 3); MOBILUNCUS SPP Detected(A) 19.961 - 24.689 ppm 08/19/2024 8:01 AM EDT [facility] KIERSTEN ALBICANS, PARAPSILOSIS, TROPICALIS 0 19.961 - 30.770 ppm 08/19/2024 8:01 AM EDT [facility] KIERSTEN ALBICANS, PARAPSILOSIS, TROPICALIS Not Detected 19.961 - 30.770 ppm 08/19/2024 8:01 AM EDT [facility] KIERSTEN GLABRATA 0 23.000 - 32.138 ppm 08/19/2024 8:01 AM EDT [facility] KIERSTEN GLABRATA Not Detected 23.000 - 32.138 ppm 08/19/2024 8:01 AM EDT [facility] KIERSTEN KRUSEI 0 23.000 - 32.271 ppm 08/19/2024 8:01 AM EDT [facility] KIERSTEN KRUSEI Not Detected 23.000 - 32.271 ppm 08/19/2024 8:01 AM EDT [facility] CHLAMYDIA TRACHOMATIS 0 23.000 - 31.467 ppm 08/19/2024 8:01 AM EDT [facility] CHLAMYDIA TRACHOMATIS Not Detected 23.000 - 31.467 ppm 08/19/2024 8:01 AM EDT [facility] GARDNERELLA VAGINALIS 24.549(A) 19.961 - 24.689 ppm 08/19/2024 8:01 AM EDT [facility] GARDNERELLA VAGINALIS Detected(A) 19.961 - 24.689 ppm 08/19/2024 8:01 AM EDT [facility] MEGASPHAERA (TYPES 1, 2) 0 19.961 - 24.689 ppm 08/19/2024 8:01 AM EDT [facility] MEGASPHAERA (TYPES 1, 2) Not Detected 19.961 - 24.689 ppm 08/19/2024 8:01 AM EDT [facility] NEISSERIA GONORRHOEAE 0 23.000 - 32.117 ppm 08/19/2024 8:01 AM EDT [facility] NEISSERIA GONORRHOEAE Not Detected 23.000 - 32.117 ppm 08/19/2024 8:01 AM EDT [facility] TRICHOMONAS VAGINALIS 0 23.000 - 32.119 ppm 08/19/2024 8:01 AM EDT [facility] TRICHOMONAS VAGINALIS Not Detected 23.000 - 32.119 ppm 08/19/2024 8:01 AM EDT [facility] MYCOPLASMA GENITALIUM 0 19.961 - 24.689 ppm 08/19/2024 8:01 AM EDT [facility] MYCOPLASMA GENITALIUM Not Detected 19.961 - 24.689 ppm 08/19/2024 8:01 AM EDT [facility] ERMB, C; MEFA 24.064(A) 23.000 - 27.611 ppm 08/19/2024 8:01 AM EDT [facility] ERMB, C; MEFA Detected(A) 23.000 - 27.611 ppm 08/19/2024 8:01 AM EDT [facility] TET B, TET M 25.246(A) 23.000 - 27.778 ppm 08/19/2024 8:01 AM EDT [facility] TET B, TET M Detected(A) 23.000 - 27.778 ppm 08/19/2024 8:01 AM EDT [facility] Tissue 08/18/2024 3:28 PM EDT 08/19/2024 2:58 AM EDT Amanda LEMON LAB BLOOD ORDERABLES Final Resul t [facility] [address] [place] [place] [address] * POCT urinalysis dipstick manually resulted (08/18/2024 [...] EDT) GLUCOSE 1 HOUR 120 <130 mg/dL TB 08/11/2024 4:33 PM EDT 08/11/2024 4:35 PM EDT Narrative [facility] - 08/11/2024 5:00 PM EDT Viktoria Qureshi LAB BLOOD ORDERABLES Final Re sult Performing Organization Address [facility]/ZIP Co de Phone Number [facility] * BOX TEST (06/24/2024 3:33 PM EDT) Pathologist [facility] BOX TEST SENT OUT [facility] BOX1 [facility] BOX2 06/24/2024 [facility] 06/24/2024 3:33 PM EDT 06/24/2024 3:38 PM EDT [facility] - 06/24/2024 3:50 PM EDT [place] [facility] Rosey Eris DO LAB BLOOD ORDERABLES Final Resul t Performing Organization Address [facility] Co de Phone Number [facility] * HBSAG SCREEN (06/24/2024 3:33 PM EDT) [facility] HBSAG SCREEN Negative Negative [facility] Comment: Performed at: [address] [id number] Chief Supply Chain Officer: Mohan Nagy PhD, Phone: [phone] 06/24/2024 3:33 PM EDT 06/24/2024 3:38 PM EDT Narrative [facility] - 06/26/2024 1:09 PM EDT Rosey Eris DO LAB BLOOD ORDERABLES Final Resul t Performing Organization Address [facility]/ZIP Co de Phone Number [facility] * RAPID PLASMA REAGIN, QUANT (06/24/2024 3:33 PM EDT) [facility] RAPID PLASMA REAGIN, QUANT Non Reactive NonRea<1: 1 titer [facility] Comment: Please Note: This test does not meet current guidelines for screening and diagnosis of syphilis. This test is intended for following treatment response in patients being treated for syphilis infection. To screen for syphilis infection, a reflex cascade that includes both RPR and a treponema-specific assay should be utilized, such as Treponema pallidum (Syphilis) Screening Urania (604304) or Rapid Plasma Reagin (RPR) Test With Reflex to Quantitative RPR and Confirmatory Treponema pallidum Antibodies (277979). Performed at: [address] [id number] Chief Supply Chain Officer: Mohan Nagy PhD, Phone: [phone] 06/24/2024 3:33 PM EDT 06/24/2024 3:38 PM EDT Narrative CLINISYIA - 06/26/2024 1:09 PM EDT Rosey Eris LAB BLOOD ORDERABLES Final Resul t Performing Organization Address [facility] Co de Phone Number [facility] * HIV AB/P24 AG WITH REFLEX (06/24/2024 3:33 PM EDT) Pathologist [facility] HIV AB/P24 AG SCREEN Non Reactive Non Reactive [facility] Comment: HIV-1/HIV-2 antibodies and HIV-1 p24 antigen were NOT detected. There is no laboratory evidence of HIV infection. HIV Negative Performed at: [address] [id number] Chief Supply Chain Officer: Mohan Nagy PhD, Phone: [phone] 06/24/2024 3:33 PM EDT 06/24/2024 3:38 PM EDT Narrative CLINISYIA - 06/26/2024 5:07 AM EDT Runnero DO LAB BLOOD ORDERABLES Final Resul t Performing Organization Address City/[facility]/ZIP Co de Phone Number [facility] * HCV ANTIBODY RFX TO QUANT PCR (06/24/2024 3:33 PM EDT) Pathologist [facility] HCV AB Non Reactive Non Reactive [facility] INTERPRETATION: Comment . [facility] Comment: Not infected with HCV unless early or acute infection is suspected (which may be delayed in an immunocompromised individual), or other evidence exists to indicate HCV infection. 06/24/2024 3:33 PM EDT 06/24/2024 3:38 PM EDT Narrative [facility] - 06/26/2024 6:07 AM EDT Rosey Eris DO LAB BLOOD ORDERABLES Final Resul t [facility] * MLR HEMOGLOBIN A1C (06/24/2024 3:33 PM EDT) Pathologist [facility] GLYCOHEMOGLOBIN A1C 5.6 4.5 - 6.2 % [facility] Comment: ADA RECOMMENDED LIMIT 4.0 - 6.0 ADA THERAPEUTIC TARGET < 7.0 ACTION SUGGESTED > 7.0 ESTIMATED AVERAGE GLUCOSE 114 mg/dL TB 06/24/2024 3:33 PM EDT 06/24/2024 3:38 PM EDT Narrative CL[facility] - 06/24/2024 4:02 PM EDT [facility] [place]ris DO CLINISYNC Final Result Performing Organization Address [facility] Co de Phone Number [facility] * ALL TYPE AND SCREEN (06/24/2024 3:33 PM EDT) [facility] BLOOD TYPE AB Positive [facility] ANTIBODY SCREEN NEGATIVE TB 06/24/2024 3:33 PM EDT 06/24/2024 3:38 PM EDT Narrative CL[facility] - 06/24/2024 6:12 PM EDT [facility] , Rosey Eris DO CLINISYNC Final Result Performing Organization Address City[facility] Co de Phone Number [facility] * ALL RUBELLA IGG AB (06/24/2024 3:33 PM EDT) [facility] RUBELLA ANTIBODIES, IGG 4.39 Immune >0.99 index [facility] Comment: Non-immune <0.90 Equivocal 0.90 - 0.99 Immune >0.99 Performed at: [address] [id number] Chief Supply Chain Officer: Mohan Nagy PhD, Phone: [phone] 06/24/2024 3:33 PM EDT 06/24/2024 3:38 PM EDT Narrative [facility] - 06/26/2024 6:07 AM EDT us Rosey Eris DO CLINISYNC Final Result Performing Organization Address [facility]/ZIP Co de Phone Number CLINISYIA TB * [facility]H DRUG SCREEN RAPID (URINE) (06/24/2024 3:11 PM [...] CLINISYNC - 06/24/2024 4:33 PM EDT us Rosey Eris DO CLINISYNC Final Result [facility] * (ABNORMAL) POCT , urine manually resulted (06/19/2024 9:47 AM EDT) Preg Test, Ur Positive Negative Urine 06/19/2024 9:47 AM EDT Rosey Dupreeo DO POINT OF CARE TEST ENTER/EDIT OR [...] II, MD, PHD at 21-Jun-2024 08:21:55 PM [facility] Procedure Note Rajni Hollis MD - [...] signed by RAJNI HOLLIS II, MD, PHD [id number] 08:21:55 PM [facility] us Rosey Eris DO IMG OB US PROCEDURES Final Resul t from Last 3 Months Insurance [employer] [address] [place] [address] Care Teams Nurse Receptionist Relationship Specialty Start Date End Date Tawny Gu MD [address] [place] [address] PCP - General Family Medicine 08/08/23 Amanda Jaimes PA [address] [place] [address] [place] [address] PCP - Medical [place] [employer] 01/12/24 02/10/99
--- OUTSIDE RECORDS SUMMARY | 2024-08-27 10:58 | XMS_ITS | Encounter Summary ---
Author Organization [facility] Address [address] [place] [address] Care Team Providers Care Solar Installation Foreman Name Role Phone Tawny Gu MD Primary Care Provider [phone] Amanda Jaimes Unavailable Encounter Details Date Type Department Care Team (Late st Contact Info) Description 08/27/2024 Bamboo flowsheet [facility] OB [address] [place] [address] Chadd Schulte, DO [address] [place], [facility] Social History Tobacco Use Types [...] week 10/12/2022 How often do you attend presybeterian or holiness serv ices? Never 10/12/2022 Do you belong to any clubs o r organizations such as presybeterian groups, unions, fraternal or athletic groups, or [...] Health Questionnaire-2 Score 2 02/27/2023 [facility] - Occupational Stress Questionnaire Answer Date [...] senior living (including now)? No 10/12/2022 Comments No Sex [...] EST Office Visit [facility] [address] [facility] [id number] Amanda Jaimes PA [address] [facility] [place] [address] documented as of this encounter Visit Diagnoses Not on filedocumented in this encounter Care Teams Solar Installation Foreman Relationship Specialty Start Date End Date Tawny Gu MD [address] [place] [address] PCP - General Family Medicine 08/08/23 Amanda Jaimes PA [address] [facility] [place] [address] PCP - Medical [place] [employer] 01/12/24 02/10/99 documented as of this encounter
--- OUTSIDE RECORDS SUMMARY | 2024-08-27 10:58 | XMS_ITS | Encounter Summary ---
Author Organization [facility] Address [address] [place] [address] Care Team Providers Care Tool Hardener Name Role Phone Tawny Gu MD Primary Care Provider [phone] Amanda Jaimes Unavailable Encounter Details Date Type Department Care Team (Late st Contact Info) Description 08/21/2024 Clinisync Result Encounter [facility] External Department Unsolicited Chadd Schulte, DO [address] [facility] [place] [address] Social History Tobacco Use Types Packs/Day Years [...] week 10/12/2022 How often do you attend hindu or restoration serv ices? Never 10/12/2022 Do you belong to any clubs o r organizations such as hindu groups, unions, fraternal or athletic groups, or [...] Patient Health Questionnaire-2 Score 2 02/27/2023 [facility] - Occupational Stress Questionnaire Answer [...] place to sleep or slept in a group home (including now)? No 10/12/2022 Comments Yes Sex [...] EST Office Visit [facility] [address] [facility] [place] [address] Amanda Jaimes PA [address] [facility] [address] [place], [place] [id number] documented as of this encounter Procedures Procedure Name Priority Date/Time Associated Diagnosis Comments ALL CBC WITH AUTO DIFF Routine 08/21/2024 6:28 AM EDT documented in this encounter Results * (ABNORMAL) ALL CBC WITH AUTO DIFF (08/21/2024 6:28 AM EDT) [facility] WBC 9.7 4.0 - 11.0 10 [...] CLINIS[facility] - 08/21/2024 7:13 AM EDT us Chadd Eris DO CLINISYNC Final Result [facility] TB documented in this encounter Visit Diagnoses Not on filedocumented in this encounter Care Teams Tool Hardener Relationship Specialty Start Date End Date Tawny Gu MD [address] [place] [address] PCP - General Family Medicine 08/08/23 Amanda Jaimes PA [address] [place] [address] [address] [place] [id number] PCP - Medical [place] [employer] 01/12/24 02/10/99 documented as of this encounter
--- OUTSIDE RECORDS SUMMARY | 2024-08-27 10:58 | XMS_ITS | Encounter Summary ---
Author Organization [facility] Address [address] [place] [address] Care Team Providers Care Nurse Emergency Name Role Phone Tawny Gu MD Primary Care Provider [phone] Amanda Jaimes Unavailable Encounter Details Date Type Department Care Team (Late st Contact Info) Description 08/19/2024 Abstract [facility] [address] [place] [address] [place] [address] Lena Cruz MA Social History Tobacco [...] week 10/12/2022 How often do you attend mormonism or pentecostalism serv ices? Never 10/12/2022 Do you belong to any clubs o r organizations such as mormonism groups, unions, fraternal or athletic groups, or [...] Recorded Patient Health Questionnaire-2 Score 2 02/27/2023 [facility] - Occupational [...] place to sleep or slept in a long-term (including now)? No 10/12/2022 Comments Yes Sex [...] EST Office Visit [facility] [address] [place] [phone] Amanda Jaimes PA [address] [facility] [place] [address] documented as of this encounter Visit Diagnoses Not on filedocumented in this encounter Care Teams Nurse Emergency Relationship Specialty Start Date End Date Tawny Gu MD [address] [place] [address] PCP - General Family Medicine 08/08/23 Amanda Jaimes PA [address] [place] [address] PCP - Medical [place] [employer] 01/12/24 02/10/99 documented as of this encounter
--- OUTSIDE RECORDS SUMMARY | 2024-08-27 10:58 | XMS_ITS | Encounter Summary ---
Author Organization [facility] Address [address] [place] [address] Care Team Providers Care Complaint Coordinator Name Role Phone Tawny Gu MD Primary Care Provider [phone] Amanda Jaimes Unavailable Encounter Details Date Type Department Care Team (Late st Contact Info) Description 07/01/2024 Abstract [facility] [address] [place] [address] Chadd Schulte, DO [address] [facility] [address] [place], [place] [id number] Social History Tobacco Use Types Packs/Day Years [...] week 10/12/2022 How often do you attend amish or evangelical serv ices? Never 10/12/2022 Do you belong to any clubs o r organizations such as amish groups, unions, fraternal or athletic groups, or [...] Questionnaire-2 Score 2 02/27/2023 [facility] - Occupational Stress Questionnaire Answer [...] EST Office Visit [facility] [address] [facility] [place] [address] Amanda Jaimes PA [address] [facility] [address] [place], [place] [id number] documented as of this encounter Visit Diagnoses Not on filedocumented in this encounter Care Teams Complaint Coordinator Relationship Specialty Start Date End Date Tawny Gu MD [address] [place] [address] PCP - General Family Medicine 08/08/23 Amanda Jaimes PA [address] [facility] [place] [address] PCP - Medical [place] [employer] 01/12/24 02/10/99 documented as of this encounter
--- OUTSIDE RECORDS SUMMARY | 2024-08-27 10:58 | XMS_ITS | Encounter Summary ---
Author Organization [facility] Address [address] [place] [address] Care Team Providers Care Truck Cleaner Name Role Phone Tawny Gu MD Primary Care Provider [phone] Amanda Jaimes Unavailable Encounter Details Date Type Department Care Team (Late st Contact Info) Description 08/20/2024 Clinisync Result Encounter [facility]S External Department Unsolicited Rosey Schulte, DO [address] [facility] [address] [place] [address] Social History Tobacco Use Types Packs/Day Years [...] week 10/12/2022 How often do you attend buddhist or adventism serv ices? Never 10/12/2022 Do you belong to any clubs o r organizations such as buddhist groups, unions, fraternal or athletic groups, or [...] Recorded Patient Health Questionnaire-2 Score 2 02/27/2023 [facility] - Occupational Stress Questionnaire Answer Date [...] nursing home (including now)? No 10/12/2022 Comments Yes [...] EST Office Visit [facility] BCP OB [address] [place] [id number] Amanda Jamies PA [address] [facility] [address] [address] documented as of this encounter Procedures Procedure Name Priority Date/Time Associated Diagnosis Comments US OB LIMITED 1+ FETUSES 08/20/2024 9:50 AM EDT [facility] PROTHROMBIN TIME INR W/O COUM Routine 08/20/2024 9:09 AM EDT MHPT FIBRINOGEN Routine 08/20/2024 9:09 AM EDT [facility] APTT Routine 08/20/2024 9:09 AM EDT documented in this encounter Results * US OB limited 1+ fetuses (08/20/2024 9:50 AM EDT) Anatomical Region Laterality Modality Body Ultrasound 08/20/2024 9:50 AM EDT Narrative 08/20/2024 9:[place] [address] Ultrasound Report Signed Patient: LALA HALL MR#: [id number] : 1995 Acct:[id number] Age/Sex: 29 / F ADM Date: Loc: [facility] 258-[address]: Rosey Schulte D.O. Ordering Physician: Rosey Schulte D.O. Date of Service: 08/20/24 Procedure(s): US OB limited Accession Number(s): [id number] cc: Rosey Schulte D.O.; Chiara Herring [place] [address] Patient Name: LALA HALL MRN: [id number] date: 1995 Sex: F Assigned Patient Location: [facility] Current Patient Location: [facility] Accession/Order Number: [id number] Exam Date: 08/20/2024 09:46 Report Date: 08/20/2024 [...] Bower M.D. 08/20/2024 9:50 AM Dictation Location: [place] [address] Electronically authenticated by: [id number] Y Date: 08/20/2024 09:50 Dictated By: Moira Bower M.D. Signed By: 08/20/2453 DD/ TD/TT: Artificial Stone Setter: Procedure Note Radiology, Radiologist, - 08/20/2024 [place] [address] Ultrasound Report Signed Patient: LALA HALL TMR#: [id number] : 1995Acct:[id number] Age/Sex: 29 FADM Date: Loc: [facility] 258-[address]: Rosey Schulte D.O. Ordering Physician: Rosey Schulte D.O. Date of Service: 08/20/24 Procedure(s): US OB limited Accession Number(s): [id number] cc: Rosey Schulte D.O.; Chiara Herring [place] [address] Patient Name: LALA HALL MRN: [id number] date: 1995 Sex: F Assigned Patient Location: [facility] Current Patient Location: [facility] Accession/Order Number: [id number] Exam Date: 08/20/2024 09:46 Report Date: 08/20/2024 [...] Bower M.D. 08/20/2024 9:50 AM Dictation Location: [place] [address] Electronically authenticated by: [id number] Y Date: 9:50 Dictated By: Moira Bower M.D. Signed By:08/20/2453 DD/ 9 TD/TT: Artificial Stone Setter: Rosey Eris DO IMG OB US PROCEDURES Final Resul t * (ABNORMAL) MHPT FIBRINOGEN (08/20/2024 9:09 AM EDT) FIBRINOGEN 415(H) 200 - 400 mg/dL TBH 08/20/2024 9:09 AM EDT 08/20/2024 9:15 AM EDT Narrative CLINISYNC - 08/20/2024 10:39 AM EDT Rosey Eris DO CLINISYNC Final Result Performing Organization Address [facility]/ZIP Co de Phone Number [facility] * [facility] APTT (08/20/2024 9:09 AM EDT) PARTIAL THROMBOPLASTIN TIME 33.3 22.3 - 36.2 sec TBH 08/20/2024 9:09 AM EDT 08/20/2024 9:15 AM EDT Narrative CLINISYNC - 08/20/2024 10:39 AM EDT [facility] Final Result CLINISYAL TB * [facility] PROTHROMBIN TIME INR W/O COUM (08/20/2024 9:09 AM EDT) PROTHROMBIN TIME 10.3 9.0 - 11.6 sec TBH TBH INR 0.97 TBH Comment: DESIRED INR: 2.0-3.0 CONDITIONS NOT LISTED BELOW 2.5-3.5 FOR PROSTHETIC HEART VALVE REPLACEMENT 2.5-3.5 RECURRENT THROMBOSIS 08/20/2024 9:09 AM EDT 08/20/2024 9:15 AM EDT Narrative CLINISYNC - 08/20/2024 10:39 AM EDT us Rosey Eris DO CLINISYNC Final Result [facility]INIS[facility]NC [facility] documented in this encounter Visit Diagnoses Not on filedocumented in this encounter Care Teams Truck Cleaner Relationship Specialty Start Date End Date Tawny Gu MD [address] [place] [address] PCP - General Family Medicine 08/08/23 Amanda Jaimes PA [address] [place] [address] [place] [address] PCP - Medical [place] [employer] 01/12/24 02/10/99 documented as of this encounter
--- OUTSIDE RECORDS SUMMARY | 2024-08-27 10:58 | XMS_ITS | Encounter Summary ---
Author Organization [facility] Address [address] [place] [address] Care Team Providers Care Teacher Theater Arts Name Role Phone Tawny Gu MD Primary Care Provider [phone] Amanda Jaimes Unavailable Encounter Details Date Type Department Care Team (Late st Contact Info) Description 08/20/2024 Clinisync Result Encounter [facility] External Department Unsolicited Chadd Schulte, DO [address] [facility] [place] [address] Social History Tobacco Use Types Packs/Day Years [...] week 10/12/2022 How often do you attend pentecostalism or latter day serv ices? Never 10/12/2022 Do you belong to any clubs o r organizations such as pentecostalism groups, unions, fraternal or athletic groups, or [...] Recorded Patient Health Questionnaire-2 Score 2 02/27/2023 [facility] - Occupational Stress Questionnaire Answer Date Recorded [...] in a alf (including now)? No 10/12/2022 Comments Yes Sex [...] OB [address] [place] [address] Amanda Jaimes PA [address] [facility] [place] [address] documented as of this encounter Procedures Procedure Name Priority Date/Time Associated Diagnosis Comments ALL CBC WITH AUTO DIFF Routine 08/20/2024 9:09 AM EDT documented in this encounter Results * ALL CBC WITH AUTO DIFF (08/20/2024 9:09 AM EDT) TBH WBC 7.4 4.0 - 11.0 10 3/uL TBH TBH RBC 5.12 4.20 - 5.40 10 6/uL TBH TBH HGB 14.6 12.0 - 16.0 g/dL TBH TBH HCT 43.8 36.0 - 48.0 % TBH TBH MCV 85.5 81.0 - 99.0 fL TBH TBH MCH 28.5 26.7 - 34.0 pg TBH TBH MCHC 33.3 29.9 - 35.2 g/dL TBH TBH RDW 14.0 11.0 - 15.0 % TBH TBH PLT 289 150 - 450 10 3/uL TBH TBH MPV 10.0 9.5 - 13.5 fL TBH NEUTROPHILS PERCENT AUTO 67.4 43.0 - 75.0 % TBH LYMPHOCYTES PERCENT AUTO 21.5 20.5 - 60.0 % TBH MONOCYTES PERCENT AUTO 6.0 1.7 - 12.0 % TBH TBH EO % 4.4 0.9 - 7.0 % TBH BASOPHILS PERCENT AUTO 0.4 0.2 - 2.0 % TBH IMMATURE GRANULOCYTES PCT AUTO 0.3 0.0 - 0.5 % TBH NEUTROPHILS ABSOLUTE AUTO 5.0 1.4 - 6.5 10 3/uL TBH LYMPHOCYTES ABSOLUTE AUTO 1.6 1.2 - 3.8 10 3/uL TBH MONOCYTES ABSOLUTE AUTO 0.4 0.3 - 0.8 10 3/uL TBH TBH EO # 0.3 0.0 - 0.7 10 3/uL TBH BASOPHILS ABSOLUTE AUTO 0.0 0.0 - 0.1 10 3/uL TBH IMMATURE GRANULOCYTES ABS AUTO 0.02 0.00 - 0.03 10 3/uL TBH 08/20/2024 9:09 AM EDT 08/20/2024 9:15 AM EDT Narrative CLINISYNC - 08/20/2024 9:22 AM EDT us Chadd Eris DO CLINISYNC Final Result CLINISYNC TB documented in this encounter Visit Diagnoses Not on filedocumented in this encounter Care Teams Teacher Theater Arts Relationship Specialty Start Date End Date Tawny Gu MD [address] [place] [address] PCP - General Family Medicine 08/08/23 Amanda Jaimes PA [address] [place] [address] [place] [address] PCP - Medical [place] [employer] 01/12/24 02/10/99 documented as of this encounter
--- OUTSIDE RECORDS SUMMARY | 2024-08-27 10:58 | XMS_ITS ---
Author Organization [facility] Address [address] [place] [address] Care Team Providers Care Search And Rescue Officer Name Role Phone Tawny Gu MD Primary Care Provider [phone] Amanda Jaimes Unavailable Inpatient Discharge Transitional Care Management (TCM) Status:Closed (Closed) Start date:08/21/2024 Enrollment date:08/24/2024 Enrollment reason:Identified using hospital discharge data End date:08/24/2024 Close reason:Not eligible Overview Patient discharged from [facility] on 08/21. Please contact for hospital COSME and schedule follow-up appointment within 7-14 days. Continued Care and Services Coordination
--- OUTSIDE RECORDS SUMMARY | 2024-08-27 10:58 | XMS_ITS | Encounter Summary ---
Author Organization [facility] Address [address] [place] [address] Care Team Providers Care Family Sociologist Name Role Phone Chiara Herring PROTECTIVE SERVICES OFFICER Unavailable [phone] Tawny Gu MD Primary Care Provider [phone] Amanda Jaimes Unavailable Encounter Details Date Type Department Care Team (Late st Contact Info) Description 07/19/2022 Abstract N[facility] OB [address] [facility] [place] [address] Chadd Schulte DO [address] [facility] [place] [address] Social History Tobacco Use Types Packs/Day [...] Visit [facility] BCP OB [address] [place] [address] Amanda Jaimes PA [address] [place], [place] [id number] documented as of this encounter Visit Diagnoses Not on filedocumented in this encounter Care Teams Family Sociologist Relationship Specialty Start Date End Date Chiara Herring PROTECTIVE SERVICES OFFICER [address] [place] [address] PCP - [place] [employer] 12/12/2201/10 Tawny Gu MD [address] [place] [address] PCP - General Family Medicine 08/08/23 Amanda Jaimes PA [address] [place] [address] [place] [address] PCP - Medical [place] [employer] 01/12/24 02/10/99 documented as of this encounter
--- OUTSIDE RECORDS SUMMARY | 2024-08-27 10:58 | XMS_ITS | Encounter Summary ---
Author Organization [facility] Address [address] [place] [address] Care Team Providers Care Ski Lift Attendant Name Role Phone Tawny Gu MD Primary Care Provider [phone] Amanda Jaimes Unavailable Encounter Details Date Type Department Care Team (Late st Contact Info) Description 08/18/2024 External Result Encounter NOMS External Department Unsolicited Amanda Jaimes PA [address] [place] [address] [place] [address] Social History Tobacco Use Types Packs/Day Years [...] week 10/12/2022 How often do you attend alevism or baptism serv ices? Never 10/12/2022 Do you belong to any clubs o r organizations such as alevism groups, unions, fraternal or athletic groups, or [...] Recorded Patient Health Questionnaire-2 Score 2 02/27/2023 [facility] - Occupational Stress Questionnaire [...] a senior care (including now)? No 10/12/2022 Comments Yes Sex [...] EST Office Visit [facility] BCP OB [address] [place] [address] Amanda Jaimes PA [address] [facility] [place] [address] documented as of this encounter Procedures Procedure Name Priority Date/Time Associated Diagnosis Comments RECURRENT VAGINITIS (HTRX) Routine 08/18/2024 3:28 PM EDT documented in this encounter Results * (ABNORMAL) RECURRENT VAGINITIS (HTRX) (08/18/2024 3:28 PM EDT) Pathologist [facility] ATOPOBIUM VAGINAE 0 19.961 - 24.689 ppm 08/19/2024 8:01 AM EDT [facility] ATOPOBIUM VAGINAE Not Detected 19.961 - 24.689 ppm 08/19/2024 8:01 AM EDT [facility] [place] BVAB 2,3 (BACTERIAL VAGINOSIS ASSOCIATED BACTERIA 2, 3); MOBILUNCUS SPP 24.805(A) 19.961 - 24.689 ppm 08/19/2024 8:01 AM EDT [facility] [place] BVAB 2,3 (BACTERIAL VAGINOSIS ASSOCIATED BACTERIA 2, 3); MOBILUNCUS SPP Detected(A) 19.961 - 24.689 ppm 08/19/2024 8:01 AM EDT [facility] [place] KIERSTEN ALBICANS, PARAPSILOSIS, TROPICALIS 0 19.961 - 30.770 ppm 08/19/2024 8:01 AM EDT [facility] [place] KIERSTEN ALBICANS, PARAPSILOSIS, TROPICALIS Not Detected 19.961 - 30.770 ppm 08/19/2024 8:01 AM EDT [facility] KIERSTEN GLABRATA 0 23.000 - 32.138 ppm 08/19/2024 8:01 AM EDT [facility] KIERSTEN GLABRATA Not Detected 23.000 - 32.138 ppm 08/19/2024 8:01 AM EDT [facility] KIERSTEN KRUSEI 0 23.000 - 32.271 ppm 08/19/2024 8:01 AM EDT [facility] [place] KIERSTEN KRUSEI Not Detected 23.000 - 32.271 ppm 08/19/2024 8:01 AM EDT [facility] CHLAMYDIA TRACHOMATIS 0 23.000 - 31.467 ppm 08/19/2024 8:01 AM EDT [facility] CHLAMYDIA TRACHOMATIS Not Detected 23.000 - 31.467 ppm 08/19/2024 8:01 AM EDT [facility] GARDNERELLA VAGINALIS 24.549(A) 19.961 - 24.689 ppm 08/19/2024 8:01 AM EDT [facility] [place] GARDNERELLA VAGINALIS Detected(A) 19.961 - 24.689 ppm 08/19/2024 8:01 AM EDT [facility] [place] MEGASPHAERA (TYPES 1, 2) 0 19.961 - 24.689 ppm 08/19/2024 8:01 AM EDT [facility] [place] MEGASPHAERA (TYPES 1, 2) Not Detected 19.961 - 24.689 ppm 08/19/2024 8:01 AM EDT [facility] [place] NEISSERIA GONORRHOEAE 0 23.000 - 32.117 ppm 08/19/2024 8:01 AM EDT [facility] NEISSERIA GONORRHOEAE Not Detected 23.000 - 32.117 ppm 08/19/2024 8:01 AM EDT [facility] [place] TRICHOMONAS VAGINALIS 0 23.000 - 32.119 ppm 08/19/2024 8:01 AM EDT [facility] [place] TRICHOMONAS VAGINALIS Not Detected 23.000 - 32.119 ppm 08/19/2024 8:01 AM EDT [facility] [place] MYCOPLASMA GENITALIUM 0 19.961 - 24.689 ppm 08/19/2024 8:01 AM EDT [facility] MYCOPLASMA GENITALIUM Not Detected 19.961 - 24.689 ppm 08/19/2024 8:01 AM EDT [facility] ERMB, C; MEFA 24.064(A) 23.000 - 27.611 ppm 08/19/2024 8:01 AM EDT [facility] ERMB, C; MEFA Detected(A) 23.000 - 27.611 ppm 08/19/2024 8:01 AM EDT [facility] TET B, TET M 25.246(A) 23.000 - 27.778 ppm 08/19/2024 8:01 AM EDT [facility] TET B, TET M Detected(A) 23.000 - 27.778 ppm 08/19/2024 8:01 AM EDT [facility] Tissue 08/18/2024 3:28 PM EDT 08/19/2024 2:58 AM EDT Amanda LEMON LAB BLOOD ORDERABLES Final Resul t [facility] [address] [place] [address] documented in this encounter Visit Diagnoses Not on filedocumented in this encounter Care Teams Ski Lift Attendant Relationship Specialty Start Date End Date Tawny Gu MD [address] [place] [address] PCP - General Family Medicine 08/08/23 Amanda Jaimes PA [address] [place] [address] [place] [address] PCP - Medical [place] [employer] 01/12/24 02/10/99 documented as of this encounter
--- OUTSIDE RECORDS SUMMARY | 2024-08-27 10:59 | XMS_ITS | Encounter Summary ---
Author Organization [facility] Address [address] [place] [address] Care Team Providers Care Garage Attendant Name Role Phone Tawny Gu MD Primary Care Provider [phone] Amanda Jaimes Unavailable Encounter Details Date Type Department Care Team (Late st Contact Info) Description 08/20/2024 Clinisync Result Encounter NOMS External Department Unsolicited Rosey Schulte, DO [address] [facility] [place] [address] Social History Tobacco Use Types Packs/Day Years [...] week 10/12/2022 How often do you attend tenriism or jain serv ices? Never 10/12/2022 Do you belong to any clubs o r organizations such as tenriism groups, unions, fraternal or athletic groups, or [...] Recorded Patient Health Questionnaire-2 Score 2 02/27/2023 [facility] - Occupational Stress Questionnaire Answer Date Recorded [...] place to sleep or slept in a penitentiary (including now)? No 10/12/2022 Comments Yes Sex [...] [address] [facility] [place] [address] Amanda Jaimes PA [address] [place] [address] documented as of this encounter Procedures Procedure Name Priority Date/Time Associated Diagnosis Comments ALL CBC WITH AUTO DIFF Routine 08/20/2024 8:29 PM EDT US PELVIS 08/20/2024 6:30 PM EDT documented in this encounter Results * (ABNORMAL) ALL CBC WITH AUTO DIFF (08/20/2024 8:29 PM EDT) TBH WBC 11.4(H) 4.0 - 11.0 10 3/uL TBH TBH RBC 4.40 4.20 - 5.40 10 6/uL TBH TBH HGB 12.6 12.0 - 16.0 g/dL TBH TBH HCT 37.3 36.0 - 48.0 % TBH TBH MCV 84.8 81.0 - 99.0 fL TBH TBH MCH 28.6 26.7 - 34.0 pg TBH TBH MCHC 33.8 29.9 - 35.2 g/dL TBH TBH RDW 13.9 11.0 - 15.0 % TBH TBH PLT 253 150 - 450 10 3/uL TBH TBH MPV 10.7 9.5 - 13.5 fL TBH NEUTROPHILS PERCENT AUTO 83.6(H) 43.0 - 75.0 % TBH LYMPHOCYTES PERCENT AUTO 11.5(L) 20.5 - 60.0 % TBH MONOCYTES PERCENT AUTO 3.8 1.7 - 12.0 % TBH TBH EO % 0.4(L) 0.9 - 7.0 % TBH BASOPHILS PERCENT AUTO 0.3 0.2 - 2.0 % TBH IMMATURE GRANULOCYTES PCT AUTO 0.4 0.0 - 0.5 % TBH NEUTROPHILS ABSOLUTE AUTO 9.5(H) 1.4 - 6.5 10 3/uL TBH LYMPHOCYTES ABSOLUTE AUTO 1.3 1.2 - 3.8 10 3/uL TBH MONOCYTES ABSOLUTE AUTO 0.4 0.3 - 0.8 10 3/uL TBH TBH EO # 0.1 0.0 - 0.7 10 3/uL TBH BASOPHILS ABSOLUTE AUTO 0.0 0.0 - 0.1 10 3/uL TBH IMMATURE GRANULOCYTES ABS AUTO 0.04(H) 0.00 - 0.03 10 3/uL TBH 08/20/2024 8:29 PM EDT 08/20/2024 8:35 PM EDT Narrative CLINISYNC - 08/20/2024 8:44 PM EDT us Rosey Eris DO CLINISYNC Final Result CLINISYNC TB * US PELVIS (08/20/2024 6:30 PM EDT) Anatomical Region Laterality Modality Other 08/20/2024 6:30 PM EDT Narrative 08/20/2024 6:33 PM EDT The [address] [address] Ultrasound Report Signed Patient: LALA HALL MR#: [id number] : 1995 Acct:[id number] Age/Sex: 29 / F ADM Date: Loc: [facility] 258-[address]: Rosey Schulte D.O. Ordering Physician: Rosey Schulte D.O. Date of Service: 08/20/24 Procedure(s): US pelvis Accession Number(s): [id number] cc: Rosey Schulte D.O.; Chiara Herring ARMATURE WINDER AUTOMOTIVE [place] [id number] Patient Name: LALA HALL MRN: TBH:[id number] date: 1995 Sex: F Assigned Patient Location: [facility] Current Patient Location: [facility] Accession/Order Number: [id number] Exam Date: 08/20/2024 18:28 Report Date: 08/20/2024 18:30 At the request of: ROSEY SCHULTE DO Procedure: US pelvis PELVIS, TRANSABDOMINAL INDICATION: demise, evaluate for retained products of conception. COMPARISON: 08/17/2024 FINDINGS: Uterus 14.7 x 6.1 x 6.5 cm in size. Echogenic intrauterine soft tissue with increased vascularity centrally 4 x 1 x 4.9 x 3.8 cm in size. At level of cervix, there is identified echogenic focus measuring 5.8 x 5.1 x 6.9 cm in size. Ovaries are not visualized. US/US pelvis IMPRESSION: Echogenic material within the uterus and the level cervix with the material within the uterus demonstrate increased vascularity worrisome for retained products. Impression dictated by: Triston Rodriguez M.D. 08/20/2024 6:30 PM Dictation Location: [place] [address] Electronically authenticated by: [id number] Y Date: 08/20/2024 18:30 Dictated By: Triston Rodriguez M.D. Signed By: 07/12/05 1832 DD/ 29 TD/TT: Industrial Technology Education Teacher: Procedure Note Radiology, Radiologist, MD - 08/20/2024 [place] [address] Ultrasound Report Signed Patient: LALA HALL TMR#: [id number] : 1995Acct:[id number] Age/Sex: 29 / FADM Date: Loc: [facility] 258-[address]: Rosey Schulte D.O. Ordering Physician: Rosey Schulte D.O. Date of Service: 08/20/24 Procedure(s): US pelvis Accession Number(s): [id number] cc: Rosey Schulte D.O.; Chiara Herring [employer]OMOT[employer] [place] [address] Patient Name: LALA HALL MRN: [facility]:[id number] date: 1995 Sex: F Assigned Patient Location: [facility] Current Patient Location: [facility] Accession/Order Number: [id number] Exam Date: 08/20/2024 18:28 Report Date: 08/20/2024 18:30 At the request of: ROSEY SCHULTE DO Procedure: US pelvis PELVIS, TRANSABDOMINAL INDICATION: demise, evaluate for retained products of conception. COMPARISON: 08/17/2024 FINDINGS: Uterus 14.7 x 6.1 x 6.5 cm in size. Echogenic intrauterine soft tissue with increased vascularity centrally 4 x 1 x 4.9 x 3.8 cm in size.At level of cervix, there is identified echogenic focus measuring 5.8 x 5.1 x6.9 cm in size. Ovaries are not visualized. US/US pelvis IMPRESSION: Echogenic material within the uterus and the level cervix withthe material within the uterus demonstrate increased vascularity worrisome for retained products. Impression dictated by: Triston Rodriguez M.D. 08/20/2024 6:30 PM Dictation Location: [place] [address] Electronically authenticated by: [id number] Y Date: 8:30 Dictated By: Triston Rodriguez M.D. Signed By:08/20/241832 DD/ 29 TD/TT: Industrial Technology Education Teacher: us Rosey Eris DO CLINISYNC IMAGING Final Result documented in this encounter Visit Diagnoses Not on filedocumented in this encounter Care Teams Garage Attendant Relationship Specialty Start Date End Date Tawny Gu MD [address] [facility] [place] [address] PCP - General Family Medicine 08/08/23 Amanda Jaimes PA [address] [place] [address] [place] [address] PCP - Medical [place] [employer] 01/12/24 02/10/99 documented as of this encounter
--- OUTSIDE RECORDS SUMMARY | 2024-08-27 10:59 | XMS_ITS | Encounter Summary ---
Author Organization [facility] Healthcare Address [address] [place] [address] Care Team Providers Care Agribusiness Internship Name Role Phone Tawny Gu MD Primary Care Provider [phone] Amanda Jaimes PA Unavailable Encounter Details Date Type Department Care Team (Late st Contact Info) Description 08/24/2024 Patient Outreach [facility] [address] [place] [address] Amanda Cody LPN [address] [place] [address] Social History Tobacco Use Types Packs/Day Years [...] week 10/12/2022 How often do you attend temple or orthodoxy serv ices? Never 10/12/2022 Do you belong to any clubs o r organizations such as temple groups, unions, fraternal or athletic groups, or [...] Recorded Patient Health Questionnaire-2 Score 2 02/27/2023 [facility] - Occupational Stress Questionnaire Answer Date [...] on file documented as of this encounter Progress Notes * Amanda Cody LPN - 08/24/2024 4:03 PM EDT Images from the original note were not included. Flowsheet Row Patient Outreach from 08/24/2024 in [facility] with Amanda Cody LPN Hospital Information ED, Hospital or Halfway Facility Discharge? Hospital Patient has been contacted within two business days of discharge Yes Diagnosis Acute posthemorrhagic anemia and demise Discharge Date 08/21/24 Discharged To: Home Setting Discharge Hospital [facility] Engagement Call Start Time 035 Admission Date 08/20/24 Medications Discharge medications reviewed and reconciled from hospital? Yes Is the patient having any side effects they believe may be caused by any medication additions or changes? No Does the patient have all medications ordered at discharge? Yes Nursing Interventions No intervention needed Is the patient taking all medications as directed (includes completed medication regime)? Yes Nursing Interventions Nurse provided patient education Appointments Does the patient have any upcoming specialty appointments? Yes [Post op 08/27/24 [place]] Self Management Patient Teaching Does the patient have access to their discharge instructions? Yes Nursing Interventions Reviewed instructions with patient What is the patient's perception of their health status since discharge? Improving Is the patient/caregiver able to teach back the hierarchy of who to call/visit for symptoms/problems? PCP, Specialist, Home Health nurse, Urgent Care, ED, 911 Yes Wrap Up Call End Time 0410 COSME Complete. Call to pt. Pt denies pain at this time. Pt describes bleeding as light. Pt reports she is coping the best she can for the current circumstances. Next OB visit for post op care 08/27/24. documented in this encounter Plan of Treatment Upcoming Encounters Date Type Department Care Team (Late st Contact Info) Description 02/15/2025 10:00 AM EST Office Visit [facility] OB [address] [place] [address] Amanda Jaimes PA [address] [facility] [place] [address] documented as of this encounter Visit Diagnoses Diagnosis Acute post-hemorrhagic anemia- Primary Acute posthemorrhagic anemia documented in this encounter Care Teams Agribusiness Internship Relationship Specialty Start Date End Date Tawny Gu MD [address] [place] [address] PCP - General Family Medicine 08/08/23 Amanda Jaimes PA [address] [place] [address] PCP - Medical [place] [employer] 01/12/24 02/10/99 documented as of this encounter
--- OUTSIDE RECORDS SUMMARY | 2024-08-27 10:59 | XMS_ITS | Encounter Summary ---
Author Organization [facility] Address [address] [place] [address] Care Team Providers Care Music Promoter Name Role Phone Tawny Gu MD Primary Care Provider [phone] Amanda Jaimes Unavailable Encounter Details Date Type Department Care Team (Late st Contact Info) Description 08/20/2024 Clinisync Result Encounter [facility] External Department Unsolicited Rosey Schulte, DO [address] [facility] [place] [address] Social History Tobacco Use Types Packs/Day Years [...] week 10/12/2022 How often do you attend spiritism or yazidi serv ices? Never 10/12/2022 Do you belong to any clubs o r organizations such as spiritism groups, unions, fraternal or athletic groups, or [...] Patient Health Questionnaire-2 Score 2 02/27/2023 [facility] - Occupational Stress Questionnaire Answer Date Recorded [...] EST Office Visit [facility] BCP OB [address] [facility] [place] [address] Amanda Jaimes PA [address] [facility] [place] [address] documented as of this encounter Procedures Procedure Name Priority Date/Time Associated Diagnosis Comments ALL HEMOGLOBIN Routine 08/20/2024 11:26 PM EDT US PELVIS 08/20/2024 11:22 PM EDT FACTOR V LEIDEN MUTATION Routine 08/20/2024 9:09 AM EDT [facility] ANTITHROMBIN ACTIVITY Routine 08/20/2024 9:09 AM EDT [facility] MTHFR GENE ANALYSIS Routine 08/20/2024 9:09 AM EDT [facility] HOMOCYSTEINE Routine 08/20/2024 9: 09 AM EDT ALL IMMUNOGLOBULIN M Routine 08/20/2024 9:09 AM EDT ALL IMMUNOGLOBULIN G Routine 08/20/2024 9:09 AM EDT documented in this encounter Results * ALL HEMOGLOBIN (08/20/2024 11:26 PM EDT) Pathologist [facility] HGB 12.7 12.0 - 16.0 g/dL [facility] 08/20/2024 11:2 6 PM EDT 08/20/2024 11:31 PM EDT Narrative [facility]IN[facility] - 08/20/2024 11:33 PM EDT Rosey Schulte DO CLINISYNC Final Result Performing Organization Address City/State/[facility] Co de Phone Number [facility] * US PELVIS (08/20/2024 11:22 PM EDT) Anatomical Region Laterality Modality Other 08/20/2024 11:2 2 PM EDT Narrative 08/20/2024 11:25 [place] [address] Ultrasound Report Signed Patient: LALA HALL MR#: [id number] : 1995 Acct:[id number] Age/Sex: 29 / F ADM Date: Loc: [facility] 258- Attending Dr: Rosey Schulte D.O. Ordering Physician: Rosey Schulte D.O. Date of Service: 08/20/24 Procedure(s): US pelvis Accession Number(s): [id number] cc: Rosey Schulte D.O.; Chiara Herring NP [address] [address] Patient Name: LALA HALL MRN: [facility]:[id number] date: 1995 Sex: F Assigned Patient Location: [facility] Current Patient Location: [facility] Accession/Order Number: [id number] Exam Date: 08/20/2024 23:19 Report Date: 08/20/2024 [...] 08/20/2024 11:22 PM Dictation Location: [place] [address] Electronically authenticated by: [id number] Y Date: 08/20/2024 23:22 Dictated By: Triston Rodriguez M.D. Signed By: 08/20/242324 DD/ 21 TD/TT: Jack[place]oo: Procedure Note Radiology, Radiologist, MD - 08/20/2024 [place] [address] Ultrasound Report Signed Patient: LALA HALL TMR#: [id number] : 1995Acct:[id number] Age/Sex: 29 / FADM Date: Loc: [facility] 258-[address]: Rosey Schulte D.O. Ordering Physician: Rosey Schulte D.O. Date of Service: 08/20/24 Procedure(s): US pelvis Accession Number(s): [id number] cc: Rosey Schulte D.O.; Chiara Herring NP The [address] [address] Patient Name: LALA HALL MRN: [facility]:[id number] date: 1995 Sex: F Assigned Patient Location: [facility] Current Patient Location: [facility] Accession/Order Number: [id number] Exam Date: 08/20/2024 23:19 Report Date: 08/20/2024 [...] 08/20/2024 11:22 PM Dictation Location: [place] [address] Electronically authenticated by: [id number] Y Date: 3:22 Dictated By: Triston Rodriguez M.D. Signed By:08/20/242324 DD/ 21 TD/TT: Jackaroo: us Rosey Schulte DO CLINIS[facility] IMAGING Final Result * FACTOR V LEIDEN MUTATION (08/20/2024 9:09 AM EDT) Pathologist [facility] FACTOR V LEIDEN MUTATION Comment . [facility] Comment: Result: c.1601G>A (p.Nma939Ary) - Not Detected This result is not associated with an increased risk for venous thromboembolism. See Additional Clinical Information and Comments. Additional Clinical Information: Venous thromboembolism is a multifactorial disease influenced by genetic, environmental, and circumstantial risk factors. The c.1601G>A (p. Gun716Qek) variant in the F5 gene, commonly referred [...] c.*97G>A variant and Factor V Leiden (PMID: 49486119). Additional risk factors include but are not [...] health care providers to discuss results at [phone] ([phone]). Test Details: Variant Analyzed: c.1601G>A (p. Kqi791Okg), referred to as Factor V Leiden Methods/Limitations: [...] developed and its performance characteristics determined by [employer]. It has not been cleared or approved by the Food and Drug Administration. References: Huber Geller, Helen BUTT, Jonathan R, Jose WW, Rick JH; ACMG Professional Practice and Guidelines Committee. Addendum: [place] [employer] consensus statement on factor V Leiden mutation testing. Bhavani Med. 2020Apr 15. doi: 10.1038/i72635-676-94723-z. PMID: 12290611. Devyn MESSER. Factor V Leiden Thrombophilia. 1998June 24 (Updated 2017Feb 14). In: Ziyad MP, Bailey HH, Moi RA, et al., editors. [place](R) (Internet). [place] ([place]): [facility]; 1917-6671. Available from: https://www.ncbi.nlm.nih.gov/books/MES4571/ Juan Geller, Helen BUTT, Ricky X, Flip B, Kelley EB, Sharon P, Dana CS; ACMG Laboratory Chemical Analyst Committee. Venous thromboembolism laboratory testing (factor V Leiden and factor II c. *97G>A), 2018 update: a technical standard of the [place] [employer] and Genomics (ACMG). Bhavani Med. 2018 Jan;20(12): 4726-2603. doi: 10.1038/b17715-807-6628-y. Epub 2017Nov 15. PMID: 34743490. [facility] REVIEWED BY Comment . [facility] Comment: Technical Component performed at [facility] [place] Professional Component performed by: Remington Walls, PhD, [facility] TPTGD5, [facility], [address] [place] [address] Performed at: - [facility] [place] [address], [place], [place] [id number] Electronics Installer: Erika Encarnacion [facility], Phone: [phone] 08/20/2024 9:09 AM EDT 08/20/2024 9:15 AM EDT Gus RODRIGUEZ - 08/26/2024 8:08 AM EDT us Rosey Schulte DO LAB BLOOD ORDERABLES Final Resul t [facility] * [facility] MTHFR GENE ANALYSIS (08/20/2024 9:09 AM EDT) [facility] MTHFR, DNA ANALYSIS Comment . [facility] Comment: Result: c.665C>T (p. [id number]), legacy name: C677T - Not Detected c.1286A>C (p. Yhp962Bsi), legacy name: [id number] - Detected, heterozygous Interpretation: This result is [...] that can decrease enzyme activity; c.665C>T (p. Sse908Tds), legacy name C677T, and c.1286A>C (p. Zzy734Wdp), legacy name [id number]. These variants do not independently increase risk [...] to limited evidence of clinical utility (PMID: 16302031). Comments: Genetic Coordinators are available for health care providers to discuss results at [phone]). Test Details: Variants Analyzed: c.665C>T (p. Ows998Xvy), legacy name: C677T and c.1286A>C (p. Wpq558Yub), legacy name: [id number] Methods/Limitations: DNA analysis of the MTHFR gene [...] developed and its performance characteristics determined by [employer]. It has not been cleared or approved by the Food and Drug Administration. References: Deidre SE, Mejia CJ, Maude HV. ACMG Practice Guideline: lack of evidence for MTHFR polymorphism testing. Bhavani Med. 2012;15(2):153-6. doi: 10.1038/gim.2012.165. Epub 2012Feb 13. PMID: 36063336. [place] [employer] of Obstetricians and Gynecologists' Committee on Practice Bulletins-Obstetrics. ACOG Practice Bulletin No. 197: Inherited Thrombophilias in . Obstet Gynecol. 2018 Aug;132(1):e18-e34. doi: 10.1097/AOG.1802911807079578. Erratum in: Obstet Gynecol. 2018 Nov;132(4):1069. PMID: 56844791. REVIEWED BY: Comment . [facility] Comment: Technical Component performed at [facility] [place] Professional Component performed by: Riley James, PhD, [facility] [id number], [facility], [address] [facility] [place] [address] Performed at: [facility] [place] [address] [facility], [place], [place] [id number] Electronics Installer: Erika Encarnacion [facility], Phone: [phone] 08/20/2024 9:09 AM EDT 08/20/2024 9:15 AM EDT Narrative CLINISYNC - 08/25/2024 2:10 PM EDT Rosey Eris DO CLINISYNC Final Result Performing Organization Address City/[facility]/ZIP Co de Phone Number [facility] * ALL IMMUNOGLOBULIN G (08/20/2024 9:09 AM EDT) [facility] IMMUNOGLOBULIN G, QN 791 586 - 1602 mg/dL TB Comment: Performed at: [address] [id number] Electronics Installer: Mohan Nagy PhD, Phone: [phone] 08/20/2024 9:09 AM EDT 08/20/2024 9:15 AM EDT Narrative CLINISYNC - 08/25/2024 2:10 PM EDT Rosey Eris DO CLINISYNC Final Result Performing Organization Address City/[facility]/ZIP Co de Phone Number [facility] * [facility] ANTITHROMBIN ACTIVITY (08/20/2024 9:09 AM EDT) Pathologist [facility] ANTITHROMBIN ACTIVITY 122 75 - 135 % [facility] Comment: Direct Xa inhibitor anticoagulants such as rivaroxaban, apixaban and edoxaban will lead to spuriously elevated antithrombin activity levels possibly masking a deficiency. Performed at: [address] [id number] Electronics Installer: Kg Doss MD, Phone: [phone] 08/20/2024 9:09 AM EDT 08/20/2024 9:15 AM EDT Narrative CLINISYNC - 08/22/2024 12:09 AM EDT Rosey Eris DO CLINISYNC Final Result Performing Organization Address [facility] Co de Phone Number CLINISYNC [facility] * ALL IMMUNOGLOBULIN M (08/20/2024 9:09 AM EDT) Pathologist [facility] IMMUNOGLOBULIN M, Q 183 26 - 217 mg/dL [facility] Comment: Performed at: [address] [id number] Electronics Installer: Mohan Nagy PhD, Phone: [phone] 08/20/2024 9:09 AM EDT 08/20/2024 9:15 AM EDT Narrative CLINISYNC - 08/21/2024 4:07 AM EDT Rosey Eris DO CLINISYNC Final Result Performing Organization Address [facility] Co de Phone Number [facility] * [facility] HOMOCYSTEINE (08/20/2024 9:09 AM EDT) Pathologist [facility] HOMOCYST(E)INE 5.4 0.0 - 14.5 umol/L [facility] Comment: Performed at: [address] [id number] Electronics Installer: Mohan Nagy PhD, Phone: [phone] 08/20/2024 9:09 AM EDT 08/20/2024 9:15 AM EDT Narrative CLINISYNC - 08/21/2024 4:07 AM EDT Rosey Eris DO CLINISYNC Final Result Performing Organization Address [facility] Co de Phone Number CLINISYNC [facility] documented in this encounter Visit Diagnoses Not on filedocumented in this encounter Care Teams Music Promoter Relationship Specialty Start Date End Date Tawny Gu MD [address] [place] [address] PCP - General Family Medicine 08/08/23 Amanda Jaimes PA [address] [place] [address] [place] [address] PCP - Medical [place] [employer] 01/12/24 02/10/99 documented as of this encounter
--- OUTSIDE RECORDS SUMMARY | 2024-08-27 10:59 | XMS_ITS | Encounter Summary ---
Author Organization [facility] Address [address] [place] [address] Care Team Providers Care Bus Boy Name Role Phone Tawny Gu MD Primary Care Provider [phone] Amanda Jaimes Unavailable Encounter Details Date Type Department Care Team (Late st Contact Info) Description 08/21/2024 Orders Only [facility] NE [address] [place] [id number] Chadd Schulte, DO [address] [facility] [address] [place], [place] [id number] Social History Tobacco Use Types Packs/Day Years [...] week 10/12/2022 How often do you attend episcopal or synagogue serv ices? Never 10/12/2022 Do you belong to any clubs o r organizations such as episcopal groups, unions, fraternal or athletic groups, or [...] Recorded Patient Health Questionnaire-2 Score 2 02/27/2023 [facility] of Occupat ional [facility] - Occupational Stress Questionnaire Answer Date [...] EST Office Visit [facility] BCP OB [address] [facility] [place] [address] Amanda Jaimes PA [address] [facility] [address] [place], [place] [phone] documented as of this encounter Procedures Procedure Name Priority Date/Time Associated Diagnosis Comments US PELVIS Routine 08/20/2024 10:01 AM EDT documented in this encounter Results * US pelvis (08/20/2024 10:01 AM EDT) Anatomical Region Laterality Modality Pelvis Ultrasound us Chadd Schulte DO IMG US PROCEDURES Final Result documented in this encounter Visit Diagnoses Not on filedocumented in this encounter Care Teams Bus Boy Relationship Specialty Start Date End Date Tawny Gu MD [address] [place] [address] PCP - General Family Medicine 08/08/23 Amanda Jaimes PA [address] [place] [address] [place] [address] PCP - Medical [place] [employer] 01/12/24 02/10/99 documented as of this encounter
--- OUTSIDE RECORDS SUMMARY | 2024-08-27 10:59 | XMS_ITS | Encounter Summary ---
Author Organization [facility] Address [address] [place] [address] Care Team Providers Care Photoengraving Supervisor Name Role Phone Tawny Gu MD Primary Care Provider [phone] Amanda Jaimes Unavailable Encounter Details Date Type Department Care Team (Late st Contact Info) Description 02/27/2024 Orders Only [facility] BCP OB [address] [facility] [place] [address] Gabby Stanton ND [address] [facility] [place] [address] Social History Tobacco Use Types Packs/Day Years [...] week 10/12/2022 How often do you attend catholic or mandaen serv ices? Never 10/12/2022 Do you belong to any clubs o r organizations such as catholic groups, unions, fraternal or athletic groups, or [...] Recorded Patient Health Questionnaire-2 Score 2 02/27/2023 [facility] - Occupational Stress Questionnaire Answer Date Recorded [...] a skilled nursing (including now)? No 10/12/2022 Comments Unknown Sex [...] [facility] [place] [address] Amanda Jaimes PA [address] [facility] [address] [place], [place] [phone] documented as of this encounter Procedures Procedure Name Priority Date/Time Associated Diagnosis Comments PAP SMEAR Routine 02/10/2024 12:00 AM EST documented in this encounter Results * Pap Smear (02/10/2024 12:00 AM EST) Swab Cervical swab / Unknown us Amanda [facility] CYTOLOGY ORDERABLES Final Re sult EXTERNAL LAB documented in this encounter Visit Diagnoses Not on filedocumented in this encounter Care Teams Photoengraving Supervisor Relationship Specialty Start Date End Date Tawny Gu MD [address] [place] [address] PCP - General Family Medicine 08/08/23 Amanda Jaimes PA [address] [place] [address] [place] [address] PCP - Medical [place] Commercial 01/12/24 02/10/99 documented as of this encounter
[2024-08-28 15:09] LABS: Beta-2 Glycoprotein I Ab, IgA <9 (0-25); Beta-2 Glycoprotein I Ab, IgG <9 (0-20); Beta-2 Glycoprotein I Ab, IgM 28 (0-32)
[2024-09-07 15:08] LABS: DILUTE RUSSELL'S VIPER VENOM 46.7 sec (.)
== END 2024-08-27 10:56 | disposition home or self-care (01) ==
LOC: LAB 10:57
PROVIDERS: PCP Nurse Practitioner Family; Visit Provider Obstetrics & Gynecology
DX: Z87.59 Personal history of other complications of pregnancy, childbirth and the puerperium (principal)
CPT/HCPCS: 36415; 85613; 86146; 86147; 86644; 86645; 86747; 86777; 86778